=== PATIENT | male | born 1975 | race Caucasian/White ===

== ENCOUNTER 2016-12-25 08:33 | Inpatient (IN) | payer OTHER ==
[2016-12-25 09:59] VITALS: BMI 34.7
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
[2016-12-25] MEDS ORDERED: P-EPHED 60MG/TRIPROLIDI 2.5MG TABLET PO PRN (14:24)
[2016-12-25] MEDS ORDERED: LOPERAMIDE HCL 2 MG CAPSULE PO PRN (14:24)
[2016-12-25] MEDS ORDERED: MAGNESIUM CITRATE 300 ML BOTTLE PO PRN (14:24)
[2016-12-25] MEDS ORDERED: IBUPROFEN 400 MG TABLET (FP) PO PRN (14:24)
[2016-12-25] MEDS ORDERED: guaiFENesin/D-METHORPHAN HB 10 ML UNIT-DOSE CUPS PO PRN (14:24)
[2016-12-25] MEDS ORDERED: ACETAMINOPHEN 325 MG TABLET (FP) PO PRN (14:24)
[2016-12-25] MEDS ORDERED: MAGNESIUM HYDROX 2400MG/30ML ORAL SUSPENSION 30 ML CUP PO PRN (14:24)
[2016-12-25] MEDS ORDERED: MAG HYDROX/AL HYDROX/SIMETH 30 ML UNIT-DOSE CUP PO PRN (14:24)
[2016-12-25] MEDS ORDERED: MENTHOL/PHENOL 1 EACH UD MM PRN (14:24)
[2016-12-25] MEDS ORDERED: diazePAM 5 MG TABLET PO ONE (14:48)
[2016-12-25] MEDS ORDERED: METHADONE HCL 10 MG TABLET (FOR DETOX USE ONLY) PO ONE ×2 (14:51→23:00)
[2016-12-25] MEDS: NICOTINE 14 MG/24 HOURS TOPICAL PATCH TD SCH (15:12)
[2016-12-25 17:46] LABS: URINE APPEARANCE CLEAR; URINE BILIRUBIN NEGATIVE (NEGATIVE); URINE BLOOD NEGATIVE (NEGATIVE); URINE COLOR YELLOW; URINE GLUCOSE (UA) NEGATIVE (NEGATIVE); URINE KETONE NEGATIVE (NEGATIVE); URINE LEUK ESTERASE NEGATIVE (NEGATIVE); URINE NITRITE NEGATIVE (NEGATIVE); URINE PROTEIN NEGATIVE (NEGATIVE); URINE UROBILINOGEN NEGATIVE E.U./dl (0.2-1.0)
[2016-12-25] MEDS: diphenhydrAMINE HCL 50 MG CAPSULE PO PRN (22:28)
[2016-12-25] MEDS: THIAMINE HCL 100 MG TABLET (FP) PO SCH (22:28)
[2016-12-25] MEDS: BUDESONIDE/FORMETEROL FUMARATE 80/4.5 mcg INHALER IH SCH (22:28)
[2016-12-25] MEDS: diazePAM 5 MG TABLET PO SCH (22:28)
[2016-12-26 03:24] LABS: HIV 1 & 2 AB NEGATIVE; HIV 1 AGp24 NEGATIVE
[2016-12-26] MEDS: diazePAM 5 MG TABLET PO SCH ×3 (05:55→22:35)
[2016-12-26] MEDS ORDERED: METHADONE HCL 10 MG TABLET (FOR DETOX USE ONLY) PO SCH (10:00)
[2016-12-26 10:07] LABS: MCH 32.3 pg (25.7-33.7); MCHC 33.1 g/dl (32.0-35.9); MEAN CELL VOLUME 97.5 fl (80-96); MEAN PLT VOLUME 10.1 fl (7.5-11.1); PLATELET COUNT 273 K/MM3 (134-434); RDW 13.4 % (11.9-15.9); WHITE BLOOD COUNT 14.3 K/mm3 (4.0-10.0)
[2016-12-26 10:16] LABS: ALBUMIN 4.6 g/dl (3.4-5.0); ANION GAP 12 (8-16); CALCIUM 8.7 mg/dL (8.5-10.1); CO2 26 mmol/L (21-32); GLUCOSE,RANDOM 144 mg/dL (74-106)
[2016-12-26 10:20] LABS: ALK PHOS 71 U/L (45-117); BILIRUBIN,TOTAL 0.8 mg/dL (0.2-1.0); COCKROFT - GAULT 108.65; CREATININE 1.3 mg/dL (0.7-1.3); SGOT/AST 29 U/L (15-37); SGPT/ALT 37 U/L (12-78); TOT PROT 8.5 g/dl (6.4-8.2)
[2016-12-26] MEDS: PRENATAL VITAMINS W/ FOLIC ACID TABLET (FP) PO SCH (10:28)
[2016-12-26] MEDS: LORATADINE 10 MG TABLET PO SCH (10:28)
[2016-12-26] MEDS: HYDROCHLOROTHIAZIDE 12.5 MG CAPSULE (FP) PO SCH (10:28)
[2016-12-26] MEDS: diazePAM 5 MG TABLET PO PRN ×2 (10:29→18:01)
[2016-12-26] MEDS: NICOTINE 14 MG/24 HOURS TOPICAL PATCH TD SCH (10:29)
[2016-12-26] MEDS: NICOTINE POLACRILEX 2 MG GUM BUC PRN ×2 (10:29→23:03)
--- NOTE | 2016-12-26 10:50 | PN ---
[facility] CIWA - CIWA Score Nausea/Vomitin Muscle Tremors: 3 Anxiety: 3 Agitation: 2 Paroxysmal Sweats: 1-Minimal Palms Moist Orientation: 0-Oriented Tacttile Disturbances: 1-Very Mild Itch/Numbness Auditory Disturbances: 1-Very Mild Visual Disturbances: 1-Very Mild Sensitivity Headache: 2-Mild CIWA-Ar Total Score: 17 S Progress Note (SOAP) Subjective: ALERT,IRRITABLE,ANXIOUS,TREMOR,INTERRUPTED SLEEP Objective: 12/26/16 10:47 Vital Signs Temperature 96.8 F L 12/26/16 09:25 Pulse Rate 64 12/26/16 09:25 Respiratory Rate 18 12/26/16 09:25 Blood Pressure 126/76 12/26/16 09:25 O2 Sat by Pulse Oximetry (%) EKG NSR,NORMAL ECG Laboratory Last Values WBC 14.3 K/mm3 (4.0-10.0) H D 12/26/16 06:00 RBC 4.96 M/mm3 (4.00-5.60) 12/26/16 06:00 Hgb 16.0 GM/dL (11.7-16.9) D 12/26/16 06:00 Hct 48.4 % (35.4-49) 12/26/16 06:00 MCV 97.5 fl (80-96) H 12/26/16 06:00 MCHC 33.1 g/dl (32.0-35.9) 12/26/16 06:00 RDW 13.4 % (11.9-15.9) 12/26/16 06:00 Plt Count 273 K/MM3 (134-434) 12/26/16 06:00 MPV 10.1 fl (7.5-11.1) 12/26/16 06:00 Sodium 136 mmol/L (136-145) 12/26/16 06:00 Potassium 3.8 mmol/L (3.5-5.1) 12/26/16 06:00 Chloride 98 mmol/L (98-107) 12/26/16 06:00 Carbon Dioxide 26 mmol/L (21-32) 12/26/16 06:00 Anion Gap 12 (8-16) 12/26/16 06:00 BUN 22 mg/dL (7-18) H D 12/26/16 06:00 Creatinine 1.3 mg/dL (0.7-1.3) D 12/26/16 06:00 Creat Clearance w eGFR > 60 (>60) 12/26/16 06:00 Random Glucose 144 mg/dL (74-106) H D 12/26/16 06:00 Calcium 8.7 mg/dL (8.5-10.1) 12/26/16 06:00 Total Bilirubin 0.8 mg/dL (0.2-1.0) D 12/26/16 06:00 AST 29 U/L (15-37) D 12/26/16 06:00 ALT 37 U/L (12-78) 12/26/16 06:00 Alkaline Phosphatase 71 U/L (45-117) D 12/26/16 06:00 Total Protein 8.5 g/dl (6.4-8.2) H D 12/26/16 06:00 Albumin 4.6 g/dl (3.4-5.0) D 12/26/16 06:00 Urine Color Yellow 12/25/16 17:00 Urine Appearance Clear 12/25/16 17:00 Urine pH 5.0 (5.0-8.0) 12/25/16 17:00 Ur Specific [place] 1.025 (1.005-1.025) 12/25/16 17:00 Urine Protein Negative (NEGATIVE) 12/25/16 17:00 Urine Glucose (UA) Negative (NEGATIVE) 12/25/16 17:00 Urine Ketones Negative (NEGATIVE) 12/25/16 17:00 Urine Blood Negative (NEGATIVE) 12/25/16 17:00 Urine Nitrite Negative (NEGATIVE) 12/25/16 17:00 Urine Bilirubin Negative (NEGATIVE) 12/25/16 17:00 Urine Urobilinogen Negative E.U./dl (0.2-1.0) 12/25/16 17:00 Ur Leukocyte Esterase Negative (NEGATIVE) 12/25/16 17:00 HIV 1&2 Antibody Screen Negative 12/25/16 11:30 HIV P24 Antigen Negative 12/25/16 11:30 Assessment: 12/26/16 10:48 WITHDRAWAL SYMPTOM Plan: CONTINUE DETOX,ENCOURAGE ORAL FLUID,REPEAT CBC ,BMP IN AM,INITIAL CBC WBC IS 14, 300.INITIAL GLUCOSE IS 144
[2016-12-26] MEDS: BUDESONIDE/FORMETEROL FUMARATE 80/4.5 mcg INHALER IH SCH ×2 (12:12→22:36)
--- NOTE | 2016-12-26 12:38 | EKG ---
Test Reason : Blood Pressure : / mmHG Vent. Rate : 063 BPM Atrial Rate : 063 BPM P-R Int : 156 ms QRS Dur : 092 ms QT Int : 416 ms P-R-T Axes : 063 061 039 degrees QTc Int : 425 ms NORMAL SINUS RHYTHM NORMAL ECG NO PREVIOUS ECGS AVAILABLE Confirmed by ALBA JOSEPH, SOHAIL ([id number]) on 12/26/2016 12:38:24 PM Referred By: Rafita Monzon Confirmed By:SOHAIL WILLIS MD
--- NOTE | 2016-12-26 14:29 | CONSULT ---
[facility] Psychiatric Consult - Data Date of interview: 12/26/16 Admission source: [facility] Identifying data: Readmission to [facility] for this 39 y/o male seeking detoxification treatment for cocaine,marijuana and methamphetamine dependence.Patient is single,a father of one,domiciled,unemployed and supported on SSI benefits. Substance Abuse History: - Smoking Cessation. Smoking history: Current every day smoker. Have you smoked in the past 12 months: Yes. Aproximately how many cigarettes per day: 10. Cigars Per Day: 0. Hx Chewing Tobacco Use: No. Initiated information on smoking cessation: Yes. 'Breaking Loose' booklet given : 12/25/16. - Substance & Tx. History. Hx Alcohol Use: Yes (BEER). Hx Substance Use: Yes (HEROIN/COCAINE/CRYSTAL METHAMPHETAMINE). Substance Use Type : Alcohol, Cocaine, Heroin. Hx Substance Use Treatment: Yes ([facility]-DETOX). - Substances Abused. Heroin. Route: Inhalation. Frequency: Daily. Amount used: 6 bags. Age of first use: 37. Date of Last Use: 12/25/16. Crack. Route: Smoking. Frequency: Daily. Amount used: $100. Age of first use: 19. Date of Last Use: 12/24/16. Alcohol-beer. Route: Oral. Frequency: 1-2 times per week. Amount used: 3 (16 oz.). Age of first use: 20. Date of Last Use: 12/23/16. Crystal methamphetamine. Route: Smoking. Frequency: 1-2 times per week. Amount used: $150. Age of first use: 37. Date of Last Use: . Confirmed by patient. Medical History: Hypertension,seizure disorder and bronchial asthma. Psychiatric History: Extensive history of psychiatric illness.Diagnosed with Bipolar Disorder and ADHD.History of multiple admissions to various institutions.Treated at [facility] in September 2016.Maintenance medications consist of valproate + zoloft (doses not recalled) .Mr Rodriguez is followed at the [facility] health clinic.Chronic history of non-adherence to medications.Remote history of suicide attempt via self mutilation (wrist-cutting). Physical/Sexual Abuse/Trauma History: Not discussed in this encounter. Additional Comment: Urine Drug Screen Results: OPI-Opiates.Noted. Mental Status Exam - Mental Status Exam Alert and Oriented to: Time, Place, Person Cognitive Function: Good Patient Appearance: Well Groomed Mood: Hopeful, Euthymic Affect: Appropriate, Normal Range Patient Behavior: Fatigued, Appropriate, Cooperative Speech Pattern: Clear, Appropriate Voice Loudness: Normal Thought Process: Goal Oriented Thought Disorder: Not Present Hallucinations: Denies Suicidal Ideation: Denies Homicidal Ideation: Denies Insight/Judgement: Poor Sleep: Well Appetite: Good Muscle strength/Tone: Normal Gait/Station: Normal Psychiatric Findings - Problem List ([place] 1, 2,3) (1) Alcohol dependence with withdrawal Current Visit: Yes Status: Acute Qualifiers: Complication of substance-induced condition: uncomplicated Qualified Code(s): F10.230 - Alcohol dependence with withdrawal, uncomplicated (2) Nicotine dependence Current Visit: Yes Status: Acute Qualifiers: Nicotine product type: cigarettes Substance use status: uncomplicated Qualified Code(s): F17.210 - Nicotine dependence, cigarettes, uncomplicated (3) Cocaine dependence Current Visit: Yes Status: Acute Qualifiers: Substance use status: uncomplicated Qualified Code(s): F14.20 - Cocaine dependence, uncomplicated (4) ADHD (attention deficit hyperactivity disorder) Current Visit: Yes Status: Chronic Qualifiers: Attention deficit-hyperactivity disorder type: unspecified Qualified Code(s): F90.9 - Attention-deficit hyperactivity disorder, unspecified type (5) Bipolar disorder Current Visit: Yes Status: Chronic - Initial Treatment Plan Initial Treatment Plan: Psychoeducation.Detoxification.Medications : depakote 500 mg po bid + zoloft 50 mg po daily.Side effects/benefits discussed with patient.He agrees with careplan.Observation.
[2016-12-26] MEDS: DIVALPROEX SODIUM 500 MG TABLET E.C. PO SCH (22:35)
[2016-12-26] MEDS: THIAMINE HCL 100 MG TABLET (FP) PO SCH (22:37)
[2016-12-26] MEDS: diphenhydrAMINE HCL 50 MG CAPSULE PO PRN (22:37)
[2016-12-27] MEDS: diazePAM 5 MG TABLET PO PRN ×4 (05:54→20:53)
[2016-12-27 09:59] LABS: MCH 33.2 pg (25.7-33.7); MCHC 34.1 g/dl (32.0-35.9); MEAN CELL VOLUME 97.5 fl (80-96); MEAN PLT VOLUME 9.8 fl (7.5-11.1); PLATELET COUNT 206 K/MM3 (134-434); RDW 13.3 % (11.9-15.9); WHITE BLOOD COUNT 11.3 K/mm3 (4.0-10.0)
[2016-12-27 10:10] LABS: CALCIUM 8.2 mg/dL (8.5-10.1); COCKROFT - GAULT 156.95; CREATININE 0.9 mg/dL (0.7-1.3)
[2016-12-27] MEDS: BUDESONIDE/FORMETEROL FUMARATE 80/4.5 mcg INHALER IH SCH ×2 (10:14→22:19)
[2016-12-27] MEDS: NICOTINE 14 MG/24 HOURS TOPICAL PATCH TD SCH (10:15)
[2016-12-27] MEDS: HYDROCHLOROTHIAZIDE 12.5 MG CAPSULE (FP) PO SCH (10:15)
[2016-12-27] MEDS: diazePAM 5 MG TABLET PO SCH ×2 (10:15→22:30)
[2016-12-27] MEDS: PRENATAL VITAMINS W/ FOLIC ACID TABLET (FP) PO SCH (10:15)
[2016-12-27] MEDS: METHADONE HCL 5 MG TABLET (FOR DETOX USE ONLY) PO SCH (10:15)
[2016-12-27] MEDS: LORATADINE 10 MG TABLET PO SCH (10:15)
[2016-12-27] MEDS: DIVALPROEX SODIUM 500 MG TABLET E.C. PO SCH ×2 (10:15→22:19)
[2016-12-27] MEDS: SERTRALINE HCL 50 MG TABLET (FP) PO SCH (10:15)
--- NOTE | 2016-12-27 11:31 | PN ---
[facility] CIWA - CIWA Score Nausea/Vomitin Muscle Tremors: 4-Moderate,w/Arms Extend Anxiety: 2 Agitation: 2 Paroxysmal Sweats: 3 Orientation: 0-Oriented Tacttile Disturbances: 0-None Auditory Disturbances: 2-Mild Harshness/Frighten Visual Disturbances: 2-Mild Sensitivity Headache: 0-None Present CIWA-Ar Total Score: 17 S COWS - Scale Resting Pulse: 0= [place] 80 or Below Sweatin= Chills/Flushing Restless Observation: 1= Difficult to Sit Still Pupil Size: 0= Normal to Room Light Bone or Joint Aches: 2= Severe Diffuse Aches Runny Nose/ Eye Tearin= Runny Nose/Eyes GI Upset > 30mins: 1= Stomach Cramp Tremor Observation of Outstretched Hands: 2= Slight Tremor Visible Yawning Observation: 1= 1-2x During Session Anxiety or Irritability: 2=Irritable/Anxious Goose Flesh Skin: 0=Smooth Skin COWS Score: 12 [facility] Progress Note (SOAP) Subjective: Constipation, Fatigue, Stomach Cramping, Tremors, Body Aches, Sweating. Objective: PT. A & O X 3, OBSERVED AMBULATING ON UNIT. PT. DENIES CHEST PAIN. 12/27/16 11:29 Vital Signs Temperature 96.7 F L 12/27/16 09:06 Pulse Rate 68 12/27/16 09:06 Respiratory Rate 18 12/27/16 09:06 Blood Pressure 135/85 12/27/16 09:06 O2 Sat by Pulse Oximetry (%) Laboratory Tests 12/25/16 12/25/16 12/26/16 11:30 17:00 06:00 WBC 14.3 H D RBC 4.96 Hgb 16.0 D Hct 48.4 MCV 97.5 H MCHC 33.1 RDW 13.4 Plt Count 273 MPV 10.1 Sodium Potassium Chloride Carbon Dioxide Anion Gap BUN Creatinine Creat Clearance w eGFR Random Glucose Fasting Glucose Calcium Total Bilirubin AST ALT Alkaline Phosphatase Total Protein Albumin Urine Color Yellow Urine Appearance Clear Urine pH 5.0 Ur Specific [place] 1.025 Urine Protein Negative Urine Glucose (UA) Negative Urine Ketones Negative Urine Blood Negative Urine Nitrite Negative Urine Bilirubin Negative Urine Urobilinogen Negative Ur Leukocyte Esterase Negative RPR Titer HIV 1&2 Antibody Screen Negative HIV P24 Antigen Negative 12/26/16 12/26/1612/27/17 06:00 06:00 07:00 WBC 11.3 H RBC 4.14 Hgb 13.7 D Hct 40.3 D MCV 97.5 H MCHC 34.1 RDW 13.3 Plt Count 206 D MPV 9.8 Sodium 136 Potassium 3.8 Chloride 98 Carbon Dioxide 26 Anion Gap 12 BUN 22 H D Creatinine 1.3 D Creat Clearance w eGFR > 60 Random Glucose 144 H D Fasting Glucose Calcium 8.7 Total Bilirubin 0.8 D AST 29 D ALT 37 Alkaline Phosphatase 71 D Total Protein 8.5 H D Albumin 4.6 D Urine Color Urine Appearance Urine pH Ur Specific [place] Urine Protein Urine Glucose (UA) Urine Ketones Urine Blood Urine Nitrite Urine Bilirubin Urine Urobilinogen Ur Leukocyte Esterase RPR Titer Nonreactive HIV 1&2 Antibody Screen HIV P24 Antigen 12/27/16 07:00 WBC RBC Hgb Hct MCV MCHC RDW Plt Count MPV Sodium 138 Potassium 4.0 Chloride 102 Carbon Dioxide 28 Anion Gap 8 BUN 18 Creatinine 0.9 D Creat Clearance w eGFR Random Glucose 177 H D Fasting Glucose 177 H Calcium 8.2 L Total Bilirubin AST ALT Alkaline Phosphatase Total Protein Albumin Urine Color Urine Appearance Urine pH Ur Specific [place] Urine Protein Urine Glucose (UA) Urine Ketones Urine Blood Urine Nitrite Urine Bilirubin Urine Urobilinogen Ur Leukocyte Esterase RPR Titer HIV 1&2 Antibody Screen HIV P24 Antigen LABS NOTED. 12/27/16 11:31 Assessment: 12/27/16 11:30 WITHDRAWAL SYMPTOMS. Plan: CONTINUE DETOX. BGM BIDAC WITH REGULAR INSULIN SLIDING SCALE FOR ELEVATED ADMISSION RANDOM GLUCOSE LEVEL AND SUBSEQUENT FASTING GLUCOSE LEVEL. HGBA1C ORDERED. INCREASE PO FLUIDS. PRN MOM FOR CONSTIPATION. ADVISED PT. TO FOLLOW-UP WITH [facility] [employer] AFTER DISCHARGE FROM DETOX FOR GENERAL MEDICAL ASSESSMENT AND FOR ELEVATED RANDOM AND FASTING GLUCOSE LEVELS.
[2016-12-27] MEDS: NICOTINE POLACRILEX 2 MG GUM BUC PRN (12:21)
[2016-12-27] MEDS: PANTOPRAZOLE 40 MG TABLET (FP) PO SCH (12:24)
[2016-12-27] MEDS ORDERED: INSULIN (NOVOLOG) ASPART 100 UNITS/ML 10ML VIAL ONE (16:28)
[2016-12-27] MEDS: INSULIN SLIDING SCALE (NOVOLOG) 1 VIAL SQ SCH (16:50)
[2016-12-27] MEDS: ALBUTEROL SO4 6.7 GM HFA INHALER IH PRN (20:53)
[2016-12-27] MEDS: THIAMINE HCL 100 MG TABLET (FP) PO SCH (22:19)
[2016-12-27] MEDS: diphenhydrAMINE HCL 50 MG CAPSULE PO PRN (22:20)
[2016-12-28] MEDS: diazePAM 5 MG TABLET PO PRN (04:14)
[2016-12-28] MEDS: ALBUTEROL SO4 6.7 GM HFA INHALER IH PRN (05:58)
[2016-12-28] MEDS: INSULIN SLIDING SCALE (NOVOLOG) 1 VIAL SQ SCH ×2 (06:52→16:44)
[2016-12-28] MEDS: BUDESONIDE/FORMETEROL FUMARATE 80/4.5 mcg INHALER IH SCH ×2 (10:16→22:13)
[2016-12-28] MEDS: PRENATAL VITAMINS W/ FOLIC ACID TABLET (FP) PO SCH (10:17)
[2016-12-28] MEDS: LORATADINE 10 MG TABLET PO SCH (10:17)
[2016-12-28] MEDS: HYDROCHLOROTHIAZIDE 12.5 MG CAPSULE (FP) PO SCH (10:17)
[2016-12-28] MEDS: PANTOPRAZOLE 40 MG TABLET (FP) PO SCH (10:17)
[2016-12-28] MEDS: SERTRALINE HCL 50 MG TABLET (FP) PO SCH (10:17)
[2016-12-28] MEDS: METHADONE HCL 5 MG TABLET (FOR DETOX USE ONLY) PO SCH (10:17)
[2016-12-28] MEDS: DIVALPROEX SODIUM 500 MG TABLET E.C. PO SCH ×2 (10:17→22:14)
[2016-12-28] MEDS: NICOTINE 14 MG/24 HOURS TOPICAL PATCH TD SCH (10:19)
[2016-12-28] MEDS: diazePAM 5 MG TABLET PO SCH ×2 (10:19→22:14)
--- NOTE | 2016-12-28 12:31 | PN ---
[facility] Progress Note (SOAP) Subjective: Sweating,interrupted sleep,restless Objective: 12/28/16 12:30 Vital Signs - 8 hr 12/28/16 12/28/16 06:13 09:17 Temperature 97.2 F L 97.1 F L Pulse Rate 63 70 Respiratory 146 H 18 Rate Blood Pressure 130/72 133/81 Laboratory Tests 12/25/16 12/25/16 12/26/16 11:30 17:00 06:00 WBC 14.3 H D RBC 4.96 Hgb 16.0 D Hct 48.4 MCV 97.5 H MCHC 33.1 RDW 13.4 Plt Count 273 MPV 10.1 Sodium Potassium Chloride Carbon Dioxide Anion Gap BUN Creatinine Creat Clearance w eGFR POC Glucometer Random Glucose Fasting Glucose Hemoglobin A1c % Calcium Total Bilirubin AST ALT Alkaline Phosphatase Total Protein Albumin Urine Color Yellow Urine Appearance Clear Urine pH 5.0 Ur Specific [place] 1.025 Urine Protein Negative Urine Glucose (UA) Negative Urine Ketones Negative Urine Blood Negative Urine Nitrite Negative Urine Bilirubin Negative Urine Urobilinogen Negative Ur Leukocyte Esterase Negative Valproic Acid RPR Titer HIV 1&2 Antibody Screen Negative HIV P24 Antigen Negative 12/26/16 12/26/16 12/27/16 06:00 06:00 07:00 WBC 11.3 H RBC 4.14 Hgb 13.7 D Hct 40.3 D MCV 97.5 H MCHC 34.1 RDW 13.3 Plt Count 206 D MPV 9.8 Sodium 136 Potassium 3.8 Chloride 98 Carbon Dioxide 26 Anion Gap 12 BUN 22 H D Creatinine 1.3 D Creat Clearance w eGFR > 60 POC Glucometer Random Glucose 144 H D Fasting Glucose Hemoglobin A1c % Calcium 8.7 Total Bilirubin 0.8 D AST 29 D ALT 37 Alkaline Phosphatase 71 D Total Protein 8.5 H D Albumin 4.6 D Urine Color Urine Appearance Urine pH Ur Specific [place] Urine Protein Urine Glucose (UA) Urine Ketones Urine Blood Urine Nitrite Urine Bilirubin Urine Urobilinogen Ur Leukocyte Esterase Valproic Acid RPR Titer Nonreactive HIV 1&2 Antibody Screen HIV P24 Antigen 12/27/16 12/27/16 12/28/16 07:00 16:15 05:38 WBC RBC Hgb Hct MCV MCHC RDW Plt Count MPV Sodium 138 Potassium 4.0 Chloride 102 Carbon Dioxide 28 Anion Gap 8 BUN 18 Creatinine 0.9 D Creat Clearance w eGFR POC Glucometer 183 119 Random Glucose 177 H D Fasting Glucose 177 H Hemoglobin A1c % Calcium 8.2 L Total Bilirubin AST ALT Alkaline Phosphatase Total Protein Albumin Urine Color Urine Appearance Urine pH Ur Specific [place] Urine Protein Urine Glucose (UA) Urine Ketones Urine Blood Urine Nitrite Urine Bilirubin Urine Urobilinogen Ur Leukocyte Esterase Valproic Acid RPR Titer HIV 1&2 Antibody Screen HIV P24 Antigen 12/28/16 12/28/16 07:00 07:00 WBC RBC Hgb Hct MCV MCHC RDW Plt Count MPV Sodium Potassium Chloride Carbon Dioxide Anion Gap BUN Creatinine Creat Clearance w eGFR POC Glucometer Random Glucose Fasting Glucose Hemoglobin A1c % 6.1 H Calcium Total Bilirubin AST ALT Alkaline Phosphatase Total Protein Albumin Urine Color Urine Appearance Urine pH Ur Specific [place] Urine Protein Urine Glucose (UA) Urine Ketones Urine Blood Urine Nitrite Urine Bilirubin Urine Urobilinogen Ur Leukocyte Esterase Valproic Acid 67.515 RPR Titer HIV 1&2 Antibody Screen HIV P24 Antigen labs noted Assessment: 12/28/16 12:30 Withdrawal sx. Plan: Continue detox
[2016-12-28] MEDS ORDERED: INSULIN (NOVOLOG) ASPART 100 UNITS/ML 10ML VIAL ONE (16:29)
[2016-12-28] MEDS: NICOTINE POLACRILEX 2 MG GUM BUC PRN ×2 (18:59→22:15)
[2016-12-28] MEDS ORDERED: hydrOXYzine PAMOATE 50 MG CAPSULE (FP) PO ONE (20:10)
[2016-12-28] MEDS: THIAMINE HCL 100 MG TABLET (FP) PO SCH (22:13)
[2016-12-28] MEDS: diphenhydrAMINE HCL 50 MG CAPSULE PO PRN (22:14)
[2016-12-29] MEDS ORDERED: hydrOXYzine PAMOATE 50 MG CAPSULE (FP) PO PRN (00:57)
[2016-12-29] MEDS: INSULIN SLIDING SCALE (NOVOLOG) 1 VIAL SQ SCH ×2 (08:18→17:22)
[2016-12-29] MEDS ORDERED: INSULIN (NOVOLOG) ASPART 100 UNITS/ML 10ML VIAL ONE ×2 (08:51→17:16)
[2016-12-29] MEDS ORDERED: diazePAM 5 MG TABLET PO SCH (10:00)
[2016-12-29] MEDS ORDERED: METHADONE HCL 10 MG TABLET (FOR DETOX USE ONLY) PO SCH (10:00)
[2016-12-29] MEDS: BUDESONIDE/FORMETEROL FUMARATE 80/4.5 mcg INHALER IH SCH ×2 (10:08→22:04)
[2016-12-29] MEDS: SERTRALINE HCL 50 MG TABLET (FP) PO SCH (10:08)
[2016-12-29] MEDS: PRENATAL VITAMINS W/ FOLIC ACID TABLET (FP) PO SCH (10:08)
[2016-12-29] MEDS: PANTOPRAZOLE 40 MG TABLET (FP) PO SCH (10:08)
[2016-12-29] MEDS: LORATADINE 10 MG TABLET PO SCH (10:08)
[2016-12-29] MEDS: DIVALPROEX SODIUM 500 MG TABLET E.C. PO SCH ×2 (10:08→22:04)
[2016-12-29] MEDS: HYDROCHLOROTHIAZIDE 12.5 MG CAPSULE (FP) PO SCH (10:08)
[2016-12-29] MEDS: NICOTINE 14 MG/24 HOURS TOPICAL PATCH TD SCH (10:09)
[2016-12-29] MEDS: NICOTINE POLACRILEX 2 MG GUM BUC PRN ×2 (10:11→13:42)
--- NOTE | 2016-12-29 10:50 | PN ---
[facility] Progress Note (SOAP) Subjective: shakes, sweats, anxiety, bone pain Objective: 12/29/16 10:49 Vital Signs - 8 hr 12/29/16 12/29/16 12/29/16 03:30 06:21 10:17 Temperature 97 F L 97.1 F L Pulse Rate 61 61 Respiratory 18 16 18 Rate Blood Pressure 136/87 137/80 Laboratory Last Values WBC 11.3 K/mm3 (4.0-10.0) H 12/27/16 07:00 RBC 4.14 M/mm3 (4.00-5.60) 12/27/16 07:00 Hgb 13.7 GM/dL (11.7-16.9) D 12/27/16 07:00 Hct 40.3 % (35.4-49) D 12/27/16 07:00 MCV 97.5 fl (80-96) H 12/27/16 07:00 MCHC 34.1 g/dl (32.0-35.9) 12/27/16 07:00 RDW 13.3 % (11.9-15.9) 12/27/16 07:00 Plt Count 206 K/MM3 (134-434) D 12/27/16 07:00 MPV 9.8 fl (7.5-11.1) 12/27/16 07:00 Sodium 138 mmol/L (136-145) 12/27/16 07:00 Potassium 4.0 mmol/L (3.5-5.1) 12/27/16 07:00 Chloride 102 mmol/L (98-107) 12/27/16 07:00 Carbon Dioxide 28 mmol/L (21-32) 12/27/16 07:00 Anion Gap 8 (8-16) 12/27/16 07:00 BUN 18 mg/dL (7-18) 12/27/16 07:00 Creatinine 0.9 mg/dL (0.7-1.3) D 12/27/16 07:00 Creat Clearance w eGFR > 60 (>60) 12/26/16 06:00 POC Glucometer 168 UNITS (()) 12/29/16 05:45 Random Glucose 177 mg/dL (74-106) H D 12/27/16 07:00 Fasting Glucose 177 mg/dL (70-105) H 12/27/16 07:00 Hemoglobin A1c % 6.1 % (4.8-6.0) H 12/28/16 07:00 Calcium 8.2 mg/dL (8.5-10.1) L 12/27/16 07:00 Total Bilirubin 0.8 mg/dL (0.2-1.0) D 12/26/16 06:00 AST 29 U/L (15-37) D 12/26/16 06:00 ALT 37 U/L (12-78) 12/26/16 06:00 Alkaline Phosphatase 71 U/L (45-117) D 12/26/16 06:00 Total Protein 8.5 g/dl (6.4-8.2) H D 12/26/16 06:00 Albumin 4.6 g/dl (3.4-5.0) D 12/26/16 06:00 Urine Color Yellow 12/25/16 17:00 Urine Appearance Clear 12/25/16 17:00 Urine pH 5.0 (5.0-8.0) 12/25/16 17:00 Ur Specific [place] 1.025 (1.005-1.025) 12/25/16 17:00 Urine Protein Negative (NEGATIVE) 12/25/16 17:00 Urine Glucose (UA) Negative (NEGATIVE) 12/25/16 17:00 Urine Ketones Negative (NEGATIVE) 12/25/16 17:00 Urine Blood Negative (NEGATIVE) 12/25/16 17:00 Urine Nitrite Negative (NEGATIVE) 12/25/16 17:00 Urine Bilirubin Negative (NEGATIVE) 12/25/16 17:00 Urine Urobilinogen Negative E.U./dl (0.2-1.0) 12/25/16 17:00 Ur Leukocyte Esterase Negative (NEGATIVE) 12/25/16 17:00 Valproic Acid 67.515 ug/ml (50-100) 12/28/16 07:00 RPR Titer Nonreactive (NONREACTIVE) 12/26/16 06:00 HIV 1&2 Antibody Screen Negative 12/25/16 11:30 HIV P24 Antigen Negative 12/25/16 11:30 labs noted Assessment: 12/29/16 10:50 withdrawal sx Plan: continue detox
[2016-12-29] MEDS: HYDROCHLOROTHIAZIDE 25 MG TABLET (FP) PO SCH (22:04)
[2016-12-29] MEDS: THIAMINE HCL 100 MG TABLET (FP) PO SCH (22:05)
[2016-12-29] MEDS: diphenhydrAMINE HCL 50 MG CAPSULE PO PRN (22:06)
[2016-12-30] MEDS ORDERED: INSULIN (NOVOLOG) ASPART 100 UNITS/ML 10ML VIAL ONE (05:30)
[2016-12-30] MEDS ORDERED: METHADONE HCL 5 MG TABLET (FOR DETOX USE ONLY) PO SCH (06:00)
[2016-12-30] MEDS: INSULIN SLIDING SCALE (NOVOLOG) 1 VIAL SQ SCH (07:03)
[2016-12-30] MEDS: BUDESONIDE/FORMETEROL FUMARATE 80/4.5 mcg INHALER IH SCH (10:07)
[2016-12-30] MEDS: NICOTINE 14 MG/24 HOURS TOPICAL PATCH TD SCH (10:08)
[2016-12-30] MEDS: DIVALPROEX SODIUM 500 MG TABLET E.C. PO SCH (10:08)
[2016-12-30] MEDS: HYDROCHLOROTHIAZIDE 25 MG TABLET (FP) PO SCH (10:08)
[2016-12-30] MEDS: SERTRALINE HCL 50 MG TABLET (FP) PO SCH (10:08)
[2016-12-30] MEDS: PRENATAL VITAMINS W/ FOLIC ACID TABLET (FP) PO SCH (10:08)
[2016-12-30] MEDS: PANTOPRAZOLE 40 MG TABLET (FP) PO SCH (10:08)
[2016-12-30] MEDS: LORATADINE 10 MG TABLET PO SCH (10:08)
[2016-12-30 10:16] VITALS: BP 115/75; PULSE 73; TEMP 96.6
--- NOTE | 2016-12-30 12:31 | DS ---
[facility] Detox Discharge Summary Admission Date: 12/25/16 Discharge Date: 12/30/16 - History Present History: Alcohol Dependence, Cocaine Dependence, Opioid Dependence Pertinent Past History: Asthma, mild intermittent GERD HTN Seizure disorder Allergic rhinitis - Physical Exam Results Vital Signs: Vital Signs Temperature 96.6 F L 12/30/16 10:16 Pulse Rate 73 12/30/16 10:16 Respiratory Rate 20 12/30/16 10:16 Blood Pressure 115/75 12/30/16 10:16 O2 Sat by Pulse Oximetry (%) Pertinent Admission Physical Exam Findings: Withdrawal symptoms Laboratory Tests 12/25/16 12/25/16 12/26/16 11:30 17:00 06:00 WBC 14.3 H D RBC 4.96 Hgb 16.0 D Hct 48.4 MCV 97.5 H MCHC 33.1 RDW 13.4 Plt Count 273 MPV 10.1 Sodium Potassium Chloride Carbon Dioxide Anion Gap BUN Creatinine Creat Clearance w eGFR POC Glucometer Random Glucose Fasting Glucose Hemoglobin A1c % Calcium Total Bilirubin AST ALT Alkaline Phosphatase Total Protein Albumin Urine Color Yellow Urine Appearance Clear Urine pH 5.0 Ur Specific [place] 1.025 Urine Protein Negative Urine Glucose (UA) Negative Urine Ketones Negative Urine Blood Negative Urine Nitrite Negative Urine Bilirubin Negative Urine Urobilinogen Negative Ur Leukocyte Esterase Negative Valproic Acid RPR Titer HIV 1&2 Antibody Screen Negative HIV P24 Antigen Negative 12/26/16 12/26/16 12/27/16 06:00 06:00 07:00 WBC 11.3 H RBC 4.14 Hgb 13.7 D Hct 40.3 D MCV 97.5 H MCHC 34.1 RDW 13.3 Plt Count 206 D MPV 9.8 Sodium 136 Potassium 3.8 Chloride 98 Carbon Dioxide 26 Anion Gap 12 BUN 22 H D Creatinine 1.3 D Creat Clearance w eGFR > 60 POC Glucometer Random Glucose 144 H D Fasting Glucose Hemoglobin A1c % Calcium 8.7 Total Bilirubin 0.8 D AST 29 D ALT 37 Alkaline Phosphatase 71 D Total Protein 8.5 H D Albumin 4.6 D Urine Color Urine Appearance Urine pH Ur Specific [place] Urine Protein Urine Glucose (UA) Urine Ketones Urine Blood Urine Nitrite Urine Bilirubin Urine Urobilinogen Ur Leukocyte Esterase Valproic Acid RPR Titer Nonreactive HIV 1&2 Antibody Screen HIV P24 Antigen 12/27/16 12/27/16 12/28/16 07:00 16:15 05:38 WBC RBC Hgb Hct MCV MCHC RDW Plt Count MPV Sodium 138 Potassium 4.0 Chloride 102 Carbon Dioxide 28 Anion Gap 8 BUN 18 Creatinine 0.9 D Creat Clearance w eGFR POC Glucometer 183 119 Random Glucose 177 H D Fasting Glucose 177 H Hemoglobin A1c % Calcium 8.2 L Total Bilirubin AST ALT Alkaline Phosphatase Total Protein Albumin Urine Color Urine Appearance Urine pH Ur Specific [place] Urine Protein Urine Glucose (UA) Urine Ketones Urine Blood Urine Nitrite Urine Bilirubin Urine Urobilinogen Ur Leukocyte Esterase Valproic Acid RPR Titer HIV 1&2 Antibody Screen HIV P24 Antigen 12/28/16 12/28/16 12/28/16 07:00 07:00 16:05 WBC RBC Hgb Hct MCV MCHC RDW Plt Count MPV Sodium Potassium Chloride Carbon Dioxide Anion Gap BUN Creatinine Creat Clearance w eGFR POC Glucometer 207 Random Glucose Fasting Glucose Hemoglobin A1c % 6.1 H Calcium Total Bilirubin AST ALT Alkaline Phosphatase Total Protein Albumin Urine Color Urine Appearance Urine pH Ur Specific [place] Urine Protein Urine Glucose (UA) Urine Ketones Urine Blood Urine Nitrite Urine Bilirubin Urine Urobilinogen Ur Leukocyte Esterase Valproic Acid 67.515 RPR Titer HIV 1&2 Antibody Screen HIV P24 Antigen 12/29/16 12/29/16 12/30/16 05:45 16:17 05:28 WBC RBC Hgb Hct MCV MCHC RDW Plt Count MPV Sodium Potassium Chloride Carbon Dioxide Anion Gap BUN Creatinine Creat Clearance w eGFR POC Glucometer 168 222 274 Random Glucose Fasting Glucose Hemoglobin A1c % Calcium Total Bilirubin AST ALT Alkaline Phosphatase Total Protein Albumin Urine Color Urine Appearance Urine pH Ur Specific [place] Urine Protein Urine Glucose (UA) Urine Ketones Urine Blood Urine Nitrite Urine Bilirubin Urine Urobilinogen Ur Leukocyte Esterase Valproic Acid RPR Titer HIV 1&2 Antibody Screen HIV P24 Antigen Labs noted - Treatment Hospital Course: Detox Protocol Followed, Detoxed Safely, Responded well, Discharged Condition Good - Medication Discharge Medications: Ambulatory Orders Albuterol Sulfate Inhaler - [Ventolin HFA Inhaler -] 2 inh PO Q4H PRN #1 inhaler 02/18/16 Fluticasone/Salmeterol [Advair 250-50 Diskus] 1 each IH BID #1 disk.w.dev Ascorbic Acid [Vitamin C -] 500 mg PO BID 12/25/16 Divalproex Sodium 500 mg PO BID 12/25/16 Hydrochlorothiazide [Hctz -] 12.5 mg PO DAILY 12/25/16 Loratadine [Claritin -] 10 mg PO DAILY 12/25/16 Melatonin [Melatonin (Nf)] 6 mg PO HS PRN 12/25/16 Sertraline HCl [Zoloft -] 50 mg PO DAILY 12/25/16 - Diagnosis (1) Alcohol dependence with uncomplicated withdrawal Status: Acute (2) Cocaine dependence Status: Chronic Qualifiers: Substance use status: uncomplicated Qualified Code(s): F14.20 - Cocaine dependence, uncomplicated (3) Nicotine dependence Status: Chronic Qualifiers: Nicotine product type: cigarettes Substance use status: uncomplicated Qualified Code(s): F17.210 - Nicotine dependence, cigarettes, uncomplicated (4) Opioid dependence with withdrawal Status: Acute (5) Seizure Status: Chronic (6) HTN (hypertension), benign Status: Chronic (7) Asthma, mild intermittent Status: Chronic (8) GERD (gastroesophageal reflux disease) Status: Acute (9) Allergic rhinitis Status: Acute (10) Depression Status: Chronic - AMA Did Patient Leave Against Medical Advice: No
== END 2016-12-30 11:46 | disposition other institution (70) | DRG 773 ==
LOC: YASAS 08:33 → Y3N 11:06 → UNDOADMIN 11:06 → Y3N 11:07
PROVIDERS: ADMIT Internal Medicine; ATTEND Internal Medicine
PROC: HZ2ZZZZ Detoxification Services for Substance Abuse Treatment (ICD-10-PCS; principal; 2016-12-25)
DX: F11.23 Opioid dependence with withdrawal (principal); F10.230 Alcohol dependence with withdrawal, uncomplicated; F14.20 Cocaine dependence, uncomplicated; F17.210 Nicotine dependence, cigarettes, uncomplicated; F31.9 Bipolar disorder, unspecified; F90.9 Attention-deficit hyperactivity disorder, unspecified type; F32.9 Major depressive disorder, single episode, unspecified; I10 Essential (primary) hypertension; J45.20 Mild intermittent asthma, uncomplicated; J30.9 Allergic rhinitis, unspecified; E66.9 Obesity, unspecified; Z68.34 Body mass index [BMI] 34.0-34.9, adult; Z86.69 Personal history of other diseases of the nervous system and sense organs
CPT/HCPCS: 36415; 80048; 80053; 80164; 81003; 82947; 83036; 85027; 86593; 87389; 93005; 93010

== ENCOUNTER 2016-12-30 12:13 | Inpatient (IN) | payer OTHER ==
[2016-12-30] MEDS ORDERED: P-EPHED 60MG/TRIPROLIDI 2.5MG TABLET PO PRN (16:23)
[2016-12-30] MEDS ORDERED: ACETAMINOPHEN 325 MG TABLET (FP) PO PRN (16:23)
[2016-12-30] MEDS ORDERED: LOPERAMIDE HCL 2 MG CAPSULE PO PRN (16:23)
[2016-12-30] MEDS ORDERED: guaiFENesin/D-METHORPHAN HB 10 ML UNIT-DOSE CUPS PO PRN (16:23)
[2016-12-30] MEDS ORDERED: IBUPROFEN 400 MG TABLET (FP) PO PRN (16:23)
[2016-12-30] MEDS ORDERED: ALBUTEROL SO4 6.7 GM HFA INHALER IH PRN (16:23)
[2016-12-30] MEDS ORDERED: MAGNESIUM HYDROX 2400MG/30ML ORAL SUSPENSION 30 ML CUP PO PRN (16:23)
[2016-12-30] MEDS ORDERED: MENTHOL/PHENOL 1 EACH UD MM PRN (16:23)
[2016-12-30] MEDS ORDERED: MAGNESIUM CITRATE 300 ML BOTTLE PO PRN (16:23)
--- NOTE | 2016-12-30 16:26 | HP ---
[facility] Rehab Assess/Revision - Admission History Admitted to Rehab from: Y [facility] Date of Admission to Rehab: 12/30/16 - Vital signs Vital Signs: Vital Signs Period Temp Pulse Resp BP Sys/Aparicio Pulse Ox Last 24 Hr 98.7 F 71 18 127/81 - Findings Detox History & Physical reviewed: Yes Concur with findings: Yes
[2016-12-30] MEDS ORDERED: PNEUMOC 13-VAL CONJ-DIP CRM/PF 0.5 ML DISP.SYRIN IM ONE (18:33)
[2016-12-30] MEDS: BUDESONIDE/FORMETEROL FUMARATE 80/4.5 mcg INHALER IH SCH (21:36)
[2016-12-30] MEDS: DIVALPROEX SODIUM 500 MG TABLET E.C. PO SCH (21:36)
[2016-12-30] MEDS: SERTRALINE HCL 50 MG TABLET (FP) PO SCH (21:36)
[2016-12-30] MEDS: THIAMINE HCL 100 MG TABLET (FP) PO SCH (21:36)
[2016-12-30] MEDS: diphenhydrAMINE HCL 50 MG CAPSULE PO PRN (22:38)
[2016-12-30] MEDS: NICOTINE POLACRILEX 2 MG GUM BUC PRN (22:55)
[2016-12-31] MEDS ORDERED: INSULIN (NOVOLOG) ASPART 100 UNITS/ML 10ML VIAL ONE ×2 (06:17→16:52)
[2016-12-31] MEDS: INSULIN (NOVOLOG) ASPART 100 UNITS/ML 10ML VIAL SQ SCH ×2 (06:18→16:51)
[2016-12-31] MEDS: NICOTINE POLACRILEX 2 MG GUM BUC PRN ×3 (08:34→21:38)
[2016-12-31] MEDS: BUDESONIDE/FORMETEROL FUMARATE 80/4.5 mcg INHALER IH SCH ×2 (10:04→21:38)
[2016-12-31] MEDS: DIVALPROEX SODIUM 500 MG TABLET E.C. PO SCH ×2 (10:04→21:37)
[2016-12-31] MEDS: PRENATAL VITAMINS W/ FOLIC ACID TABLET (FP) PO SCH (10:04)
[2016-12-31] MEDS: SERTRALINE HCL 50 MG TABLET (FP) PO SCH ×2 (10:04→21:37)
[2016-12-31] MEDS: NICOTINE 14 MG/24 HOURS TOPICAL PATCH TD SCH (10:04)
[2016-12-31] MEDS: HYDROCHLOROTHIAZIDE 12.5 MG CAPSULE (FP) PO SCH (10:48)
[2016-12-31] MEDS ORDERED: PNEUMOC 13-VAL CONJ-DIP CRM/PF 0.5 ML DISP.SYRIN IM ONE (12:00)
[2016-12-31] MEDS ORDERED: PNEUMOCOCCAL 23 VACCINE 0.5 ML VIAL IM ONE (12:00)
[2016-12-31] MEDS: THIAMINE HCL 100 MG TABLET (FP) PO SCH (21:37)
[2016-12-31] MEDS: diphenhydrAMINE HCL 50 MG CAPSULE PO PRN (21:37)
[2017-01-01] MEDS: diphenhydrAMINE HCL 50 MG CAPSULE PO PRN ×2 (00:57→22:17)
[2017-01-01] MEDS: INSULIN (NOVOLOG) ASPART 100 UNITS/ML 10ML VIAL SQ SCH ×2 (06:16→16:47)
[2017-01-01] MEDS: BUDESONIDE/FORMETEROL FUMARATE 80/4.5 mcg INHALER IH SCH ×2 (10:08→21:25)
[2017-01-01] MEDS: DIVALPROEX SODIUM 500 MG TABLET E.C. PO SCH ×2 (10:08→21:24)
[2017-01-01] MEDS: HYDROCHLOROTHIAZIDE 12.5 MG CAPSULE (FP) PO SCH (10:08)
[2017-01-01] MEDS: PRENATAL VITAMINS W/ FOLIC ACID TABLET (FP) PO SCH (10:08)
[2017-01-01] MEDS: SERTRALINE HCL 50 MG TABLET (FP) PO SCH ×2 (10:08→21:24)
[2017-01-01] MEDS: NICOTINE 14 MG/24 HOURS TOPICAL PATCH TD SCH (10:10)
[2017-01-01] MEDS: NICOTINE POLACRILEX 2 MG GUM BUC PRN ×3 (10:10→21:25)
[2017-01-01] MEDS ORDERED: FUROSEMIDE 40 MG TABLET (FP) PO ONE (12:42)
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
[2017-01-01] MEDS ORDERED: INSULIN (NOVOLOG) ASPART 100 UNITS/ML 10ML VIAL ONE (16:44)
[2017-01-01] MEDS: AMOX TR/POT CLAV 875MG/125MG TABLETS (FP) PO SCH (16:44)
[2017-01-01] MEDS: BACITRACIN 0.9 GM PACKET TP SCH (21:24)
[2017-01-01] MEDS: THIAMINE HCL 100 MG TABLET (FP) PO SCH (21:24)
[2017-01-02] MEDS: INSULIN (NOVOLOG) ASPART 100 UNITS/ML 10ML VIAL SQ SCH ×2 (06:27→16:49)
[2017-01-02] MEDS: AMOX TR/POT CLAV 875MG/125MG TABLETS (FP) PO SCH ×2 (07:25→18:39)
[2017-01-02] MEDS: BACITRACIN 0.9 GM PACKET TP SCH ×2 (10:12→21:29)
[2017-01-02] MEDS: PRENATAL VITAMINS W/ FOLIC ACID TABLET (FP) PO SCH (10:12)
[2017-01-02] MEDS: BUDESONIDE/FORMETEROL FUMARATE 80/4.5 mcg INHALER IH SCH ×2 (10:12→21:29)
[2017-01-02] MEDS: SERTRALINE HCL 50 MG TABLET (FP) PO SCH ×2 (10:12→21:29)
[2017-01-02] MEDS: FUROSEMIDE 40 MG TABLET (FP) PO SCH (10:12)
[2017-01-02] MEDS: DIVALPROEX SODIUM 500 MG TABLET E.C. PO SCH ×2 (10:12→21:29)
[2017-01-02] MEDS: NICOTINE 14 MG/24 HOURS TOPICAL PATCH TD SCH (10:13)
[2017-01-02] MEDS: NICOTINE POLACRILEX 2 MG GUM BUC PRN ×3 (10:15→21:30)
[2017-01-02] MEDS ORDERED: INSULIN (NOVOLOG) ASPART 100 UNITS/ML 10ML VIAL ONE (16:50)
[2017-01-02] MEDS: diphenhydrAMINE HCL 50 MG CAPSULE PO PRN (21:29)
[2017-01-02] MEDS: THIAMINE HCL 100 MG TABLET (FP) PO SCH (21:29)
[2017-01-03] MEDS: NICOTINE POLACRILEX 2 MG GUM BUC PRN ×3 (06:28→21:29)
[2017-01-03] MEDS: INSULIN (NOVOLOG) ASPART 100 UNITS/ML 10ML VIAL SQ SCH ×2 (06:30→16:38)
[2017-01-03] MEDS: AMOX TR/POT CLAV 875MG/125MG TABLETS (FP) PO SCH ×2 (07:12→16:39)
[2017-01-03] MEDS: FUROSEMIDE 40 MG TABLET (FP) PO SCH (09:58)
[2017-01-03] MEDS: PRENATAL VITAMINS W/ FOLIC ACID TABLET (FP) PO SCH (09:58)
[2017-01-03] MEDS: SERTRALINE HCL 50 MG TABLET (FP) PO SCH ×2 (09:58→21:28)
[2017-01-03] MEDS: BACITRACIN 0.9 GM PACKET TP SCH ×2 (09:58→21:28)
[2017-01-03] MEDS: BUDESONIDE/FORMETEROL FUMARATE 80/4.5 mcg INHALER IH SCH ×2 (09:59→21:29)
[2017-01-03] MEDS: DIVALPROEX SODIUM 500 MG TABLET E.C. PO SCH ×2 (09:59→21:28)
[2017-01-03] MEDS: NICOTINE 14 MG/24 HOURS TOPICAL PATCH TD SCH (09:59)
[2017-01-03] MEDS ORDERED: INSULIN (NOVOLOG) ASPART 100 UNITS/ML 10ML VIAL ONE (16:36)
[2017-01-03] MEDS: THIAMINE HCL 100 MG TABLET (FP) PO SCH (21:28)
[2017-01-03] MEDS: diphenhydrAMINE HCL 50 MG CAPSULE PO PRN (21:30)
[2017-01-04] MEDS: INSULIN (NOVOLOG) ASPART 100 UNITS/ML 10ML VIAL SQ SCH ×2 (06:28→16:50)
[2017-01-04] MEDS: AMOX TR/POT CLAV 875MG/125MG TABLETS (FP) PO SCH ×2 (07:21→17:14)
[2017-01-04] MEDS: BACITRACIN 0.9 GM PACKET TP SCH ×2 (10:06→21:55)
[2017-01-04] MEDS: NICOTINE 14 MG/24 HOURS TOPICAL PATCH TD SCH (10:07)
[2017-01-04] MEDS: FUROSEMIDE 40 MG TABLET (FP) PO SCH (10:07)
[2017-01-04] MEDS: DIVALPROEX SODIUM 500 MG TABLET E.C. PO SCH ×2 (10:07→21:33)
[2017-01-04] MEDS: MAG HYDROX/AL HYDROX/SIMETH 30 ML UNIT-DOSE CUP PO PRN (10:07)
[2017-01-04] MEDS: SERTRALINE HCL 50 MG TABLET (FP) PO SCH ×2 (10:07→21:33)
[2017-01-04] MEDS: BUDESONIDE/FORMETEROL FUMARATE 80/4.5 mcg INHALER IH SCH ×2 (10:07→21:32)
[2017-01-04] MEDS: PRENATAL VITAMINS W/ FOLIC ACID TABLET (FP) PO SCH (10:07)
[2017-01-04] MEDS: NICOTINE POLACRILEX 2 MG GUM BUC PRN ×2 (10:08→21:34)
[2017-01-04] MEDS ORDERED: INSULIN (NOVOLOG) ASPART 100 UNITS/ML 10ML VIAL ONE (16:49)
[2017-01-04] MEDS: THIAMINE HCL 100 MG TABLET (FP) PO SCH (21:33)
[2017-01-04] MEDS: diphenhydrAMINE HCL 50 MG CAPSULE PO PRN (21:34)
[2017-01-05] MEDS: INSULIN (NOVOLOG) ASPART 100 UNITS/ML 10ML VIAL SQ SCH ×2 (06:49→16:42)
[2017-01-05] MEDS: AMOX TR/POT CLAV 875MG/125MG TABLETS (FP) PO SCH ×2 (07:17→16:44)
[2017-01-05] MEDS: BUDESONIDE/FORMETEROL FUMARATE 80/4.5 mcg INHALER IH SCH ×2 (09:59→21:38)
[2017-01-05] MEDS: BACITRACIN 0.9 GM PACKET TP SCH ×2 (10:00→21:32)
[2017-01-05] MEDS: FUROSEMIDE 40 MG TABLET (FP) PO SCH (10:00)
[2017-01-05] MEDS: NICOTINE 14 MG/24 HOURS TOPICAL PATCH TD SCH (10:00)
[2017-01-05] MEDS: SERTRALINE HCL 50 MG TABLET (FP) PO SCH ×2 (10:00→21:32)
[2017-01-05] MEDS: PRENATAL VITAMINS W/ FOLIC ACID TABLET (FP) PO SCH (10:00)
[2017-01-05] MEDS: DIVALPROEX SODIUM 500 MG TABLET E.C. PO SCH ×2 (10:00→21:32)
[2017-01-05] MEDS ORDERED: INSULIN (NOVOLOG) ASPART 100 UNITS/ML 10ML VIAL ONE (16:41)
[2017-01-05] MEDS: diphenhydrAMINE HCL 50 MG CAPSULE PO PRN (21:32)
[2017-01-05] MEDS: THIAMINE HCL 100 MG TABLET (FP) PO SCH (21:32)
[2017-01-05] MEDS: NICOTINE POLACRILEX 2 MG GUM BUC PRN (21:34)
[2017-01-06] MEDS: INSULIN (NOVOLOG) ASPART 100 UNITS/ML 10ML VIAL SQ SCH ×2 (06:31→16:45)
[2017-01-06] MEDS: AMOX TR/POT CLAV 875MG/125MG TABLETS (FP) PO SCH ×2 (07:08→16:44)
[2017-01-06] MEDS: FUROSEMIDE 40 MG TABLET (FP) PO SCH (10:01)
[2017-01-06] MEDS: DIVALPROEX SODIUM 500 MG TABLET E.C. PO SCH ×2 (10:01→21:30)
[2017-01-06] MEDS: PRENATAL VITAMINS W/ FOLIC ACID TABLET (FP) PO SCH (10:01)
[2017-01-06] MEDS: SERTRALINE HCL 50 MG TABLET (FP) PO SCH ×2 (10:01→21:30)
[2017-01-06] MEDS: BACITRACIN 0.9 GM PACKET TP SCH ×2 (10:01→21:31)
[2017-01-06] MEDS: NICOTINE 14 MG/24 HOURS TOPICAL PATCH TD SCH (10:02)
[2017-01-06] MEDS: BUDESONIDE/FORMETEROL FUMARATE 80/4.5 mcg INHALER IH SCH ×2 (10:02→21:32)
[2017-01-06] MEDS ORDERED: INSULIN (NOVOLOG) ASPART 100 UNITS/ML 10ML VIAL ONE (16:25)
[2017-01-06] MEDS: THIAMINE HCL 100 MG TABLET (FP) PO SCH (21:30)
[2017-01-06] MEDS: diphenhydrAMINE HCL 50 MG CAPSULE PO PRN (21:31)
[2017-01-06] MEDS: NICOTINE POLACRILEX 2 MG GUM BUC PRN (21:32)
[2017-01-07] MEDS: INSULIN (NOVOLOG) ASPART 100 UNITS/ML 10ML VIAL SQ SCH ×2 (06:38→17:06)
[2017-01-07] MEDS: AMOX TR/POT CLAV 875MG/125MG TABLETS (FP) PO SCH ×2 (07:18→17:03)
[2017-01-07] MEDS: BACITRACIN 0.9 GM PACKET TP SCH ×2 (10:13→21:27)
[2017-01-07] MEDS: PRENATAL VITAMINS W/ FOLIC ACID TABLET (FP) PO SCH (10:13)
[2017-01-07] MEDS: BUDESONIDE/FORMETEROL FUMARATE 80/4.5 mcg INHALER IH SCH ×2 (10:13→21:27)
[2017-01-07] MEDS: NICOTINE 14 MG/24 HOURS TOPICAL PATCH TD SCH (10:13)
[2017-01-07] MEDS: SERTRALINE HCL 50 MG TABLET (FP) PO SCH ×2 (10:13→21:26)
[2017-01-07] MEDS: FUROSEMIDE 40 MG TABLET (FP) PO SCH (10:13)
[2017-01-07] MEDS: DIVALPROEX SODIUM 500 MG TABLET E.C. PO SCH ×2 (10:13→21:26)
[2017-01-07] MEDS: NICOTINE POLACRILEX 2 MG GUM BUC PRN ×2 (10:15→23:31)
[2017-01-07] MEDS ORDERED: INSULIN (NOVOLOG) ASPART 100 UNITS/ML 10ML VIAL ONE (16:27)
[2017-01-07] MEDS: THIAMINE HCL 100 MG TABLET (FP) PO SCH (21:26)
[2017-01-07] MEDS: diphenhydrAMINE HCL 50 MG CAPSULE PO PRN (21:26)
[2017-01-08] MEDS: INSULIN (NOVOLOG) ASPART 100 UNITS/ML 10ML VIAL SQ SCH ×2 (06:38→16:58)
[2017-01-08] MEDS: AMOX TR/POT CLAV 875MG/125MG TABLETS (FP) PO SCH (07:02)
[2017-01-08] MEDS: BUDESONIDE/FORMETEROL FUMARATE 80/4.5 mcg INHALER IH SCH ×2 (10:02→21:28)
[2017-01-08] MEDS: PRENATAL VITAMINS W/ FOLIC ACID TABLET (FP) PO SCH (10:03)
[2017-01-08] MEDS: BACITRACIN 0.9 GM PACKET TP SCH ×2 (10:03→21:28)
[2017-01-08] MEDS: SERTRALINE HCL 50 MG TABLET (FP) PO SCH ×2 (10:03→21:28)
[2017-01-08] MEDS: DIVALPROEX SODIUM 500 MG TABLET E.C. PO SCH ×2 (10:03→21:28)
[2017-01-08] MEDS: FUROSEMIDE 40 MG TABLET (FP) PO SCH (10:03)
[2017-01-08] MEDS: NICOTINE 14 MG/24 HOURS TOPICAL PATCH TD SCH (10:03)
[2017-01-08] MEDS: NICOTINE POLACRILEX 2 MG GUM BUC PRN ×2 (10:04→12:36)
[2017-01-08] MEDS: THIAMINE HCL 100 MG TABLET (FP) PO SCH (21:28)
[2017-01-08] MEDS: diphenhydrAMINE HCL 50 MG CAPSULE PO PRN (21:29)
[2017-01-09] MEDS: INSULIN (NOVOLOG) ASPART 100 UNITS/ML 10ML VIAL SQ SCH ×2 (06:36→16:47)
[2017-01-09] MEDS: FUROSEMIDE 40 MG TABLET (FP) PO SCH (10:27)
[2017-01-09] MEDS: BUDESONIDE/FORMETEROL FUMARATE 80/4.5 mcg INHALER IH SCH ×2 (10:27→21:24)
[2017-01-09] MEDS: DIVALPROEX SODIUM 500 MG TABLET E.C. PO SCH ×2 (10:27→21:24)
[2017-01-09] MEDS: SERTRALINE HCL 50 MG TABLET (FP) PO SCH ×2 (10:27→21:24)
[2017-01-09] MEDS: NICOTINE 14 MG/24 HOURS TOPICAL PATCH TD SCH (10:27)
[2017-01-09] MEDS: BACITRACIN 0.9 GM PACKET TP SCH (10:27)
[2017-01-09] MEDS: PRENATAL VITAMINS W/ FOLIC ACID TABLET (FP) PO SCH (10:27)
[2017-01-09] MEDS: THIAMINE HCL 100 MG TABLET (FP) PO SCH (21:24)
[2017-01-09] MEDS: diphenhydrAMINE HCL 50 MG CAPSULE PO PRN (21:25)
[2017-01-09] MEDS: NICOTINE POLACRILEX 2 MG GUM BUC PRN (21:26)
[2017-01-10] MEDS: INSULIN (NOVOLOG) ASPART 100 UNITS/ML 10ML VIAL SQ SCH ×2 (06:30→16:50)
[2017-01-10] MEDS: NICOTINE POLACRILEX 2 MG GUM BUC PRN (08:54)
[2017-01-10] MEDS: BUDESONIDE/FORMETEROL FUMARATE 80/4.5 mcg INHALER IH SCH ×2 (10:30→21:30)
[2017-01-10] MEDS: SERTRALINE HCL 50 MG TABLET (FP) PO SCH ×2 (10:31→21:30)
[2017-01-10] MEDS: PRENATAL VITAMINS W/ FOLIC ACID TABLET (FP) PO SCH (10:31)
[2017-01-10] MEDS: FUROSEMIDE 40 MG TABLET (FP) PO SCH (10:31)
[2017-01-10] MEDS: NICOTINE 14 MG/24 HOURS TOPICAL PATCH TD SCH (10:31)
[2017-01-10] MEDS: DIVALPROEX SODIUM 500 MG TABLET E.C. PO SCH ×2 (10:31→21:30)
[2017-01-10] MEDS: THIAMINE HCL 100 MG TABLET (FP) PO SCH (21:30)
[2017-01-10] MEDS: diphenhydrAMINE HCL 50 MG CAPSULE PO PRN (21:31)
[2017-01-11] MEDS: INSULIN (NOVOLOG) ASPART 100 UNITS/ML 10ML VIAL SQ SCH ×2 (06:37→16:45)
[2017-01-11] MEDS: BUDESONIDE/FORMETEROL FUMARATE 80/4.5 mcg INHALER IH SCH ×2 (10:09→21:35)
[2017-01-11] MEDS: NICOTINE 14 MG/24 HOURS TOPICAL PATCH TD SCH (10:10)
[2017-01-11] MEDS: PRENATAL VITAMINS W/ FOLIC ACID TABLET (FP) PO SCH (10:10)
[2017-01-11] MEDS: FUROSEMIDE 40 MG TABLET (FP) PO SCH (10:10)
[2017-01-11] MEDS: DIVALPROEX SODIUM 500 MG TABLET E.C. PO SCH ×2 (10:10→21:33)
[2017-01-11] MEDS: SERTRALINE HCL 50 MG TABLET (FP) PO SCH ×2 (10:10→21:33)
[2017-01-11] MEDS: MAG HYDROX/AL HYDROX/SIMETH 30 ML UNIT-DOSE CUP PO PRN (10:12)
[2017-01-11] MEDS: NICOTINE POLACRILEX 2 MG GUM BUC PRN ×2 (10:12→18:54)
[2017-01-11] MEDS: THIAMINE HCL 100 MG TABLET (FP) PO SCH (21:33)
[2017-01-11] MEDS: diphenhydrAMINE HCL 50 MG CAPSULE PO PRN (21:35)
[2017-01-12] MEDS: INSULIN (NOVOLOG) ASPART 100 UNITS/ML 10ML VIAL SQ SCH ×2 (06:35→16:58)
[2017-01-12 07:06] VITALS: TEMP 98.2
[2017-01-12] MEDS: PRENATAL VITAMINS W/ FOLIC ACID TABLET (FP) PO SCH (10:04)
[2017-01-12] MEDS: DIVALPROEX SODIUM 500 MG TABLET E.C. PO SCH (10:04)
[2017-01-12] MEDS: FUROSEMIDE 40 MG TABLET (FP) PO SCH (10:04)
[2017-01-12] MEDS: SERTRALINE HCL 50 MG TABLET (FP) PO SCH (10:04)
[2017-01-12] MEDS: NICOTINE 14 MG/24 HOURS TOPICAL PATCH TD SCH (10:04)
[2017-01-12] MEDS: BUDESONIDE/FORMETEROL FUMARATE 80/4.5 mcg INHALER IH SCH (10:05)
[2017-01-12 11:41] VITALS: BP 135/74; PULSE 62
--- NOTE | 2017-01-12 18:33 | PN ---
S Progress Note Note: patient requested to leave earlier his scheduled discharge day, order for discharge placed, scripts e-transferred to his pharmacy for 30 days supply, stable for discharge.
== END 2017-01-12 18:55 | disposition home or self-care (01) | DRG 772 ==
LOC: YASAS 12:13 → Y5N 12:14
PROVIDERS: ADMIT Psychiatry & Neurology Psychiatry; ATTEND Psychiatry & Neurology Psychiatry
PROC: HZ42ZZZ Group Counseling for Substance Abuse Treatment, Cognitive-Behavioral (ICD-10-PCS; principal; 2016-12-30)
DX: F11.20 Opioid dependence, uncomplicated (principal); F10.20 Alcohol dependence, uncomplicated; F14.20 Cocaine dependence, uncomplicated; F15.10 Other stimulant abuse, uncomplicated; F31.9 Bipolar disorder, unspecified; F43.10 Post-traumatic stress disorder, unspecified; I10 Essential (primary) hypertension
CPT/HCPCS: 90732; G0009

== ENCOUNTER 2018-03-12 08:23 | Inpatient (IN) | payer OTHER ==
[2018-03-12 10:07] VITALS: BMI 33.2
--- NOTE | 2018-03-12 11:05 | HP ---
COWS - Scale Resting Pulse: 0= [place] 80 or Below Sweatin= Chills/Flushing Restless Observation: 1= Difficult to Sit Still Pupil Size: 2= Moderately Dilated Bone or Joint Aches: 2= Severe Diffuse Aches Runny Nose/ Eye Tearin= Runny Nose/Eyes GI Upset > 30mins: 1= Stomach Cramp Tremor Observation: 1= Tremor [place], Not Seen Yawning Observation: 0= None Anxiety or Irritability: 2=Irritable/Anxious Goose Flesh Skin: 0=Smooth Skin COWS Score: 12 Admission [facility] Chief Complaint: Heroin withdrawal symptoms. Allergies/Adverse Reactions: Allergies Allergy/AdvReac Type Severity Reaction Status Date / Time No Known Drug Allergies Allergy Verified 03/12/18 10:40 PEANUTS Allergy Severe Rash Uncoded 03/12/18 10:40 TUNA FISH Allergy Severe Hives Uncoded 03/12/18 10:40 NKDA Allergy Uncoded 03/12/18 10:40 History of Present Illness: Patient presents with heroin withdrawal symptoms. Patient started sniffing heroin and cocaine at age 37. Sniffs up to 7 bags daily. Also smokes marijuana, up to 2 joints daily, since age 18. Last time he used substances was 1-3 days ago. Patient denies overdose and seizures. Last attempt of detox was last year. Longest period of sobriety 3 months. PMH includes HTN, Asthma and Depression. Denies SI/HI and suicide attempts. Exam Limitations: No Limitations - Ebola screening Have you traveled outside of the country in the last 21 days: No Have you had contact with anyone from an Ebola affected area: No Have you been sick,other than usual withdrawal symptoms: No Do you have a fever: No - Review of Systems Constitutional: Chills, Night Sweats, Changes in sleep EENT: reports: Nose Congestion Respiratory: reports: No Symptoms reported Cardiac: reports: No Symptoms Reported GI: reports: Diarrhea, Nausea, Poor Fluid Intake, Abdominal cramping : reports: No Symptoms Reported Musculoskeletal: reports: Joint Pain, Muscle Pain Integumentary: reports: Flushing, Sweating Neuro: reports: Tremors Endocrine: reports: No Symptoms Reported Hematology: reports: No Symptoms Reported Psychiatric: reports: Orientated x3, Anxious, Depressed Patient History - Patient Medical History Hx Anemia: No Hx Asthma: Yes Hx Chronic Obstructive Pulmonary Disease (COPD): No Hx Cancer: No Hx Cardiac Disorders: No Hx Congestive Heart Failure: No Hx Hypertension: Yes Hx Hypercholesterolemia: No Hx Pacemaker: No HX Cerebrovascular Accident: No Hx Seizures: No Hx Dementia: No Hx Diabetes: No Hx Gastrointestinal Disorders: No Hx Liver Disease: No Hx Genitourinary Disorders: No Hx Sexually Transmitted Disorders: No Hx Renal Disease (ESRD): No Hx Thyroid Disease: No Hx Human Immunodeficiency Virus (HIV): No (NEGATIVE HX) Hx Hepatitis C: No Hx Depression: Yes Hx Suicide Attempt: No Hx Bipolar Disorder: Yes Hx Schizophrenia: No - Patient Surgical History Past Surgical History: No Hx Neurologic Surgery: No Hx Cataract Extraction: No Hx Cardiac Surgery: No Hx Lung Surgery: No Hx Breast Surgery: No Hx Breast Biopsy: No Hx Abdominal Surgery: No Hx Appendectomy: No Hx Cholecystectomy: No Hx Genitourinary Surgery: No Hx Orthopedic Surgery: No Anesthesia Reaction: No - PPD History Previous Implant?: Yes Documented Results: Negative w/proof Implanted On Prior R Admission?: Yes Date: 08/13/16 Results: 0 mm PPD to be Administered?: Yes - Smoking Cessation Smoking history: Current every day smoker Have you smoked in the past 12 months: Yes Aproximately how many cigarettes per day: 6 Cigars Per Day: 0 Hx Chewing Tobacco Use: No Initiated information on smoking cessation: Yes 'Breaking Loose' booklet given: 03/12/18 - Substance & Tx. History Hx Alcohol Use: No Hx Substance Use: Yes Substance Use Type: Cocaine, Heroin, Marijuana Hx Substance Use Treatment: Yes - Substances Abused Heroin Route: Inhalation Frequency: Daily Amount used: 7 bags Age of first use: 37 Date of Last Use: 03/12/18 Cocaine Route: Inhalation Frequency: 1-2 times per week Amount used: $10 Age of first use: 19 Date of Last Use: 03/10/18 Marijuana Route: Smoking Frequency: Daily Amount used: $5 Age of first use: 17 Date of Last Use: 03/08/18 Family Disease History - Family Disease History Family Disease History: Other: Grandparent (etoh), Father (htn , dementia , sz' s ), Brother (etoh) Admission Physical Exam BHS - Vital Signs Vital Signs: Vital Signs - 24 hr 03/12/18 10:05 Temperature 96.8 F L Pulse Rate 58 L Respiratory 18 Rate Blood Pressure 138/86 - Physical General Appearance: Yes: Appropriately Dressed, Tremorous, Sweating, Anxious HEENTM: Yes: EOMI, Hearing grossly Normal, Normal Voice, JAVIER, Nasal Congestion Respiratory: Yes: Chest Non-Tender, Lungs Clear, Normal Breath Sounds, No Respiratory Distress, No Accessory Muscle Use Neck: Yes: No masses,lesions,Nodules, Supple Breast: Yes: Breast Exam Deferred Cardiology: Yes: Regular Rhythm, Regular Rate, S1, S2 Abdominal: Yes: Normal Bowel Sounds, Non Tender, Soft Genitourinary: Yes: Within Normal Limits Back: Yes: Normal Inspection, Muscle Spasm Musculoskeletal: Yes: Gait Steady, Back pain Extremities: Yes: Normal Inspection, Normal Range of Motion, Non-Tender, Tremors Neurological: Yes: ramp lead II-XII NML intact, Fully Oriented, Alert, Motor Strength 5/5, Depressed Affect Integumentary: Yes: Normal Color, Warm, Moist Lymphatic: Yes: Within Normal Limits - Diagnostic (1) Opioid dependence with withdrawal Current Visit: Yes Status: Acute (2) Cocaine dependence Current Visit: Yes Status: Chronic Qualifiers: Substance use status: uncomplicated Qualified Code(s): F14.20 - Cocaine dependence, uncomplicated (3) Depression Current Visit: Yes Status: Chronic Qualifiers: Depression Type: unspecified Qualified Code(s): F32.9 - Major depressive disorder, single episode, unspecified (4) HTN (hypertension), benign Current Visit: No Status: Chronic (5) Nicotine dependence Current Visit: Yes Status: Chronic Qualifiers: Nicotine product type: cigarettes Substance use status: uncomplicated Qualified Code(s): F17.210 - Nicotine dependence, cigarettes, uncomplicated (6) Asthma Current Visit: Yes Status: Acute Qualifiers: Asthma complication type: unspecified Cleared for Admission [facility] - Detox or Rehab [facility] Level of Care: Medically Managed Detox Regimen/Protocol: Methadone [facility] Breath Alcohol Content Breath Alcohol Content: 0 Urine Drug Screen - Results Drug Screen Negative: No Urine Drug Screen Results: THC-Marijuana, CARLO-Cocaine, OPI-Opiates, BZO- Benzodiazepines
[2018-03-12] MEDS ORDERED: MAGNESIUM HYDROX 2400MG/30ML ORAL SUSPENSION 30 ML CUP PO PRN (11:12)
[2018-03-12] MEDS ORDERED: guaiFENesin/D-METHORPHAN HB 10 ML UNIT-DOSE CUPS PO PRN (11:12)
[2018-03-12] MEDS ORDERED: ACETAMINOPHEN 325 MG TABLET (FP) PO PRN (11:12)
[2018-03-12] MEDS ORDERED: MENTHOL/PHENOL 1 EACH UD MM PRN (11:12)
[2018-03-12] MEDS ORDERED: LOPERAMIDE HCL 2 MG CAPSULE PO PRN (11:12)
[2018-03-12] MEDS ORDERED: MAGNESIUM CITRATE 300 ML BOTTLE PO PRN (11:12)
[2018-03-12] MEDS ORDERED: P-EPHED 60MG/TRIPROLIDI 2.5MG TABLET PO PRN (11:12)
[2018-03-12] MEDS ORDERED: ALBUTEROL SO4 8 GM HFA INHALER IH PRN (11:14)
[2018-03-12] MEDS ORDERED: METHADONE HCL 10 MG TABLET (FOR DETOX USE ONLY) PO ONE ×2 (12:30→23:00)
[2018-03-12] MEDS: diazePAM 5 MG TABLET PO PRN ×2 (13:19→22:13)
--- NOTE | 2018-03-12 15:25 | EKG ---
Test Reason : Blood Pressure : / mmHG Vent. Rate : 053 BPM Atrial Rate : 053 BPM P-R Int : 168 ms QRS Dur : 098 ms QT Int : 436 ms P-R-T Axes : 059 060 044 degrees QTc Int : 409 ms SINUS BRADYCARDIA OTHERWISE NORMAL ECG WHEN COMPARED WITH ECG OF 25-DEC-2016 14:17, NO SIGNIFICANT CHANGE WAS FOUND Confirmed by SOHAIL WILLIS MD ([id number]) on 03/12/2018 3:24:35 PM Referred By: Confirmed By:SOHAIL WILLIS MD
[2018-03-12 16:22] LABS: CHLORIDE 104 mmol/L (98-107); POTASSIUM 3.5 mmol/L (3.5-5.1); SODIUM 142 mmol/L (136-145)
[2018-03-12 16:30] LABS: HEMATOCRIT 42.9 % (35.4-49); HEMOGLOBIN 14.7 GM/dL (11.7-16.9); MCH 32.7 pg (25.7-33.7); MCHC 34.3 g/dl (32.0-35.9); MEAN CELL VOLUME 95.1 fl (80-96); MEAN PLT VOLUME 9.7 fl (7.5-11.1); PLATELET COUNT 220 K/MM3 (134-434); RBC 4.51 M/mm3 (4.00-5.60); RDW 13.3 % (11.9-15.9); WHITE BLOOD COUNT 11.8 K/mm3 (4.0-10.0)
[2018-03-12 16:52] LABS: ALK PHOS 59 U/L (45-117); ANION GAP 13 (8-16); BILIRUBIN,TOTAL 0.6 mg/dL (0.2-1.0); BLOOD UREA NITROGEN 19 mg/dL (7-18); CALCIUM 8.5 mg/dL (8.5-10.1); CO2 25 mmol/L (21-32); CREATININE 1.1 mg/dL (0.7-1.3); GLUCOSE,RANDOM 100 mg/dL (74-106); SGOT/AST 44 U/L (15-37); SGPT/ALT 54 U/L (12-78); TOT PROT 7.4 g/dl (6.4-8.2)
[2018-03-12 17:57] LABS: URINE APPEARANCE CLEAR; URINE BILIRUBIN NEGATIVE (<2.0 mg/dL); URINE COLOR DKYELLOW; URINE GLUCOSE (UA) NEGATIVE (NEGATIVE); URINE KETONE NEGATIVE (NEGATIVE); URINE LEUK ESTERASE NEGATIVE (NEGATIVE); URINE NITRITE NEGATIVE (NEGATIVE); URINE PROTEIN NEGATIVE (NEGATIVE); URINE UROBILINOGEN NEGATIVE mg/dL (0.2-1.0)
[2018-03-12] MEDS ORDERED: MELATONIN 5 MG TABLETS PO PRN (22:00)
[2018-03-12] MEDS: BUDESONIDE/FORMETEROL FUMARATE 80/4.5 mcg INHALER IH SCH (22:13)
[2018-03-12] MEDS: THIAMINE HCL 100 MG TABLET (FP) PO SCH (22:13)
[2018-03-13] MEDS ORDERED: ONDANSETRON *ODT* 4 MG TABLET SL PRN (09:55)
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
[2018-03-13] MEDS ORDERED: METHADONE HCL 10 MG TABLET (FOR DETOX USE ONLY) PO ONE (10:00)
[2018-03-13] MEDS: SERTRALINE HCL 50 MG TABLET (FP) PO SCH (10:21)
[2018-03-13] MEDS: DIVALPROEX SODIUM 500 MG TABLET E.C. PO SCH ×2 (10:21→22:10)
[2018-03-13] MEDS: PRENATAL VITAMINS W/ FOLIC ACID TABLET (FP) PO SCH (10:21)
[2018-03-13] MEDS: HYDROCHLOROTHIAZIDE 12.5 MG CAPSULE (FP) PO SCH (10:21)
[2018-03-13] MEDS: BUDESONIDE/FORMETEROL FUMARATE 80/4.5 mcg INHALER IH SCH ×2 (10:22→22:48)
--- NOTE | 2018-03-13 11:06 | PN ---
BHS COWS - Scale Resting Pulse: 0= [place] 80 or Below Sweatin= Chills/Flushing Restless Observation: 3= Extraneous Movement Pupil Size: 2= Moderately Dilated Bone or Joint Aches: 4=Acute Joint/Muscle Pain Runny Nose/ Eye Tearin= None GI Upset > 30mins: 3= Vomiting/Diarrhea Tremor Observation of Outstretched Hands: 2= Slight Tremor Visible Yawning Observation: 0= None Anxiety or Irritability: 2=Irritable/Anxious Goose Flesh Skin: 0=Smooth Skin COWS Score: 17 BHS Progress Note (SOAP) Subjective: ANXIETY,IRRITABILITY,N/V/D, SWEATS/CHILLS, BODY ACHES. Objective: 03/13/18 11:05 Vital Signs 03/13/18 03/13/18 03/13/18 03:30 06:03 06:30 Temperature 97.2 F L Pulse Rate 51 L Respiratory 18 18 18 Rate Blood Pressure 98/64 03/13/18 09:16 Temperature 97.6 F Pulse Rate 55 L Respiratory 18 Rate Blood Pressure 108/68 Laboratory Tests 03/12/18 03/12/18 03/12/18 11:20 11:20 11:20 WBC 11.8 H RBC 4.51 Hgb 14.7 Hct 42.9 MCV 95.1 MCH 32.7 MCHC 34.3 RDW 13.3 Plt Count 220 MPV 9.7 Sodium 142 Potassium 3.5 Chloride 104 Carbon Dioxide 25 Anion Gap 13 BUN 19 H Creatinine 1.1 Creat Clearance w eGFR > 60 Random Glucose 100 D Calcium 8.5 Total Bilirubin 0.6 AST 44 H D ALT 54 D Alkaline Phosphatase 59 Total Protein 7.4 Albumin 4.0 Urine Color Urine Appearance Urine pH Ur Specific [place] Urine Protein Urine Glucose (UA) Urine Ketones Urine Blood Urine Nitrite Urine Bilirubin Urine Urobilinogen Ur Leukocyte Esterase RPR Titer HIV 1&2 Antibody Screen Negative HIV P24 Antigen Negative 03/12/18 03/12/18 11:20 15:00 WBC RBC Hgb Hct MCV MCH MCHC RDW Plt Count MPV Sodium Potassium Chloride Carbon Dioxide Anion Gap BUN Creatinine Creat Clearance w eGFR Random Glucose Calcium Total Bilirubin AST ALT Alkaline Phosphatase Total Protein Albumin Urine Color Dkyellow Urine Appearance Clear Urine pH 5.0 Ur Specific [place] 1.031 Urine Protein Negative Urine Glucose (UA) Negative Urine Ketones Negative Urine Blood Negative Urine Nitrite Negative Urine Bilirubin Negative Urine Urobilinogen Negative Ur Leukocyte Esterase Negative RPR Titer Nonreactive HIV 1&2 Antibody Screen HIV P24 Antigen Assessment: 03/13/18 11:06 WITHDRAWAL SX Plan: CONTINUE DETOX
[2018-03-13] MEDS: hydrOXYzine PAMOATE 50 MG CAPSULE (FP) PO PRN ×2 (17:43→22:12)
[2018-03-13] MEDS: IBUPROFEN 400 MG TABLET (FP) PO PRN ×2 (17:46→22:13)
[2018-03-13] MEDS: NICOTINE POLACRILEX 4 MG GUM BUC PRN (19:05)
[2018-03-13] MEDS: THIAMINE HCL 100 MG TABLET (FP) PO SCH (22:12)
[2018-03-14] MEDS: NICOTINE POLACRILEX 4 MG GUM BUC PRN ×2 (01:04→12:55)
[2018-03-14] MEDS: MAG HYDROX/AL HYDROX/SIMETH 30 ML UNIT-DOSE CUP PO PRN (02:31)
[2018-03-14] MEDS ORDERED: METHADONE HCL 5 MG TABLET (FOR DETOX USE ONLY) PO ONE (10:00)
[2018-03-14] MEDS: PRENATAL VITAMINS W/ FOLIC ACID TABLET (FP) PO SCH (10:13)
[2018-03-14] MEDS: DIVALPROEX SODIUM 500 MG TABLET E.C. PO SCH ×2 (10:13→22:08)
[2018-03-14] MEDS: BUDESONIDE/FORMETEROL FUMARATE 80/4.5 mcg INHALER IH SCH ×2 (10:13→22:08)
[2018-03-14] MEDS: SERTRALINE HCL 50 MG TABLET (FP) PO SCH (10:13)
--- NOTE | 2018-03-14 10:38 | PN ---
BHS COWS - Scale Resting Pulse: 0= [place] 80 or Below Sweatin= Chills/Flushing Restless Observation: 3= Extraneous Movement Pupil Size: 2= Moderately Dilated Bone or Joint Aches: 1= Mild Discomfort Runny Nose/ Eye Tearin= None GI Upset > 30mins: 0= None Tremor Observation of Outstretched Hands: 1= Tremor [place], Not Seen Yawning Observation: 1= 1-2x During Session Anxiety or Irritability: 2=Irritable/Anxious Goose Flesh Skin: 0=Smooth Skin COWS Score: 11 [facility] Progress Note (SOAP) Subjective: PT REPORTS DETOX PROTOCOL PROCEEDING WELL. DECREASED AGITATIONS AND ANXIETY. NO N/V/D REPORTED THIS MORNING DURING ROUNDS. Objective: 03/14/18 10:37 Vital Signs 03/14/18 03/14/18 03/14/18 03:30 06:01 09:31 Temperature 96.7 F L 96.5 F L Pulse Rate 55 L 54 L Respiratory 18 18 18 Rate Blood Pressure 98/58 106/67 Laboratory Tests 03/12/18 03/12/18 03/12/18 11:20 11:20 11:20 WBC 11.8 H RBC 4.51 Hgb 14.7 Hct 42.9 MCV 95.1 MCH 32.7 MCHC 34.3 RDW 13.3 Plt Count 220 MPV 9.7 Sodium 142 Potassium 3.5 Chloride 104 Carbon Dioxide 25 Anion Gap 13 BUN 19 H Creatinine 1.1 Creat Clearance w eGFR > 60 Random Glucose 100 D Calcium 8.5 Total Bilirubin 0.6 AST 44 H D ALT 54 D Alkaline Phosphatase 59 Total Protein 7.4 Albumin 4.0 Urine Color Urine Appearance Urine pH Ur Specific [place] Urine Protein Urine Glucose (UA) Urine Ketones Urine Blood Urine Nitrite Urine Bilirubin Urine Urobilinogen Ur Leukocyte Esterase RPR Titer HIV 1&2 Antibody Screen Negative HIV P24 Antigen Negative 03/12/18 03/12/18 11:20 15:00 WBC RBC Hgb Hct MCV MCH MCHC RDW Plt Count MPV Sodium Potassium Chloride Carbon Dioxide Anion Gap BUN Creatinine Creat Clearance w eGFR Random Glucose Calcium Total Bilirubin AST ALT Alkaline Phosphatase Total Protein Albumin Urine Color Dkyellow Urine Appearance Clear Urine pH 5.0 Ur Specific [place] 1.031 Urine Protein Negative Urine Glucose (UA) Negative Urine Ketones Negative Urine Blood Negative Urine Nitrite Negative Urine Bilirubin Negative Urine Urobilinogen Negative Ur Leukocyte Esterase Negative RPR Titer Nonreactive HIV 1&2 Antibody Screen HIV P24 Antigen Assessment: 03/14/18 10:37 WITHDRAWAL SX Plan: CONTINUE DETOX
[2018-03-14] MEDS: HYDROCHLOROTHIAZIDE 12.5 MG CAPSULE (FP) PO SCH (11:33)
[2018-03-14] MEDS: diazePAM 5 MG TABLET PO PRN ×2 (14:10→22:08)
[2018-03-14] MEDS: THIAMINE HCL 100 MG TABLET (FP) PO SCH (22:08)
[2018-03-15] MEDS: hydrOXYzine PAMOATE 50 MG CAPSULE (FP) PO PRN ×3 (01:55→22:07)
[2018-03-15] MEDS: NICOTINE POLACRILEX 4 MG GUM BUC PRN ×5 (05:27→22:07)
[2018-03-15] MEDS ORDERED: METHADONE HCL 5 MG TABLET (FOR DETOX USE ONLY) PO ONE (10:00)
[2018-03-15] MEDS: DIVALPROEX SODIUM 500 MG TABLET E.C. PO SCH ×2 (10:04→22:05)
[2018-03-15] MEDS: BUDESONIDE/FORMETEROL FUMARATE 80/4.5 mcg INHALER IH SCH ×2 (10:04→22:05)
[2018-03-15] MEDS: PRENATAL VITAMINS W/ FOLIC ACID TABLET (FP) PO SCH (10:04)
[2018-03-15] MEDS: diazePAM 5 MG TABLET PO PRN (10:04)
[2018-03-15] MEDS: HYDROCHLOROTHIAZIDE 12.5 MG CAPSULE (FP) PO SCH (10:04)
[2018-03-15] MEDS: SERTRALINE HCL 50 MG TABLET (FP) PO SCH (10:04)
--- NOTE | 2018-03-15 11:43 | PN ---
BHS Progress Note (SOAP) Subjective: ANXIETY, MUSCLE ACHES, HOT/COLD CHILLS BUT REPORTS DECREASED SX FROM PREVIOUS DAYS. Objective: 03/15/18 11:42 Vital Signs 03/15/18 03/15/18 06:11 09:23 Temperature 97.0 F L 97.4 F L Pulse Rate 55 L 57 L Respiratory 18 18 Rate Blood Pressure 111/70 127/81 Laboratory Tests 03/12/18 03/12/18 03/12/18 11:20 11:20 11:20 WBC 11.8 H RBC 4.51 Hgb 14.7 Hct 42.9 MCV 95.1 MCH 32.7 MCHC 34.3 RDW 13.3 Plt Count 220 MPV 9.7 Sodium 142 Potassium 3.5 Chloride 104 Carbon Dioxide 25 Anion Gap 13 BUN 19 H Creatinine 1.1 Creat Clearance w eGFR > 60 Random Glucose 100 D Calcium 8.5 Total Bilirubin 0.6 AST 44 H D ALT 54 D Alkaline Phosphatase 59 Total Protein 7.4 Albumin 4.0 Urine Color Urine Appearance Urine pH Ur Specific [place] Urine Protein Urine Glucose (UA) Urine Ketones Urine Blood Urine Nitrite Urine Bilirubin Urine Urobilinogen Ur Leukocyte Esterase Valproic Acid RPR Titer HIV 1&2 Antibody Screen Negative HIV P24 Antigen Negative 03/12/18 03/12/18 03/14/18 11:20 15:00 07:00 WBC RBC Hgb Hct MCV MCH MCHC RDW Plt Count MPV Sodium Potassium Chloride Carbon Dioxide Anion Gap BUN Creatinine Creat Clearance w eGFR Random Glucose Calcium Total Bilirubin AST ALT Alkaline Phosphatase Total Protein Albumin Urine Color Dkyellow Urine Appearance Clear Urine pH 5.0 Ur Specific [place] 1.031 Urine Protein Negative Urine Glucose (UA) Negative Urine Ketones Negative Urine Blood Negative Urine Nitrite Negative Urine Bilirubin Negative Urine Urobilinogen Negative Ur Leukocyte Esterase Negative Valproic Acid 66.1 RPR Titer Nonreactive HIV 1&2 Antibody Screen HIV P24 Antigen Assessment: 03/15/18 11:42 WITHDRAWAL SX Plan: CONTINUE DETOX
[2018-03-15] MEDS: IBUPROFEN 400 MG TABLET (FP) PO PRN (17:57)
[2018-03-15] MEDS: THIAMINE HCL 100 MG TABLET (FP) PO SCH (22:05)
[2018-03-16] MEDS: NICOTINE POLACRILEX 4 MG GUM BUC PRN ×6 (01:23→22:10)
[2018-03-16] MEDS: MAG HYDROX/AL HYDROX/SIMETH 30 ML UNIT-DOSE CUP PO PRN (02:16)
[2018-03-16] MEDS ORDERED: METHADONE HCL 10 MG TABLET (FOR DETOX USE ONLY) PO ONE (10:00)
[2018-03-16] MEDS: PRENATAL VITAMINS W/ FOLIC ACID TABLET (FP) PO SCH (10:17)
[2018-03-16] MEDS: DIVALPROEX SODIUM 500 MG TABLET E.C. PO SCH ×2 (10:17→22:08)
[2018-03-16] MEDS: SERTRALINE HCL 50 MG TABLET (FP) PO SCH (10:17)
[2018-03-16] MEDS: HYDROCHLOROTHIAZIDE 12.5 MG CAPSULE (FP) PO SCH (10:17)
[2018-03-16] MEDS: BUDESONIDE/FORMETEROL FUMARATE 80/4.5 mcg INHALER IH SCH ×2 (10:17→22:08)
--- NOTE | 2018-03-16 12:12 | PN ---
BHS Progress Note (SOAP) Subjective: Interrupted sleep, fatigue, anxiety, sweats, chills Objective: 03/16/18 12:09 Last Vital Signs Temp Pulse Resp BP Pulse Ox 96.8 F L 57 L 18 117/76 03/16/18 09:12 03/16/18 09:12 03/16/18 09:12 03/16/18 09:12 Laboratory Tests 03/12/18 03/12/18 03/12/18 11:20 11:20 11:20 WBC 11.8 H RBC 4.51 Hgb 14.7 Hct 42.9 MCV 95.1 MCH 32.7 MCHC 34.3 RDW 13.3 Plt Count 220 MPV 9.7 Sodium 142 Potassium 3.5 Chloride 104 Carbon Dioxide 25 Anion Gap 13 BUN 19 H Creatinine 1.1 Creat Clearance w eGFR > 60 Random Glucose 100 D Calcium 8.5 Total Bilirubin 0.6 AST 44 H D ALT 54 D Alkaline Phosphatase 59 Total Protein 7.4 Albumin 4.0 Urine Color Urine Appearance Urine pH Ur Specific [place] Urine Protein Urine Glucose (UA) Urine Ketones Urine Blood Urine Nitrite Urine Bilirubin Urine Urobilinogen Ur Leukocyte Esterase Valproic Acid RPR Titer HIV 1&2 Antibody Screen Negative HIV P24 Antigen Negative 03/12/18 03/12/18 03/14/18 11:20 15:00 07:00 WBC RBC Hgb Hct MCV MCH MCHC RDW Plt Count MPV Sodium Potassium Chloride Carbon Dioxide Anion Gap BUN Creatinine Creat Clearance w eGFR Random Glucose Calcium Total Bilirubin AST ALT Alkaline Phosphatase Total Protein Albumin Urine Color Dkyellow Urine Appearance Clear Urine pH 5.0 Ur Specific [place] 1.031 Urine Protein Negative Urine Glucose (UA) Negative Urine Ketones Negative Urine Blood Negative Urine Nitrite Negative Urine Bilirubin Negative Urine Urobilinogen Negative Ur Leukocyte Esterase Negative Valproic Acid 66.1 RPR Titer Nonreactive HIV 1&2 Antibody Screen HIV P24 Antigen Labs reviewed: wbc 11.8 Assessment: 03/16/18 12:10 Withdrawal symptoms Noted with leukocytosis Plan: Continue detox Leukocytosis: asymptomatic for infection, repeat CBC
[2018-03-16] MEDS: IBUPROFEN 400 MG TABLET (FP) PO PRN (13:42)
[2018-03-16 18:26] LABS: BASO % 0.9 % (0-2.0); EOS % 10.6 % (0-4.5); HEMATOCRIT 42.8 % (35.4-49); HEMOGLOBIN 14.7 GM/dL (11.7-16.9); LYMPH % 38.5 % (8-40); MCH 32.8 pg (25.7-33.7); MCHC 34.2 g/dl (32.0-35.9); MEAN PLT VOLUME 9.6 fl (7.5-11.1); MONO % 6.7 % (3.8-10.2); NEUT % 43.3 % (42.8-82.8); PLATELET COUNT 214 K/MM3 (134-434); RBC 4.46 M/mm3 (4.00-5.60); RDW 13.5 % (11.9-15.9); WHITE BLOOD COUNT 8.7 K/mm3 (4.0-10.0)
[2018-03-16] MEDS: THIAMINE HCL 100 MG TABLET (FP) PO SCH (22:08)
[2018-03-16] MEDS: hydrOXYzine PAMOATE 50 MG CAPSULE (FP) PO PRN (22:09)
[2018-03-17] MEDS: NICOTINE POLACRILEX 4 MG GUM BUC PRN (00:34)
[2018-03-17] MEDS ORDERED: METHADONE HCL 5 MG TABLET (FOR DETOX USE ONLY) PO ONE (06:00)
[2018-03-17 09:18] VITALS: BP 123/82; PULSE 64; TEMP 96.7
[2018-03-17] MEDS: PRENATAL VITAMINS W/ FOLIC ACID TABLET (FP) PO SCH (10:14)
[2018-03-17] MEDS: DIVALPROEX SODIUM 500 MG TABLET E.C. PO SCH (10:14)
[2018-03-17] MEDS: SERTRALINE HCL 50 MG TABLET (FP) PO SCH (10:14)
[2018-03-17] MEDS: HYDROCHLOROTHIAZIDE 12.5 MG CAPSULE (FP) PO SCH (10:14)
[2018-03-17] MEDS: BUDESONIDE/FORMETEROL FUMARATE 80/4.5 mcg INHALER IH SCH (10:14)
--- NOTE | 2018-03-17 10:54 | PN ---
S Progress Note (SOAP) Subjective: Denies any complaints Objective: 03/17/18 10:53 A & O x 3 In no distress Vital Signs Temperature 96.7 F L 03/17/18 09:17 Pulse Rate 64 03/17/18 09:17 Respiratory Rate 18 03/17/18 09:17 Blood Pressure 123/82 03/17/18 09:17 O2 Sat by Pulse Oximetry (%) Assessment: 03/17/18 10:53 Detox successfully completed Plan: For discharge
--- NOTE | 2018-03-17 11:06 | DS ---
[facility] Detox Discharge Summary Admission Date: 03/12/18 Discharge Date: 03/17/18 - History Additional Comments: Pt for discharge. Pt will go home today and go to [facility] tomorrow for Rehab Pt is A & O x 3 and in no acute distress Prescriptions were sent to pt's pharmacy @ [facility] - Physical Exam Results Vital Signs: Vital Signs Temperature 96.7 F L 03/17/18 09:17 Pulse Rate 64 03/17/18 09:17 Respiratory Rate 18 03/17/18 09:17 Blood Pressure 123/82 03/17/18 09:17 O2 Sat by Pulse Oximetry (%) - Medication Discharge Medications: Ambulatory Orders Divalproex Sodium 500 mg PO BID #60 tab 01/12/17 Sertraline HCl [Zoloft -] 50 mg PO DAILY #30 tab 01/12/17 Albuterol Sulfate Inhaler - [Ventolin HFA Inhaler -] 2 inh PO Q4H PRN #1 inhaler 03/17/18 Fluticasone/Salmeterol [Advair 250-50 Diskus] 1 each IH BID #1 disk.w.dev Hydrochlorothiazide [Hctz -] 12.5 mg PO DAILY 30 Days #30 cap 03/17/18 - Diagnosis (1) Cannabis dependence, uncomplicated Current Visit: Yes Status: Acute (2) Opioid dependence with withdrawal Current Visit: Yes Status: Acute (3) Asthma Current Visit: Yes Status: Chronic Qualifiers: Asthma severity: unspecified severity Asthma persistence: unspecified Asthma complication type: unspecified Qualified Code(s): J45.909 - Unspecified asthma, uncomplicated (4) Bipolar disorder Current Visit: Yes Status: Chronic (5) Cocaine dependence Current Visit: Yes Status: Chronic Qualifiers: Substance use status: uncomplicated Qualified Code(s): F14.20 - Cocaine dependence, uncomplicated (6) Depression Current Visit: Yes Status: Chronic Qualifiers: Depression Type: unspecified Qualified Code(s): F32.9 - Major depressive disorder, single episode, unspecified (7) HTN (hypertension), benign Current Visit: Yes Status: Chronic (8) Nicotine dependence Current Visit: Yes Status: Chronic Qualifiers: Nicotine product type: cigarettes Substance use status: in withdrawal Qualified Code(s): F17.213 - Nicotine dependence, cigarettes, with withdrawal (9) PTSD (post-traumatic stress disorder) Current Visit: Yes Status: Chronic (10) GERD (gastroesophageal reflux disease) Current Visit: Yes Status: Suspected Qualifiers: Esophagitis presence: esophagitis presence not specified Qualified Code(s) : K21.9 - Gastro-esophageal reflux disease without esophagitis
== END 2018-03-17 13:25 | disposition home or self-care (01) | DRG 773 ==
LOC: YASAS 08:23 → Y3N 12:10
PROVIDERS: ADMIT Surgery; ATTEND Surgery
PROC: HZ2ZZZZ Detoxification Services for Substance Abuse Treatment (ICD-10-PCS; principal; 2018-03-12)
DX: F11.23 Opioid dependence with withdrawal (principal); F14.20 Cocaine dependence, uncomplicated; F12.20 Cannabis dependence, uncomplicated; F17.213 Nicotine dependence, cigarettes, with withdrawal; F31.9 Bipolar disorder, unspecified; F32.9 Major depressive disorder, single episode, unspecified; F43.10 Post-traumatic stress disorder, unspecified; J45.909 Unspecified asthma, uncomplicated; I10 Essential (primary) hypertension; K21.9 Gastro-esophageal reflux disease without esophagitis; D72.829 Elevated white blood cell count, unspecified; Z91.010 Allergy to peanuts; Z91.013 Allergy to seafood
CPT/HCPCS: 36415; 80053; 80164; 81003; 85025; 85027; 86593; 87389; 93005; 93010; Q0162

== ENCOUNTER 2018-05-17 08:46 | Inpatient (IN) | payer OTHER ==
[2018-05-17 13:08] VITALS: BMI 34.1
--- NOTE | 2018-05-17 13:59 | HP ---
COWS - Scale Resting Pulse: 0= [place] 80 or Below Sweatin= Chills/Flushing Restless Observation: 1= Difficult to Sit Still Pupil Size: 0= Normal to Room Light Bone or Joint Aches: 1= Mild Discomfort Runny Nose/ Eye Tearin= Nasal Congestion GI Upset > 30mins: 1= Stomach Cramp Tremor Observation: 1= Tremor [place], Not Seen Yawning Observation: 0= None Anxiety or Irritability: 1=Feels Anxious/Irritable Goose Flesh Skin: 0=Smooth Skin COWS Score: 7 CIWA Score - CIWA Score Nausea/Vomitin Muscle Tremors: 1-None Visible, but [place] Anxiety: 4-Mod. Anxious/Guarded Agitation: 1-Slight > Activity Paroxysmal Sweats: 1-Minimal Palms Moist Orientation: 1-Uncertain about Date Tacttile Disturbances: 0-None Auditory Disturbances: 0-None Visual Disturbances: 0-None Headache: 2-Mild CIWA-Ar Total Score: 12 Admission ROS BHS - HPI Chief Complaint: I have to put all this away, I want to have a better life, my family is pushing me away, I have no one in my life, I'm tired of living this way Allergies/Adverse Reactions: Allergies Allergy/AdvReac Type Severity Reaction Status Date / Time cheese Allergy Severe Hives Verified 05/17/18 13:04 No Known Drug Allergies Allergy Verified 05/17/18 13:03 PEANUTS Allergy Severe Rash Uncoded 05/17/18 13:03 TUNA FISH Allergy Severe Hives Uncoded 05/17/18 13:03 NKDA Allergy Uncoded 05/17/18 13:03 History of Present Illness: 42 yo gentleman here for detox from alcohol and opiates, also using cocaine. No seizures but does have black outs and has had two overdoses. Last here in March,. Denies using oxy or bzo separately though in urine tox - states must be mixed with the heroin or other drugs. Exam Limitations: Clinical Condition - Ebola screening Have you been sick,other than usual withdrawal symptoms: No - Review of Systems Constitutional: Loss of Appetite, Malaise, Changes in sleep, Weakness EENT: reports: Nose Congestion Respiratory: reports: Wheezing Cardiac: reports: No Symptoms Reported GI: reports: Nausea, Poor Fluid Intake, Indigestion, Abdominal cramping : reports: Dysuria Musculoskeletal: reports: Back Pain, Muscle Pain, Muscle Weakness Integumentary: reports: No Symptoms Reported Neuro: reports: Headache Endocrine: reports: No Symptoms Reported Patient History - Patient Medical History Hx Anemia: No Hx Asthma: Yes (PATIENT USED ADVAIR DISKUS DURING NURSING ASSESSMENT.) Hx Chronic Obstructive Pulmonary Disease (COPD): No Hx Cancer: No Hx Cardiac Disorders: No Hx Congestive Heart Failure: No Hx Hypertension: Yes Hx Hypercholesterolemia: No Hx Pacemaker: No HX Cerebrovascular Accident: No Hx Seizures: Yes (last 2005) Hx Dementia: No Hx Diabetes: Yes (prediabetes but ok if eats right) Hx Gastrointestinal Disorders: Yes (GERD) Hx Liver Disease: No Hx Genitourinary Disorders: No Hx Sexually Transmitted Disorders: No Hx Renal Disease (ESRD): Yes (hx renal stone) Hx Thyroid Disease: No Hx Human Immunodeficiency Virus (HIV): No (NEGATIVE HX) Hx Hepatitis C: No Hx Depression: Yes (hospitalized [facility] maybe 4 years) Hx Suicide Attempt: Yes (when young age17) Hx Bipolar Disorder: Yes Hx Schizophrenia: No - Patient Surgical History Past Surgical History: No Hx Neurologic Surgery: No Hx Cataract Extraction: No Hx Cardiac Surgery: No Hx Lung Surgery: No Hx Breast Surgery: No Hx Breast Biopsy: No Hx Abdominal Surgery: No Hx Appendectomy: No Hx Cholecystectomy: No Hx Genitourinary Surgery: No Hx Section: No Hx Orthopedic Surgery: No Anesthesia Reaction: No - PPD History Previous Implant?: Yes Documented Results: Negative w/proof Implanted On Prior [facility] Admission?: Yes Date: 03/14/18 Results: 0 mm PPD to be Administered?: No - Reproductive History Patient is a Female of Child Bearing Age (11 -55 yrs old): No (amle) - Smoking Cessation Smoking history: Current every day smoker Have you smoked in the past 12 months: Yes Aproximately how many cigarettes per day: 40 Cigars Per Day: 0 Hx Chewing Tobacco Use: No Initiated information on smoking cessation: Yes 'Breaking Loose' booklet given: 05/17/18 (give on floor) - Substance & Tx. History Hx Alcohol Use: Yes Hx Substance Use: Yes Substance Use Type: Alcohol, Cocaine, Marijuana, Opiates Hx Substance Use Treatment: Yes (detox, rehab, history of suboxone) - Substances Abused Alcohol Route: Oral Frequency: Daily Amount used: 3 -24OZ CANS OF BEER, 1 PINT OF ADELSO VODKA Age of first use: 18 Date of Last Use: 05/17/18 Heroin Route: Inhalation Frequency: Daily Amount used: 1.5 BUNDLES DAILY Age of first use: 37 Date of Last Use: 05/17/18 Marijuana/Hashish Route: Smoking Frequency: Daily Amount used: 1/8 DAILY Age of first use: 15 Date of Last Use: 05/17/18 Cocaine Route: Inhalation Frequency: 1-2 times per week Amount used: $50 Age of first use: 19 Date of Last Use: 05/16/18 Family Disease History - Family Disease History Family Disease History: Diabetes: Mother (living ), Other: Grandparent (etoh), Father (living, htn , dementia , sz's ), Mother, Brother (two - one with etoh, one with drug use), Sister (one heart ), Daughter (one age 20 ) Admission Physical Exam [facility] - Vital Signs Vital Signs: Vital Signs - 24 hr 05/17/18 12:45 Temperature 96.6 F L Pulse Rate 60 Respiratory 18 Rate Blood Pressure 124/91 - Physical General Appearance: Yes: Nourished, Appropriately Dressed, Mild Distress, Irritable, Anxious HEENTM: Yes: EOMI, Hearing grossly Normal, Normocephalic, Normal Voice Respiratory: Yes: No Respiratory Distress, Rhonchi Neck: Yes: No masses,lesions,Nodules, Supple Breast: Yes: Breast Exam Deferred Cardiology: Yes: Regular Rhythm, Regular Rate Abdominal: Yes: Soft, Protuberent Genitourinary: Yes: Hesitency Back: Yes: Normal Inspection Musculoskeletal: Yes: full range of Motion, Gait Steady, Back pain, Muscle Pain Extremities: Yes: Normal Inspection, Normal Range of Motion, Pedal Edema (ankle edema - mild) Neurological: Yes: Alert, Motor Strength 5/5, Normal Mood/Affect, Normal Response Integumentary: Yes: Normal Color, Warm Lymphatic: Yes: Within Normal Limits - Diagnostic (1) Alcohol dependence with uncomplicated withdrawal Current Visit: No Status: Acute (2) Opioid dependence with withdrawal Current Visit: Yes Status: Chronic (3) Cannabis dependence, uncomplicated Current Visit: Yes Status: Chronic (4) Asthma Current Visit: Yes Status: Chronic Qualifiers: Asthma severity: unspecified severity Asthma persistence: unspecified Asthma complication type: unspecified Qualified Code(s): J45.909 - Unspecified asthma, uncomplicated (5) HTN (hypertension), benign Current Visit: Yes Status: Chronic (6) Nicotine dependence Current Visit: Yes Status: Chronic Qualifiers: Nicotine product type: cigarettes Substance use status: in withdrawal Qualified Code(s): F17.213 - Nicotine dependence, cigarettes, with withdrawal (7) History of seizure Current Visit: Yes Status: Resolved (8) Prediabetes Current Visit: Yes Status: Chronic (9) Obesity (BMI 30-39.9) Current Visit: Yes Status: Chronic Cleared for Admission [facility] - Detox or Rehab [facility] Level of Care: Medically Managed Detox Regimen/Protocol: Methadone/Librium [facility] Breath Alcohol Content Breath Alcohol Content: 0 Urine Drug Screen - Results Drug Screen Negative: No Urine Drug Screen Results: THC-Marijuana, CARLO-Cocaine, OPI-Opiates, BZO- Benzodiazepines, OXY-Oxycodone
[2018-05-17] MEDS ORDERED: chlordiazePOXIDE HCL 25 MG CAPSULE PO PRN (14:08)
[2018-05-17] MEDS ORDERED: MENTHOL/PHENOL 1 EACH UD MM PRN (14:08)
[2018-05-17] MEDS ORDERED: guaiFENesin/D-METHORPHAN HB 10 ML UNIT-DOSE CUPS PO PRN (14:08)
[2018-05-17] MEDS ORDERED: MAGNESIUM CITRATE 300 ML BOTTLE PO PRN (14:08)
[2018-05-17] MEDS ORDERED: P-EPHED 60MG/TRIPROLIDI 2.5MG TABLET PO PRN (14:08)
[2018-05-17] MEDS ORDERED: MAGNESIUM HYDROX 2400MG/30ML ORAL SUSPENSION 30 ML CUP PO PRN (14:08)
[2018-05-17] MEDS ORDERED: LOPERAMIDE HCL 2 MG CAPSULE PO PRN (14:08)
[2018-05-17] MEDS ORDERED: ACETAMINOPHEN 325 MG TABLET (FP) PO PRN (14:08)
[2018-05-17] MEDS ORDERED: ALBUTEROL SO4 8 GM HFA INHALER IH PRN (14:09)
[2018-05-17] MEDS ORDERED: METHADONE HCL 10 MG TABLET (FOR DETOX USE ONLY) PO ONE ×2 (14:45→23:00)
[2018-05-17] MEDS: chlordiazePOXIDE HCL 25 MG CAPSULE PO SCH ×2 (17:37→22:42)
[2018-05-17] MEDS ORDERED: METHADONE HCL 10 MG TABLET (FOR DETOX USE ONLY) ONE (18:36)
[2018-05-17] MEDS: NICOTINE 21 MG/24 HOURS TOPICAL PATCH TD SCH (18:37)
[2018-05-17] MEDS: MAG HYDROX/AL HYDROX/SIMETH 30 ML UNIT-DOSE CUP PO PRN (20:07)
[2018-05-17] MEDS: THIAMINE HCL 100 MG TABLET (FP) PO SCH (22:42)
[2018-05-17] MEDS: NICOTINE POLACRILEX 4 MG GUM BUC PRN (22:44)
[2018-05-18] MEDS: chlordiazePOXIDE HCL 25 MG CAPSULE PO SCH ×4 (06:07→22:33)
[2018-05-18] MEDS ORDERED: METHADONE HCL 10 MG TABLET (FOR DETOX USE ONLY) PO SCH (10:00)
--- NOTE | 2018-05-18 10:03 | PN ---
[facility] CIWA - CIWA Score Nausea/Vomitin-No Nausea/No Vomiting Muscle Tremors: 3 Anxiety: 2 Agitation: 2 Paroxysmal Sweats: 1-Minimal Palms Moist Orientation: 0-Oriented Tacttile Disturbances: 1-Very Mild Itch/Numbness Auditory Disturbances: 0-None Visual Disturbances: 0-None Headache: 1-Very Mild CIWA-Ar Total Score: 10 BHS COWS - Scale Resting Pulse: 0= [place] 80 or Below Sweatin= Chills/Flushing Restless Observation: 1= Difficult to Sit Still Pupil Size: 0= Normal to Room Light Bone or Joint Aches: 1= Mild Discomfort Runny Nose/ Eye Tearin= Nasal Congestion GI Upset > 30mins: 1= Stomach Cramp Tremor Observation of Outstretched Hands: 1= Tremor [place], Not Seen Yawning Observation: 1= 1-2x During Session Anxiety or Irritability: 1=Feels Anxious/Irritable Goose Flesh Skin: 0=Smooth Skin COWS Score: 8 BHS Progress Note (SOAP) Subjective: patient brought his own certirizine 10 mg, medication ordered waiting for pharmacist verification sweat tremor body aches trouble sleep at night Objective: 05/18/18 13:41 Vital Signs Temperature 98.0 F 05/18/18 09:51 Pulse Rate 59 L 05/18/18 09:51 Respiratory Rate 16 05/18/18 09:51 Blood Pressure 132/61 05/18/18 09:51 O2 Sat by Pulse Oximetry (%) Laboratory Last Values WBC 10.6 K/mm3 (4.0-10.0) H 05/18/18 07:30 RBC 4.38 M/mm3 (4.00-5.60) 05/18/18 07:30 Hgb 14.0 GM/dL (11.7-16.9) 05/18/18 07:30 Hct 42.5 % (35.4-49) 05/18/18 07:30 MCV 97.2 fl (80-96) H 05/18/18 07:30 MCH 32.0 pg (25.7-33.7) 05/18/18 07:30 MCHC 32.9 g/dl (32.0-35.9) 05/18/18 07:30 RDW 13.3 % (11.9-15.9) 05/18/18 07:30 Plt Count 232 K/MM3 (134-434) 05/18/18 07:30 MPV 9.3 fl (7.5-11.1) 05/18/18 07:30 Sodium 142 mmol/L (136-145) 05/18/18 07:30 Potassium 4.0 mmol/L (3.5-5.1) 05/18/18 07:30 Chloride 108 mmol/L (98-107) H 05/18/18 07:30 Carbon Dioxide 28 mmol/L (21-32) 05/18/18 07:30 Anion Gap 6 MMOL/L (8-16) L 05/18/18 07:30 BUN 10 mg/dL (7-18) 05/18/18 07:30 Creatinine 0.7 mg/dL (0.55-1.3) 05/18/18 07:30 Creat Clearance w eGFR > 60 (>60) 05/18/18 07:30 Random Glucose 111 mg/dL (74-106) H 05/18/18 07:30 Calcium 8.3 mg/dL (8.5-10.1) L 05/18/18 07:30 Total Bilirubin 0.6 mg/dL (0.2-1) 05/18/18 07:30 AST 19 U/L (15-37) 05/18/18 07:30 ALT 35 U/L (13-61) 05/18/18 07:30 Alkaline Phosphatase 70 U/L (45-117) 05/18/18 07:30 Total Protein 6.8 g/dl (6.4-8.2) 05/18/18 07:30 Albumin 3.6 g/dl (3.4-5.0) 05/18/18 07:30 RPR Titer Nonreactive (NONREACTIVE) 05/18/18 07:30 lab noted Assessment: 05/18/18 13:41 withdrawal sx Plan: continue detox
--- NOTE | 2018-05-18 10:49 | EKG ---
Test Reason : Blood Pressure : / mmHG Vent. Rate : 074 BPM Atrial Rate : 074 BPM P-R Int : 162 ms QRS Dur : 094 ms QT Int : 384 ms P-R-T Axes : 062 053 037 degrees QTc Int : 426 ms POOR DATA QUALITY, INTERPRETATION MAY BE ADVERSELY AFFECTED NORMAL SINUS RHYTHM NORMAL ECG WHEN COMPARED WITH ECG OF 12-MAR-2018 12:57, NO SIGNIFICANT CHANGE WAS FOUND Confirmed by EMILIA DAVIS MD ([id number]) on 05/18/2018 10:49:17 AM Referred By: Ana Saleem Confirmed By:EMILIA DAVIS MD
[2018-05-18 11:06] LABS: HEMATOCRIT 42.5 % (35.4-49); MCHC 32.9 g/dl (32.0-35.9); MEAN CELL VOLUME 97.2 fl (80-96); MEAN PLT VOLUME 9.3 fl (7.5-11.1); PLATELET COUNT 232 K/MM3 (134-434); RBC 4.38 M/mm3 (4.00-5.60); RDW 13.3 % (11.9-15.9); WHITE BLOOD COUNT 10.6 K/mm3 (4.0-10.0)
[2018-05-18] MEDS: PRENATAL VITAMINS W/ FOLIC ACID TABLET (FP) PO SCH (11:09)
[2018-05-18] MEDS: NICOTINE POLACRILEX 4 MG GUM BUC PRN ×3 (11:10→21:45)
[2018-05-18] MEDS: NICOTINE 21 MG/24 HOURS TOPICAL PATCH TD SCH (11:10)
[2018-05-18] MEDS: HYDROCHLOROTHIAZIDE 12.5 MG CAPSULE (FP) PO SCH (11:10)
[2018-05-18] MEDS: LORATADINE 10 MG TABLET PO SCH (11:15)
[2018-05-18 11:53] LABS: ALBUMIN 3.6 g/dl (3.4-5.0); ALK PHOS 70 U/L (45-117); ANION GAP 6 MMOL/L (8-16); BILIRUBIN,TOTAL 0.6 mg/dL (0.2-1); BLOOD UREA NITROGEN 10 mg/dL (7-18); CALCIUM 8.3 mg/dL (8.5-10.1); CHLORIDE 108 mmol/L (98-107); CO2 28 mmol/L (21-32); CREATININE 0.7 mg/dL (0.55-1.3); GLUCOSE,RANDOM 111 mg/dL (74-106); SGOT/AST 19 U/L (15-37); SGPT/ALT 35 U/L (13-61); SODIUM 142 mmol/L (136-145); TOT PROT 6.8 g/dl (6.4-8.2)
[2018-05-18] MEDS ORDERED: PNEUMOC 13-VAL CONJ-DIP CRM/PF 0.5 ML DISP.SYRIN IM ONE (12:00)
[2018-05-18] MEDS ORDERED: PNEUMOCOCCAL 23 VACCINE 0.5 ML VIAL IM ONE (12:00)
[2018-05-18] MEDS ORDERED: FLU VACCINE QUAD 60 MCG/0.5 ML (MDV 18-19) IM ONE (12:00)
[2018-05-18] MEDS: BUDESONIDE/FORMETEROL FUMARATE 80/4.5 mcg INHALER IH SCH ×2 (12:31→22:36)
--- NOTE | 2018-05-18 12:37 | CONSULT ---
[facility] Psychiatric Consult - Data Date of interview: 05/18/18 Admission source: [facility] Identifying data: Patient is a 42 y/o male with a history of substance use disorder. he is , unemployed, homeless, father of one SSI recipient Substance Abuse History: He has prior detox admissions to [facility] [place], his most recent in patient Detox was in January. Here for use of ETOH, marijuana, opiates, cocaine. Drinks vodka, beer, henessey. Please refer to addiction counselor summary for more detailed drug history Medical History: He complains of being tired and fatigued, with generalized body aches. His medcial history ois significant for Obesity, Asthma, HTN, GERD , Kidney stones , borderline DM and a past history of alcohol related seizure Psychiatric History: He has an exensive history of psychiatric hospitalizations and treatment for ADHD Bipolar and PTSD. His most recent psychiatric hospitalization was last May @ [facility] for suicide ideation. He denies prior suicide attempt, denies intent or plan to harm self , but sexhibited self-cutting behavior to alleviate anxiety. He receives his out patient mental health care @ [facility] and is maintained on Depakote 500 mg po bid and Zoloft 50 mg po daily Physical/Sexual Abuse/Trauma History: Denied , refuses to elaborate further. Triggering factors for PTSD is unknown Mental Status Exam - Mental Status Exam Alert and Oriented to: Place, Person Cognitive Function: Grossly Intact Patient Appearance: Unkempt Mood: Apprehensive Affect: Appropriate Patient Behavior: Appropriate, Cooperative Speech Pattern: Clear Voice Loudness: Mildly Loud Thought Process: Intact Hallucinations: Denies Suicidal Ideation: Denies Homicidal Ideation: Denies Insight/Judgement: Poor Sleep: Poorly Appetite: Good Muscle strength/Tone: Normal Gait/Station: Normal Psychiatric Findings - Problem List ([place] 1, 2,3) (1) Alcohol dependence with uncomplicated withdrawal Current Visit: Yes Status: Chronic (2) Asthma Current Visit: Yes Status: Chronic Qualifiers: Asthma severity: moderate Asthma persistence: unspecified Asthma complication type: uncomplicated Qualified Code(s): J45.909 - Unspecified asthma, uncomplicated (3) Cannabis dependence, uncomplicated Current Visit: Yes Status: Chronic (4) HTN (hypertension), benign Current Visit: Yes Status: Chronic (5) Nicotine dependence Current Visit: Yes Status: Chronic Qualifiers: Nicotine product type: cigarettes Substance use status: in withdrawal Qualified Code(s): F17.213 - Nicotine dependence, cigarettes, with withdrawal (6) Obesity (BMI 30-39.9) Current Visit: Yes Status: Chronic (7) Cannabis abuse Current Visit: No Status: Acute (8) Heroin dependence Current Visit: No Status: Acute (9) Methamphetamine addiction Current Visit: No Status: Acute (10) Opioid dependence with withdrawal Current Visit: No Status: Acute (11) Bipolar disorder Current Visit: No Status: Chronic (12) Cocaine dependence Current Visit: No Status: Chronic Qualifiers: Substance use status: uncomplicated Qualified Code(s): F14.20 - Cocaine dependence, uncomplicated (13) PTSD (post-traumatic stress disorder) Current Visit: No Status: Chronic
[2018-05-18] MEDS: MAG HYDROX/AL HYDROX/SIMETH 30 ML UNIT-DOSE CUP PO PRN (12:56)
[2018-05-18 20:30] LABS: URINE APPEARANCE CLEAR; URINE BILIRUBIN NEGATIVE (<2.0 mg/dL); URINE COLOR LTYELLOW; URINE GLUCOSE (UA) NEGATIVE (NEGATIVE); URINE KETONE NEGATIVE (NEGATIVE); URINE LEUK ESTERASE NEGATIVE (NEGATIVE); URINE NITRITE NEGATIVE (NEGATIVE); URINE PROTEIN NEGATIVE (NEGATIVE); URINE UROBILINOGEN NEGATIVE mg/dL (0.2-1.0)
[2018-05-18] MEDS: THIAMINE HCL 100 MG TABLET (FP) PO SCH (22:33)
[2018-05-18] MEDS: DIVALPROEX SODIUM 500 MG TABLET E.C. PO SCH (22:33)
[2018-05-19] MEDS: IBUPROFEN 400 MG TABLET (FP) PO PRN (02:31)
[2018-05-19] MEDS: chlordiazePOXIDE HCL 25 MG CAPSULE PO SCH ×2 (06:10→10:37)
[2018-05-19] MEDS: DIVALPROEX SODIUM 500 MG TABLET E.C. PO SCH ×2 (10:35→23:36)
[2018-05-19] MEDS: NICOTINE 21 MG/24 HOURS TOPICAL PATCH TD SCH (10:35)
[2018-05-19] MEDS: SERTRALINE HCL 50 MG TABLET (FP) PO SCH (10:35)
[2018-05-19] MEDS: PRENATAL VITAMINS W/ FOLIC ACID TABLET (FP) PO SCH (10:35)
[2018-05-19] MEDS: LORATADINE 10 MG TABLET PO SCH (10:36)
[2018-05-19] MEDS: METHADONE HCL 5 MG TABLET (FOR DETOX USE ONLY) PO SCH (10:36)
[2018-05-19] MEDS: HYDROCHLOROTHIAZIDE 12.5 MG CAPSULE (FP) PO SCH (10:36)
[2018-05-19] MEDS: BUDESONIDE/FORMETEROL FUMARATE 80/4.5 mcg INHALER IH SCH ×2 (10:37→23:37)
--- NOTE | 2018-05-19 11:13 | PN ---
[facility] CIWA - CIWA Score Nausea/Vomitin-No Nausea/No Vomiting Muscle Tremors: 3 Anxiety: 2 Agitation: 1-Slight > Activity Paroxysmal Sweats: 1-Minimal Palms Moist Orientation: 0-Oriented Tacttile Disturbances: 1-Very Mild Itch/Numbness Auditory Disturbances: 0-None Visual Disturbances: 0-None Headache: 1-Very Mild CIWA-Ar Total Score: 9 BHS COWS - Scale Resting Pulse: 0= [place] 80 or Below Sweatin= Chills/Flushing Restless Observation: 1= Difficult to Sit Still Pupil Size: 0= Normal to Room Light Bone or Joint Aches: 1= Mild Discomfort Runny Nose/ Eye Tearin= Nasal Congestion GI Upset > 30mins: 1= Stomach Cramp Tremor Observation of Outstretched Hands: 1= Tremor [place], Not Seen Yawning Observation: 1= 1-2x During Session Anxiety or Irritability: 1=Feels Anxious/Irritable Goose Flesh Skin: 0=Smooth Skin COWS Score: 8 [facility] Progress Note (SOAP) Subjective: body aches flu shoot site pain warm compression sweat tremor restlessness gi idstress Objective: 05/19/18 12:17 Vital Signs Temperature 97.0 F L 05/19/18 09:23 Pulse Rate 59 L 05/19/18 09:23 Respiratory Rate 20 05/19/18 09:23 Blood Pressure 142/81 05/19/18 09:23 O2 Sat by Pulse Oximetry (%) Laboratory Last Values WBC 10.6 K/mm3 (4.0-10.0) H 05/18/18 07:30 RBC 4.38 M/mm3 (4.00-5.60) 05/18/18 07:30 Hgb 14.0 GM/dL (11.7-16.9) 05/18/18 07:30 Hct 42.5 % (35.4-49) 05/18/18 07:30 MCV 97.2 fl (80-96) H 05/18/18 07:30 MCH 32.0 pg (25.7-33.7) 05/18/18 07:30 MCHC 32.9 g/dl (32.0-35.9) 05/18/18 07:30 RDW 13.3 % (11.9-15.9) 05/18/18 07:30 Plt Count 232 K/MM3 (134-434) 05/18/18 07:30 MPV 9.3 fl (7.5-11.1) 05/18/18 07:30 Sodium 142 mmol/L (136-145) 05/18/18 07:30 Potassium 4.0 mmol/L (3.5-5.1) 05/18/18 07:30 Chloride 108 mmol/L (98-107) H 05/18/18 07:30 Carbon Dioxide 28 mmol/L (21-32) 05/18/18 07:30 Anion Gap 6 MMOL/L (8-16) L 05/18/18 07:30 BUN 10 mg/dL (7-18) 05/18/18 07:30 Creatinine 0.7 mg/dL (0.55-1.3) 05/18/18 07:30 Creat Clearance w eGFR > 60 (>60) 05/18/18 07:30 Random Glucose 111 mg/dL (74-106) H 05/18/18 07:30 Calcium 8.3 mg/dL (8.5-10.1) L 05/18/18 07:30 Total Bilirubin 0.6 mg/dL (0.2-1) 05/18/18 07:30 AST 19 U/L (15-37) 05/18/18 07:30 ALT 35 U/L (13-61) 05/18/18 07:30 Alkaline Phosphatase 70 U/L (45-117) 05/18/18 07:30 Total Protein 6.8 g/dl (6.4-8.2) 05/18/18 07:30 Albumin 3.6 g/dl (3.4-5.0) 05/18/18 07:30 Urine Color Ltyellow 05/18/18 13:15 Urine Appearance Clear 05/18/18 13:15 Urine pH 5.0 (5.0-8.0) 05/18/18 13:15 Ur Specific [place] 1.016 (1.010-1.035) 05/18/18 13:15 Urine Protein Negative (NEGATIVE) 05/18/18 13:15 Urine Glucose (UA) Negative (NEGATIVE) 05/18/18 13:15 Urine Ketones Negative (NEGATIVE) 05/18/18 13:15 Urine Blood Negative (NEGATIVE) 05/18/18 13:15 Urine Nitrite Negative (NEGATIVE) 05/18/18 13:15 Urine Bilirubin Negative (<2.0 mg/dL) 05/18/18 13:15 Urine Urobilinogen Negative mg/dL (0.2-1.0) 05/18/18 13:15 Ur Leukocyte Esterase Negative (NEGATIVE) 05/18/18 13:15 RPR Titer Nonreactive (NONREACTIVE) 05/18/18 07:30 lab noted Assessment: 05/19/18 12:18 withdrawal sx Plan: continue detox
[2018-05-19] MEDS: NICOTINE POLACRILEX 4 MG GUM BUC PRN ×3 (12:45→20:50)
[2018-05-19] MEDS: chlordiazePOXIDE 5 MG CAPSULE PO SCH ×2 (18:50→23:36)
[2018-05-19] MEDS: THIAMINE HCL 100 MG TABLET (FP) PO SCH (23:40)
[2018-05-20] MEDS: NICOTINE POLACRILEX 4 MG GUM BUC PRN ×4 (04:14→21:43)
[2018-05-20] MEDS: chlordiazePOXIDE 5 MG CAPSULE PO SCH ×2 (05:34→10:51)
[2018-05-20] MEDS: PATIENT'S OWN MEDICATION (NON-FORMULARY) (Cetirizine Hcl 10 MG) PO SCH (10:50)
[2018-05-20] MEDS: SERTRALINE HCL 50 MG TABLET (FP) PO SCH (10:51)
[2018-05-20] MEDS: PRENATAL VITAMINS W/ FOLIC ACID TABLET (FP) PO SCH (10:51)
[2018-05-20] MEDS: DIVALPROEX SODIUM 500 MG TABLET E.C. PO SCH ×2 (10:51→23:11)
[2018-05-20] MEDS: NICOTINE 21 MG/24 HOURS TOPICAL PATCH TD SCH (10:51)
[2018-05-20] MEDS: METHADONE HCL 5 MG TABLET (FOR DETOX USE ONLY) PO SCH (10:51)
[2018-05-20] MEDS: HYDROCHLOROTHIAZIDE 12.5 MG CAPSULE (FP) PO SCH (10:51)
[2018-05-20] MEDS: BUDESONIDE/FORMETEROL FUMARATE 80/4.5 mcg INHALER IH SCH ×2 (10:52→23:11)
[2018-05-20] MEDS: IBUPROFEN 400 MG TABLET (FP) PO PRN (10:56)
--- NOTE | 2018-05-20 11:19 | PN ---
[facility] Progress Note (SOAP) Subjective: muscle cramp joints pain body aches sweat tremor trouble sleep at night Objective: 05/20/18 11:17 Vital Signs Temperature 97.7 F 05/20/18 08:51 Pulse Rate 65 05/20/18 08:51 Respiratory Rate 18 05/20/18 08:51 Blood Pressure 141/78 05/20/18 08:51 O2 Sat by Pulse Oximetry (%) Laboratory Last Values WBC 10.6 K/mm3 (4.0-10.0) H 05/18/18 07:30 RBC 4.38 M/mm3 (4.00-5.60) 05/18/18 07:30 Hgb 14.0 GM/dL (11.7-16.9) 05/18/18 07:30 Hct 42.5 % (35.4-49) 05/18/18 07:30 MCV 97.2 fl (80-96) H 05/18/18 07:30 MCH 32.0 pg (25.7-33.7) 05/18/18 07:30 MCHC 32.9 g/dl (32.0-35.9) 05/18/18 07:30 RDW 13.3 % (11.9-15.9) 05/18/18 07:30 Plt Count 232 K/MM3 (134-434) 05/18/18 07:30 MPV 9.3 fl (7.5-11.1) 05/18/18 07:30 Sodium 142 mmol/L (136-145) 05/18/18 07:30 Potassium 4.0 mmol/L (3.5-5.1) 05/18/18 07:30 Chloride 108 mmol/L (98-107) H 05/18/18 07:30 Carbon Dioxide 28 mmol/L (21-32) 05/18/18 07:30 Anion Gap 6 MMOL/L (8-16) L 05/18/18 07:30 BUN 10 mg/dL (7-18) 05/18/18 07:30 Creatinine 0.7 mg/dL (0.55-1.3) 05/18/18 07:30 Creat Clearance w eGFR > 60 (>60) 05/18/18 07:30 Random Glucose 111 mg/dL (74-106) H 05/18/18 07:30 Calcium 8.3 mg/dL (8.5-10.1) L 05/18/18 07:30 Total Bilirubin 0.6 mg/dL (0.2-1) 05/18/18 07:30 AST 19 U/L (15-37) 05/18/18 07:30 ALT 35 U/L (13-61) 05/18/18 07:30 Alkaline Phosphatase 70 U/L (45-117) 05/18/18 07:30 Total Protein 6.8 g/dl (6.4-8.2) 05/18/18 07:30 Albumin 3.6 g/dl (3.4-5.0) 05/18/18 07:30 Urine Color Ltyellow 05/18/18 13:15 Urine Appearance Clear 05/18/18 13:15 Urine pH 5.0 (5.0-8.0) 05/18/18 13:15 Ur Specific [place] 1.016 (1.010-1.035) 05/18/18 13:15 Urine Protein Negative (NEGATIVE) 05/18/18 13:15 Urine Glucose (UA) Negative (NEGATIVE) 05/18/18 13:15 Urine Ketones Negative (NEGATIVE) 05/18/18 13:15 Urine Blood Negative (NEGATIVE) 05/18/18 13:15 Urine Nitrite Negative (NEGATIVE) 05/18/18 13:15 Urine Bilirubin Negative (<2.0 mg/dL) 05/18/18 13:15 Urine Urobilinogen Negative mg/dL (0.2-1.0) 05/18/18 13:15 Ur Leukocyte Esterase Negative (NEGATIVE) 05/18/18 13:15 Valproic Acid 29.6 ug/ml (50-100) L 05/19/18 11:20 RPR Titer Nonreactive (NONREACTIVE) 05/18/18 07:30 lab noted calcium rich food Assessment: 05/20/18 11:19 withdrawal sx Plan: continue detox
[2018-05-20] MEDS: chlordiazePOXIDE HCL 10 MG CAPSULE PO SCH ×2 (18:00→23:11)
[2018-05-20] MEDS: THIAMINE HCL 100 MG TABLET (FP) PO SCH (23:11)
[2018-05-21] MEDS: NICOTINE POLACRILEX 4 MG GUM BUC PRN ×5 (02:19→21:18)
[2018-05-21] MEDS: MELATONIN 5 MG TABLETS PO PRN (03:13)
[2018-05-21] MEDS: chlordiazePOXIDE HCL 10 MG CAPSULE PO SCH ×2 (05:09→11:14)
[2018-05-21] MEDS ORDERED: METHADONE HCL 10 MG TABLET (FOR DETOX USE ONLY) PO SCH (10:00)
[2018-05-21] MEDS: BUDESONIDE/FORMETEROL FUMARATE 80/4.5 mcg INHALER IH SCH (11:14)
[2018-05-21] MEDS: SERTRALINE HCL 50 MG TABLET (FP) PO SCH (11:14)
[2018-05-21] MEDS: DIVALPROEX SODIUM 500 MG TABLET E.C. PO SCH (11:14)
[2018-05-21] MEDS: PATIENT'S OWN MEDICATION (NON-FORMULARY) (Cetirizine Hcl 10 MG) PO SCH (11:14)
[2018-05-21] MEDS: HYDROCHLOROTHIAZIDE 12.5 MG CAPSULE (FP) PO SCH (11:16)
[2018-05-21] MEDS: NICOTINE 21 MG/24 HOURS TOPICAL PATCH TD SCH (11:16)
[2018-05-21] MEDS: PRENATAL VITAMINS W/ FOLIC ACID TABLET (FP) PO SCH (11:16)
--- NOTE | 2018-05-21 11:31 | PN ---
[facility] Progress Note (SOAP) Subjective: feeling better no tremor less sweat no gi distress sleep better at night Objective: 05/21/18 11:30 Vital Signs Temperature 97.5 F L 05/21/18 10:03 Pulse Rate 65 05/21/18 10:03 Respiratory Rate 18 05/21/18 10:03 Blood Pressure 127/76 05/21/18 10:03 O2 Sat by Pulse Oximetry (%) Laboratory Last Values WBC 10.6 K/mm3 (4.0-10.0) H 05/18/18 07:30 RBC 4.38 M/mm3 (4.00-5.60) 05/18/18 07:30 Hgb 14.0 GM/dL (11.7-16.9) 05/18/18 07:30 Hct 42.5 % (35.4-49) 05/18/18 07:30 MCV 97.2 fl (80-96) H 05/18/18 07:30 MCH 32.0 pg (25.7-33.7) 05/18/18 07:30 MCHC 32.9 g/dl (32.0-35.9) 05/18/18 07:30 RDW 13.3 % (11.9-15.9) 05/18/18 07:30 Plt Count 232 K/MM3 (134-434) 05/18/18 07:30 MPV 9.3 fl (7.5-11.1) 05/18/18 07:30 Sodium 142 mmol/L (136-145) 05/18/18 07:30 Potassium 4.0 mmol/L (3.5-5.1) 05/18/18 07:30 Chloride 108 mmol/L (98-107) H 05/18/18 07:30 Carbon Dioxide 28 mmol/L (21-32) 05/18/18 07:30 Anion Gap 6 MMOL/L (8-16) L 05/18/18 07:30 BUN 10 mg/dL (7-18) 05/18/18 07:30 Creatinine 0.7 mg/dL (0.55-1.3) 05/18/18 07:30 Creat Clearance w eGFR > 60 (>60) 05/18/18 07:30 Random Glucose 111 mg/dL (74-106) H 05/18/18 07:30 Calcium 8.3 mg/dL (8.5-10.1) L 05/18/18 07:30 Total Bilirubin 0.6 mg/dL (0.2-1) 05/18/18 07:30 AST 19 U/L (15-37) 05/18/18 07:30 ALT 35 U/L (13-61) 05/18/18 07:30 Alkaline Phosphatase 70 U/L (45-117) 05/18/18 07:30 Total Protein 6.8 g/dl (6.4-8.2) 05/18/18 07:30 Albumin 3.6 g/dl (3.4-5.0) 05/18/18 07:30 Urine Color Ltyellow 05/18/18 13:15 Urine Appearance Clear 05/18/18 13:15 Urine pH 5.0 (5.0-8.0) 05/18/18 13:15 Ur Specific [place] 1.016 (1.010-1.035) 05/18/18 13:15 Urine Protein Negative (NEGATIVE) 05/18/18 13:15 Urine Glucose (UA) Negative (NEGATIVE) 05/18/18 13:15 Urine Ketones Negative (NEGATIVE) 05/18/18 13:15 Urine Blood Negative (NEGATIVE) 05/18/18 13:15 Urine Nitrite Negative (NEGATIVE) 05/18/18 13:15 Urine Bilirubin Negative (<2.0 mg/dL) 05/18/18 13:15 Urine Urobilinogen Negative mg/dL (0.2-1.0) 05/18/18 13:15 Ur Leukocyte Esterase Negative (NEGATIVE) 05/18/18 13:15 Valproic Acid 29.6 ug/ml (50-100) L 05/19/18 11:20 RPR Titer Nonreactive (NONREACTIVE) 05/18/18 07:30 lab noted Assessment: 05/21/18 11:30 mild withdrawal sx Plan: medically supervised detox
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
[2018-05-22] MEDS: THIAMINE HCL 100 MG TABLET (FP) PO SCH
[2018-05-22] MEDS ORDERED: DIVALPROEX SODIUM 500 MG TABLET E.C. PO ONE (03:00)
[2018-05-22] MEDS: MELATONIN 5 MG TABLETS PO PRN (03:22)
[2018-05-22] MEDS ORDERED: METHADONE HCL 5 MG TABLET (FOR DETOX USE ONLY) PO SCH (06:00)
--- NOTE | 2018-05-22 08:58 | DS ---
[facility] Detox Discharge Summary Admission Date: 05/17/18 Discharge Date: 05/22/18 - History Present History: Alcohol Dependence, Opioid Dependence Additional Comments: 42 years old male admitted on 05/17/18 for alcohol and opiate withdrawal sx completed detox regimen tolerated well denies withdrawal sx alert oriented x 3 no acute distress [facility] - Physical Exam Results Vital Signs: Vital Signs Temperature 97.7 F 05/22/18 07:56 Pulse Rate 65 05/22/18 07:56 Respiratory Rate 18 05/22/18 07:56 Blood Pressure 133/86 05/22/18 07:56 O2 Sat by Pulse Oximetry (%) Pertinent Admission Physical Exam Findings: alcohol and opiate withdrawal sx Vital Signs Temperature 97.3 F L 05/22/18 09:21 Pulse Rate 60 05/22/18 09:21 Respiratory Rate 18 05/22/18 09:21 Blood Pressure 125/65 05/22/18 09:21 O2 Sat by Pulse Oximetry (%) Laboratory Last Values WBC 10.6 K/mm3 (4.0-10.0) H 05/18/18 07:30 RBC 4.38 M/mm3 (4.00-5.60) 05/18/18 07:30 Hgb 14.0 GM/dL (11.7-16.9) 05/18/18 07:30 Hct 42.5 % (35.4-49) 05/18/18 07:30 MCV 97.2 fl (80-96) H 05/18/18 07:30 MCH 32.0 pg (25.7-33.7) 05/18/18 07:30 MCHC 32.9 g/dl (32.0-35.9) 05/18/18 07:30 RDW 13.3 % (11.9-15.9) 05/18/18 07:30 Plt Count 232 K/MM3 (134-434) 05/18/18 07:30 MPV 9.3 fl (7.5-11.1) 05/18/18 07:30 Sodium 142 mmol/L (136-145) 05/18/18 07:30 Potassium 4.0 mmol/L (3.5-5.1) 05/18/18 07:30 Chloride 108 mmol/L (98-107) H 05/18/18 07:30 Carbon Dioxide 28 mmol/L (21-32) 05/18/18 07:30 Anion Gap 6 MMOL/L (8-16) L 05/18/18 07:30 BUN 10 mg/dL (7-18) 05/18/18 07:30 Creatinine 0.7 mg/dL (0.55-1.3) 05/18/18 07:30 Creat Clearance w eGFR > 60 (>60) 05/18/18 07:30 Random Glucose 111 mg/dL (74-106) H 05/18/18 07:30 Calcium 8.3 mg/dL (8.5-10.1) L 05/18/18 07:30 Total Bilirubin 0.6 mg/dL (0.2-1) 05/18/18 07:30 AST 19 U/L (15-37) 05/18/18 07:30 ALT 35 U/L (13-61) 05/18/18 07:30 Alkaline Phosphatase 70 U/L (45-117) 05/18/18 07:30 Total Protein 6.8 g/dl (6.4-8.2) 05/18/18 07:30 Albumin 3.6 g/dl (3.4-5.0) 05/18/18 07:30 Urine Color Ltyellow 05/18/18 13:15 Urine Appearance Clear 05/18/18 13:15 Urine pH 5.0 (5.0-8.0) 05/18/18 13:15 Ur Specific [place] 1.016 (1.010-1.035) 05/18/18 13:15 Urine Protein Negative (NEGATIVE) 05/18/18 13:15 Urine Glucose (UA) Negative (NEGATIVE) 05/18/18 13:15 Urine Ketones Negative (NEGATIVE) 05/18/18 13:15 Urine Blood Negative (NEGATIVE) 05/18/18 13:15 Urine Nitrite Negative (NEGATIVE) 05/18/18 13:15 Urine Bilirubin Negative (<2.0 mg/dL) 05/18/18 13:15 Urine Urobilinogen Negative mg/dL (0.2-1.0) 05/18/18 13:15 Ur Leukocyte Esterase Negative (NEGATIVE) 05/18/18 13:15 Valproic Acid 29.6 ug/ml (50-100) L 05/19/18 11:20 RPR Titer Nonreactive (NONREACTIVE) 05/18/18 07:30 lab noted - Treatment Hospital Course: Detox Protocol Followed, Detoxed Safely, Responded well, Discharged Condition Good, Rehab Referral Accepted Patient has Accepted a Rehab Referral to: [facility] - Medication Discharge Medications: Ambulatory Orders Divalproex Sodium 500 mg PO BID #60 tab 01/12/17 Sertraline HCl [Zoloft -] 50 mg PO DAILY #30 tab 01/12/17 Fluticasone/Salmeterol [Advair 250-50 Diskus] 1 each IH BID #1 disk.w.dev Cetirizine HCl 10 mg PO DAILY 05/17/18 Hydroxyzine HCl 50 mg PO HS 05/17/18 Cetirizine HCl [Zyrtec -] 10 mg PO DAILY 05/20/18 Albuterol Sulfate Inhaler - [Ventolin HFA Inhaler -] 2 inh PO Q4H PRN #1 inhaler 05/21/18 Hydrochlorothiazide [Hctz -] 12.5 mg PO DAILY 30 Days #30 cap 05/21/18 - Diagnosis (1) Alcohol dependence with uncomplicated withdrawal Current Visit: Yes Status: Acute (2) Asthma Current Visit: Yes Status: Chronic Qualifiers: Asthma severity: mild Asthma persistence: intermittent Asthma complication type: uncomplicated Qualified Code(s): J45.20 - Mild intermittent asthma, uncomplicated (3) HTN (hypertension), benign Current Visit: Yes Status: Chronic (4) Nicotine dependence Current Visit: Yes Status: Acute Qualifiers: Nicotine product type: cigarettes Substance use status: in withdrawal Qualified Code(s): F17.213 - Nicotine dependence, cigarettes, with withdrawal (5) Opioid dependence with withdrawal Current Visit: Yes Status: Acute (6) Bipolar disorder Current Visit: Yes Status: Suspected Qualifiers: Active/Remission status: remission status unspecified Qualified Code(s): F31.9 - Bipolar disorder, unspecified - AMA Did Patient Leave Against Medical Advice: No
[2018-05-22 09:22] VITALS: BP 125/65; PULSE 60; TEMP 97.3
[2018-05-22] MEDS: DIVALPROEX SODIUM 500 MG TABLET E.C. PO SCH ×2 (09:56)
[2018-05-22] MEDS: PATIENT'S OWN MEDICATION (NON-FORMULARY) (Cetirizine Hcl 10 MG) PO SCH (09:56)
[2018-05-22] MEDS: SERTRALINE HCL 50 MG TABLET (FP) PO SCH (09:57)
[2018-05-22] MEDS: NICOTINE 21 MG/24 HOURS TOPICAL PATCH TD SCH (09:57)
[2018-05-22] MEDS: PRENATAL VITAMINS W/ FOLIC ACID TABLET (FP) PO SCH (09:57)
[2018-05-22] MEDS: HYDROCHLOROTHIAZIDE 12.5 MG CAPSULE (FP) PO SCH (09:57)
[2018-05-22] MEDS: BUDESONIDE/FORMETEROL FUMARATE 80/4.5 mcg INHALER IH SCH ×2 (09:57)
== END 2018-05-22 12:30 | disposition home or self-care (01) | DRG 773 ==
LOC: YASAS 08:46 → Y6N 14:41
PROC: HZ2ZZZZ Detoxification Services for Substance Abuse Treatment (ICD-10-PCS; principal; 2018-05-17)
DX: F11.23 Opioid dependence with withdrawal (principal); F10.230 Alcohol dependence with withdrawal, uncomplicated; F14.20 Cocaine dependence, uncomplicated; F12.20 Cannabis dependence, uncomplicated; F17.213 Nicotine dependence, cigarettes, with withdrawal; F31.9 Bipolar disorder, unspecified; F43.10 Post-traumatic stress disorder, unspecified; I10 Essential (primary) hypertension; J45.20 Mild intermittent asthma, uncomplicated; K21.9 Gastro-esophageal reflux disease without esophagitis; R73.03 Prediabetes; Z77.21 Contact with and (suspected) exposure to potentially hazardous body fluids; E66.9 Obesity, unspecified; Z68.34 Body mass index [BMI] 34.0-34.9, adult; Z86.69 Personal history of other diseases of the nervous system and sense organs; Z91.010 Allergy to peanuts; Z91.011 Allergy to milk products; Z91.013 Allergy to seafood; Z91.5 Personal history of self-harm
CPT/HCPCS: 36415; 80053; 80164; 81003; 85027; 86593; 90688; 90732; 93005; 93010; G0008; G0009

== ENCOUNTER 2018-05-21 22:48 | Emergency (ER) | payer OTHER ==
[2018-05-21 22:54] VITALS: BP 122/65; PULSE 80; TEMP 98.2; BMI 37.5
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
== END 2018-05-22 00:38 | disposition home or self-care (01) ==
LOC: JER 22:48
DX: Z04.89 Encounter for examination and observation for other specified reasons (principal); Y04.0XXA Assault by unarmed brawl or fight, initial encounter; Y93.89 Activity, other specified; Y92.238 Other place in hospital as the place of occurrence of the external cause; Y99.8 Other external cause status; I10 Essential (primary) hypertension; K21.9 Gastro-esophageal reflux disease without esophagitis; J45.909 Unspecified asthma, uncomplicated; R73.03 Prediabetes; F11.20 Opioid dependence, uncomplicated; F10.20 Alcohol dependence, uncomplicated; F14.20 Cocaine dependence, uncomplicated
CPT/HCPCS: 99281-25

== ENCOUNTER 2019-01-27 12:01 | Inpatient (IN) | payer OTHER ==
[2019-01-27 13:36] VITALS: BMI 36.0
--- NOTE | 2019-01-27 14:20 | HP ---
CIWA Score Nausea/Vomitin-Mild Nausea/No Vomiting Muscle Tremors: 3 Anxiety: 2 Agitation: 3 Paroxysmal Sweats: 3 Orientation: 0-Oriented Tacttile Disturbances: 0-None Auditory Disturbances: 0-None Visual Disturbances: 0-None Headache: 0-None Present CIWA-Ar Total Score: 12 - Admission Criteria OASAS Guidelines: Admission for Medically Managed Detox: Requires at least one of the followin. CIWA greater than 12 2. Seizures within the past 24 hours 3. Delirium tremens within the past 24 hours 4. Hallucinations within the past 24 hours 5. Acute intervention needed for co occurring medical disorder 6. Acute intervention needed for co occurring psychiatric disorder 7. Severe withdrawal that cannot be handled at a lower level of care (continued vomiting, continued diarrhea, abnormal vital signs) requiring intravenous medication and/or fluids 8. Admission ROS [facility]HS - HPI Chief Complaint: alcohol detox 43 yo h/o HTN, asthma, MH issues, goes to outpt substance abuse services clinic at [facility]- goes to groups, individual counseling. Pt states his alcohol use has increased in the last week- drinking 3-4 cans of 24 oz of beer. Used to use heroin- stopped, was on suboxone- stopped a few months ago. Uses cocaine occ. No h/o DT's or seizures. Pt self referred here. PCP- at [facility]. Does not work, SSI for ADD/depression/PTSD. Lives with parents. cocaine- 1/2 gram/day MJ- 1 joint/day DUR- Bupe 10/27/18 Utox- THC/cocaine Allergies/Adverse Reactions: Allergies Allergy/AdvReac Type Severity Reaction Status Date / Time cheese Allergy Severe Hives Verified 01/27/19 13:28 fish derived Allergy Verified 01/27/19 13:28 No Known Drug Allergies Allergy Verified 01/27/19 13:28 lactose AdvReac Verified 01/27/19 13:28 PEANUTS Allergy Severe Rash Uncoded 01/27/19 13:28 TUNA FISH Allergy Severe Hives Uncoded 01/27/19 13:28 Mac n Cheese Allergy Intermediate Vomiting Uncoded 01/27/19 13:28 Tuna fish Allergy Intermediate Swelling Uncoded 01/27/19 13:28 NKDA Allergy Uncoded 01/27/19 13:28 - Ebola screening Have you traveled outside of the country in the last 21 days: No Have you had contact with anyone from an Ebola affected area: No Do you have a fever: No Patient History - Patient Medical History Hx Anemia: No Hx Asthma: Yes Hx Chronic Obstructive Pulmonary Disease (COPD): No Hx Cancer: No Hx Cardiac Disorders: No Hx Congestive Heart Failure: No Hx Hypertension: Yes (does not remember name, not taking med) Hx Hypercholesterolemia: No Hx Pacemaker: No HX Cerebrovascular Accident: No Hx Seizures: No Hx Dementia: No Hx Diabetes: No Hx Gastrointestinal Disorders: No Hx Liver Disease: No Hx Genitourinary Disorders: No Hx Sexually Transmitted Disorders: No Hx Renal Disease (ESRD): No Hx Thyroid Disease: No Hx Human Immunodeficiency Virus (HIV): No Hx Hepatitis C: No Hx Depression: Yes (AND ANXIETY) Hx Suicide Attempt: No Hx Bipolar Disorder: Yes Hx Schizophrenia: No - Patient Surgical History Past Surgical History: No Hx Neurologic Surgery: No Hx Cataract Extraction: No Hx Cardiac Surgery: No Hx Lung Surgery: No Hx Breast Surgery: No Hx Breast Biopsy: No Hx Abdominal Surgery: No Hx Appendectomy: No Hx Cholecystectomy: No Hx Genitourinary Surgery: No Hx Section: No Hx Orthopedic Surgery: No Anesthesia Reaction: No - PPD History Documented Results: Negative w/o proof Date: 04/20/12 Results: 0 mm - Smoking Cessation Smoking history: Current every day smoker Have you smoked in the past 12 months: Yes Aproximately how many cigarettes per day: 10 Cigars Per Day: 0 Hx Chewing Tobacco Use: No Initiated information on smoking cessation: Yes 'Breaking Loose' booklet given: 01/27/19 - Substance & Tx. History Hx Alcohol Use: Yes Substance Use Type: Alcohol, Cocaine, Marijuana Hx Substance Use Treatment: Yes - Substances abused Alcohol Substance route: Oral Frequency: Daily Amount used: 4-5 24oz cans/day Age of first use: 18 Date of last use: 01/27/19 Cocaine Substance route: Inhalation Frequency: 1-2 times per week Amount used: 40 usd/week Age of first use: 17 Date of last use: 01/24/19 Family Disease History - Family Disease History Family Disease History: Diabetes: Mother (cocaine, alcohol), Other: Grandparent (etoh), Father (living, htn , dementia , sz's ), Mother, Brother (two - one with etoh, one with drug use), Sister (one heart ), Daughter (one age 20 ) Admission Physical Exam BHS - Vital Signs Vital Signs: Vital Signs - 24 hr 01/27/19 13:32 Temperature 98.6 F Pulse Rate 68 Respiratory 20 Rate Blood Pressure 135/75 - Physical General Appearance: Yes: Within Normal Limits, No Apparent Distress, Nourished, Appropriately Dressed HEENTM: Yes: Within Normal Limits, EOMI, Hearing grossly Normal, Normal ENT Inspection, Normal Voice, JAVIER Respiratory: Yes: Within Normal Limits, Lungs Clear Neck: Yes: Within Normal Limits, No masses,lesions,Nodules Cardiology: Yes: Within Normal Limits, Regular Rhythm, Regular Rate (soft ejection murmur 08/10), Other Abdominal: Yes: Within Normal Limits Back: Yes: Within Normal Limits Musculoskeletal: Yes: Within Normal Limits Extremities: Yes: Within Normal Limits Neurological: Yes: Within Normal Limits, caustic room attendant II-XII NML intact, Fully Oriented Integumentary: Yes: Within Normal Limits Lymphatic: Yes: Within Normal Limits - Diagnostic (1) Alcohol dependence with uncomplicated withdrawal Current Visit: No Status: Acute (2) Cannabis abuse Current Visit: No Status: Acute (3) Nicotine dependence Current Visit: No Status: Acute Qualifiers: Nicotine product type: cigarettes Substance use status: in withdrawal Qualified Code(s): F17.213 - Nicotine dependence, cigarettes, with withdrawal (4) ADHD (attention deficit hyperactivity disorder) Current Visit: No Status: Chronic Qualifiers: Attention deficit-hyperactivity disorder type: unspecified Qualified Code(s ): F90.9 - Attention-deficit hyperactivity disorder, unspecified type (5) Asthma, mild intermittent Current Visit: No Status: Chronic (6) HTN (hypertension), benign Current Visit: No Status: Chronic (7) Bipolar disorder Current Visit: No Status: Suspected Qualifiers: Active/Remission status: remission status unspecified Qualified Code(s): F31.9 - Bipolar disorder, unspecified (8) History of seizure Current Visit: No Status: Resolved Breathalyzer - Breathalyzer Breathalyzer: 0.008 Urine Drug Screen - Test Device Lot number: [id number] Expiration date: 10/02/20 - Control Is test valid?: Yes - Results Drug screen NEGATIVE: No Urine drug screen results: THC-Marijuana, CARLO-Cocaine Inpatient Rehab Admission - Rehab Decision to Admit Inpatient rehab admission?: No
[2019-01-27] MEDS ORDERED: BISMUTH SUBSALICYLATE 262 MG/15 ML BTL PO PRN (14:28)
[2019-01-27] MEDS ORDERED: MAGNESIUM CITRATE 300 ML BOTTLE PO PRN (14:28)
[2019-01-27] MEDS ORDERED: IBUPROFEN 400 MG TABLET (FP) PO PRN (14:28)
[2019-01-27] MEDS ORDERED: ACETAMINOPHEN 325 MG TABLET (FP) PO PRN ×2 (14:28)
[2019-01-27] MEDS ORDERED: chlordiazePOXIDE HCL 25 MG CAPSULE PO PRN (14:28)
[2019-01-27] MEDS ORDERED: METHOCARBAMOL 500 MG TABLET PO PRN (14:28)
[2019-01-27] MEDS ORDERED: MAGNESIUM HYDROX 2400MG/30ML ORAL SUSPENSION 30 ML CUP PO PRN (14:28)
[2019-01-27] MEDS ORDERED: MENTHOL/PHENOL 1 EACH UD MM PRN (14:28)
[2019-01-27] MEDS ORDERED: chlordiazePOXIDE HCL 25 MG CAPSULE PO ONE (15:30)
[2019-01-27] MEDS ORDERED: TUBERCULIN PPD 5 TU/0.1ML VIAL ID ONE (15:31)
[2019-01-27] MEDS: SERTRALINE HCL 50 MG TABLET (FP) PO SCH (15:35)
[2019-01-27] MEDS: NICOTINE POLACRILEX 4 MG GUM BUC PRN ×2 (16:40→23:18)
[2019-01-27 17:11] LABS: HEMATOCRIT 43.9 % (35.4-49); HEMOGLOBIN 14.6 GM/dL (11.7-16.9); MCH 32.3 pg (25.7-33.7); MCHC 33.3 g/dl (32.0-35.9); MEAN CELL VOLUME 96.8 fl (80-96); MEAN PLT VOLUME 9.5 fl (7.5-11.1); PLATELET COUNT 276 K/MM3 (134-434); RBC 4.54 M/mm3 (4.00-5.60); RDW 13.8 % (11.9-15.9); WHITE BLOOD COUNT 11.3 K/mm3 (4.0-10.0)
[2019-01-27] MEDS: chlordiazePOXIDE HCL 25 MG CAPSULE PO SCH ×2 (17:14→22:33)
[2019-01-27 17:15] LABS: ALBUMIN 4.1 g/dl (3.4-5.0); BILIRUBIN,TOTAL 0.2 mg/dL (0.2-1); BLOOD UREA NITROGEN 12.5 mg/dL (7-18); CALCIUM 8.7 mg/dL (8.5-10.1); CREATININE 0.8 mg/dL (0.55-1.3); POTASSIUM 3.9 mmol/L (3.5-5.1); TOT PROT 7.5 g/dl (6.4-8.2)
[2019-01-27] MEDS: THIAMINE HCL 100 MG TABLET (FP) PO SCH (22:31)
[2019-01-27] MEDS: DIVALPROEX SODIUM 500 MG TABLET E.C. PO SCH (22:32)
[2019-01-27] MEDS: hydrOXYzine PAMOATE 50 MG CAPSULE (FP) PO SCH (22:32)
[2019-01-28] MEDS: NICOTINE POLACRILEX 4 MG GUM BUC PRN ×7 (01:24→20:58)
[2019-01-28] MEDS: chlordiazePOXIDE HCL 25 MG CAPSULE PO SCH ×4 (05:29→22:09)
[2019-01-28] MEDS: DIVALPROEX SODIUM 500 MG TABLET E.C. PO SCH ×3 (10:14→22:10)
[2019-01-28] MEDS: PRENATAL VITAMINS W/ FOLIC ACID TABLET (FP) PO SCH (10:14)
[2019-01-28] MEDS: SERTRALINE HCL 50 MG TABLET (FP) PO SCH (10:14)
--- NOTE | 2019-01-28 13:00 | CONSULT ---
[facility] Psychiatric Consult - Data Date of interview: 01/28/19 Admission source: [facility] Identifying data: This is one of multiple readmissions to [facility] for this 43 y/o male self-referred for detoxification (cannabis, cocaine, alcohol) . Interviewed at [address] [place] [address]. Patient is , a father of one, domiciled ( lives with his mother), unemployed and supported on SSI benefits. Substance Abuse History: Discussed in this session. Details in [facility] report as follows : Smoking history: Current every day smoker. Have you smoked in the past 12 months: Yes. Aproximately how many cigarettes per day: 10. Cigars Per Day: 0. Hx Chewing Tobacco Use: No. Initiated information on smoking cessation: Yes. 'Breaking Loose' booklet given: 01/27/19. - Substance & Tx. History. Hx Alcohol Use: Yes. Substance Use Type: Alcohol, Cocaine, Marijuana. Hx Substance Use Treatment: Yes. - Substances abused. Alcohol. Substance route: Oral. Frequency: Daily. Amount used: 4-5 24oz cans/day. Age of first use: 18. Date of last use: 01/27/19. Cocaine. Substance route : Inhalation. Frequency: 1-2 times per week. Amount used: 40 usd/week. Age of first use: 17. Date of last use: 01/24/19 Medical History: Remarkable for hypertension, seizure disorder and bronchial asthma. Psychiatric History: Patient presents with an extensive history of psychiatric illness. Diagnosed with Bipolar Disorder, PTSD and ADHD. Mr Rodriguez endorses a history of multiple admissions to various institutions ([facility], [facility], [facility], [facility]). Patient reports treatment maintenance on a regimen of depakote + zoloft + vistaril (doses not recalled). Psychiatric outpatient services are rendered at the [facility]PD clinic in the [place]. patient admits to chronic non- adherence to medications. Repeated history of suicide attempts via overdoses with drugs/medications, hanging and self mutilation (wrist-cutting). Discharged two months ago from [facility] after commitment for deliberate overdose with fentanyl (self-report). Physical/Sexual Abuse/Trauma History: Not discussed. Patient declines. Additional Comment: Urine drug screen results: THC-Marijuana, CARLO-Cocaine. Noted. Mental Status Exam - Mental Status Exam Alert and Oriented to: Time, Place, Person Cognitive Function: Good Patient Appearance: Well Groomed (obese) Mood: Nervous, Withdrawn Affect: Appropriate, Normal Range Patient Behavior: Fatigued, Appropriate, Cooperative Speech Pattern: Clear (mohawk speaking), Appropriate Voice Loudness: Normal Thought Process: Goal Oriented Thought Disorder: Not Present Hallucinations: Denies Suicidal Ideation: Denies Homicidal Ideation: Denies Insight/Judgement: Poor Sleep: Poorly, Difficulty falling asleep Appetite: Good Muscle strength/Tone: Normal Gait/Station: Normal Psychiatric Findings - Problem List ([place] 1, 2,3) (1) Alcohol dependence with uncomplicated withdrawal Current Visit: Yes Status: Acute (2) Cocaine dependence Current Visit: Yes Status: Chronic (3) Cannabis abuse Current Visit: Yes Status: Chronic (4) Nicotine dependence Current Visit: No Status: Acute Qualifiers: Nicotine product type: cigarettes Substance use status: in withdrawal Qualified Code(s): F17.213 - Nicotine dependence, cigarettes, with withdrawal (5) Substance induced mood disorder Current Visit: Yes Status: Chronic (6) Bipolar disorder Current Visit: Yes Status: Chronic Qualifiers: Active/Remission status: remission status unspecified Qualified Code(s): F31.9 - Bipolar disorder, unspecified (7) Insomnia Current Visit: Yes Status: Chronic (8) Non-compliance Current Visit: Yes Status: Chronic - Initial Treatment Plan Initial Treatment Plan: Psychoeducation. Sleep hygiene. Detoxification. Medications resumed as : depakote 500 mg po bid + zoloft 50 mg po daily. Side effects/benefits discussed with patient. Mr Rodriguez agrees to this plan of care. Verbal consent granted to . Valproic acid level is requested. Observation.
--- NOTE | 2019-01-28 14:50 | PN ---
[facility] CIWA - CIWA Score Nausea/Vomitin-No Nausea/No Vomiting Muscle Tremors: 3 Anxiety: 3 Agitation: 2 Paroxysmal Sweats: No Perspiration Orientation: 2-Disoriented Date<2 days Tacttile Disturbances: 2-Mild Itch/Numbness/Burn Auditory Disturbances: 1-Very Mild Visual Disturbances: 1-Very Mild Sensitivity Headache: 0-None Present CIWA-Ar Total Score: 14 BHS Progress Note (SOAP) Subjective: Anxious, Interrupted Sleep, Tremors. Objective: PATIENT A & O X 2 (UNCERTAIN ABOUT CURRENT DAY / DATE). PATIENT OBSERVED AMBULATING ON UNIT UNASSISTED. IN NO ACUTE DISTRESS. PATIENT IS AFEBRILE. 01/28/19 14:49 Vital Signs Temperature 96.3 F L 01/28/19 13:04 Pulse Rate 57 L 01/28/19 13:04 Respiratory Rate 18 01/28/19 13:04 Blood Pressure 125/82 01/28/19 13:04 O2 Sat by Pulse Oximetry (%) Laboratory Tests 01/27/19 01/27/19 01/27/19 13:40 13:40 13:40 WBC 11.3 H RBC 4.54 Hgb 14.6 Hct 43.9 MCV 96.8 H MCH 32.3 MCHC 33.3 RDW 13.8 Plt Count 276 MPV 9.5 Sodium 139 Potassium 3.9 Chloride 108 H Carbon Dioxide 23 Anion Gap 7 L BUN 12.5 Creatinine 0.8 Est GFR (CKD-EPI)AfAm 128.60 Est GFR (CKD-EPI)NonAf 110.96 Random Glucose 103 Calcium 8.7 Total Bilirubin 0.2 AST 33 ALT 59 Alkaline Phosphatase 80 Total Protein 7.5 Albumin 4.1 RPR Titer Nonreactive LABS NOTED. 01/28/19 14:51 Assessment: 01/28/19 14:51 WITHDRAWAL SYMPTOMS. LEUKOCYTOSIS. Plan: CONTINUE DETOX. INCREASE DAILY PO WATER INTAKE. REPEAT CBC TOMORROW AM FOR ELEVATED ADMISSION WBC LEVEL. UA ORDERED TO R/O UTI.
[2019-01-28] MEDS: MAG HYDROX/AL HYDROX/SIMETH 30 ML UNIT-DOSE CUP PO PRN ×2 (17:12→23:24)
[2019-01-28] MEDS: THIAMINE HCL 100 MG TABLET (FP) PO SCH (22:09)
[2019-01-28] MEDS: hydrOXYzine PAMOATE 50 MG CAPSULE (FP) PO SCH (22:09)
[2019-01-29] MEDS: NICOTINE POLACRILEX 4 MG GUM BUC PRN ×7 (02:11→22:19)
[2019-01-29] MEDS: chlordiazePOXIDE HCL 25 MG CAPSULE PO SCH ×2 (05:39→10:07)
[2019-01-29] MEDS: ALBUTEROL SO4 8 GM HFA INHALER IH PRN ×2 (05:40→10:08)
[2019-01-29] MEDS: PRENATAL VITAMINS W/ FOLIC ACID TABLET (FP) PO SCH (10:06)
[2019-01-29] MEDS: DIVALPROEX SODIUM 500 MG TABLET E.C. PO SCH ×4 (10:06→22:20)
[2019-01-29] MEDS: SERTRALINE HCL 50 MG TABLET (FP) PO SCH (10:07)
[2019-01-29 11:15] LABS: BASO % 0.6 % (0-2.0); EOS % 5.2 % (0-4.5); HEMATOCRIT 41.8 % (35.4-49); HEMOGLOBIN 14.3 GM/dL (11.7-16.9); LYMPH % 40.4 % (8-40); MCH 33.1 pg (25.7-33.7); MCHC 34.1 g/dl (32.0-35.9); MEAN CELL VOLUME 97.1 fl (80-96); MEAN PLT VOLUME 9.9 fl (7.5-11.1); MONO % 7.3 % (3.8-10.2); NEUT % 46.5 % (42.8-82.8); PLATELET COUNT 222 K/MM3 (134-434); RBC 4.31 M/mm3 (4.00-5.60); RDW 13.7 % (11.9-15.9); WHITE BLOOD COUNT 10.6 K/mm3 (4.0-10.0)
[2019-01-29] MEDS ORDERED: LOPERAMIDE HCL 2 MG CAPSULE PO PRN (13:31)
--- NOTE | 2019-01-29 13:36 | PN ---
S CIWA - CIWA Score Nausea/Vomitin-No Nausea/No Vomiting Muscle Tremors: 3 Anxiety: 3 Agitation: 1-Slight > Activity Paroxysmal Sweats: No Perspiration Orientation: 2-Disoriented Date<2 days Tacttile Disturbances: 1-Very Mild Itch/Numbness Auditory Disturbances: 0-None Visual Disturbances: 2-Mild Sensitivity Headache: 0-None Present CIWA-Ar Total Score: 12 BHS Progress Note (SOAP) Subjective: Anxious, Tremors, Diarrhea, Interrupted Sleep. Objective: PATIENT A & O X 2 (UNCERTAIN ABOUT CURRENT DAY / DATE). PATIENT OBSERVED AMBULATING ON UNIT UNASSISTED. IN NO ACUTE DISTRESS. 01/29/19 13:33 Vital Signs Temperature 96.7 F L 01/29/19 13:10 Pulse Rate 65 01/29/19 13:10 Respiratory Rate 18 01/29/19 13:10 Blood Pressure 138/84 01/29/19 13:10 O2 Sat by Pulse Oximetry (%) Laboratory Tests 01/27/19 01/27/19 01/27/19 13:40 13:40 13:40 WBC 11.3 H RBC 4.54 Hgb 14.6 Hct 43.9 MCV 96.8 H MCH 32.3 MCHC 33.3 RDW 13.8 Plt Count 276 MPV 9.5 Absolute Neuts (auto) Neutrophils % Lymphocytes % Monocytes % Eosinophils % Basophils % Nucleated RBC % Sodium 139 Potassium 3.9 Chloride 108 H Carbon Dioxide 23 Anion Gap 7 L BUN 12.5 Creatinine 0.8 Est GFR (CKD-EPI)AfAm 128.60 Est GFR (CKD-EPI)NonAf 110.96 Random Glucose 103 Calcium 8.7 Total Bilirubin 0.2 AST 33 ALT 59 Alkaline Phosphatase 80 Total Protein 7.5 Albumin 4.1 RPR Titer Nonreactive 01/29/19 07:30 WBC 10.6 H RBC 4.31 Hgb 14.3 Hct 41.8 MCV 97.1 H MCH 33.1 MCHC 34.1 RDW 13.7 Plt Count 222 MPV 9.9 Absolute Neuts (auto) 4.9 Neutrophils % 46.5 Lymphocytes % 40.4 H Monocytes % 7.3 Eosinophils % 5.2 H Basophils % 0.6 Nucleated RBC % 0 Sodium Potassium Chloride Carbon Dioxide Anion Gap BUN Creatinine Est GFR (CKD-EPI)AfAm Est GFR (CKD-EPI)NonAf Random Glucose Calcium Total Bilirubin AST ALT Alkaline Phosphatase Total Protein Albumin RPR Titer LABS NOTED. RESULTS OF REPEAT CBC NOTED: WBC LEVEL DECREASED FROM 11.3 DOWN TO 10.6. PATIENT AFEBRILE. NO HISTORY OF INTRAVENOUS DRUG USE REPORTED BY PATIENT ON DETOX ADMISSION HISTORY AND PHYSICAL ASSESSMENT. 01/29/19 13:34 Assessment: 01/29/19 13:35 WITHDRAWAL SYMPTOMS. LEUKOCYTOSIS. Plan: CONTINUE DETOX. INCREASE DAILY PO WATER INTAKE. PATIENT REPORTS MINIMAL EFFECT FROM PEPTO-BISMOL PO FOR RELIEF OF DIARRHEA. CHANGE TO PRN IMODIUM PO.
[2019-01-29] MEDS ORDERED: chlordiazePOXIDE HCL 10 MG CAPSULE PO PRN (17:00)
[2019-01-29] MEDS: chlordiazePOXIDE HCL 10 MG CAPSULE PO SCH ×2 (17:28→22:18)
[2019-01-29] MEDS: MAG HYDROX/AL HYDROX/SIMETH 30 ML UNIT-DOSE CUP PO PRN (18:42)
[2019-01-29] MEDS: THIAMINE HCL 100 MG TABLET (FP) PO SCH (22:17)
[2019-01-29] MEDS: hydrOXYzine PAMOATE 50 MG CAPSULE (FP) PO SCH (22:18)
[2019-01-30] MEDS: NICOTINE POLACRILEX 4 MG GUM BUC PRN ×4 (00:12→23:37)
[2019-01-30] MEDS: MELATONIN 5 MG TABLETS PO PRN ×2 (02:51→21:23)
[2019-01-30] MEDS: MAG HYDROX/AL HYDROX/SIMETH 30 ML UNIT-DOSE CUP PO PRN ×2 (04:19→23:38)
[2019-01-30] MEDS: chlordiazePOXIDE HCL 10 MG CAPSULE PO SCH ×3 (05:20→17:24)
[2019-01-30] MEDS: PRENATAL VITAMINS W/ FOLIC ACID TABLET (FP) PO SCH (10:34)
[2019-01-30] MEDS: DIVALPROEX SODIUM 500 MG TABLET E.C. PO SCH ×4 (10:35→21:24)
[2019-01-30] MEDS: SERTRALINE HCL 50 MG TABLET (FP) PO SCH (10:35)
--- NOTE | 2019-01-30 14:30 | PN ---
S CIWA - CIWA Score Nausea/Vomitin-Mild Nausea/No Vomiting Muscle Tremors: 1-None Visible, but [place] Anxiety: 1-Mildly Anxious Agitation: 1-Slight > Activity Paroxysmal Sweats: No Perspiration Orientation: 0-Oriented Tacttile Disturbances: 1-Very Mild Itch/Numbness Auditory Disturbances: 1-Very Mild Visual Disturbances: 1-Very Mild Sensitivity Headache: 1-Very Mild CIWA-Ar Total Score: 8 BHS Progress Note (SOAP) Subjective: alert,irritable,anxious,interrupted sleep Objective: 01/30/19 14:30 Vital Signs Temperature 98.1 F 01/30/19 14:17 Pulse Rate 84 01/30/19 14:17 Respiratory Rate 18 01/30/19 14:17 Blood Pressure 107/77 01/30/19 14:17 O2 Sat by Pulse Oximetry (%) Assessment: 01/30/19 14:30 withdrawal symptom Plan: continue detox,discharge in am
[2019-01-30] MEDS: THIAMINE HCL 100 MG TABLET (FP) PO SCH (21:22)
[2019-01-30] MEDS: hydrOXYzine PAMOATE 50 MG CAPSULE (FP) PO SCH (21:22)
[2019-01-30] MEDS: ALBUTEROL SO4 8 GM HFA INHALER IH PRN (21:22)
[2019-01-31] MEDS ORDERED: diphenhydrAMINE HCL 25 MG CAPSULE (FP) PO ONE (01:18)
[2019-01-31] MEDS: NICOTINE POLACRILEX 4 MG GUM BUC PRN ×5 (05:40→22:31)
[2019-01-31] MEDS: chlordiazePOXIDE HCL 10 MG CAPSULE PO SCH ×2 (05:40→18:05)
[2019-01-31] MEDS: SERTRALINE HCL 50 MG TABLET (FP) PO SCH (10:13)
[2019-01-31] MEDS: PRENATAL VITAMINS W/ FOLIC ACID TABLET (FP) PO SCH (10:13)
[2019-01-31] MEDS: DIVALPROEX SODIUM 500 MG TABLET E.C. PO SCH ×4 (10:14→22:32)
[2019-01-31] MEDS: ALBUTEROL SO4 8 GM HFA INHALER IH PRN ×2 (10:14→18:05)
--- NOTE | 2019-01-31 16:38 | PN ---
S CIWA - CIWA Score Nausea/Vomitin Muscle Tremors: None Anxiety: 3 Agitation: 0-Normal Activity Paroxysmal Sweats: No Perspiration Orientation: 0-Oriented Tacttile Disturbances: 0-None Auditory Disturbances: 0-None Visual Disturbances: 0-None Headache: 0-None Present CIWA-Ar Total Score: 8 BHS Progress Note (SOAP) Subjective: Vomiting, Diarrhea, Anxious, Fatigue. Objective: PATIENT A & O X 3, OBSERVED AMBULATING ON UNIT UNASSISTED. IN NO ACUTE DISTRESS. 01/31/19 16:37 Vital Signs Temperature 97.7 F 01/31/19 13:16 Pulse Rate 91 H 01/31/19 13:16 Respiratory Rate 18 01/31/19 13:16 Blood Pressure 116/80 01/31/19 13:16 O2 Sat by Pulse Oximetry (%) Laboratory Tests 01/27/19 01/27/19 01/27/19 13:40 13:40 13:40 WBC 11.3 H RBC 4.54 Hgb 14.6 Hct 43.9 MCV 96.8 H MCH 32.3 MCHC 33.3 RDW 13.8 Plt Count 276 MPV 9.5 Absolute Neuts (auto) Neutrophils % Lymphocytes % Monocytes % Eosinophils % Basophils % Nucleated RBC % Sodium 139 Potassium 3.9 Chloride 108 H Carbon Dioxide 23 Anion Gap 7 L BUN 12.5 Creatinine 0.8 Est GFR (CKD-EPI)AfAm 128.60 Est GFR (CKD-EPI)NonAf 110.96 Random Glucose 103 Calcium 8.7 Total Bilirubin 0.2 AST 33 ALT 59 Alkaline Phosphatase 80 Total Protein 7.5 Albumin 4.1 RPR Titer Nonreactive 01/29/19 07:30 WBC 10.6 H RBC 4.31 Hgb 14.3 Hct 41.8 MCV 97.1 H MCH 33.1 MCHC 34.1 RDW 13.7 Plt Count 222 MPV 9.9 Absolute Neuts (auto) 4.9 Neutrophils % 46.5 Lymphocytes % 40.4 H Monocytes % 7.3 Eosinophils % 5.2 H Basophils % 0.6 Nucleated RBC % 0 Sodium Potassium Chloride Carbon Dioxide Anion Gap BUN Creatinine Est GFR (CKD-EPI)AfAm Est GFR (CKD-EPI)NonAf Random Glucose Calcium Total Bilirubin AST ALT Alkaline Phosphatase Total Protein Albumin RPR Titer LABS NOTED. Assessment: 01/31/19 16:38 WITHDRAWAL SYMPTOMS. Plan: CONTINUE DETOX. INCREASE DAILY PO WATER INTAKE. PATIENT SCHEDULED FOR D/C FROM DETOX UNIT TOMORROW.
[2019-01-31] MEDS: MAG HYDROX/AL HYDROX/SIMETH 30 ML UNIT-DOSE CUP PO PRN (16:49)
[2019-01-31 19:47] LABS: URINE APPEARANCE CLEAR; URINE BILIRUBIN NEGATIVE (NEGATIVE); URINE COLOR YELLOW; URINE GLUCOSE (UA) 2+ (NEGATIVE); URINE KETONE TRACE (NEGATIVE); URINE LEUK ESTERASE NEGATIVE (NEGATIVE); URINE NITRITE NEGATIVE (NEGATIVE); URINE PROTEIN NEGATIVE (NEGATIVE); URINE UROBILINOGEN 0.2 mg/dL (0.2-1.0)
[2019-01-31] MEDS: THIAMINE HCL 100 MG TABLET (FP) PO SCH (22:27)
[2019-01-31] MEDS: hydrOXYzine PAMOATE 50 MG CAPSULE (FP) PO SCH (22:27)
[2019-01-31] MEDS: MELATONIN 5 MG TABLETS PO PRN (22:29)
[2019-02-01] MEDS: NICOTINE POLACRILEX 4 MG GUM BUC PRN (01:56)
[2019-02-01] MEDS: MAG HYDROX/AL HYDROX/SIMETH 30 ML UNIT-DOSE CUP PO PRN (03:22)
[2019-02-01 06:26] VITALS: TEMP 97
[2019-02-01 09:35] VITALS: BP 137/87; PULSE 61
[2019-02-01] MEDS: DIVALPROEX SODIUM 500 MG TABLET E.C. PO SCH ×2 (11:08→11:09)
[2019-02-01] MEDS: SERTRALINE HCL 50 MG TABLET (FP) PO SCH (11:09)
[2019-02-01] MEDS: PRENATAL VITAMINS W/ FOLIC ACID TABLET (FP) PO SCH (11:09)
--- NOTE | 2019-02-01 14:57 | DS ---
[facility] Detox Discharge Summary Admission Date: 01/27/19 Discharge Date: 02/01/19 - History Present History: Alcohol Dependence Additional Comments: PT DISCHARGED TODAY. REPORTS HAS PCP DR. MARROQUIN AT [facility] IN [place], [place] FOR MEDICAL MANAGEMENT. Pertinent Past History: PLEASE SEE DX BELOW - Physical Exam Results Vital Signs: Vital Signs Temperature 97.0 F L 02/01/19 06:25 Pulse Rate 61 02/01/19 09:34 Respiratory Rate 18 02/01/19 09:34 Blood Pressure 137/87 02/01/19 09:34 O2 Sat by Pulse Oximetry (%) Pertinent Admission Physical Exam Findings: WITHDRAWAL SX Laboratory Tests 01/27/19 01/27/19 01/27/19 13:40 13:40 13:40 WBC 11.3 H RBC 4.54 Hgb 14.6 Hct 43.9 MCV 96.8 H MCH 32.3 MCHC 33.3 RDW 13.8 Plt Count 276 MPV 9.5 Absolute Neuts (auto) Neutrophils % Lymphocytes % Monocytes % Eosinophils % Basophils % Nucleated RBC % Sodium 139 Potassium 3.9 Chloride 108 H Carbon Dioxide 23 Anion Gap 7 L BUN 12.5 Creatinine 0.8 Est GFR (CKD-EPI)AfAm 128.60 Est GFR (CKD-EPI)NonAf 110.96 Random Glucose 103 Calcium 8.7 Total Bilirubin 0.2 AST 33 ALT 59 Alkaline Phosphatase 80 Total Protein 7.5 Albumin 4.1 Urine Color Urine Appearance Urine pH Ur Specific [place] Urine Protein Urine Glucose (UA) Urine Ketones Urine Blood Urine Nitrite Urine Bilirubin Urine Urobilinogen Ur Leukocyte Esterase RPR Titer Nonreactive 01/29/19 01/31/19 07:30 19:37 WBC 10.6 H RBC 4.31 Hgb 14.3 Hct 41.8 MCV 97.1 H MCH 33.1 MCHC 34.1 RDW 13.7 Plt Count 222 MPV 9.9 Absolute Neuts (auto) 4.9 Neutrophils % 46.5 Lymphocytes % 40.4 H Monocytes % 7.3 Eosinophils % 5.2 H Basophils % 0.6 Nucleated RBC % 0 Sodium Potassium Chloride Carbon Dioxide Anion Gap BUN Creatinine Est GFR (CKD-EPI)AfAm Est GFR (CKD-EPI)NonAf Random Glucose Calcium Total Bilirubin AST ALT Alkaline Phosphatase Total Protein Albumin Urine Color Yellow Urine Appearance Clear Urine pH 8.0 D Ur Specific [place] 1.035 Urine Protein Negative Urine Glucose (UA) 2+ H Urine Ketones Trace H Urine Blood Negative Urine Nitrite Negative Urine Bilirubin Negative Urine Urobilinogen 0.2 Ur Leukocyte Esterase Negative RPR Titer - Treatment Hospital Course: Detox Protocol Followed, Detoxed Safely, Responded well, Discharged Condition Good - Medication Discharge Medications: Ambulatory Orders Divalproex Sodium [Depakote] 500 mg PO BID 04/18/12 Vistaril AM 04/18/12 Divalproex Sodium 500 mg PO BID #60 tab 01/12/17 Sertraline HCl [Zoloft -] 50 mg PO DAILY #30 tab 01/12/17 Fluticasone/Salmeterol [Advair 250-50 Diskus] 1 each IH BID #1 disk.w.dev Cetirizine HCl 10 mg PO DAILY 05/17/18 Hydroxyzine HCl 50 mg PO HS 05/17/18 Cetirizine HCl [Zyrtec -] 10 mg PO DAILY 05/20/18 Albuterol Sulfate Inhaler - [Ventolin HFA Inhaler -] 2 inh PO Q4H PRN #1 inhaler 05/21/18 Hydrochlorothiazide [Hctz -] 12.5 mg PO DAILY 30 Days #30 cap 05/21/18 - Diagnosis (1) Asthma Status: Chronic Qualifiers: Asthma severity: mild Asthma persistence: intermittent Asthma complication type: uncomplicated Qualified Code(s): J45.20 - Mild intermittent asthma, uncomplicated (2) Cannabis dependence, uncomplicated Status: Acute (3) HTN (hypertension), benign Status: Chronic (4) Obesity (BMI 30-39.9) Status: Chronic (5) GERD (gastroesophageal reflux disease) Status: Suspected Qualifiers: Esophagitis presence: esophagitis presence not specified Qualified Code(s) : K21.9 - Gastro-esophageal reflux disease without esophagitis (6) History of seizure Status: Suspected (7) Alcohol dependence with uncomplicated withdrawal Status: Acute (8) Nicotine dependence Status: Acute Qualifiers: Nicotine product type: cigarettes Substance use status: in withdrawal Qualified Code(s): F17.213 - Nicotine dependence, cigarettes, with withdrawal (9) Cocaine dependence Status: Acute Qualifiers: Substance use status: uncomplicated Qualified Code(s): F14.20 - Cocaine dependence, uncomplicated - AMA Did Patient Leave Against Medical Advice: No
== END 2019-02-01 11:10 | disposition home or self-care (01) | DRG 774 ==
LOC: YASAS 12:01 → Y3N 15:03
PROVIDERS: ADMIT Surgery; ATTEND Surgery
PROC: HZ2ZZZZ Detoxification Services for Substance Abuse Treatment (ICD-10-PCS; principal; 2019-01-27)
DX: F10.230 Alcohol dependence with withdrawal, uncomplicated (principal); F14.20 Cocaine dependence, uncomplicated; F12.20 Cannabis dependence, uncomplicated; F17.213 Nicotine dependence, cigarettes, with withdrawal; F19.24 Other psychoactive substance dependence with psychoactive substance-induced mood disorder; F31.9 Bipolar disorder, unspecified; F90.9 Attention-deficit hyperactivity disorder, unspecified type; I10 Essential (primary) hypertension; J45.20 Mild intermittent asthma, uncomplicated; K21.9 Gastro-esophageal reflux disease without esophagitis; D72.829 Elevated white blood cell count, unspecified; G47.00 Insomnia, unspecified; Z91.19 Patient's noncompliance with other medical treatment and regimen; Z86.69 Personal history of other diseases of the nervous system and sense organs; Z91.013 Allergy to seafood; Z91.010 Allergy to peanuts
CPT/HCPCS: 36415; 80053; 81003; 85025; 85027; 86593

== ENCOUNTER 2019-06-08 16:30 | Inpatient (IN) | payer OTHER ==
[2019-06-08 19:22] VITALS: BMI 34.7
--- NOTE | 2019-06-08 22:43 | HP ---
CIWA Score - Admission Criteria [facility] Guidelines: Admission for Medically Managed Detox: Requires at least one of the followin. CIWA greater than 12 2. Seizures within the past 24 hours 3. Delirium tremens within the past 24 hours 4. Hallucinations within the past 24 hours 5. Acute intervention needed for co occurring medical disorder 6. Acute intervention needed for co occurring psychiatric disorder 7. Severe withdrawal that cannot be handled at a lower level of care (continued vomiting, continued diarrhea, abnormal vital signs) requiring intravenous medication and/or fluids 8. Admitting History and Physical - Smoking History Smoking history: Current every day smoker Have you smoked in the past 12 months: Yes Aproximately how many cigarettes per day: 10 - Alcohol/Substance Use Hx Alcohol Use: Yes Admission [facility] Chief Complaint: Seeking admission to detox from Alcohol Allergies/Adverse Reactions: Allergies Allergy/AdvReac Type Severity Reaction Status Date / Time cheese Allergy Severe Hives Verified 06/08/19 19:00 fish derived Allergy Verified 06/08/19 19:00 No Known Drug Allergies Allergy Verified 06/08/19 19:00 lactose AdvReac Verified 06/08/19 19:00 PEANUTS Allergy Severe Rash Uncoded 06/08/19 19:00 TUNA FISH Allergy Severe Hives Uncoded 06/08/19 19:00 Mac n Cheese Allergy Intermediate Vomiting Uncoded 06/08/19 19:00 Tuna fish Allergy Intermediate Swelling Uncoded 06/08/19 19:00 NKDA Allergy Uncoded 06/08/19 19:00 History of Present Illness: 43 years old male with a long history of alcohol and heroin dependence is seeking admission to detox. Patient has been admitted multiple timmes in detox and Rehab and reports 4 years of sobriety. He has medical history of hypertension, GERD and asthma. He reports suicide attempt at age 18 and denies suicidal ideation at this time. Patient is on buprenorphine - naloxone 8-2mg sL film with 30 days supply of 90 sL film dispensed on 05/20/2019 by Alena JEAN Search Terms: aquilino casillas, 1975 Search Date: 06/08/2019 10:33:26 PM Patient Name: Aquilino Casillas Date: 1975 Address: [address] [place] [address] Sex: Male Rx Written Rx Dispensed Drug Quantity Days Supply Prescriber Name 05/12/2019 05/20/2019 buprenorphine-naloxone 8-2 mg sl film 90 30 CreminsAlena PAC 05/06/2019 05/12/2019 buprenorphine-naloxone 8-2 mg sl film 21 7 Donovan Mcconnell 05/06/2019 05/06/2019 buprenorphine-naloxone 8-2 mg sl film 21 7 Donovan Mcconnell 04/29/2019 04/30/2019 buprenorphine-naloxone 8-2 mg sl film 21 7 CreminsAlena A PAC 03/26/2019 04/16/2019 buprenorphine-naloxone 8-2 mg sl film 42 14 Cremins, Alena A PAC 03/11/2019 03/11/2019 buprenorphine-naloxone 8-2 mg sl film 56 28 Cremins, Alena A PAC 10/23/2018 10/27/2018 buprenorphine-naloxone 8-2 mg sl film 60 30 Cremins, Alena A PAC 09/12/2018 09/18/2018 suboxone 8 mg-2 mg sl film 60 30 Cremins, Alena A PAC 08/20/2018 08/21/2018 suboxone 8 mg-2 mg sl film 60 30 Cremins, Alena A PAC 08/13/2018 08/13/2018 buprenorphine-naloxone 8-2 mg sl tablet 14 7 Cremins, Alena A PAC * - Drugs marked with an asterisk are compound drugs. If the compound drug is made up of more than one controlled substance, then each controlled substance will be a separate row in the table. Exam Limitations: No Limitations - Ebola screening Have you traveled outside of the country in the last 21 days: No (N) Have you had contact with anyone from an Ebola affected area: No Do you have a fever: No - Review of Systems Constitutional: Chills, Loss of Appetite, Malaise, Changes in sleep EENT: reports: No Symptoms Reported Respiratory: reports: No Symptoms reported Cardiac: reports: No Symptoms Reported GI: reports: Diarrhea (x 3), Poor Appetite, Poor Fluid Intake, Abdominal cramping : reports: No Symptoms Reported Integumentary: reports: Dryness, Flushing Neuro: reports: Headache, Tremors Endocrine: reports: No Symptoms Reported Hematology: reports: No Symptoms Reported Psychiatric: reports: Mood/Affect Appropiate, Orientated x3 Other Systems: Reviewed and Negative Patient History - Patient Medical History Hx Anemia: Yes (Albuterol) Hx Asthma: No Hx Chronic Obstructive Pulmonary Disease (COPD): No Hx Cancer: No Hx Cardiac Disorders: No Hx Congestive Heart Failure: No Hx Hypertension: Yes (HCTZ) Hx Hypercholesterolemia: No Hx Pacemaker: No HX Cerebrovascular Accident: No Hx Seizures: No Hx Dementia: No Hx Diabetes: No Hx Gastrointestinal Disorders: No Hx Liver Disease: No Hx Genitourinary Disorders: No Hx Sexually Transmitted Disorders: No Hx Renal Disease (ESRD): No Hx Thyroid Disease: No Hx Human Immunodeficiency Virus (HIV): No Hx Hepatitis C: No Hx Depression: Yes Hx Suicide Attempt: No Hx Bipolar Disorder: Yes Hx Schizophrenia: No - Patient Surgical History Past Surgical History: No Hx Neurologic Surgery: No Hx Cataract Extraction: No Hx Cardiac Surgery: No Hx Lung Surgery: No Hx Abdominal Surgery: No Hx Appendectomy: No Hx Cholecystectomy: No Hx Genitourinary Surgery: No Hx Orthopedic Surgery: No Anesthesia Reaction: No - PPD History Previous Implant?: Yes Documented Results: Negative w/proof Implanted On Prior [facility] Admission?: Yes Date: 01/29/19 Results: 0 mm PPD to be Administered?: No - Reproductive History Patient is a Female of Child Bearing Age (11 -55 yrs old): No (male) - Smoking Cessation Smoking history: Current every day smoker Have you smoked in the past 12 months: Yes Aproximately how many cigarettes per day: 10 Cigars Per Day: 0 Hx Chewing Tobacco Use: No Initiated information on smoking cessation: Yes 'Breaking Loose' booklet given: 06/08/19 - Substance & Tx. History Hx Alcohol Use: Yes Hx Substance Use: Yes Substance Use Type: Alcohol, Cocaine, Heroin, Marijuana, Opiates Hx Substance Use Treatment: Yes ([place], [place]) - Substances abused Alcohol Substance route: Oral Frequency: 1-2 times per week Amount used: 15 dollars of beer. Age of first use: 18 Date of last use: 06/05/19 Cocaine Substance route: Inhalation Frequency: 1-2 times per week Amount used: 20 dollars Age of first use: 17 Date of last use: 06/08/19 Heroin Substance route: Inhalation Frequency: Daily Amount used: 100 dollars Age of first use: 37 Date of last use: 06/08/19 Admission Physical Exam BHS - Vital Signs Vital Signs: Vital Signs - 24 hr 11/04/19 19:12 Temperature 98.0 F Pulse Rate 67 Respiratory 16 Rate Blood Pressure 114/71 - Physical General Appearance: Yes: Moderate Distress, Tremorous, Anxious HEENTM: Yes: Within Normal Limits, Normal Voice Respiratory: Yes: Lungs Clear, Normal Breath Sounds, No Respiratory Distress Neck: Yes: Supple Breast: Yes: Breast Exam Deferred Abdominal: Yes: Normal Bowel Sounds, Soft Genitourinary: Yes: Within Normal Limits Back: Yes: Normal Inspection Musculoskeletal: Yes: Within Normal Limits Extremities: Yes: Tremors Neurological: Yes: Within Normal Limits Integumentary: Yes: Warm Lymphatic: Yes: Within Normal Limits - Diagnostic (1) Depression Current Visit: No Status: Chronic Qualifiers: Depression Type: unspecified Qualified Code(s): F32.9 - Major depressive disorder, single episode, unspecified (2) Alcohol dependence with uncomplicated withdrawal Current Visit: Yes Status: Chronic (3) Cannabis dependence, uncomplicated Current Visit: Yes Status: Chronic (4) Cocaine dependence Current Visit: Yes Status: Chronic Qualifiers: Substance use status: uncomplicated Qualified Code(s): F14.20 - Cocaine dependence, uncomplicated (5) Nicotine dependence Current Visit: Yes Status: Chronic Qualifiers: Nicotine product type: cigarettes Substance use status: in withdrawal Qualified Code(s): F17.213 - Nicotine dependence, cigarettes, with withdrawal (6) Opioid dependence with withdrawal Current Visit: Yes Status: Chronic (7) Asthma Current Visit: Yes Status: Chronic Qualifiers: Asthma severity: mild Asthma persistence: intermittent Asthma complication type: uncomplicated Qualified Code(s): J45.20 - Mild intermittent asthma, uncomplicated (8) Cocaine dependence Current Visit: Yes Status: Chronic (9) HTN (hypertension), benign Current Visit: Yes Status: Chronic (10) GERD (gastroesophageal reflux disease) Current Visit: Yes Status: Suspected Qualifiers: Esophagitis presence: esophagitis presence not specified Qualified Code(s) : K21.9 - Gastro-esophageal reflux disease without esophagitis Cleared for Admission BHS - Detox or Rehab S Level of Care: Medically Managed Detox Regimen/Protocol: Librium Claeared for Rehab Admission: No Breathalyzer - Breathalyzer Breathalyzer: 0 Urine Drug Screen - Test Device Lot number: [id number] Expiration date: 02/01/21 - Control Is test valid?: Yes - Results Drug screen NEGATIVE: No Urine drug screen results: THC-Marijuana, CARLO-Cocaine, FEN-Fentanyl, MOP-Opiates , OXY-Oxycodone, BUP-Suboxone Inpatient Rehab Admission - Rehab Decision to Admit Inpatient rehab admission?: No
[2019-06-08] MEDS ORDERED: MENTHOL/PHENOL 1 EACH UD MM PRN (23:01)
[2019-06-08] MEDS ORDERED: MELATONIN 5 MG TABLETS PO PRN (23:01)
[2019-06-08] MEDS ORDERED: MAGNESIUM CITRATE 300 ML BOTTLE PO PRN (23:01)
[2019-06-08] MEDS ORDERED: MAGNESIUM HYDROX 2400MG/30ML ORAL SUSPENSION 30 ML CUP PO PRN (23:01)
[2019-06-08] MEDS ORDERED: IBUPROFEN 400 MG TABLET (FP) PO PRN (23:01)
[2019-06-08] MEDS ORDERED: BISMUTH SUBSALICYLATE 524 MG/30 ML UD PO PRN (23:01)
[2019-06-08] MEDS ORDERED: chlordiazePOXIDE HCL 10 MG CAPSULE PO PRN (23:01)
[2019-06-08] MEDS ORDERED: METHOCARBAMOL 500 MG TABLET PO PRN (23:01)
[2019-06-08] MEDS ORDERED: ACETAMINOPHEN 325 MG TABLET (FP) PO PRN ×2 (23:01)
[2019-06-09] MEDS: chlordiazePOXIDE HCL 25 MG CAPSULE PO SCH ×4 (00:30→21:09)
[2019-06-09] MEDS ORDERED: cloNIDine HCL 0.1 MG TABLET PO PRN (00:59)
[2019-06-09] MEDS: hydrOXYzine PAMOATE 25 MG CAPSULE (FP) PO PRN (01:16)
--- NOTE | 2019-06-09 04:24 | HP ---
CIWA Score Nausea/Vomitin-Mild Nausea/No Vomiting Muscle Tremors: 4-Moderate,w/Arms Extend Anxiety: 3 Agitation: 2 Paroxysmal Sweats: 3 Orientation: 0-Oriented Tacttile Disturbances: 0-None Auditory Disturbances: 0-None Visual Disturbances: 0-None Headache: 3-Moderate CIWA-Ar Total Score: 16 - Admission Criteria OASAS Guidelines: Admission for Medically Managed Detox: Requires at least one of the followin. CIWA greater than 12 2. Seizures within the past 24 hours 3. Delirium tremens within the past 24 hours 4. Hallucinations within the past 24 hours 5. Acute intervention needed for co occurring medical disorder 6. Acute intervention needed for co occurring psychiatric disorder 7. Severe withdrawal that cannot be handled at a lower level of care (continued vomiting, continued diarrhea, abnormal vital signs) requiring intravenous medication and/or fluids 8. Admitting History and Physical - Smoking History Smoking history: Current every day smoker Have you smoked in the past 12 months: Yes Aproximately how many cigarettes per day: 10 - Alcohol/Substance Use Hx Alcohol Use: Yes Admission ROS [facility] Allergies/Adverse Reactions: Allergies Allergy/AdvReac Type Severity Reaction Status Date / Time cheese Allergy Severe Hives Verified 06/08/19 19:00 fish derived Allergy Verified 06/08/19 19:00 No Known Drug Allergies Allergy Verified 06/08/19 19:00 lactose AdvReac Verified 06/08/19 19:00 PEANUTS Allergy Severe Rash Uncoded 06/08/19 19:00 TUNA FISH Allergy Severe Hives Uncoded 06/08/19 19:00 Mac n Cheese Allergy Intermediate Vomiting Uncoded 06/08/19 19:00 Tuna fish Allergy Intermediate Swelling Uncoded 06/08/19 19:00 NKDA Allergy Uncoded 06/08/19 19:00 - Ebola screening Have you traveled outside of the country in the last 21 days: No (N) Have you had contact with anyone from an Ebola affected area: No Do you have a fever: No Patient History - Patient Medical History Hx Anemia: Yes (Albuterol) Hx Asthma: No Hx Chronic Obstructive Pulmonary Disease (COPD): No Hx Cancer: No Hx Cardiac Disorders: No Hx Congestive Heart Failure: No Hx Hypertension: Yes (HCTZ) Hx Hypercholesterolemia: No Hx Pacemaker: No HX Cerebrovascular Accident: No Hx Seizures: No Hx Dementia: No Hx Diabetes: No Hx Gastrointestinal Disorders: No Hx Liver Disease: No Hx Genitourinary Disorders: No Hx Sexually Transmitted Disorders: No Hx Renal Disease (ESRD): No Hx Thyroid Disease: No Hx Human Immunodeficiency Virus (HIV): No Hx Hepatitis C: No Hx Depression: Yes Hx Suicide Attempt: No Hx Bipolar Disorder: Yes Hx Schizophrenia: No - Patient Surgical History Past Surgical History: No Hx Neurologic Surgery: No Hx Cataract Extraction: No Hx Cardiac Surgery: No Hx Lung Surgery: No Hx Breast Surgery: No Hx Breast Biopsy: No Hx Abdominal Surgery: No Hx Appendectomy: No Hx Cholecystectomy: No Hx Genitourinary Surgery: No Hx Section: No Hx Orthopedic Surgery: No Anesthesia Reaction: No - PPD History Previous Implant?: Yes Documented Results: Negative w/proof Implanted On Prior [facility] Admission?: Yes Date: 01/29/19 Results: 0 mm - Smoking Cessation Smoking history: Current every day smoker Have you smoked in the past 12 months: Yes Aproximately how many cigarettes per day: 10 Cigars Per Day: 0 Hx Chewing Tobacco Use: No Initiated information on smoking cessation: Yes - Substances abused Alcohol Substance route: Oral Frequency: 1-2 times per week Amount used: 15 dollars of beer. Age of first use: 18 Date of last use: 06/05/19 Cocaine Substance route: Inhalation Frequency: 1-2 times per week Amount used: 20 dollars Age of first use: 17 Date of last use: 06/08/19 Heroin Substance route: Inhalation Frequency: Daily Amount used: 100 dollars Age of first use: 37 Date of last use: 06/08/19 Admission Physical Exam BHS - Vital Signs Vital Signs: Vital Signs - 24 hr 06/08/19 06/09/19 06/09/19 19:12 00:32 03:30 Temperature 98.0 F 98.1 F Pulse Rate 67 66 Respiratory 16 18 18 Rate Blood Pressure 114/71 144/83 - Diagnostic (1) Depression Current Visit: No Status: Chronic Qualifiers: Depression Type: unspecified Qualified Code(s): F32.9 - Major depressive disorder, single episode, unspecified (2) Alcohol dependence with uncomplicated withdrawal Current Visit: Yes Status: Chronic (3) Cannabis dependence, uncomplicated Current Visit: Yes Status: Chronic (4) Cocaine dependence Current Visit: Yes Status: Chronic Qualifiers: Substance use status: uncomplicated Qualified Code(s): F14.20 - Cocaine dependence, uncomplicated (5) Nicotine dependence Current Visit: Yes Status: Chronic Qualifiers: Nicotine product type: cigarettes Substance use status: in withdrawal Qualified Code(s): F17.213 - Nicotine dependence, cigarettes, with withdrawal (6) Opioid dependence with withdrawal Current Visit: Yes Status: Chronic (7) Asthma Current Visit: Yes Status: Chronic Qualifiers: Asthma severity: mild Asthma persistence: intermittent Asthma complication type: uncomplicated Qualified Code(s): J45.20 - Mild intermittent asthma, uncomplicated (8) Cocaine dependence Current Visit: Yes Status: Chronic (9) HTN (hypertension), benign Current Visit: Yes Status: Chronic (10) GERD (gastroesophageal reflux disease) Current Visit: Yes Status: Suspected Qualifiers: Esophagitis presence: esophagitis presence not specified Qualified Code(s) : K21.9 - Gastro-esophageal reflux disease without esophagitis Breathalyzer - Breathalyzer Breathalyzer: 0 Urine Drug Screen - Test Device Lot number: [id number] Expiration date: 02/01/21 - Control Is test valid?: Yes - Results Drug screen NEGATIVE: No Urine drug screen results: THC-Marijuana, CARLO-Cocaine, FEN-Fentanyl, MOP-Opiates , OXY-Oxycodone, BUP-Suboxone
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
[2019-06-09 09:34] LABS: HEMATOCRIT 42.1 % (35.4-49); MCH 31.8 pg (25.7-33.7); MCHC 33.4 g/dl (32.0-35.9); MEAN CELL VOLUME 95.3 fl (80-96); MEAN PLT VOLUME 9.4 fl (7.5-11.1); PLATELET COUNT 225 K/MM3 (134-434); RBC 4.42 M/mm3 (4.00-5.60); RDW 13.4 % (11.9-15.9); WHITE BLOOD COUNT 11.6 K/mm3 (4.0-10.0)
[2019-06-09 10:10] LABS: ALBUMIN 3.6 g/dl (3.4-5.0); BILIRUBIN,TOTAL 0.4 mg/dL (0.2-1); BLOOD UREA NITROGEN 14.5 mg/dL (7-18); CALCIUM 8.4 mg/dL (8.5-10.1); CREATININE 0.9 mg/dL (0.55-1.3); POTASSIUM 3.8 mmol/L (3.5-5.1); TOT PROT 6.6 g/dl (6.4-8.2)
[2019-06-09] MEDS: PRENATAL VITAMINS W/ FOLIC ACID TABLET (FP) PO SCH (10:20)
[2019-06-09] MEDS: NICOTINE 14 MG/24 HOURS TOPICAL PATCH TD SCH (10:25)
[2019-06-09] MEDS: NICOTINE POLACRILEX 2 MG GUM BUC PRN ×2 (10:26→20:28)
[2019-06-09] MEDS: BUDESONIDE/FORMETEROL FUMARATE 80/4.5 mcg INHALER IH SCH ×2 (10:26→21:09)
--- NOTE | 2019-06-09 10:43 | PN ---
S CIWA - CIWA Score Nausea/Vomitin Muscle Tremors: 2 Anxiety: 2 Agitation: 2 Paroxysmal Sweats: No Perspiration Orientation: 0-Oriented Tacttile Disturbances: 1-Very Mild Itch/Numbness Auditory Disturbances: 0-None Visual Disturbances: 1-Very Mild Sensitivity Headache: 2-Mild CIWA-Ar Total Score: 12 BHS Progress Note (SOAP) Subjective: alert,irritable,anxious,interrupted sleep,tremor,pain in the body Objective: 06/09/19 10:41 Vital Signs Temperature 98.4 F 06/09/19 09:16 Pulse Rate 61 06/09/19 09:16 Respiratory Rate 18 06/09/19 09:16 Blood Pressure 124/68 06/09/19 09:16 O2 Sat by Pulse Oximetry (%) Laboratory Last Values WBC 11.6 K/mm3 (4.0-10.0) H 06/09/19 08:00 RBC 4.42 M/mm3 (4.00-5.60) 06/09/19 08:00 Hgb 14.0 GM/dL (11.7-16.9) 06/09/19 08:00 Hct 42.1 % (35.4-49) 06/09/19 08:00 MCV 95.3 fl (80-96) 06/09/19 08:00 MCH 31.8 pg (25.7-33.7) 06/09/19 08:00 MCHC 33.4 g/dl (32.0-35.9) 06/09/19 08:00 RDW 13.4 % (11.9-15.9) 06/09/19 08:00 Plt Count 225 K/MM3 (134-434) 06/09/19 08:00 MPV 9.4 fl (7.5-11.1) 06/09/19 08:00 Sodium 140 mmol/L (136-145) 06/09/19 08:00 Potassium 3.8 mmol/L (3.5-5.1) 06/09/19 08:00 Chloride 106 mmol/L (98-107) 06/09/19 08:00 Carbon Dioxide 29 mmol/L (21-32) 06/09/19 08:00 Anion Gap 6 MMOL/L (8-16) L 06/09/19 08:00 BUN 14.5 mg/dL (7-18) 06/09/19 08:00 Creatinine 0.9 mg/dL (0.55-1.3) 06/09/19 08:00 Est GFR (CKD-EPI)AfAm 122.52 06/09/19 08:00 Est GFR (CKD-EPI)NonAf 105.71 06/09/19 08:00 Random Glucose 119 mg/dL (74-106) H 06/09/19 08:00 Calcium 8.4 mg/dL (8.5-10.1) L 06/09/19 08:00 Total Bilirubin 0.4 mg/dL (0.2-1) 06/09/19 08:00 AST 21 U/L (15-37) 06/09/19 08:00 ALT 43 U/L (13-61) 06/09/19 08:00 Alkaline Phosphatase 65 U/L (45-117) 06/09/19 08:00 Total Protein 6.6 g/dl (6.4-8.2) 06/09/19 08:00 Albumin 3.6 g/dl (3.4-5.0) 06/09/19 08:00 Valproic Acid 5.0 ug/mL (50-100) L 06/09/19 08:00 Assessment: 06/09/19 10:43 withdrawal symptom Plan: continue detox librium regimen,patient is on suboxone 8mgs/2mgs sl tid ordered, wbc 11.6,glucose 119,probably due to dehydration,encourage oral fluid,repeat cbc in am,initial glucose 119,will do fasting glucose in am
[2019-06-09] MEDS: BUPRENORPHINE/NALOXONE 8 MG/2 MG FILM PACKET SL SCH ×2 (14:03→21:09)
[2019-06-09] MEDS: SERTRALINE HCL 50 MG TABLET (FP) PO SCH (15:00)
[2019-06-09] MEDS: MAG HYDROX/AL HYDROX/SIMETH 30 ML UNIT-DOSE CUP PO PRN (17:25)
[2019-06-09] MEDS: DIVALPROEX SODIUM 500 MG TABLET E.C. PO SCH (21:09)
[2019-06-09] MEDS: THIAMINE HCL 100 MG TABLET (FP) PO SCH (21:09)
[2019-06-10] MEDS: hydrOXYzine PAMOATE 25 MG CAPSULE (FP) PO PRN ×2 (00:52→23:24)
[2019-06-10] MEDS: chlordiazePOXIDE 5 MG CAPSULE PO SCH ×3 (05:42→21:49)
[2019-06-10] MEDS: BUPRENORPHINE/NALOXONE 8 MG/2 MG FILM PACKET SL SCH ×3 (05:43→21:49)
[2019-06-10] MEDS: MAG HYDROX/AL HYDROX/SIMETH 30 ML UNIT-DOSE CUP PO PRN ×2 (06:24→18:42)
--- NOTE | 2019-06-10 10:44 | PN ---
S CIWA - CIWA Score Nausea/Vomitin-No Nausea/No Vomiting Muscle Tremors: 1-None Visible, but [place] Anxiety: 2 Agitation: 2 Paroxysmal Sweats: No Perspiration Orientation: 0-Oriented Tacttile Disturbances: 1-Very Mild Itch/Numbness Auditory Disturbances: 0-None Visual Disturbances: 0-None Headache: 1-Very Mild CIWA-Ar Total Score: 7 BHS Progress Note (SOAP) Subjective: alert,irritable,interrupted sleep,tremor Objective: 06/10/19 10:47 Vital Signs Temperature 97.8 F 06/10/19 09:17 Pulse Rate 63 06/10/19 09:17 Respiratory Rate 18 06/10/19 09:17 Blood Pressure 130/64 06/10/19 09:17 O2 Sat by Pulse Oximetry (%) 06/10/19 10:47 Laboratory Results - last 24 hr 06/09/19 06/10/19 08:00 08:15 Fasting Glucose 117 H RPR Titer Nonreactive Assessment: 06/10/19 10:48 withdrawal symptom Plan: continue detox,fasting glucose 117,bgm ac daily
[2019-06-10 10:51] LABS: HEMATOCRIT 40.8 % (35.4-49); HEMOGLOBIN 13.7 GM/dL (11.7-16.9); MCH 32.3 pg (25.7-33.7); MCHC 33.6 g/dl (32.0-35.9); MEAN CELL VOLUME 96.1 fl (80-96); MEAN PLT VOLUME 9.9 fl (7.5-11.1); PLATELET COUNT 216 K/MM3 (134-434); RBC 4.24 M/mm3 (4.00-5.60); RDW 13.6 % (11.9-15.9); WHITE BLOOD COUNT 11.6 K/mm3 (4.0-10.0)
[2019-06-10] MEDS: DIVALPROEX SODIUM 500 MG TABLET E.C. PO SCH ×2 (11:01→21:49)
[2019-06-10] MEDS: SERTRALINE HCL 50 MG TABLET (FP) PO SCH (11:01)
[2019-06-10] MEDS: BUDESONIDE/FORMETEROL FUMARATE 80/4.5 mcg INHALER IH SCH ×2 (11:01→21:49)
[2019-06-10] MEDS: NICOTINE 14 MG/24 HOURS TOPICAL PATCH TD SCH (11:02)
[2019-06-10] MEDS: PRENATAL VITAMINS W/ FOLIC ACID TABLET (FP) PO SCH (11:02)
[2019-06-10] MEDS: NICOTINE POLACRILEX 2 MG GUM BUC PRN (11:03)
--- NOTE | 2019-06-10 11:40 | EKG ---
Test Reason : Blood Pressure : / mmHG Vent. Rate : 060 BPM Atrial Rate : 060 BPM P-R Int : 160 ms QRS Dur : 088 ms QT Int : 400 ms P-R-T Axes : 051 063 039 degrees QTc Int : 400 ms NORMAL SINUS RHYTHM NORMAL ECG WHEN COMPARED WITH ECG OF 17-MAY-2018 15:55, NO SIGNIFICANT CHANGE WAS FOUND Confirmed by SOHAIL WILLIS MD ([id number]) on 06/10/2019 11:40:00 AM Referred By: Confirmed By:SOHAIL WILLIS MD
[2019-06-10] MEDS: THIAMINE HCL 100 MG TABLET (FP) PO SCH (21:49)
[2019-06-11] MEDS ORDERED: chlordiazePOXIDE HCL 10 MG CAPSULE PO PRN
[2019-06-11] MEDS: chlordiazePOXIDE HCL 10 MG CAPSULE PO SCH ×3 (05:41→22:11)
[2019-06-11] MEDS: BUPRENORPHINE/NALOXONE 8 MG/2 MG FILM PACKET SL SCH ×3 (05:41→21:17)
--- NOTE | 2019-06-11 09:53 | PN ---
[facility] CIWA - CIWA Score Nausea/Vomitin-No Nausea/No Vomiting Muscle Tremors: 1-None Visible, but [place] Anxiety: 1-Mildly Anxious Agitation: 2 Paroxysmal Sweats: No Perspiration Orientation: 0-Oriented Tacttile Disturbances: 0-None Auditory Disturbances: 0-None Visual Disturbances: 0-None Headache: 1-Very Mild CIWA-Ar Total Score: 5 BHS Progress Note (SOAP) Subjective: alert,irritable,anxious,interrupted sleep,pain in the body Objective: 06/11/19 09:52 Vital Signs Temperature 97.2 F L 06/11/19 06:08 Pulse Rate 54 L 06/11/19 06:08 Respiratory Rate 18 06/11/19 06:08 Blood Pressure 113/56 L 06/11/19 06:08 O2 Sat by Pulse Oximetry (%) Laboratory Last Values WBC 11.6 K/mm3 (4.0-10.0) H 06/10/19 08:15 RBC 4.24 M/mm3 (4.00-5.60) 06/10/19 08:15 Hgb 13.7 GM/dL (11.7-16.9) 06/10/19 08:15 Hct 40.8 % (35.4-49) 06/10/19 08:15 MCV 96.1 fl (80-96) H 06/10/19 08:15 MCH 32.3 pg (25.7-33.7) 06/10/19 08:15 MCHC 33.6 g/dl (32.0-35.9) 06/10/19 08:15 RDW 13.6 % (11.9-15.9) 06/10/19 08:15 Plt Count 216 K/MM3 (134-434) 06/10/19 08:15 MPV 9.9 fl (7.5-11.1) 06/10/19 08:15 Sodium 140 mmol/L (136-145) 06/09/19 08:00 Potassium 3.8 mmol/L (3.5-5.1) 06/09/19 08:00 Chloride 106 mmol/L (98-107) 06/09/19 08:00 Carbon Dioxide 29 mmol/L (21-32) 06/09/19 08:00 Anion Gap 6 MMOL/L (8-16) L 06/09/19 08:00 BUN 14.5 mg/dL (7-18) 06/09/19 08:00 Creatinine 0.9 mg/dL (0.55-1.3) 06/09/19 08:00 Est GFR (CKD-EPI)AfAm 122.52 06/09/19 08:00 Est GFR (CKD-EPI)NonAf 105.71 06/09/19 08:00 POC Glucometer 249 UNITS (80-120) 06/11/19 05:39 Random Glucose 119 mg/dL (74-106) H 06/09/19 08:00 Fasting Glucose 117 mg/dL (74-106) H 06/10/19 08:15 Calcium 8.4 mg/dL (8.5-10.1) L 06/09/19 08:00 Total Bilirubin 0.4 mg/dL (0.2-1) 06/09/19 08:00 AST 21 U/L (15-37) 06/09/19 08:00 ALT 43 U/L (13-61) 06/09/19 08:00 Alkaline Phosphatase 65 U/L (45-117) 06/09/19 08:00 Total Protein 6.6 g/dl (6.4-8.2) 06/09/19 08:00 Albumin 3.6 g/dl (3.4-5.0) 06/09/19 08:00 Valproic Acid 5.0 ug/mL (50-100) L 06/09/19 08:00 RPR Titer Nonreactive (NONREACTIVE) 06/09/19 08:00 Assessment: 06/11/19 09:52 withdrawal symptom Plan: continue detox librium regimen,elvie,ncs,bgm monitoring,diet modification, discharge in am
[2019-06-11] MEDS: NICOTINE 14 MG/24 HOURS TOPICAL PATCH TD SCH (10:04)
[2019-06-11] MEDS: SERTRALINE HCL 50 MG TABLET (FP) PO SCH (10:05)
[2019-06-11] MEDS: DIVALPROEX SODIUM 500 MG TABLET E.C. PO SCH ×2 (10:05→22:11)
[2019-06-11] MEDS: NICOTINE POLACRILEX 2 MG GUM BUC PRN (10:05)
[2019-06-11] MEDS: PRENATAL VITAMINS W/ FOLIC ACID TABLET (FP) PO SCH (10:05)
[2019-06-11] MEDS: BUDESONIDE/FORMETEROL FUMARATE 80/4.5 mcg INHALER IH SCH ×2 (10:05→22:12)
[2019-06-11] MEDS: hydrOXYzine PAMOATE 25 MG CAPSULE (FP) PO PRN ×2 (15:27→22:16)
[2019-06-11] MEDS: MAG HYDROX/AL HYDROX/SIMETH 30 ML UNIT-DOSE CUP PO PRN (19:48)
[2019-06-11] MEDS: THIAMINE HCL 100 MG TABLET (FP) PO SCH (22:11)
[2019-06-12] MEDS: MAG HYDROX/AL HYDROX/SIMETH 30 ML UNIT-DOSE CUP PO PRN (00:54)
[2019-06-12] MEDS ORDERED: chlordiazePOXIDE HCL 10 MG CAPSULE PO ONE (05:00)
[2019-06-12] MEDS: BUPRENORPHINE/NALOXONE 8 MG/2 MG FILM PACKET SL SCH (05:14)
[2019-06-12 05:44] VITALS: BP 120/82; PULSE 55
--- NOTE | 2019-06-12 08:27 | DS ---
[facility] Detox Discharge Summary Admission Date: 06/08/19 Discharge Date: 06/12/19 - History Present History: Alcohol Dependence, Cocaine Dependence, Opioid Dependence - Physical Exam Results Vital Signs: Vital Signs Temperature 97.3 F L 06/12/19 05:44 Pulse Rate 55 L 06/12/19 05:44 Respiratory Rate 20 06/12/19 05:44 Blood Pressure 120/82 06/12/19 05:44 O2 Sat by Pulse Oximetry (%) Pertinent Admission Physical Exam Findings: pt arrived in withdrawals Vital Signs Temperature 97.3 F L 06/12/19 05:44 Pulse Rate 55 L 06/12/19 05:44 Respiratory Rate 20 06/12/19 05:44 Blood Pressure 120/82 06/12/19 05:44 O2 Sat by Pulse Oximetry (%) Laboratory Tests 06/09/19 06/09/19 06/09/19 08:00 08:00 08:00 WBC 11.6 H RBC 4.42 Hgb 14.0 Hct 42.1 MCV 95.3 MCH 31.8 MCHC 33.4 RDW 13.4 Plt Count 225 MPV 9.4 Sodium 140 Potassium 3.8 Chloride 106 Carbon Dioxide 29 Anion Gap 6 L BUN 14.5 Creatinine 0.9 Est GFR (CKD-EPI)AfAm 122.52 Est GFR (CKD-EPI)NonAf 105.71 POC Glucometer Random Glucose 119 H Fasting Glucose Calcium 8.4 L Total Bilirubin 0.4 AST 21 ALT 43 Alkaline Phosphatase 65 Total Protein 6.6 Albumin 3.6 Valproic Acid RPR Titer Nonreactive 06/09/19 06/10/19 06/10/19 08:00 08:15 08:15 WBC 11.6 H RBC 4.24 Hgb 13.7 Hct 40.8 MCV 96.1 H MCH 32.3 MCHC 33.6 RDW 13.6 Plt Count 216 MPV 9.9 Sodium Potassium Chloride Carbon Dioxide Anion Gap BUN Creatinine Est GFR (CKD-EPI)AfAm Est GFR (CKD-EPI)NonAf POC Glucometer Random Glucose Fasting Glucose 117 H Calcium Total Bilirubin AST ALT Alkaline Phosphatase Total Protein Albumin Valproic Acid 5.0 L RPR Titer 06/11/19 06/11/19 06/12/19 05:39 16:45 05:15 WBC RBC Hgb Hct MCV MCH MCHC RDW Plt Count MPV Sodium Potassium Chloride Carbon Dioxide Anion Gap BUN Creatinine Est GFR (CKD-EPI)AfAm Est GFR (CKD-EPI)NonAf POC Glucometer 249 160 161 Random Glucose Fasting Glucose Calcium Total Bilirubin AST ALT Alkaline Phosphatase Total Protein Albumin Valproic Acid RPR Titer today pt is aaox3 ambulating no acute distress no s/s of withdrawals - Treatment Hospital Course: Detox Protocol Followed, Detoxed Safely, Responded well, Discharged Condition Good, Rehab Referral Accepted Patient has Accepted a Rehab Referral to: pt referred to inpatient rehab [facility] - Medication Discharge Medications: Ambulatory Orders Advair 250-50 Diskus 1 puff PO BID 06/08/19 Sertraline HCl [Zoloft -] 100 mg PO DAILY 06/08/19 Valproic Acid [Depakene] 500 mg PO BID 06/08/19 Albuterol Sulfate Inhaler - [Ventolin Hfa Inhaler -] 1 - 2 inh PO Q4H PRN - Diagnosis (1) Alcohol dependence with uncomplicated withdrawal Current Visit: Yes Status: Chronic (2) Cocaine dependence Current Visit: Yes Status: Chronic Qualifiers: Substance use status: uncomplicated Qualified Code(s): F14.20 - Cocaine dependence, uncomplicated (3) Opioid dependence with withdrawal Current Visit: Yes Status: Chronic (4) Substance-induced anxiety disorder Current Visit: Yes Status: Acute (5) Substance-induced sleep disorder Current Visit: Yes Status: Acute (6) ADHD (attention deficit hyperactivity disorder) Current Visit: Yes Status: Chronic (7) Asthma Current Visit: Yes Status: Chronic Qualifiers: Asthma severity: mild Asthma persistence: intermittent Asthma complication type: uncomplicated Qualified Code(s): J45.20 - Mild intermittent asthma, uncomplicated (8) Cocaine dependence Current Visit: Yes Status: Chronic (9) GERD (gastroesophageal reflux disease) Current Visit: Yes Status: Chronic Qualifiers: Esophagitis presence: without esophagitis Qualified Code(s): K21.9 - Gastro -esophageal reflux disease without esophagitis (10) HTN (hypertension), benign Current Visit: Yes Status: Chronic (11) Nicotine dependence Current Visit: Yes Status: Chronic Qualifiers: Nicotine product type: cigarettes Substance use status: uncomplicated Qualified Code(s): F17.210 - Nicotine dependence, cigarettes, uncomplicated (12) ADHD (attention deficit hyperactivity disorder) Current Visit: No Status: Chronic Qualifiers: Attention deficit-hyperactivity disorder type: unspecified Qualified Code(s ): F90.9 - Attention-deficit hyperactivity disorder, unspecified type (13) Bipolar disorder Current Visit: No Status: Chronic Qualifiers: Active/Remission status: remission status unspecified Qualified Code(s): F31.9 - Bipolar disorder, unspecified (14) Depression Current Visit: No Status: Chronic Qualifiers: Depression Type: unspecified Qualified Code(s): F32.9 - Major depressive disorder, single episode, unspecified (15) Insomnia Current Visit: No Status: Chronic (16) Obesity (BMI 30-39.9) Current Visit: No Status: Chronic (17) PTSD (post-traumatic stress disorder) Current Visit: No Status: Chronic (18) Prediabetes Current Visit: No Status: Suspected (19) Substance induced mood disorder Current Visit: No Status: Chronic (20) Seizure Current Visit: No Status: Suspected
[2019-06-12 09:38] VITALS: TEMP 97.9
== END 2019-06-12 09:15 | disposition home or self-care (01) | DRG 773 ==
LOC: YASAS 16:30 → Y6N 23:36
PROVIDERS: ADMIT Allergy & Immunology; ATTEND Allergy & Immunology
PROC: HZ2ZZZZ Detoxification Services for Substance Abuse Treatment (ICD-10-PCS; principal; 2019-06-08)
DX: F11.23 Opioid dependence with withdrawal (principal); F10.230 Alcohol dependence with withdrawal, uncomplicated; F14.20 Cocaine dependence, uncomplicated; F17.210 Nicotine dependence, cigarettes, uncomplicated; F19.280 Other psychoactive substance dependence with psychoactive substance-induced anxiety disorder; F19.282 Other psychoactive substance dependence with psychoactive substance-induced sleep disorder; F19.24 Other psychoactive substance dependence with psychoactive substance-induced mood disorder; F31.9 Bipolar disorder, unspecified; F90.9 Attention-deficit hyperactivity disorder, unspecified type; F43.10 Post-traumatic stress disorder, unspecified; I10 Essential (primary) hypertension; J45.20 Mild intermittent asthma, uncomplicated; K21.9 Gastro-esophageal reflux disease without esophagitis; R73.03 Prediabetes; E66.9 Obesity, unspecified; Z68.34 Body mass index [BMI] 34.0-34.9, adult; Z91.013 Allergy to seafood; Z88.8 Allergy status to other drugs, medicaments and biological substances
CPT/HCPCS: 36415; 80053; 80164; 82947; 82962; 85027; 86593; 93005; 93010

== ENCOUNTER 2019-08-22 12:02 | Inpatient (IN) | payer OTHER ==
[2019-08-22 13:17] VITALS: BMI 35.2
--- NOTE | 2019-08-22 14:40 | HP ---
"CIWA Score Nausea/Vomitin-No Nausea/No Vomiting Muscle Tremors: 1-None Visible, but [place] Anxiety: 3 Agitation: 2 Paroxysmal Sweats: 1-Minimal Palms Moist Orientation: 0-Oriented Tacttile Disturbances: 0-None Auditory Disturbances: 0-None Visual Disturbances: 0-None Headache: 3-Moderate CIWA-Ar Total Score: 10 - Admission Criteria OASAS Guidelines: Admission for Medically Managed Detox: Requires at least one of the followin. CIWA greater than 12 2. Seizures within the past 24 hours 3. Delirium tremens within the past 24 hours 4. Hallucinations within the past 24 hours 5. Acute intervention needed for co occurring medical disorder 6. Acute intervention needed for co occurring psychiatric disorder 7. Severe withdrawal that cannot be handled at a lower level of care (continued vomiting, continued diarrhea, abnormal vital signs) requiring intravenous medication and/or fluids 8. Admitting History and Physical - Smoking History Smoking history: Current every day smoker Have you smoked in the past 12 months: Yes Aproximately how many cigarettes per day: 10 - Alcohol/Substance Use Hx Alcohol Use: Yes Admission ROS [facility] Allergies/Adverse Reactions: Allergies Allergy/AdvReac Type Severity Reaction Status Date / Time cheese Allergy Severe Hives Verified 08/22/19 12:46 fish derived Allergy Verified 08/22/19 12:46 No Known Drug Allergies Allergy Verified 08/22/19 12:46 lactose AdvReac Verified 08/22/19 12:46 PEANUTS Allergy Severe Rash Uncoded 08/22/19 12:46 NKDA Allergy Uncoded 08/22/19 12:46 History of Present Illness: cannabis- daily cocaine - 30 $ /day DENIES OPIATE USE . Utox : + FEN, MOP , claims latest opiate use 4 mo ago . 43 yo h/o HTN, asthma ,recent DM II dx , here rquesting detox from etoh use , reports 1/4 liquor /day , denies seizures or blackouts, reports irritability if not drinking alcohol, latest use today . This report was requested by: Nydia Hawkins | Reference #: [id number] Others' Prescriptions Patient Name: Aquilino Rodriguez Date: 1975 Address: [address] [place] [address] Sex: Male Rx Written Rx Dispensed Drug Quantity Days Supply Prescriber Name 08/21/2019 08/21/2019 buprenorphine-naloxone 8-2 mg sl film 90 30 CreminsMaryAlena A PAC 07/21/2019 07/21/2019 buprenorphine-naloxone 8-2 mg sl film 90 30 CreminsMaryAlena A PAC 06/17/2019 06/19/2019 buprenorphine-naloxone 8-2 mg sl film 90 30 Cremins, Alena A PAC 05/12/2019 05/20/2019 buprenorphine-naloxone 8-2 mg sl film 90 30 CreminsMaryAlena A PAC 05/06/2019 05/12/2019 buprenorphine-naloxone 8-2 mg sl film 21 7 Donovan Mcconnell 05/06/2019 05/06/2019 buprenorphine-naloxone 8-2 mg sl film 21 7 Donovan Mcconnell 04/29/2019 04/30/2019 buprenorphine-naloxone 8-2 mg sl film 21 7 CreminsAlena A PAC 03/26/2019 04/16/2019 buprenorphine-naloxone 8-2 mg sl film 42 14 CreminsDevonteia A PAC 03/11/2019 03/11/2019 buprenorphine-naloxone 8-2 mg sl film 56 28 CreminsDevonteia A PAC 10/23/2018 10/27/2018 buprenorphine-naloxone 8-2 mg sl film 60 30 CreminsDevonteia A PAC 09/12/2018 09/18/2018 suboxone 8 mg-2 mg sl film 60 30 CreminsDevonteia A PAC Exam Limitations: No Limitations - Ebola screening Have you traveled outside of the country in the last 21 days: No (N) Have you had contact with anyone from an Ebola affected area: No Do you have a fever: No - Review of Systems Constitutional: Loss of Appetite EENT: reports: No Symptoms Reported Respiratory: reports: No Symptoms reported Cardiac: reports: No Symptoms Reported GI: reports: Constipated, Poor Appetite : reports: Other (dififculty urinating today) Musculoskeletal: reports: No Symptoms Reported Integumentary: reports: No Symptoms Reported Neuro: reports: Headache Endocrine: reports: See HPI Psychiatric: reports: Orientated x3, Agitated, Anxious Patient History - Patient Medical History Hx Anemia: Yes (Albuterol) Hx Asthma: No Hx Chronic Obstructive Pulmonary Disease (COPD): No Hx Cancer: No Hx Cardiac Disorders: No Hx Congestive Heart Failure: No Hx Hypertension: Yes (HCTZ) Hx Hypercholesterolemia: No Hx Pacemaker: No HX Cerebrovascular Accident: No Hx Seizures: No Hx Dementia: No Hx Diabetes: No Hx Gastrointestinal Disorders: No Hx Liver Disease: No Hx Genitourinary Disorders: No Hx Sexually Transmitted Disorders: No Hx Renal Disease (ESRD): No Hx Thyroid Disease: No Hx Human Immunodeficiency Virus (HIV): No Hx Hepatitis C: No Hx Depression: Yes Hx Suicide Attempt: No Hx Bipolar Disorder: Yes Hx Schizophrenia: No - Patient Surgical History Past Surgical History: No Hx Neurologic Surgery: No Hx Cataract Extraction: No Hx Cardiac Surgery: No Hx Lung Surgery: No Hx Breast Surgery: No Hx Breast Biopsy: No Hx Abdominal Surgery: No Hx Appendectomy: No Hx Cholecystectomy: No Hx Genitourinary Surgery: No Hx Section: No Hx Orthopedic Surgery: No Anesthesia Reaction: No - PPD History Date: 01/29/19 Results: 0 mm - Smoking Cessation Smoking history: Current every day smoker Have you smoked in the past 12 months: Yes Aproximately how many cigarettes per day: 10 Cigars Per Day: 0 Hx Chewing Tobacco Use: No Initiated information on smoking cessation: No - Substances abused Alcohol Substance route: Oral Frequency: Daily Amount used: 1/4 pint of vodka Age of first use: 19 Date of last use: 08/22/19 Cocaine Substance route: Inhalation Frequency: 3-6 times per week Amount used: $20 Age of first use: 19 Date of last use: 08/20/19 Marijuana/Hashish Substance route: Smoking Frequency: Daily Amount used: $20 Age of first use: 17 Date of last use: 08/22/19 Admission Physical Exam BHS - Vital Signs Vital Signs: Vital Signs - 24 hr 08/22/19 12:45 Temperature 97.2 F L Pulse Rate 76 Respiratory 18 Rate Blood Pressure 115/75 - Physical General Appearance: Yes: Mild Distress, Anxious HEENTM: Yes: EOMI, Hearing grossly Normal, Normocephalic, Normal Voice Respiratory: Yes: Lungs Clear, Normal Breath Sounds, No Respiratory Distress, No Accessory Muscle Use Neck: Yes: No masses,lesions,Nodules, Trachea in good position Cardiology: Yes: Regular Rhythm, Regular Rate, S1, S2 Abdominal: Yes: Non Tender, Soft Musculoskeletal: Yes: Gait Steady Extremities: Yes: Normal Inspection, Normal Range of Motion, Non-Tender Neurological: Yes: Fully Oriented, Alert, Motor Strength 5/5, Normal Mood/Affect Integumentary: Yes: Warm - Diagnostic (1) Opioid dependence on agonist therapy Current Visit: Yes Status: Chronic (2) Alcohol dependence with uncomplicated withdrawal Current Visit: Yes Status: Chronic (3) Cocaine dependence Current Visit: Yes Status: Chronic Qualifiers: Substance use status: uncomplicated Qualified Code(s): F14.20 - Cocaine dependence, uncomplicated (4) Nicotine dependence Current Visit: Yes Status: Chronic Qualifiers: Nicotine product type: cigarettes Substance use status: uncomplicated Qualified Code(s): F17.210 - Nicotine dependence, cigarettes, uncomplicated (5) Cannabis dependence Current Visit: Yes Status: Chronic Breathalyzer - Breathalyzer Breathalyzer: 0 Urine Drug Screen - Test Device Lot number: [id number] Expiration date: 03/03/21 - Control Is test valid?: Yes - Results Drug screen NEGATIVE: No Urine drug screen results: THC-Marijuana, CARLO-Cocaine, FEN-Fentanyl, MOP-Opiates , BUP-Suboxone Inpatient Rehab Admission - Rehab Decision to Admit Inpatient rehab admission?: No"
[2019-08-22] MEDS ORDERED: ACETAMINOPHEN 325 MG TABLET (FP) PO PRN ×2 (14:45)
[2019-08-22] MEDS ORDERED: MENTHOL/PHENOL 1 EACH UD MM PRN (14:45)
[2019-08-22] MEDS ORDERED: MAGNESIUM CITRATE 300 ML BOTTLE PO PRN (14:45)
[2019-08-22] MEDS ORDERED: IBUPROFEN 400 MG TABLET (FP) PO PRN (14:45)
[2019-08-22] MEDS ORDERED: BISMUTH SUBSALICYLATE 524 MG/30 ML UD PO PRN (14:45)
[2019-08-22] MEDS ORDERED: ALBUTEROL SO4 HFA INHALER IH PRN (14:45)
[2019-08-22] MEDS ORDERED: METHOCARBAMOL 500 MG TABLET PO PRN (14:45)
[2019-08-22] MEDS ORDERED: hydrOXYzine PAMOATE 25 MG CAPSULE (FP) PO PRN (14:45)
[2019-08-22] MEDS ORDERED: PROCHLORPERAZINE MALEATE 5 MG TABLET PO PRN (14:45)
[2019-08-22] MEDS ORDERED: MAG HYDROX/AL HYDROX/SIMETH 30 ML UNIT-DOSE CUP PO PRN (14:45)
[2019-08-22] MEDS ORDERED: diazePAM 5 MG TABLET PO PRN (14:47)
[2019-08-22] MEDS: diazePAM 5 MG TABLET PO SCH ×2 (18:13→22:46)
[2019-08-22] MEDS: MELATONIN 5 MG TABLETS PO PRN (22:46)
[2019-08-22] MEDS: THIAMINE HCL 100 MG TABLET (FP) PO SCH (22:46)
[2019-08-23] MEDS: diazePAM 5 MG TABLET PO SCH ×3 (05:26→22:02)
[2019-08-23] MEDS: MAGNESIUM HYDROX 2400MG/30ML ORAL SUSPENSION 30 ML CUP PO PRN (07:14)
[2019-08-23] MEDS: metFORMIN HCL 500 MG TABLET (FP) PO SCH (08:18)
[2019-08-23] MEDS ORDERED: diazePAM 5 MG TABLET PO PRN (09:49)
[2019-08-23] MEDS ORDERED: BUPRENORPHINE/NALOXONE 8 MG/2 MG FILM PACKET SL ONE (09:50)
--- NOTE | 2019-08-23 09:56 | PN ---
S CIWA - CIWA Score Nausea/Vomitin-Mild Nausea/No Vomiting Muscle Tremors: 3 Anxiety: 4-Mod. Anxious/Guarded Agitation: 1-Slight > Activity Paroxysmal Sweats: 2 Orientation: 0-Oriented Tacttile Disturbances: 0-None Auditory Disturbances: 0-None Visual Disturbances: 0-None Headache: 1-Very Mild CIWA-Ar Total Score: 12 BHS Progress Note (SOAP) Subjective: 44 years old male admitted on 08/22/19 for alcohol withdrawal sx management treating with valium detox regimen feeling anxious body aches and sweating patient presents opioid withdrawal sx that urine tox positive for opiate reports in suboxone program patient is taking suboxone 8-2mg sl tid daily last filled 30 days on 08/21/19 health teaching on risks of suboxone mixing with opioid substances begin suboxone 8-2mg sl tid Objective: 08/23/19 09:55 Vital Signs Temperature 96.1 F L 08/23/19 09:08 Pulse Rate 62 08/23/19 09:08 Respiratory Rate 18 08/23/19 09:08 Blood Pressure 123/64 08/23/19 09:08 O2 Sat by Pulse Oximetry (%) Laboratory Last Values POC Glucometer 131 UNITS (80-120) 08/23/19 05:24 08/23/19 09:55 lab pending Assessment: 08/23/19 09:56 alcohol withdrawal Plan: valium regimen
[2019-08-23] MEDS: LISINOPRIL 5 MG TABLET (FP) PO SCH (10:08)
[2019-08-23] MEDS: PRENATAL VITAMINS W/ FOLIC ACID TABLET (FP) PO SCH (10:08)
[2019-08-23] MEDS: NICOTINE POLACRILEX 2 MG GUM BUC PRN ×2 (10:08→22:39)
[2019-08-23 10:43] LABS: HEMATOCRIT 40.1 % (35.4-49); HEMOGLOBIN 13.7 GM/dL (11.7-16.9); MCH 33.2 pg (25.7-33.7); MCHC 34.1 g/dl (32.0-35.9); MEAN CELL VOLUME 97.4 fl (80-96); MEAN PLT VOLUME 9.8 fl (7.5-11.1); PLATELET COUNT 205 K/MM3 (134-434); RBC 4.12 M/mm3 (4.00-5.60); WHITE BLOOD COUNT 7.3 K/mm3 (4.0-10.0)
[2019-08-23 10:49] LABS: ALBUMIN 3.5 g/dl (3.4-5.0); BILIRUBIN,TOTAL 0.4 mg/dL (0.2-1); BLOOD UREA NITROGEN 13.4 mg/dL (7-18); CALCIUM 8.3 mg/dL (8.5-10.1); CREATININE 0.8 mg/dL (0.55-1.3); POTASSIUM 3.8 mmol/L (3.5-5.1); TOT PROT 6.6 g/dl (6.4-8.2)
--- NOTE | 2019-08-23 11:41 | CONSULT ---
[facility] Psychiatric Consult - Data Date of interview: 08/23/19 Admission source: [facility] Identifying data: Patient is a 44 year old male, father of one, unemployed, domiciled, and is supported by [facility]. This is one of multiple admissions for patient. Patient admitted to for alcohol and cocaine dependence. Substance Abuse History: Smoking Cessation. Smoking history: Current every day smoker. Have you smoked in the past 12 months: Yes. Aproximately how many cigarettes per day: 10. Cigars Per Day: 0. Hx Chewing Tobacco Use: No. Initiated information on smoking cessation: No. - Substances abused. Alcohol. Substance route: Oral. Frequency: Daily. Amount used: 1/4 pint of vodka. Age of first use: 19. Date of last use: 08/22/19. Cocaine. Substance route: Inhalation. Frequency: 3-6 times per week. Amount used: $20. Age of first use: 19. Date of last use: 08/20/19. Marijuana/Hashish. Substance route: Smoking. Frequency: Daily. Amount used: $20. Age of first use: 17. Date of last use: 08/22/19 Medical History: Significant for hypertension and bronchial asthma. Psychiatric History: Patient reports history of multiple psychiatric hospitalizations most recently last year at [facility] after an accidental overdose on fentanyl. Diagnosis of PTSD and Depression. Mr. Rodriguez reports additional hospitalizations at [facility], and [facility] secondary to depression. Patient is currently provided with Outpatient psychiatric care at [facility] by Dr. Blount and is prescribed depakote 500mg BID + Zoloft 100mg. Reports most recently taking his medications several days ago. Patient denies history of suicide attempt. At present he reports present mood but is experiencing difficulty sleeping. Physical/Sexual Abuse/Trauma History: denies. Mental Status Exam - Mental Status Exam Alert and Oriented to: Time, Place, Person Cognitive Function: Good Patient Appearance: Well Groomed Mood: Euthymic Affect: Appropriate Patient Behavior: Appropriate, Cooperative Speech Pattern: Appropriate Voice Loudness: Normal Thought Process: Goal Oriented Thought Disorder: Not Present Hallucinations: Denies Suicidal Ideation: Denies Homicidal Ideation: Denies Insight/Judgement: Poor Sleep: Poorly Appetite: Fair Muscle strength/Tone: Normal Gait/Station: Normal Psychiatric Findings - Problem List ([place] 1, 2,3) (1) Alcohol dependence with uncomplicated withdrawal Status: Acute (2) Cannabis dependence Status: Chronic (3) Cocaine dependence Status: Chronic Qualifiers: Substance use status: uncomplicated Qualified Code(s): F14.20 - Cocaine dependence, uncomplicated (4) Opioid dependence on agonist therapy Status: Chronic (5) ADHD (attention deficit hyperactivity disorder) Status: Chronic Qualifiers: Attention deficit-hyperactivity disorder type: unspecified Qualified Code(s ): F90.9 - Attention-deficit hyperactivity disorder, unspecified type (6) Bipolar disorder Status: Chronic Qualifiers: Active/Remission status: remission status unspecified Qualified Code(s): F31.9 - Bipolar disorder, unspecified (7) Substance-induced sleep disorder Status: Acute - Initial Treatment Plan Initial Treatment Plan: Psychoeducation provided. Detoxification in progress. Will order Zoloft 100mg daily + Depakote 500mg BID. Valproic acid level ordered for 08/24/19. Benefits and side effects discussed. Verbal consent given.
[2019-08-23] MEDS: BUPRENORPHINE/NALOXONE 8 MG/2 MG FILM PACKET SL SCH ×2 (13:27→22:03)
[2019-08-23] MEDS: THIAMINE HCL 100 MG TABLET (FP) PO SCH (22:01)
[2019-08-23] MEDS: DIVALPROEX SODIUM 500 MG TABLET E.C. PO SCH (22:02)
[2019-08-24] MEDS ORDERED: diazePAM 5 MG TABLET PO ONE (05:00)
[2019-08-24] MEDS: BUPRENORPHINE/NALOXONE 8 MG/2 MG FILM PACKET SL SCH ×3 (05:38→22:43)
[2019-08-24] MEDS: metFORMIN HCL 500 MG TABLET (FP) PO SCH (06:57)
[2019-08-24] MEDS: MAGNESIUM HYDROX 2400MG/30ML ORAL SUSPENSION 30 ML CUP PO PRN (08:24)
[2019-08-24] MEDS ORDERED: BISMUTH SUBSALICYLATE 524 MG/30 ML UD PO PRN ×2 (08:48→23:12)
[2019-08-24] MEDS ORDERED: LOPERAMIDE HCL 2 MG CAPSULE PO ONE ×2 (08:49→14:00)
[2019-08-24] MEDS ORDERED: SERTRALINE HCL 50 MG TABLET (FP) PO SCH (10:00)
[2019-08-24] MEDS: LISINOPRIL 5 MG TABLET (FP) PO SCH (10:20)
[2019-08-24] MEDS: DIVALPROEX SODIUM 500 MG TABLET E.C. PO SCH ×2 (10:20→22:43)
[2019-08-24] MEDS: PRENATAL VITAMINS W/ FOLIC ACID TABLET (FP) PO SCH (10:21)
--- NOTE | 2019-08-24 11:47 | PN ---
S CIWA - CIWA Score Nausea/Vomitin-No Nausea/No Vomiting Muscle Tremors: 2 Anxiety: 2 Agitation: 2 Paroxysmal Sweats: 1-Minimal Palms Moist Orientation: 0-Oriented Tacttile Disturbances: 0-None Auditory Disturbances: 0-None Visual Disturbances: 0-None Headache: 1-Very Mild CIWA-Ar Total Score: 8 BHS Progress Note (SOAP) Subjective: 44 years old male admitted on 08/22/19 for alcohol withdrawal sx management treating with valium detox reigmen feeling better today slept through the night reports loose stool after breakfast imodium 1 dose now and around 2 pm today pepto discontinue due to that the patient is taking depakote for bipoilar disorder continue suboxone 8-2mg sl tid patient agrees to return to suboxone program for follow up care Objective: 08/24/19 11:49 Vital Signs Temperature 97.3 F L 08/24/19 09:10 Pulse Rate 60 08/24/19 09:10 Respiratory Rate 18 08/24/19 09:10 Blood Pressure 116/71 08/24/19 09:10 O2 Sat by Pulse Oximetry (%) Laboratory Last Values WBC 7.3 K/mm3 (4.0-10.0) 08/23/19 07:20 RBC 4.12 M/mm3 (4.00-5.60) 08/23/19 07:20 Hgb 13.7 GM/dL (11.7-16.9) 08/23/19 07:20 Hct 40.1 % (35.4-49) 08/23/19 07:20 MCV 97.4 fl (80-96) H 08/23/19 07:20 MCH 33.2 pg (25.7-33.7) 08/23/19 07:20 MCHC 34.1 g/dl (32.0-35.9) 08/23/19 07:20 RDW 13.0 % (11.9-15.9) 08/23/19 07:20 Plt Count 205 K/MM3 (134-434) 08/23/19 07:20 MPV 9.8 fl (7.5-11.1) 08/23/19 07:20 Sodium 137 mmol/L (136-145) 08/23/19 07:20 Potassium 3.8 mmol/L (3.5-5.1) 08/23/19 07:20 Chloride 106 mmol/L (98-107) 08/23/19 07:20 Carbon Dioxide 27 mmol/L (21-32) 08/23/19 07:20 Anion Gap 5 MMOL/L (8-16) L 08/23/19 07:20 BUN 13.4 mg/dL (7-18) 08/23/19 07:20 Creatinine 0.8 mg/dL (0.55-1.3) 08/23/19 07:20 Est GFR (CKD-EPI)AfAm 127.70 08/23/19 07:20 Est GFR (CKD-EPI)NonAf 110.18 08/23/19 07:20 POC Glucometer 105 UNITS (80-120) 08/24/19 05:35 Random Glucose 103 mg/dL (74-106) 08/23/19 07:20 Calcium 8.3 mg/dL (8.5-10.1) L 08/23/19 07:20 Total Bilirubin 0.4 mg/dL (0.2-1) 08/23/19 07:20 AST 22 U/L (15-37) 08/23/19 07:20 ALT 40 U/L (13-61) 08/23/19 07:20 Alkaline Phosphatase 71 U/L (45-117) 08/23/19 07:20 Total Protein 6.6 g/dl (6.4-8.2) 08/23/19 07:20 Albumin 3.5 g/dl (3.4-5.0) 08/23/19 07:20 HIV 1&2 Antibody Screen Negative 08/23/19 07:20 HIV P24 Antigen Negative 08/23/19 07:20 lab noted Assessment: 08/24/19 11:49 alcohol withdrawal Plan: valium regimen
[2019-08-24] MEDS: MELATONIN 5 MG TABLETS PO PRN (22:43)
[2019-08-24] MEDS: THIAMINE HCL 100 MG TABLET (FP) PO SCH (22:43)
[2019-08-24] MEDS ORDERED: LOPERAMIDE HCL 2 MG CAPSULE PO PRN (23:08)
[2019-08-25 05:55] VITALS: BP 106/53; PULSE 50; TEMP 97.6
[2019-08-25] MEDS: metFORMIN HCL 500 MG TABLET (FP) PO SCH (06:08)
[2019-08-25] MEDS: BUPRENORPHINE/NALOXONE 8 MG/2 MG FILM PACKET SL SCH (06:08)
--- NOTE | 2019-08-25 09:47 | DS ---
[facility] Detox Discharge Summary Admission Date: 08/22/19 Discharge Date: 08/25/19 - History Present History: Alcohol Dependence Additional Comments: 44 years old male admitted on 08/22/19 for alcohol withdrawal sx management treated with valium detox regiment patient has completed the valium regimen and tolerated well patient is alert oriented x 3 cardiac s1s2 regular rate rhythm respiratory clear lungs bilaterally on auscultation skin warm and dry - Physical Exam Results Vital Signs: Vital Signs Temperature 97.6 F 08/25/19 05:54 Pulse Rate 50 L 08/25/19 05:54 Respiratory Rate 18 08/25/19 05:54 Blood Pressure 106/53 L 08/25/19 05:54 O2 Sat by Pulse Oximetry (%) Pertinent Admission Physical Exam Findings: alcohol withdrawal Laboratory Last Values WBC 7.3 K/mm3 (4.0-10.0) 08/23/19 07:20 RBC 4.12 M/mm3 (4.00-5.60) 08/23/19 07:20 Hgb 13.7 GM/dL (11.7-16.9) 08/23/19 07:20 Hct 40.1 % (35.4-49) 08/23/19 07:20 MCV 97.4 fl (80-96) H 08/23/19 07:20 MCH 33.2 pg (25.7-33.7) 08/23/19 07:20 MCHC 34.1 g/dl (32.0-35.9) 08/23/19 07:20 RDW 13.0 % (11.9-15.9) 08/23/19 07:20 Plt Count 205 K/MM3 (134-434) 08/23/19 07:20 MPV 9.8 fl (7.5-11.1) 08/23/19 07:20 Sodium 137 mmol/L (136-145) 08/23/19 07:20 Potassium 3.8 mmol/L (3.5-5.1) 08/23/19 07:20 Chloride 106 mmol/L (98-107) 08/23/19 07:20 Carbon Dioxide 27 mmol/L (21-32) 08/23/19 07:20 Anion Gap 5 MMOL/L (8-16) L 08/23/19 07:20 BUN 13.4 mg/dL (7-18) 08/23/19 07:20 Creatinine 0.8 mg/dL (0.55-1.3) 08/23/19 07:20 Est GFR (CKD-EPI)AfAm 127.70 08/23/19 07:20 Est GFR (CKD-EPI)NonAf 110.18 08/23/19 07:20 POC Glucometer 101 UNITS (80-120) 08/25/19 06:10 Random Glucose 103 mg/dL (74-106) 08/23/19 07:20 Calcium 8.3 mg/dL (8.5-10.1) L 08/23/19 07:20 Total Bilirubin 0.4 mg/dL (0.2-1) 08/23/19 07:20 AST 22 U/L (15-37) 08/23/19 07:20 ALT 40 U/L (13-61) 08/23/19 07:20 Alkaline Phosphatase 71 U/L (45-117) 08/23/19 07:20 Total Protein 6.6 g/dl (6.4-8.2) 08/23/19 07:20 Albumin 3.5 g/dl (3.4-5.0) 08/23/19 07:20 Valproic Acid 6.3 ug/mL (50-100) L 08/24/19 05:30 HIV 1&2 Antibody Screen Negative 08/23/19 07:20 HIV P24 Antigen Negative 08/23/19 07:20 lab noted - Treatment Hospital Course: Detox Protocol Followed, Detoxed Safely, Responded well, Discharged Condition Good, Rehab Referral Accepted Patient has Accepted a Rehab Referral to: suboxone maintenance program - Medication Discharge Medications: Ambulatory Orders Divalproex Sodium 500 mg PO BID 08/07/19 Folic Acid 1 mg PO DAILY 08/07/19 Hydrochlorothiazide 25 mg PO DAILY 08/07/19 Multivitamin [One-Daily Multi-Vitamin] 1 tab PO DAILY 08/07/19 Sertraline HCl 100 mg PO DAILY 08/07/19 Thiamine HCl [Vitamin B1 -] 100 mg PO DAILY 08/07/19 Albuterol Sulfate Inhaler - [Ventolin HFA Inhaler -] 2 inh PO Q4H 08/22/19 Lisinopril 5 mg PO DAILY 08/22/19 Metformin HCl [Glucophage] 500 mg PO DAILY 01/18/20 - Diagnosis (1) Encounter for monitoring Suboxone maintenance therapy Status: Chronic (2) Alcohol dependence with uncomplicated withdrawal Status: Acute (3) Asthma Status: Chronic Qualifiers: Asthma severity: mild Asthma persistence: intermittent Asthma complication type: uncomplicated Qualified Code(s): J45.20 - Mild intermittent asthma, uncomplicated (4) GERD (gastroesophageal reflux disease) Status: Chronic Qualifiers: Esophagitis presence: without esophagitis Qualified Code(s): K21.9 - Gastro -esophageal reflux disease without esophagitis (5) HTN (hypertension), benign Status: Chronic (6) Nicotine dependence Status: Acute Qualifiers: Nicotine product type: cigarettes Substance use status: in withdrawal Qualified Code(s): F17.213 - Nicotine dependence, cigarettes, with withdrawal (7) Obesity (BMI 30-39.9) Status: Chronic (8) Substance induced mood disorder Status: Suspected - AMA Did Patient Leave Against Medical Advice: No CIWA Score - CIWA Score Nausea/Vomitin-No Nausea/No Vomiting Muscle Tremors: 1-None Visible, but [place] Anxiety: 1-Mildly Anxious Agitation: 1-Slight > Activity Paroxysmal Sweats: 1-Minimal Palms Moist Orientation: 0-Oriented Tacttile Disturbances: 0-None Auditory Disturbances: 0-None Visual Disturbances: 0-None Headache: 1-Very Mild CIWA-Ar Total Score: 5
== END 2019-08-25 08:46 | disposition home or self-care (01) | DRG 773 ==
LOC: YASAS 12:02 → Y3N 15:11
PROVIDERS: ADMIT Allergy & Immunology; ATTEND Allergy & Immunology
PROC: HZ2ZZZZ Detoxification Services for Substance Abuse Treatment (ICD-10-PCS; principal; 2019-08-22)
DX: F10.230 Alcohol dependence with withdrawal, uncomplicated (principal); F11.20 Opioid dependence, uncomplicated; F14.20 Cocaine dependence, uncomplicated; F12.20 Cannabis dependence, uncomplicated; F17.213 Nicotine dependence, cigarettes, with withdrawal; F31.9 Bipolar disorder, unspecified; F19.282 Other psychoactive substance dependence with psychoactive substance-induced sleep disorder; F19.24 Other psychoactive substance dependence with psychoactive substance-induced mood disorder; F90.9 Attention-deficit hyperactivity disorder, unspecified type; I10 Essential (primary) hypertension; J45.998 Other asthma; K21.9 Gastro-esophageal reflux disease without esophagitis; E66.9 Obesity, unspecified; Z68.35 Body mass index [BMI] 35.0-35.9, adult; Z51.81 Encounter for therapeutic drug level monitoring; Z91.010 Allergy to peanuts; Z91.013 Allergy to seafood; Z91.011 Allergy to milk products
CPT/HCPCS: 36415; 80053; 80164; 82962; 85027; 87389

== ENCOUNTER 2020-03-17 13:01 | Inpatient (IN) | payer OTHER ==
--- NOTE | 2020-03-17 12:59 | HP ---
[facility] Rehab Assess/Revision - Admission History Ad[facility] to [facility]hab [facility] - Findings Detox History & Physical reviewed: Yes Concur with findings: Yes Inpatient Rehab Admission - Rehab Decision to Admit Inpatient rehab admission?: Yes - Initial Determination Are CD services needed?: Yes Free of communicable disease: Yes Not in need of hospitalization: Yes - Rehab Admission Criteria Previous failed treatment: Yes Poor recovery environment: Yes Comorbidities: Yes Lacks judgement: Yes Patient is meeting Inpatient Rehab admission criteria:: Yes
[2020-03-17] MEDS ORDERED: P-EPHED 60MG/TRIPROLIDI 2.5MG TABLET PO PRN (14:47)
[2020-03-17] MEDS ORDERED: MENTHOL/PHENOL 1 EACH UD MM PRN (14:47)
[2020-03-17] MEDS ORDERED: MAGNESIUM HYDROX 2400MG/30ML ORAL SUSPENSION 30 ML CUP PO PRN (14:47)
[2020-03-17] MEDS ORDERED: LOPERAMIDE HCL 2 MG CAPSULE PO PRN (14:47)
[2020-03-17] MEDS ORDERED: guaiFENesin 200 MG/10 ML 10 ML UNIT-DOSE CUPS PO PRN (14:47)
[2020-03-17] MEDS ORDERED: MAGNESIUM CITRATE 300 ML BOTTLE PO PRN (14:47)
[2020-03-17] MEDS ORDERED: ACETAMINOPHEN 325 MG TABLET (FP) PO PRN (14:47)
[2020-03-17] MEDS ORDERED: ALBUTEROL SO4 HFA INHALER IH PRN (14:50)
[2020-03-17] MEDS ORDERED: BUPRENORPHINE/NALOXONE 8 MG/2 MG FILM PACKET SL ONE (14:55)
--- NOTE | 2020-03-17 14:59 | PN ---
[facility] Progress Note Note: Pt is a 44 y/o old male who completed detox on today and referred to rehab to continue CD treatment. On Suboxone 8mg/2mg sl TID. L/D this morning on . PMHx:Asthma, HTN, DM- all with meds. Psych Hx: Depression-on Depakote 500 mg po BID Reports he has a suboxone prescriber Dr. Alena Senior. Reports primary care with [facility] with Dr. Viktoria Kiser. Vital Signs - 24 hr 03/17/20 13:25 Temperature 97.8 F Pulse Rate 59 L Respiratory 18 Rate Blood Pressure 108/67 O2 Sat by Pulse 95 Oximetry (%) alert o x 3 nad resp, no resp difficulty extremities , no edema,skin intact. oob ambulating with steady gait s/p detox admit to rehab Suboxone 8mg/2mg sl stat dose, then cont routine schedule at 10 pm tonight.
[2020-03-17] MEDS: BUPRENORPHINE/NALOXONE 8 MG/2 MG FILM PACKET SL SCH (21:18)
[2020-03-17] MEDS: MELATONIN 5 MG TABLETS PO SCH (21:18)
[2020-03-17] MEDS: DIVALPROEX SODIUM 500 MG TABLET E.C. PO SCH (21:18)
[2020-03-17] MEDS: hydrOXYzine PAMOATE 25 MG CAPSULE (FP) PO PRN (21:18)
[2020-03-17] MEDS: THIAMINE HCL 100 MG TABLET (FP) PO SCH (21:18)
[2020-03-17] MEDS ORDERED: BUPRENORPHINE/NALOXONE 8 MG/2 MG FILM PACKET SL SCH (22:00)
[2020-03-18] MEDS: BUPRENORPHINE/NALOXONE 8 MG/2 MG FILM PACKET SL SCH ×3 (06:02→22:05)
[2020-03-18] MEDS: metFORMIN HCL 500 MG TABLET (FP) PO SCH (06:03)
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
[2020-03-18] MEDS: DIVALPROEX SODIUM 500 MG TABLET E.C. PO SCH ×2 (10:08→22:04)
[2020-03-18] MEDS: HYDROCHLOROTHIAZIDE 25 MG TABLET (FP) PO SCH (10:08)
[2020-03-18] MEDS: LISINOPRIL 5 MG TABLET (FP) PO SCH (10:08)
[2020-03-18] MEDS: SERTRALINE HCL 50 MG TABLET (FP) PO SCH (10:08)
[2020-03-18] MEDS: PRENATAL VITAMINS W/ FOLIC ACID TABLET (FP) PO SCH (10:08)
[2020-03-18] MEDS: BUDESONIDE/FORMETEROL FUMARATE 80/4.5 mcg INHALER IH SCH ×2 (10:09→22:08)
[2020-03-18] MEDS: NICOTINE 7 MG/24 HOURS TOPICAL PATCH TD SCH (10:09)
[2020-03-18] MEDS: NICOTINE POLACRILEX 2 MG GUM BUC PRN (10:12)
--- NOTE | 2020-03-18 11:38 | PN ---
[facility] Progress Note Note: Pt c/o itchy eyelid and scratched upper eyelid and now with small open skin/small blood Vital Signs - 24 hr 03/17/20 03/17/20 03/18/20 13:25 21:09 07:15 Temperature 97.8 F 97.5 F L Pulse Rate 59 L 53 L Respiratory 18 18 Rate Blood Pressure 108/67 116/76 O2 Sat by Pulse 95 96 96 Oximetry (%) Laboratory Tests 03/17/20 03/18/20 16:52 06:01 POC Glucometer 99 72 Eye:Right upper eyelid with small abrasion/very slight bleeding,slight redness, no swelling. DEMETRI, EOMI,no redness or eyedrainage. Apply Bacitracin ointment to area BID ordered
[2020-03-18] MEDS: BACITRACIN 0.9 GM PACKET TP SCH ×2 (12:22→22:05)
[2020-03-18] MEDS ORDERED: MASKS NR ONE (16:56)
[2020-03-18] MEDS: IBUPROFEN 400 MG TABLET (FP) PO PRN (18:37)
[2020-03-18] MEDS: THIAMINE HCL 100 MG TABLET (FP) PO SCH (22:04)
[2020-03-18] MEDS: MELATONIN 5 MG TABLETS PO SCH (22:05)
[2020-03-19] MEDS: metFORMIN HCL 500 MG TABLET (FP) PO SCH (06:09)
[2020-03-19] MEDS: BUPRENORPHINE/NALOXONE 8 MG/2 MG FILM PACKET SL SCH ×3 (06:09→21:07)
[2020-03-19] MEDS: SERTRALINE HCL 50 MG TABLET (FP) PO SCH (09:52)
[2020-03-19] MEDS: HYDROCHLOROTHIAZIDE 25 MG TABLET (FP) PO SCH (09:53)
[2020-03-19] MEDS: PRENATAL VITAMINS W/ FOLIC ACID TABLET (FP) PO SCH (09:53)
[2020-03-19] MEDS: DIVALPROEX SODIUM 500 MG TABLET E.C. PO SCH ×2 (09:53→21:07)
[2020-03-19] MEDS: LISINOPRIL 5 MG TABLET (FP) PO SCH (09:53)
[2020-03-19] MEDS: BACITRACIN 0.9 GM PACKET TP SCH ×2 (09:54→21:07)
[2020-03-19] MEDS: NICOTINE 7 MG/24 HOURS TOPICAL PATCH TD SCH (09:54)
[2020-03-19] MEDS: BUDESONIDE/FORMETEROL FUMARATE 80/4.5 mcg INHALER IH SCH ×2 (09:55→21:09)
[2020-03-19] MEDS: NICOTINE POLACRILEX 2 MG GUM BUC PRN (09:56)
[2020-03-19] MEDS: hydrOXYzine PAMOATE 25 MG CAPSULE (FP) PO PRN (21:07)
[2020-03-19] MEDS: THIAMINE HCL 100 MG TABLET (FP) PO SCH (21:07)
[2020-03-19] MEDS: MELATONIN 5 MG TABLETS PO SCH (21:07)
[2020-03-20] MEDS: metFORMIN HCL 500 MG TABLET (FP) PO SCH (06:30)
[2020-03-20] MEDS: BUPRENORPHINE/NALOXONE 8 MG/2 MG FILM PACKET SL SCH ×3 (06:30→21:17)
[2020-03-20] MEDS: SERTRALINE HCL 50 MG TABLET (FP) PO SCH (09:48)
[2020-03-20] MEDS: LISINOPRIL 5 MG TABLET (FP) PO SCH (09:49)
[2020-03-20] MEDS: PRENATAL VITAMINS W/ FOLIC ACID TABLET (FP) PO SCH (09:49)
[2020-03-20] MEDS: HYDROCHLOROTHIAZIDE 25 MG TABLET (FP) PO SCH (09:49)
[2020-03-20] MEDS: DIVALPROEX SODIUM 500 MG TABLET E.C. PO SCH ×2 (09:49→21:17)
[2020-03-20] MEDS: NICOTINE 7 MG/24 HOURS TOPICAL PATCH TD SCH (09:49)
[2020-03-20] MEDS: BUDESONIDE/FORMETEROL FUMARATE 80/4.5 mcg INHALER IH SCH ×2 (09:50→21:19)
[2020-03-20] MEDS: NICOTINE POLACRILEX 2 MG GUM BUC PRN ×2 (09:50→13:50)
[2020-03-20] MEDS: BACITRACIN 0.9 GM PACKET TP SCH ×2 (09:50→21:59)
[2020-03-20] MEDS: THIAMINE HCL 100 MG TABLET (FP) PO SCH (21:17)
[2020-03-20] MEDS: MELATONIN 5 MG TABLETS PO SCH (21:17)
[2020-03-21] MEDS: metFORMIN HCL 500 MG TABLET (FP) PO SCH (06:08)
[2020-03-21] MEDS: BUPRENORPHINE/NALOXONE 8 MG/2 MG FILM PACKET SL SCH ×3 (06:08→21:26)
[2020-03-21] MEDS: BUDESONIDE/FORMETEROL FUMARATE 80/4.5 mcg INHALER IH SCH ×2 (10:10→21:26)
[2020-03-21] MEDS: LISINOPRIL 5 MG TABLET (FP) PO SCH (10:10)
[2020-03-21] MEDS: DIVALPROEX SODIUM 500 MG TABLET E.C. PO SCH ×2 (10:10→21:27)
[2020-03-21] MEDS: HYDROCHLOROTHIAZIDE 25 MG TABLET (FP) PO SCH (10:10)
[2020-03-21] MEDS: SERTRALINE HCL 50 MG TABLET (FP) PO SCH (10:11)
[2020-03-21] MEDS: PRENATAL VITAMINS W/ FOLIC ACID TABLET (FP) PO SCH (10:11)
[2020-03-21] MEDS: NICOTINE 7 MG/24 HOURS TOPICAL PATCH TD SCH (10:11)
[2020-03-21] MEDS: BACITRACIN 0.9 GM PACKET TP SCH ×2 (10:14→21:27)
[2020-03-21] MEDS: MELATONIN 5 MG TABLETS PO SCH (21:26)
[2020-03-21] MEDS: hydrOXYzine PAMOATE 25 MG CAPSULE (FP) PO PRN (21:27)
[2020-03-21] MEDS: THIAMINE HCL 100 MG TABLET (FP) PO SCH (21:27)
[2020-03-22] MEDS: metFORMIN HCL 500 MG TABLET (FP) PO SCH (06:11)
[2020-03-22] MEDS: BUPRENORPHINE/NALOXONE 8 MG/2 MG FILM PACKET SL SCH ×3 (06:11→21:22)
[2020-03-22] MEDS: BACITRACIN 0.9 GM PACKET TP SCH ×2 (10:21→21:21)
[2020-03-22] MEDS: SERTRALINE HCL 50 MG TABLET (FP) PO SCH (10:21)
[2020-03-22] MEDS: DIVALPROEX SODIUM 500 MG TABLET E.C. PO SCH ×2 (10:21→21:21)
[2020-03-22] MEDS: LISINOPRIL 5 MG TABLET (FP) PO SCH (10:22)
[2020-03-22] MEDS: BUDESONIDE/FORMETEROL FUMARATE 80/4.5 mcg INHALER IH SCH ×2 (10:22→21:22)
[2020-03-22] MEDS: NICOTINE 7 MG/24 HOURS TOPICAL PATCH TD SCH (10:22)
[2020-03-22] MEDS: HYDROCHLOROTHIAZIDE 25 MG TABLET (FP) PO SCH (10:22)
[2020-03-22] MEDS: PRENATAL VITAMINS W/ FOLIC ACID TABLET (FP) PO SCH (10:22)
[2020-03-22] MEDS: THIAMINE HCL 100 MG TABLET (FP) PO SCH (21:21)
[2020-03-22] MEDS: MELATONIN 5 MG TABLETS PO SCH (21:21)
[2020-03-22] MEDS: hydrOXYzine PAMOATE 25 MG CAPSULE (FP) PO PRN (21:58)
[2020-03-22] MEDS: NICOTINE POLACRILEX 2 MG GUM BUC PRN (22:27)
[2020-03-23] MEDS: metFORMIN HCL 500 MG TABLET (FP) PO SCH (06:59)
[2020-03-23] MEDS: BUPRENORPHINE/NALOXONE 8 MG/2 MG FILM PACKET SL SCH ×3 (06:59→21:34)
[2020-03-23] MEDS: BUDESONIDE/FORMETEROL FUMARATE 80/4.5 mcg INHALER IH SCH ×2 (10:30→21:32)
[2020-03-23] MEDS: HYDROCHLOROTHIAZIDE 25 MG TABLET (FP) PO SCH (10:31)
[2020-03-23] MEDS: SERTRALINE HCL 50 MG TABLET (FP) PO SCH (10:31)
[2020-03-23] MEDS: LISINOPRIL 5 MG TABLET (FP) PO SCH (10:31)
[2020-03-23] MEDS: BACITRACIN 0.9 GM PACKET TP SCH ×2 (10:31→21:33)
[2020-03-23] MEDS: PRENATAL VITAMINS W/ FOLIC ACID TABLET (FP) PO SCH (10:31)
[2020-03-23] MEDS: DIVALPROEX SODIUM 500 MG TABLET E.C. PO SCH ×2 (10:31→21:33)
[2020-03-23] MEDS: NICOTINE 7 MG/24 HOURS TOPICAL PATCH TD SCH (10:31)
[2020-03-23] MEDS: MELATONIN 5 MG TABLETS PO SCH (21:33)
[2020-03-23] MEDS: hydrOXYzine PAMOATE 25 MG CAPSULE (FP) PO PRN (21:33)
[2020-03-23] MEDS: THIAMINE HCL 100 MG TABLET (FP) PO SCH (21:35)
[2020-03-23] MEDS: NICOTINE POLACRILEX 2 MG GUM BUC PRN (22:48)
[2020-03-24] MEDS: NICOTINE POLACRILEX 2 MG GUM BUC PRN ×3 (01:16→23:14)
[2020-03-24] MEDS: BUPRENORPHINE/NALOXONE 8 MG/2 MG FILM PACKET SL SCH ×3 (06:37→21:22)
[2020-03-24] MEDS: metFORMIN HCL 500 MG TABLET (FP) PO SCH (06:37)
[2020-03-24] MEDS: BUDESONIDE/FORMETEROL FUMARATE 80/4.5 mcg INHALER IH SCH ×2 (10:48→21:23)
[2020-03-24] MEDS: BACITRACIN 0.9 GM PACKET TP SCH ×2 (10:48→21:23)
[2020-03-24] MEDS: HYDROCHLOROTHIAZIDE 25 MG TABLET (FP) PO SCH (10:49)
[2020-03-24] MEDS: DIVALPROEX SODIUM 500 MG TABLET E.C. PO SCH ×2 (10:49→21:22)
[2020-03-24] MEDS: PRENATAL VITAMINS W/ FOLIC ACID TABLET (FP) PO SCH (10:49)
[2020-03-24] MEDS: SERTRALINE HCL 50 MG TABLET (FP) PO SCH (10:49)
[2020-03-24] MEDS: LISINOPRIL 5 MG TABLET (FP) PO SCH (10:49)
[2020-03-24] MEDS: NICOTINE 7 MG/24 HOURS TOPICAL PATCH TD SCH (10:51)
[2020-03-24] MEDS: MAG HYDROX/AL HYDROX/SIMETH 30 ML UNIT-DOSE CUP PO PRN (10:52)
[2020-03-24] MEDS: THIAMINE HCL 100 MG TABLET (FP) PO SCH (21:21)
[2020-03-24] MEDS: hydrOXYzine PAMOATE 25 MG CAPSULE (FP) PO PRN (21:22)
[2020-03-24] MEDS: MELATONIN 5 MG TABLETS PO SCH (21:22)
[2020-03-25] MEDS: metFORMIN HCL 500 MG TABLET (FP) PO SCH (06:40)
[2020-03-25] MEDS: BUPRENORPHINE/NALOXONE 8 MG/2 MG FILM PACKET SL SCH ×3 (06:40→21:49)
[2020-03-25] MEDS: LISINOPRIL 5 MG TABLET (FP) PO SCH (10:47)
[2020-03-25] MEDS: BUDESONIDE/FORMETEROL FUMARATE 80/4.5 mcg INHALER IH SCH ×2 (10:47→21:47)
[2020-03-25] MEDS: HYDROCHLOROTHIAZIDE 25 MG TABLET (FP) PO SCH (10:47)
[2020-03-25] MEDS: DIVALPROEX SODIUM 500 MG TABLET E.C. PO SCH ×2 (10:47→21:47)
[2020-03-25] MEDS: SERTRALINE HCL 50 MG TABLET (FP) PO SCH (10:47)
[2020-03-25] MEDS: NICOTINE 7 MG/24 HOURS TOPICAL PATCH TD SCH (10:48)
[2020-03-25] MEDS: PRENATAL VITAMINS W/ FOLIC ACID TABLET (FP) PO SCH (10:48)
[2020-03-25] MEDS: BACITRACIN 0.9 GM PACKET TP SCH ×2 (10:48→21:47)
[2020-03-25] MEDS: MAG HYDROX/AL HYDROX/SIMETH 30 ML UNIT-DOSE CUP PO PRN (10:50)
[2020-03-25] MEDS: NICOTINE POLACRILEX 2 MG GUM BUC PRN ×3 (10:51→22:32)
[2020-03-25] MEDS: THIAMINE HCL 100 MG TABLET (FP) PO SCH (21:47)
[2020-03-25] MEDS: hydrOXYzine PAMOATE 25 MG CAPSULE (FP) PO PRN (21:47)
[2020-03-25] MEDS: MELATONIN 5 MG TABLETS PO SCH (21:49)
[2020-03-26] MEDS: BUPRENORPHINE/NALOXONE 8 MG/2 MG FILM PACKET SL SCH ×3 (06:34→21:24)
[2020-03-26] MEDS: metFORMIN HCL 500 MG TABLET (FP) PO SCH (06:34)
[2020-03-26] MEDS: LISINOPRIL 5 MG TABLET (FP) PO SCH (09:55)
[2020-03-26] MEDS: PRENATAL VITAMINS W/ FOLIC ACID TABLET (FP) PO SCH (09:55)
[2020-03-26] MEDS: BUDESONIDE/FORMETEROL FUMARATE 80/4.5 mcg INHALER IH SCH ×2 (09:55→21:22)
[2020-03-26] MEDS: DIVALPROEX SODIUM 500 MG TABLET E.C. PO SCH ×2 (09:55→21:22)
[2020-03-26] MEDS: NICOTINE 7 MG/24 HOURS TOPICAL PATCH TD SCH (09:56)
[2020-03-26] MEDS: HYDROCHLOROTHIAZIDE 25 MG TABLET (FP) PO SCH (09:56)
[2020-03-26] MEDS: SERTRALINE HCL 50 MG TABLET (FP) PO SCH (09:56)
[2020-03-26] MEDS: BACITRACIN 0.9 GM PACKET TP SCH ×2 (09:56→21:22)
[2020-03-26] MEDS: NICOTINE POLACRILEX 2 MG GUM BUC PRN (16:11)
[2020-03-26] MEDS ORDERED: MASKS NR ONE (16:55)
[2020-03-26] MEDS: THIAMINE HCL 100 MG TABLET (FP) PO SCH (21:22)
[2020-03-26] MEDS: hydrOXYzine PAMOATE 25 MG CAPSULE (FP) PO PRN (21:22)
[2020-03-26] MEDS: MELATONIN 5 MG TABLETS PO SCH (21:23)
[2020-03-27] MEDS: metFORMIN HCL 500 MG TABLET (FP) PO SCH (06:11)
[2020-03-27] MEDS: BUPRENORPHINE/NALOXONE 8 MG/2 MG FILM PACKET SL SCH ×3 (06:12→21:09)
[2020-03-27] MEDS ORDERED: MASKS NR ONE (06:41)
[2020-03-27] MEDS: BUDESONIDE/FORMETEROL FUMARATE 80/4.5 mcg INHALER IH SCH ×2 (09:48→21:09)
[2020-03-27] MEDS: BACITRACIN 0.9 GM PACKET TP SCH ×2 (09:48→21:10)
[2020-03-27] MEDS: NICOTINE 7 MG/24 HOURS TOPICAL PATCH TD SCH (09:49)
[2020-03-27] MEDS: PRENATAL VITAMINS W/ FOLIC ACID TABLET (FP) PO SCH (09:49)
[2020-03-27] MEDS: DIVALPROEX SODIUM 500 MG TABLET E.C. PO SCH ×2 (09:49→21:09)
[2020-03-27] MEDS: SERTRALINE HCL 50 MG TABLET (FP) PO SCH (09:49)
[2020-03-27] MEDS: NICOTINE POLACRILEX 2 MG GUM BUC PRN ×2 (09:50→22:27)
[2020-03-27] MEDS: LISINOPRIL 5 MG TABLET (FP) PO SCH (11:58)
[2020-03-27] MEDS: HYDROCHLOROTHIAZIDE 25 MG TABLET (FP) PO SCH (11:59)
[2020-03-27] MEDS: THIAMINE HCL 100 MG TABLET (FP) PO SCH (21:09)
[2020-03-27] MEDS: hydrOXYzine PAMOATE 25 MG CAPSULE (FP) PO PRN (21:09)
[2020-03-27] MEDS: MELATONIN 5 MG TABLETS PO SCH (21:10)
[2020-03-28] MEDS: IBUPROFEN 400 MG TABLET (FP) PO PRN (01:43)
[2020-03-28] MEDS: BUPRENORPHINE/NALOXONE 8 MG/2 MG FILM PACKET SL SCH ×3 (06:08→21:27)
[2020-03-28] MEDS: metFORMIN HCL 500 MG TABLET (FP) PO SCH (06:08)
[2020-03-28] MEDS: PRENATAL VITAMINS W/ FOLIC ACID TABLET (FP) PO SCH (09:33)
[2020-03-28] MEDS: SERTRALINE HCL 50 MG TABLET (FP) PO SCH (09:33)
[2020-03-28] MEDS: DIVALPROEX SODIUM 500 MG TABLET E.C. PO SCH ×2 (09:33→21:27)
[2020-03-28] MEDS: BUDESONIDE/FORMETEROL FUMARATE 80/4.5 mcg INHALER IH SCH ×2 (09:33→21:27)
[2020-03-28] MEDS: NICOTINE 7 MG/24 HOURS TOPICAL PATCH TD SCH (09:34)
[2020-03-28] MEDS: BACITRACIN 0.9 GM PACKET TP SCH ×2 (09:34→21:28)
[2020-03-28] MEDS: NICOTINE POLACRILEX 2 MG GUM BUC PRN (09:36)
[2020-03-28] MEDS: LISINOPRIL 5 MG TABLET (FP) PO SCH (13:00)
[2020-03-28] MEDS: HYDROCHLOROTHIAZIDE 25 MG TABLET (FP) PO SCH (13:00)
[2020-03-28] MEDS: hydrOXYzine PAMOATE 25 MG CAPSULE (FP) PO PRN (21:27)
[2020-03-28] MEDS: THIAMINE HCL 100 MG TABLET (FP) PO SCH (21:27)
[2020-03-28] MEDS: MELATONIN 5 MG TABLETS PO SCH (21:28)
[2020-03-28] MEDS: MAG HYDROX/AL HYDROX/SIMETH 30 ML UNIT-DOSE CUP PO PRN (23:26)
[2020-03-29] MEDS: NICOTINE POLACRILEX 2 MG GUM BUC PRN ×3 (02:31→21:16)
[2020-03-29] MEDS: metFORMIN HCL 500 MG TABLET (FP) PO SCH (06:20)
[2020-03-29] MEDS: BUPRENORPHINE/NALOXONE 8 MG/2 MG FILM PACKET SL SCH ×3 (06:20→21:15)
[2020-03-29] MEDS: NICOTINE 7 MG/24 HOURS TOPICAL PATCH TD SCH (10:34)
[2020-03-29] MEDS: BUDESONIDE/FORMETEROL FUMARATE 80/4.5 mcg INHALER IH SCH ×2 (10:34→21:18)
[2020-03-29] MEDS: LISINOPRIL 5 MG TABLET (FP) PO SCH (10:34)
[2020-03-29] MEDS: DIVALPROEX SODIUM 500 MG TABLET E.C. PO SCH ×2 (10:34→21:15)
[2020-03-29] MEDS: PRENATAL VITAMINS W/ FOLIC ACID TABLET (FP) PO SCH (10:34)
[2020-03-29] MEDS: SERTRALINE HCL 50 MG TABLET (FP) PO SCH (10:34)
[2020-03-29] MEDS: BACITRACIN 0.9 GM PACKET TP SCH ×2 (10:34→21:15)
[2020-03-29] MEDS: HYDROCHLOROTHIAZIDE 25 MG TABLET (FP) PO SCH (10:35)
[2020-03-29] MEDS: hydrOXYzine PAMOATE 25 MG CAPSULE (FP) PO PRN (21:15)
[2020-03-29] MEDS: THIAMINE HCL 100 MG TABLET (FP) PO SCH (21:15)
[2020-03-29] MEDS: MELATONIN 5 MG TABLETS PO SCH (21:16)
[2020-03-30] MEDS: MAG HYDROX/AL HYDROX/SIMETH 30 ML UNIT-DOSE CUP PO PRN (01:54)
[2020-03-30] MEDS: metFORMIN HCL 500 MG TABLET (FP) PO SCH (06:05)
[2020-03-30] MEDS: BUPRENORPHINE/NALOXONE 8 MG/2 MG FILM PACKET SL SCH ×3 (06:05→21:20)
[2020-03-30] MEDS: HYDROCHLOROTHIAZIDE 25 MG TABLET (FP) PO SCH (10:35)
[2020-03-30] MEDS: DIVALPROEX SODIUM 500 MG TABLET E.C. PO SCH ×2 (10:35→21:20)
[2020-03-30] MEDS: SERTRALINE HCL 50 MG TABLET (FP) PO SCH (10:35)
[2020-03-30] MEDS: BUDESONIDE/FORMETEROL FUMARATE 80/4.5 mcg INHALER IH SCH ×2 (10:35→21:20)
[2020-03-30] MEDS: LISINOPRIL 5 MG TABLET (FP) PO SCH (10:35)
[2020-03-30] MEDS: NICOTINE 7 MG/24 HOURS TOPICAL PATCH TD SCH (10:36)
[2020-03-30] MEDS: PRENATAL VITAMINS W/ FOLIC ACID TABLET (FP) PO SCH (10:36)
[2020-03-30] MEDS: BACITRACIN 0.9 GM PACKET TP SCH ×2 (10:36→21:20)
[2020-03-30] MEDS: NICOTINE POLACRILEX 2 MG GUM BUC PRN ×2 (10:37→14:07)
--- NOTE | 2020-03-30 10:49 | PN ---
[facility] Progress Note Note: Patient is scheduled for discharge tomorrow. scripts for 30 days supply of medications(zoloft 100 mg/day, Depakote 500 mg/bid) will be electronically transmitted to [facility], [address] [place] [address], [place] [address]
--- NOTE | 2020-03-30 15:46 | PN ---
[facility] Progress Note Note: Pt is scheduled for discharge tomorrow 03/31/20. [facility]esy Rx for Suboxone 8mg/2mg sl TID #21 for 7 days electronically sent to pt's home pharmacy-[facility] on [facility] [place] [address] Ph: [phone]. Verified pt's other medications with pharmacist who reports pt has refills by his PCP DOROTHEA Roblero to be picked up and pt has been reminded to pick them up at the pharmacy after discharge. This keno writer contacted pt's primary/suboxone clinic at [facility] on [address] [place] [id number] and spoke to Andie Ramirez NP who reported that DOROTHEA Olivarez will return next week Te and appointment was given to pt for a Tele-visit on 04/07/20 when his PCP returns from vacation. Pt was on phone and aware of suboxone visit direction for when he discharges from here. Vital Signs - 24 hr 03/29/20 03/30/20 03/30/20 20:09 06:02 13:23 Temperature 97.7 F Pulse Rate 64 Respiratory 18 Rate Blood Pressure 112/73 O2 Sat by Pulse 97 94 L 96 Oximetry (%) alert o x 3 nad oob ambulating with steady gait Medically stable December D/C in A.M if pt stable.
[2020-03-30] MEDS: THIAMINE HCL 100 MG TABLET (FP) PO SCH (21:20)
[2020-03-30] MEDS: hydrOXYzine PAMOATE 25 MG CAPSULE (FP) PO PRN (21:20)
[2020-03-30] MEDS: MELATONIN 5 MG TABLETS PO SCH (21:20)
[2020-03-31] MEDS: metFORMIN HCL 500 MG TABLET (FP) PO SCH (06:14)
[2020-03-31] MEDS: BUPRENORPHINE/NALOXONE 8 MG/2 MG FILM PACKET SL SCH (06:14)
--- NOTE | 2020-03-31 09:08 | DS ---
[facility] Rehab Discharge Summary - [facility] Rehab Discharge Summary Admission Date: 03/17/20 Discharge Date: 03/31/20 - History Present History: Alcohol dependence, Cannabis dependence, Cocaine dependence Pertinent Past History: Asthma GERD Type 2 DM Obesity PTSD ADHD Depression - Discharge Physical Exam Vital Signs: Vital Signs Temperature 97.5 F L 03/31/20 06:05 Pulse Rate 53 L 03/31/20 06:05 Respiratory Rate 18 03/31/20 06:05 Blood Pressure 130/79 03/31/20 06:05 O2 Sat by Pulse Oximetry (%) 96 03/31/20 06:05 Alert o x 3 nad oob ambulating with steady gait Lungs:no resp distress Extremities: Active FROM, all limbs Pertinent Admission Physical Exam Findings: Laboratory Tests 03/17/20 03/18/20 03/18/20 16:52 06:01 17:15 POC Glucometer 99 72 173 03/19/20 03/19/20 03/20/20 06:08 16:49 06:29 POC Glucometer 208 170 80 03/21/20 03/21/20 03/22/20 06:07 16:33 06:10 POC Glucometer 80 106 83 03/22/20 03/23/20 03/23/20 16:34 07:01 16:46 POC Glucometer 141 93 76 03/24/20 03/24/20 03/25/20 06:37 16:46 06:40 POC Glucometer 96 134 89 03/25/20 03/26/20 03/26/20 16:46 06:33 17:12 POC Glucometer 102 101 93 03/27/20 03/27/20 03/28/20 06:10 17:32 06:07 POC Glucometer 86 136 93 03/28/20 03/29/20 03/29/20 16:41 06:19 16:23 POC Glucometer 110 75 90 03/30/20 03/30/20 03/31/20 06:05 16:30 06:13 POC Glucometer 89 125 102 - Treatment Discharge Condition: Discharge condition good Hospital Course: Pt completed rehab today and discharged to follow up with [facility] aftercare. Pt is referred back to his primary care provider DOROTHEA Roblero at [facility] on [place], [place] where he is also receiving Suboxone-MAT. Pt has appointment f/u appointment on 04/05/20. Pt accepted [facility] after[facility] to [place], [place]. - Medication Discharge Medications: Ambulatory Orders Folic Acid 1 mg PO DAILY 08/07/19 Hydrochlorothiazide 25 mg PO DAILY 08/07/19 Multivitamin [One-Daily Multi-Vitamin] 1 tab PO DAILY 08/07/19 Thiamine HCl [Vitamin B1 -] 100 mg PO DAILY 08/07/19 Albuterol Sulfate Inhaler - [Ventolin HFA Inhaler -] 2 inh PO Q4H PRN 08/22/19 Lisinopril 5 mg PO DAILY 08/22/19 Metformin HCl [Glucophage] 500 mg PO DAILY 08/22/19 Buprenorphine/Naloxone [Suboxone 8Mg/2Mg Sl Film -] 8 mg SL TID 12/12/19 Fluticasone/Salmeterol [Advair 250-50 Diskus] 1 each IH BID 12/19/19 Buprenorphine/Naloxone [Suboxone 8Mg/2Mg Sl Film -] 1 each SL TID 7 Days #21 packet MDD 3 03/30/20 Divalproex Sodium 500 mg PO BID #60 mg 03/30/20 Sertraline HCl 100 mg PO DAILY #30 mg 03/30/20 - Medication-Assisted Treatment (MAT) Medication-Assisted Treatment (MAT): Yes Medication Prescribed: Suboxone MAT Follow-up Referral: Provider: DOROTHEA Roblero [address] - Discharge Instructions Diet, activity, other medical instructions: Diet:NCS Activity: oob ad natalia Other medical instructions:Follow up with [facility] after[facility] and PCP as scheduled. - Diagnosis (1) Alcohol use disorder Current Visit: Yes Status: Chronic (2) Cannabis dependence Current Visit: Yes Status: Chronic (3) Cocaine dependence Current Visit: Yes Status: Chronic Qualifiers: Substance use status: uncomplicated Qualified Code(s): F14.20 - Cocaine dependence, uncomplicated (4) Asthma Current Visit: Yes Status: Chronic Qualifiers: Asthma severity: mild Asthma persistence: unspecified Asthma complication type: uncomplicated Qualified Code(s): J45.909 - Unspecified asthma, uncomplicated (5) Encounter for monitoring Suboxone maintenance therapy Current Visit: Yes Status: Chronic (6) GERD (gastroesophageal reflux disease) Current Visit: Yes Status: Chronic Qualifiers: Esophagitis presence: esophagitis presence not specified Qualified Code(s): K21.9 - Gastro-esophageal reflux disease without esophagitis (7) Nicotine dependence Current Visit: Yes Status: Chronic Qualifiers: Nicotine product type: cigarettes Substance use status: uncomplicated Qualified Code(s): F17.210 - Nicotine dependence, cigarettes, uncomplicated (8) Obesity Current Visit: Yes Status: Chronic Qualifiers: Obesity classification: adult class 2 (BMI 35 - 39.9) (9) Type 2 diabetes mellitus Current Visit: Yes Status: Chronic Qualifiers: Diabetes mellitus assisted insulin use: without moth exterminator use Diabetes mellitus complication status: with other specified complication Qualified Code(s): E11.69 - Type 2 diabetes mellitus with other specified complication - Follow-up Referral Minutes to complete discharge: 30 - AMA Did Patient Leave Against Medical Advice: No Additional Comments: [facility]esy Rx for Suboxone 8mg/2mg sl #21 for 7 days transmitted yesterday to [facility] for pt to supervisor picking crew until he can get to his appointment with his provider at [facility](see previous progress note of 03/30/20). Pt has own other meds at his [facility]. Instructed pt to pick them up after discharge.
[2020-03-31] MEDS: PRENATAL VITAMINS W/ FOLIC ACID TABLET (FP) PO SCH (09:44)
[2020-03-31] MEDS: BUDESONIDE/FORMETEROL FUMARATE 80/4.5 mcg INHALER IH SCH (09:44)
[2020-03-31] MEDS: BACITRACIN 0.9 GM PACKET TP SCH (09:44)
[2020-03-31] MEDS: DIVALPROEX SODIUM 500 MG TABLET E.C. PO SCH (09:44)
[2020-03-31] MEDS: LISINOPRIL 5 MG TABLET (FP) PO SCH (09:44)
[2020-03-31] MEDS: SERTRALINE HCL 50 MG TABLET (FP) PO SCH (09:44)
[2020-03-31] MEDS: HYDROCHLOROTHIAZIDE 25 MG TABLET (FP) PO SCH (09:44)
[2020-03-31] MEDS: NICOTINE 7 MG/24 HOURS TOPICAL PATCH TD SCH (09:45)
[2020-03-31] MEDS: NICOTINE POLACRILEX 2 MG GUM BUC PRN (09:45)
[2020-03-31 11:17] VITALS: BP 132/84; PULSE 72; TEMP 97.3
== END 2020-03-31 09:58 | disposition home or self-care (01) | DRG 772 ==
LOC: YASAS 13:01 → Y5N 13:02
PROVIDERS: ADMIT Allergy & Immunology; ATTEND Allergy & Immunology
PROC: HZ42ZZZ Group Counseling for Substance Abuse Treatment, Cognitive-Behavioral (ICD-10-PCS; principal; 2020-03-17)
DX: F10.20 Alcohol dependence, uncomplicated (principal); F14.20 Cocaine dependence, uncomplicated; F12.20 Cannabis dependence, uncomplicated; F17.210 Nicotine dependence, cigarettes, uncomplicated; F31.9 Bipolar disorder, unspecified; F90.9 Attention-deficit hyperactivity disorder, unspecified type; F43.10 Post-traumatic stress disorder, unspecified; I10 Essential (primary) hypertension; J45.909 Unspecified asthma, uncomplicated; K21.9 Gastro-esophageal reflux disease without esophagitis; E11.9 Type 2 diabetes mellitus without complications; S00.211A Abrasion of right eyelid and periocular area, initial encounter; Z62.810 Personal history of physical and sexual abuse in childhood; E66.9 Obesity, unspecified; Z68.36 Body mass index [BMI] 36.0-36.9, adult; Z51.81 Encounter for therapeutic drug level monitoring; Z79.899 Other long term (current) drug therapy; Y33.XXXA Other specified events, undetermined intent, initial encounter; Y93.89 Activity, other specified; Y92.238 Other place in hospital as the place of occurrence of the external cause; Y99.8 Other external cause status; Z91.5 Personal history of self-harm; Z91.010 Allergy to peanuts; Z91.018 Allergy to other foods
CPT/HCPCS: 82962

== ENCOUNTER 2021-10-14 07:45 | Inpatient (IN) | payer OTHER ==
[2021-10-14 10:20] VITALS: BMI 26.3
[2021-10-14] MEDS ORDERED: MAGNESIUM CITRATE 300 ML BOTTLE PO PRN (11:52)
[2021-10-14] MEDS ORDERED: BISMUTH SUBSALICYLATE 524 MG/30 ML PO PRN (11:52)
[2021-10-14] MEDS ORDERED: LOPERAMIDE HCL 2 MG CAPSULE PO PRN (11:52)
[2021-10-14] MEDS ORDERED: MAG HYDROX/AL HYDROX/SIMETH 30 ML UNIT-DOSE CUP PO PRN (11:52)
[2021-10-14] MEDS ORDERED: chlordiazePOXIDE HCL 25 MG CAPSULE PO PRN (11:52)
[2021-10-14] MEDS ORDERED: NICOTINE 10 MG CARTRIDGE (INHALER) IH PRN (11:52)
[2021-10-14] MEDS ORDERED: ONDANSETRON *ODT* 4 MG TABLET SL PRN (11:52)
[2021-10-14] MEDS ORDERED: ACETAMINOPHEN 325 MG TABLET (FP) PO PRN ×2 (11:52)
[2021-10-14] MEDS ORDERED: MAGNESIUM HYDROX 2400MG/30ML ORAL SUSPENSION 30 ML CUP PO PRN (11:52)
[2021-10-14] MEDS ORDERED: MENTHOL/PHENOL 1 EACH UD MM PRN (11:52)
[2021-10-14] MEDS ORDERED: ALBUTEROL SO4 HFA INHALER IH PRN (15:41)
[2021-10-14] MEDS: hydrOXYzine PAMOATE 25 MG CAPSULE (FP) PO SCH ×3 (15:49→23:00)
[2021-10-14] MEDS: metFORMIN HCL 500 MG TABLET (FP) PO SCH (17:25)
[2021-10-14] MEDS: chlordiazePOXIDE HCL 25 MG CAPSULE PO SCH ×2 (18:22→23:00)
[2021-10-14] MEDS: MELATONIN 5 MG TABLETS PO SCH (23:00)
[2021-10-14] MEDS: THIAMINE HCL 100 MG TABLET (FP) PO SCH (23:00)
[2021-10-15] MEDS: hydrOXYzine PAMOATE 25 MG CAPSULE (FP) PO SCH ×5 (06:23→22:41)
[2021-10-15] MEDS: chlordiazePOXIDE HCL 25 MG CAPSULE PO SCH ×4 (06:23→22:36)
[2021-10-15] MEDS: metFORMIN HCL 500 MG TABLET (FP) PO SCH ×2 (06:27→18:02)
[2021-10-15] MEDS: PRENATAL VITAMINS W/ FOLIC ACID TABLET (FP) PO SCH (10:31)
[2021-10-15] MEDS: METHOCARBAMOL 500 MG TABLET PO PRN (10:31)
[2021-10-15] MEDS ORDERED: BUPRENORPHINE/NALOXONE 8 MG/2 MG FILM PACKET SL ONE (11:06)
[2021-10-15] MEDS: BUPRENORPHINE/NALOXONE 8 MG/2 MG FILM PACKET SL SCH ×2 (18:03→22:37)
[2021-10-15] MEDS: THIAMINE HCL 100 MG TABLET (FP) PO SCH (22:36)
[2021-10-15] MEDS: carBAMazepine 200 MG TABLET PO SCH (22:38)
[2021-10-15] MEDS: MELATONIN 5 MG TABLETS PO SCH (22:38)
[2021-10-16] MEDS: BUPRENORPHINE/NALOXONE 8 MG/2 MG FILM PACKET SL SCH ×3 (05:03→22:29)
[2021-10-16] MEDS: hydrOXYzine PAMOATE 25 MG CAPSULE (FP) PO SCH ×5 (05:03→22:31)
[2021-10-16] MEDS: chlordiazePOXIDE HCL 25 MG CAPSULE PO SCH ×4 (05:03→22:26)
[2021-10-16] MEDS: metFORMIN HCL 500 MG TABLET (FP) PO SCH ×2 (07:34→17:34)
[2021-10-16 09:53] LABS: ALBUMIN 3.5 g/dl (3.4-5.0); CALCIUM 8.1 mg/dL (8.5-10.1)
[2021-10-16 09:54] LABS: BLOOD UREA NITROGEN 21.7 mg/dL (7-18)
[2021-10-16 09:57] LABS: CREATININE 0.9 mg/dL (0.55-1.3)
[2021-10-16 09:58] LABS: BILIRUBIN,TOTAL 0.2 mg/dL (0.2-1); TOT PROT 6.6 g/dl (6.4-8.2)
[2021-10-16 10:03] LABS: HEMOGLOBIN 13.1 GM/dL (11.7-16.9); MCH 32.5 pg (25.7-33.7); MCHC 33.7 g/dl (32.0-35.9); MEAN CELL VOLUME 96.6 fl (80-96); MEAN PLT VOLUME 9.2 fl (7.5-11.1); PLATELET COUNT 249 10^3/uL (134-434); RBC 4.04 M/mm3 (4.00-5.60); RDW 13.6 % (11.9-15.9); WHITE BLOOD COUNT 8.7 K/mm3 (4.0-10.0)
[2021-10-16] MEDS: SERTRALINE HCL 50 MG TABLET (FP) PO SCH (10:14)
[2021-10-16] MEDS: carBAMazepine 200 MG TABLET PO SCH ×2 (10:14→22:26)
[2021-10-16] MEDS: PRENATAL VITAMINS W/ FOLIC ACID TABLET (FP) PO SCH (10:14)
[2021-10-16 14:08] LABS: SARS-CoV-2 NAA Not Detected (Not Detected)
[2021-10-16] MEDS: IBUPROFEN 400 MG TABLET (FP) PO PRN (14:52)
[2021-10-16] MEDS ORDERED: INSULIN SLIDING SCALE (NOVOLOG) 1 VIAL SQ PRN (16:30)
[2021-10-16] MEDS: THIAMINE HCL 100 MG TABLET (FP) PO SCH (22:26)
[2021-10-16] MEDS: MELATONIN 5 MG TABLETS PO SCH (22:27)
[2021-10-17] MEDS ORDERED: chlordiazePOXIDE HCL 10 MG CAPSULE PO PRN
[2021-10-17] MEDS: BUPRENORPHINE/NALOXONE 8 MG/2 MG FILM PACKET SL SCH ×3 (05:31→22:33)
[2021-10-17] MEDS: hydrOXYzine PAMOATE 25 MG CAPSULE (FP) PO SCH ×5 (05:31→22:13)
[2021-10-17] MEDS: chlordiazePOXIDE HCL 10 MG CAPSULE PO SCH ×4 (05:31→22:13)
[2021-10-17] MEDS: metFORMIN HCL 500 MG TABLET (FP) PO SCH ×2 (06:14→17:13)
[2021-10-17] MEDS: METHOCARBAMOL 500 MG TABLET PO PRN (10:20)
[2021-10-17] MEDS: SERTRALINE HCL 50 MG TABLET (FP) PO SCH (10:20)
[2021-10-17] MEDS: PRENATAL VITAMINS W/ FOLIC ACID TABLET (FP) PO SCH (10:20)
[2021-10-17] MEDS: carBAMazepine 200 MG TABLET PO SCH ×2 (10:20→22:24)
[2021-10-17] MEDS: MELATONIN 5 MG TABLETS PO SCH (22:24)
[2021-10-17] MEDS: THIAMINE HCL 100 MG TABLET (FP) PO SCH (22:25)
[2021-10-18] MEDS: IBUPROFEN 400 MG TABLET (FP) PO PRN (04:02)
[2021-10-18] MEDS: hydrOXYzine PAMOATE 25 MG CAPSULE (FP) PO SCH ×5 (05:24→22:11)
[2021-10-18] MEDS: BUPRENORPHINE/NALOXONE 8 MG/2 MG FILM PACKET SL SCH ×3 (05:24→22:11)
[2021-10-18] MEDS: chlordiazePOXIDE HCL 10 MG CAPSULE PO SCH ×2 (05:24→17:28)
[2021-10-18] MEDS: metFORMIN HCL 500 MG TABLET (FP) PO SCH ×2 (07:09→17:27)
[2021-10-18] MEDS: carBAMazepine 200 MG TABLET PO SCH ×2 (10:29→22:11)
[2021-10-18] MEDS: SERTRALINE HCL 50 MG TABLET (FP) PO SCH (10:29)
[2021-10-18] MEDS: PRENATAL VITAMINS W/ FOLIC ACID TABLET (FP) PO SCH (10:30)
[2021-10-18] MEDS: THIAMINE HCL 100 MG TABLET (FP) PO SCH (22:11)
[2021-10-18] MEDS: MELATONIN 5 MG TABLETS PO SCH (22:13)
[2021-10-19] MEDS ORDERED: chlordiazePOXIDE HCL 10 MG CAPSULE PO ONE (05:00)
[2021-10-19] MEDS: hydrOXYzine PAMOATE 25 MG CAPSULE (FP) PO SCH ×2 (05:26→10:32)
[2021-10-19] MEDS: BUPRENORPHINE/NALOXONE 8 MG/2 MG FILM PACKET SL SCH (05:27)
[2021-10-19] MEDS: metFORMIN HCL 500 MG TABLET (FP) PO SCH (06:12)
[2021-10-19 10:00] VITALS: BP 113/74; PULSE 67; TEMP 97
[2021-10-19] MEDS: METHOCARBAMOL 500 MG TABLET PO PRN (10:32)
[2021-10-19] MEDS: SERTRALINE HCL 50 MG TABLET (FP) PO SCH (10:32)
[2021-10-19] MEDS: PRENATAL VITAMINS W/ FOLIC ACID TABLET (FP) PO SCH (10:32)
[2021-10-19] MEDS: carBAMazepine 200 MG TABLET PO SCH (10:32)
[2021-10-19 11:10] LABS: SARS-CoV-2 NAA Not Detected (Not Detected)
== END 2021-10-19 13:15 | disposition other institution (70) | DRG 773 ==
LOC: YASAS 07:45 → Y6N 14:52
PROVIDERS: ADMIT Allergy & Immunology; ATTEND Allergy & Immunology
PROC: HZ2ZZZZ Detoxification Services for Substance Abuse Treatment (ICD-10-PCS; principal; 2021-10-14)
DX: F10.230 Alcohol dependence with withdrawal, uncomplicated (principal); F11.20 Opioid dependence, uncomplicated; F14.20 Cocaine dependence, uncomplicated; F12.20 Cannabis dependence, uncomplicated; F17.210 Nicotine dependence, cigarettes, uncomplicated; F31.9 Bipolar disorder, unspecified; F43.10 Post-traumatic stress disorder, unspecified; F32.A Depression, unspecified; F90.9 Attention-deficit hyperactivity disorder, unspecified type; J45.909 Unspecified asthma, uncomplicated; E11.9 Type 2 diabetes mellitus without complications; Z79.84 Long term (current) use of oral hypoglycemic drugs; Z91.011 Allergy to milk products; Z91.010 Allergy to peanuts; Z91.013 Allergy to seafood; Z59.00 Homelessness unspecified; Z56.0 Unemployment, unspecified
CPT/HCPCS: 36415; 80053; 82962; 85027; 86780; 87811; C9803; Q0162; U0003; U0005

== ENCOUNTER 2021-10-19 12:47 | Inpatient (IN) | payer OTHER ==
[2021-10-19] MEDS ORDERED: MENTHOL/PHENOL 1 EACH UD MM PRN (13:59)
[2021-10-19] MEDS ORDERED: MELATONIN 5 MG TABLETS PO PRN (13:59)
[2021-10-19] MEDS ORDERED: MAGNESIUM HYDROX 2400MG/30ML ORAL SUSPENSION 30 ML CUP PO PRN (13:59)
[2021-10-19] MEDS ORDERED: ACETAMINOPHEN 325 MG TABLET (FP) PO PRN (13:59)
[2021-10-19] MEDS ORDERED: MAGNESIUM CITRATE 300 ML BOTTLE PO PRN (13:59)
[2021-10-19] MEDS ORDERED: MAG HYDROX/AL HYDROX/SIMETH 30 ML UNIT-DOSE CUP PO PRN (13:59)
[2021-10-19] MEDS ORDERED: P-EPHED 60MG/TRIPROLIDI 2.5MG TABLET PO PRN (13:59)
[2021-10-19] MEDS ORDERED: guaiFENesin 200 MG/10 ML 10 ML UNIT-DOSE CUPS PO PRN (13:59)
[2021-10-19] MEDS ORDERED: IBUPROFEN 400 MG TABLET (FP) PO PRN (13:59)
[2021-10-19] MEDS ORDERED: NICOTINE POLACRILEX 2 MG GUM BUC PRN (13:59)
[2021-10-19] MEDS ORDERED: ALBUTEROL SO4 HFA INHALER IH SCH (14:15)
[2021-10-19] MEDS ORDERED: ALBUTEROL SO4 HFA INHALER IH PRN (16:26)
[2021-10-19] MEDS ORDERED: PATIENT'S OWN MEDICATION (NON-FORMULARY) (Dulaglutide [Trulicity] 0.75 MG/0.5 ML Pen.Injct SQ SCH (16:30)
[2021-10-19] MEDS: metFORMIN HCL 500 MG TABLET (FP) PO SCH (16:59)
[2021-10-19] MEDS: carBAMazepine 200 MG TABLET PO SCH (21:14)
[2021-10-19] MEDS: THIAMINE HCL 100 MG TABLET (FP) PO SCH (21:14)
[2021-10-19] MEDS: BUPRENORPHINE/NALOXONE 8 MG/2 MG FILM PACKET SL SCH (21:15)
[2021-10-19] MEDS: hydrOXYzine PAMOATE 25 MG CAPSULE (FP) PO PRN (23:26)
[2021-10-20] MEDS: BUPRENORPHINE/NALOXONE 8 MG/2 MG FILM PACKET SL SCH ×3 (05:55→21:36)
[2021-10-20] MEDS: metFORMIN HCL 500 MG TABLET (FP) PO SCH ×2 (06:06→17:05)
[2021-10-20] MEDS: PRENATAL VITAMINS W/ FOLIC ACID TABLET (FP) PO SCH (09:45)
[2021-10-20] MEDS: carBAMazepine 200 MG TABLET PO SCH (09:45)
[2021-10-20] MEDS ORDERED: MODERNA COVID-19 VACC,MRNA/PF 100 MCG/0.5 ML IM ONE (10:00)
[2021-10-20] MEDS ORDERED: SERTRALINE HCL 50 MG TABLET (FP) PO SCH (10:00)
[2021-10-20] MEDS ORDERED: FLU VACC QS2021-22(6MOS UP)/PF 60 MCG/0.5 ML SYRINGE IM ONE (12:00)
[2021-10-20] MEDS: SERTRALINE HCL 50 MG TABLET (FP) PO SCH (13:47)
[2021-10-20 15:20] LABS: HIV INTERPRETATION NEGATIVE (NEGATIVE)
[2021-10-20] MEDS: THIAMINE HCL 100 MG TABLET (FP) PO SCH (21:36)
[2021-10-20] MEDS: MELATONIN 5 MG TABLETS PO PRN (21:36)
[2021-10-20] MEDS: risperiDONE 1 MG TABLET PO SCH (21:38)
[2021-10-21] MEDS: BUPRENORPHINE/NALOXONE 8 MG/2 MG FILM PACKET SL SCH ×3 (06:36→21:03)
[2021-10-21] MEDS: metFORMIN HCL 500 MG TABLET (FP) PO SCH ×2 (07:12→16:35)
[2021-10-21] MEDS: SERTRALINE HCL 50 MG TABLET (FP) PO SCH (10:08)
[2021-10-21] MEDS: PRENATAL VITAMINS W/ FOLIC ACID TABLET (FP) PO SCH (10:08)
[2021-10-21] MEDS: NICOTINE 10 MG CARTRIDGE (INHALER) IH PRN (17:07)
[2021-10-21] MEDS: risperiDONE 1 MG TABLET PO SCH (21:02)
[2021-10-21] MEDS: MELATONIN 5 MG TABLETS PO PRN (21:02)
[2021-10-21] MEDS: THIAMINE HCL 100 MG TABLET (FP) PO SCH (21:02)
[2021-10-22] MEDS: metFORMIN HCL 500 MG TABLET (FP) PO SCH ×2 (06:18→16:34)
[2021-10-22] MEDS: BUPRENORPHINE/NALOXONE 8 MG/2 MG FILM PACKET SL SCH ×3 (06:18→21:18)
[2021-10-22] MEDS: SERTRALINE HCL 50 MG TABLET (FP) PO SCH (09:48)
[2021-10-22] MEDS: PRENATAL VITAMINS W/ FOLIC ACID TABLET (FP) PO SCH (09:48)
[2021-10-22] MEDS: LOPERAMIDE HCL 2 MG CAPSULE PO PRN (12:19)
[2021-10-22] MEDS: THIAMINE HCL 100 MG TABLET (FP) PO SCH (21:17)
[2021-10-22] MEDS: MELATONIN 5 MG TABLETS PO PRN (21:17)
[2021-10-22] MEDS: risperiDONE 1 MG TABLET PO SCH (21:17)
[2021-10-22] MEDS: hydrOXYzine PAMOATE 25 MG CAPSULE (FP) PO PRN (22:39)
[2021-10-23] MEDS: BUPRENORPHINE/NALOXONE 8 MG/2 MG FILM PACKET SL SCH ×3 (06:29→21:49)
[2021-10-23] MEDS: metFORMIN HCL 500 MG TABLET (FP) PO SCH ×2 (06:29→16:30)
[2021-10-23] MEDS: PRENATAL VITAMINS W/ FOLIC ACID TABLET (FP) PO SCH (10:04)
[2021-10-23] MEDS: LOPERAMIDE HCL 2 MG CAPSULE PO PRN (10:04)
[2021-10-23] MEDS: SERTRALINE HCL 50 MG TABLET (FP) PO SCH (10:20)
[2021-10-23] MEDS: NICOTINE 10 MG CARTRIDGE (INHALER) IH PRN (11:50)
[2021-10-23] MEDS ORDERED: TUBERCULIN PPD 5 TU/0.1ML VIAL ID ONE (13:16)
[2021-10-23] MEDS: risperiDONE 1 MG TABLET PO SCH (21:48)
[2021-10-23] MEDS: THIAMINE HCL 100 MG TABLET (FP) PO SCH (21:48)
[2021-10-24] MEDS: hydrOXYzine PAMOATE 25 MG CAPSULE (FP) PO PRN ×2 (00:07→21:19)
[2021-10-24] MEDS: metFORMIN HCL 500 MG TABLET (FP) PO SCH ×2 (06:18→16:36)
[2021-10-24] MEDS: BUPRENORPHINE/NALOXONE 8 MG/2 MG FILM PACKET SL SCH ×3 (06:18→21:18)
[2021-10-24] MEDS: SERTRALINE HCL 50 MG TABLET (FP) PO SCH (10:35)
[2021-10-24] MEDS: PRENATAL VITAMINS W/ FOLIC ACID TABLET (FP) PO SCH (10:35)
[2021-10-24] MEDS: risperiDONE 1 MG TABLET PO SCH (21:17)
[2021-10-24] MEDS: THIAMINE HCL 100 MG TABLET (FP) PO SCH (21:17)
[2021-10-24] MEDS: MELATONIN 5 MG TABLETS PO PRN (21:17)
[2021-10-25] MEDS: BUPRENORPHINE/NALOXONE 8 MG/2 MG FILM PACKET SL SCH ×3 (05:35→21:18)
[2021-10-25] MEDS: metFORMIN HCL 500 MG TABLET (FP) PO SCH ×2 (08:02→16:41)
[2021-10-25] MEDS: SERTRALINE HCL 50 MG TABLET (FP) PO SCH (09:59)
[2021-10-25] MEDS: PRENATAL VITAMINS W/ FOLIC ACID TABLET (FP) PO SCH (09:59)
[2021-10-25] MEDS: MELATONIN 5 MG TABLETS PO PRN (21:17)
[2021-10-25] MEDS: hydrOXYzine PAMOATE 25 MG CAPSULE (FP) PO PRN (21:17)
[2021-10-25] MEDS: risperiDONE 1 MG TABLET PO SCH (21:17)
[2021-10-25] MEDS: THIAMINE HCL 100 MG TABLET (FP) PO SCH (21:17)
[2021-10-26] MEDS: BUPRENORPHINE/NALOXONE 8 MG/2 MG FILM PACKET SL SCH ×3 (06:06→21:13)
[2021-10-26] MEDS: metFORMIN HCL 500 MG TABLET (FP) PO SCH ×3 (06:07→16:42)
[2021-10-26] MEDS: PRENATAL VITAMINS W/ FOLIC ACID TABLET (FP) PO SCH (09:34)
[2021-10-26] MEDS: SERTRALINE HCL 50 MG TABLET (FP) PO SCH (09:34)
[2021-10-26] MEDS: NICOTINE 10 MG CARTRIDGE (INHALER) IH PRN (09:38)
[2021-10-26] MEDS: MELATONIN 5 MG TABLETS PO PRN (21:12)
[2021-10-26] MEDS: THIAMINE HCL 100 MG TABLET (FP) PO SCH (21:12)
[2021-10-26] MEDS: risperiDONE 1 MG TABLET PO SCH (21:12)
[2021-10-26] MEDS: hydrOXYzine PAMOATE 25 MG CAPSULE (FP) PO PRN (21:13)
[2021-10-27] MEDS: BUPRENORPHINE/NALOXONE 8 MG/2 MG FILM PACKET SL SCH ×3 (06:30→21:39)
[2021-10-27] MEDS: metFORMIN HCL 500 MG TABLET (FP) PO SCH ×2 (08:35→17:57)
[2021-10-27] MEDS: PRENATAL VITAMINS W/ FOLIC ACID TABLET (FP) PO SCH (10:21)
[2021-10-27] MEDS: SERTRALINE HCL 50 MG TABLET (FP) PO SCH (10:21)
[2021-10-27] MEDS: NICOTINE 10 MG CARTRIDGE (INHALER) IH PRN (14:34)
[2021-10-27] MEDS: risperiDONE 1 MG TABLET PO SCH (21:39)
[2021-10-27] MEDS: hydrOXYzine PAMOATE 25 MG CAPSULE (FP) PO PRN (21:40)
[2021-10-27] MEDS: THIAMINE HCL 100 MG TABLET (FP) PO SCH (21:40)
[2021-10-28] MEDS: BUPRENORPHINE/NALOXONE 8 MG/2 MG FILM PACKET SL SCH ×3 (05:58→21:09)
[2021-10-28] MEDS: metFORMIN HCL 500 MG TABLET (FP) PO SCH ×2 (05:59→17:53)
[2021-10-28] MEDS: PRENATAL VITAMINS W/ FOLIC ACID TABLET (FP) PO SCH (10:29)
[2021-10-28] MEDS: SERTRALINE HCL 50 MG TABLET (FP) PO SCH (10:29)
[2021-10-28] MEDS: risperiDONE 1 MG TABLET PO SCH (21:09)
[2021-10-28] MEDS: THIAMINE HCL 100 MG TABLET (FP) PO SCH (21:09)
[2021-10-28] MEDS: hydrOXYzine PAMOATE 25 MG CAPSULE (FP) PO PRN (21:10)
[2021-10-29] MEDS: metFORMIN HCL 500 MG TABLET (FP) PO SCH ×2 (06:09→18:03)
[2021-10-29] MEDS: BUPRENORPHINE/NALOXONE 8 MG/2 MG FILM PACKET SL SCH ×3 (06:09→21:04)
[2021-10-29 07:13] VITALS: PULSE 62
[2021-10-29] MEDS: NICOTINE 10 MG CARTRIDGE (INHALER) IH PRN ×2 (07:50→16:56)
[2021-10-29] MEDS: SERTRALINE HCL 50 MG TABLET (FP) PO SCH (09:42)
[2021-10-29] MEDS: PRENATAL VITAMINS W/ FOLIC ACID TABLET (FP) PO SCH (09:42)
[2021-10-29] MEDS: THIAMINE HCL 100 MG TABLET (FP) PO SCH (21:04)
[2021-10-29] MEDS: hydrOXYzine PAMOATE 25 MG CAPSULE (FP) PO PRN (21:04)
[2021-10-29] MEDS: risperiDONE 1 MG TABLET PO SCH (21:04)
[2021-10-30] MEDS: BUPRENORPHINE/NALOXONE 8 MG/2 MG FILM PACKET SL SCH (06:21)
[2021-10-30] MEDS: metFORMIN HCL 500 MG TABLET (FP) PO SCH (06:21)
[2021-10-30 07:12] VITALS: BP 126/78; TEMP 97.9
[2021-10-30] MEDS: PRENATAL VITAMINS W/ FOLIC ACID TABLET (FP) PO SCH (09:52)
[2021-10-30] MEDS: SERTRALINE HCL 50 MG TABLET (FP) PO SCH (09:52)
== END 2021-10-30 09:57 | disposition home or self-care (01) | DRG 772 ==
LOC: YASAS 12:47 → Y3W 12:48
PROVIDERS: ADMIT Allergy & Immunology; ATTEND Allergy & Immunology
PROC: HZ42ZZZ Group Counseling for Substance Abuse Treatment, Cognitive-Behavioral (ICD-10-PCS; principal; 2021-10-19)
DX: F11.20 Opioid dependence, uncomplicated (principal); F10.20 Alcohol dependence, uncomplicated; F14.20 Cocaine dependence, uncomplicated; F12.20 Cannabis dependence, uncomplicated; F17.210 Nicotine dependence, cigarettes, uncomplicated; F19.282 Other psychoactive substance dependence with psychoactive substance-induced sleep disorder; F31.9 Bipolar disorder, unspecified; F90.9 Attention-deficit hyperactivity disorder, unspecified type; I10 Essential (primary) hypertension; E11.9 Type 2 diabetes mellitus without complications; J45.909 Unspecified asthma, uncomplicated; K21.9 Gastro-esophageal reflux disease without esophagitis; Z62.810 Personal history of physical and sexual abuse in childhood; Z91.011 Allergy to milk products; Z91.010 Allergy to peanuts; Z91.013 Allergy to seafood; Z56.0 Unemployment, unspecified; Z59.00 Homelessness unspecified
CPT/HCPCS: 0012A; 36415; 82962; 87389; 90686; 91301; G0008; J2794

== ENCOUNTER 2021-12-25 20:53 | Inpatient (IN) | payer OTHER ==
[2021-12-25 21:44] VITALS: BMI 25.0
[2021-12-25] MEDS ORDERED: ALBUTEROL SO4 HFA INHALER IH PRN (22:14)
[2021-12-26] MEDS ORDERED: MAGNESIUM CITRATE 300 ML BOTTLE PO PRN (05:54)
[2021-12-26] MEDS ORDERED: ACETAMINOPHEN 325 MG TABLET (FP) PO PRN ×2 (05:54)
[2021-12-26] MEDS ORDERED: BENZOCAINE/MENTHOL (CHLORASEPTIC ) LOZENGE MM PRN (05:54)
[2021-12-26] MEDS ORDERED: guaiFENesin 200 MG/10 ML 10 ML UNIT-DOSE CUPS PO PRN (05:54)
[2021-12-26] MEDS ORDERED: BISMUTH SUBSALICYLATE 524 MG/30 ML PO PRN (05:54)
[2021-12-26] MEDS ORDERED: IBUPROFEN 400 MG TABLET (FP) PO PRN (05:54)
[2021-12-26] MEDS ORDERED: LOPERAMIDE HCL 2 MG CAPSULE PO PRN (05:54)
[2021-12-26] MEDS ORDERED: P-EPHED 60MG/TRIPROLIDI 2.5MG TABLET PO PRN (05:54)
[2021-12-26] MEDS ORDERED: MAG HYDROX/AL HYDROX/SIMETH 30 ML UNIT-DOSE CUP PO PRN (05:54)
[2021-12-26] MEDS ORDERED: ONDANSETRON *ODT* 4 MG TABLET SL PRN (05:54)
[2021-12-26] MEDS ORDERED: MAGNESIUM HYDROX 2400MG/30ML ORAL SUSPENSION 30 ML CUP PO PRN (05:54)
[2021-12-26] MEDS ORDERED: DICYCLOMINE HCL 10 MG CAPSULE PO PRN (05:54)
[2021-12-26] MEDS: metFORMIN HCL 500 MG TABLET (FP) PO SCH ×2 (06:13→18:04)
[2021-12-26] MEDS: diazePAM 5 MG TABLET PO SCH ×3 (10:38→22:10)
[2021-12-26] MEDS: PRENATAL VITAMINS W/ FOLIC ACID TABLET (FP) PO SCH (10:38)
[2021-12-26] MEDS: METHOCARBAMOL 500 MG TABLET PO PRN ×2 (10:39→18:08)
[2021-12-26 11:43] LABS: HEMATOCRIT 40.1 % (35.4-49); HEMOGLOBIN 13.3 GM/dL (11.7-16.9); MCH 31.4 pg (25.7-33.7); MCHC 33.1 g/dl (32.0-35.9); MEAN CELL VOLUME 94.8 fl (80-96); MEAN PLT VOLUME 8.8 fl (7.5-11.1); PLATELET COUNT 258 10^3/uL (134-434); RBC 4.23 M/mm3 (4.00-5.60); WHITE BLOOD COUNT 9.3 K/mm3 (4.0-10.0)
[2021-12-26 11:59] LABS: ALBUMIN 3.2 g/dl (3.4-5.0); CALCIUM 8.2 mg/dL (8.5-10.1)
[2021-12-26 12:00] LABS: BLOOD UREA NITROGEN 24.3 mg/dL (7-18)
[2021-12-26 12:02] LABS: CREATININE 0.9 mg/dL (0.55-1.3)
[2021-12-26 12:03] LABS: TOT PROT 6.4 g/dl (6.4-8.2)
[2021-12-26 12:04] LABS: BILIRUBIN,TOTAL 0.5 mg/dL (0.2-1)
[2021-12-26 12:54] LABS: HIV INTERPRETATION NEGATIVE (NEGATIVE)
[2021-12-26] MEDS: NICOTINE 10 MG CARTRIDGE (INHALER) IH PRN (13:14)
[2021-12-26] MEDS: BUPRENORPHINE/NALOXONE 8 MG/2 MG FILM PACKET SL SCH ×2 (13:34→22:12)
[2021-12-26] MEDS: diazePAM 5 MG TABLET PO PRN (20:14)
[2021-12-26 20:53] LABS: URINE APPEARANCE CLEAR; URINE BILIRUBIN NEGATIVE (NEGATIVE); URINE COLOR YELLOW; URINE GLUCOSE (UA) NEGATIVE (NEGATIVE); URINE KETONE NEGATIVE (NEGATIVE); URINE LEUK ESTERASE NEGATIVE (NEGATIVE); URINE NITRITE NEGATIVE (NEGATIVE); URINE PROTEIN TRACE (NEGATIVE)
[2021-12-26] MEDS: THIAMINE HCL 100 MG TABLET (FP) PO SCH (22:10)
[2021-12-26] MEDS: MELATONIN 5 MG TABLETS PO SCH (22:15)
[2021-12-26] MEDS: hydrOXYzine PAMOATE 25 MG CAPSULE (FP) PO PRN (22:35)
[2021-12-27] MEDS: diazePAM 5 MG TABLET PO SCH ×4 (06:03→22:15)
[2021-12-27] MEDS: metFORMIN HCL 500 MG TABLET (FP) PO SCH ×2 (06:03→18:26)
[2021-12-27] MEDS: BUPRENORPHINE/NALOXONE 8 MG/2 MG FILM PACKET SL SCH ×3 (06:04→22:15)
[2021-12-27] MEDS: hydrOXYzine PAMOATE 25 MG CAPSULE (FP) PO PRN (10:19)
[2021-12-27] MEDS: PRENATAL VITAMINS W/ FOLIC ACID TABLET (FP) PO SCH (10:19)
[2021-12-27] MEDS: diazePAM 5 MG TABLET PO PRN (15:50)
[2021-12-27] MEDS: MELATONIN 5 MG TABLETS PO SCH (22:14)
[2021-12-27] MEDS: DIVALPROEX SODIUM 500 MG TABLET E.C. PO SCH (22:15)
[2021-12-27] MEDS: risperiDONE 1 MG TABLET PO SCH (22:15)
[2021-12-27] MEDS: THIAMINE HCL 100 MG TABLET (FP) PO SCH (22:15)
[2021-12-28] MEDS: diazePAM 5 MG TABLET PO SCH ×2 (06:06→13:59)
[2021-12-28] MEDS: BUPRENORPHINE/NALOXONE 8 MG/2 MG FILM PACKET SL SCH ×2 (06:06→13:59)
[2021-12-28] MEDS: metFORMIN HCL 500 MG TABLET (FP) PO SCH (06:06)
[2021-12-28] MEDS: NICOTINE 10 MG CARTRIDGE (INHALER) IH PRN (06:49)
[2021-12-28] MEDS ORDERED: SERTRALINE HCL 50 MG TABLET (FP) PO SCH (10:00)
[2021-12-28] MEDS: diazePAM 5 MG TABLET PO PRN (10:19)
[2021-12-28] MEDS: PRENATAL VITAMINS W/ FOLIC ACID TABLET (FP) PO SCH (10:19)
[2021-12-28] MEDS: METHOCARBAMOL 500 MG TABLET PO PRN (10:19)
[2021-12-28] MEDS: DIVALPROEX SODIUM 500 MG TABLET E.C. PO SCH (10:19)
[2021-12-28] MEDS: risperiDONE 1 MG TABLET PO SCH (10:19)
[2021-12-28 16:51] VITALS: BP 143/78; PULSE 87; TEMP 97.5
[2021-12-28] MEDS ORDERED: BUDESONIDE/FORMETEROL FUMARATE 80/4.5 mcg INHALER IH SCH (22:00)
[2021-12-29] MEDS ORDERED: diazePAM 5 MG TABLET PO SCH (06:00)
[2021-12-29] MEDS ORDERED: LISINOPRIL 5 MG TABLET PO SCH (10:00)
[2021-12-29] MEDS ORDERED: PATIENT'S OWN MEDICATION (NON-FORMULARY) (Dulaglutide [Trulicity] 0.75 MG/0.5 ML Pen.Injct SQ SCH (14:30)
[2021-12-30] MEDS ORDERED: diazePAM 5 MG TABLET PO ONE (06:00)
== END 2021-12-28 16:35 | disposition left against medical advice (07) | DRG 770 ==
LOC: YASAS 20:53 → Y3N 23:36
PROVIDERS: ADMIT Surgery; ATTEND Allergy & Immunology
PROC: HZ2ZZZZ Detoxification Services for Substance Abuse Treatment (ICD-10-PCS; principal; 2021-12-25)
DX: F10.230 Alcohol dependence with withdrawal, uncomplicated (principal); F14.20 Cocaine dependence, uncomplicated; F12.20 Cannabis dependence, uncomplicated; F17.210 Nicotine dependence, cigarettes, uncomplicated; F31.9 Bipolar disorder, unspecified; F19.24 Other psychoactive substance dependence with psychoactive substance-induced mood disorder; F43.10 Post-traumatic stress disorder, unspecified; G47.00 Insomnia, unspecified; Z91.011 Allergy to milk products; Z91.010 Allergy to peanuts; Z56.0 Unemployment, unspecified; Z59.00 Homelessness unspecified
CPT/HCPCS: 36415; 80053; 80164; 81003; 82962; 85027; 86780; 87389; C9803-CS; J2794; Q0162; U0003; U0005

== ENCOUNTER 2022-01-26 16:30 | Inpatient (IN) | payer OTHER ==
[2022-01-26 19:53] VITALS: BMI 27.4
[2022-01-26] MEDS ORDERED: guaiFENesin 200 MG/10 ML 10 ML UNIT-DOSE CUPS PO PRN (21:13)
[2022-01-26] MEDS ORDERED: MAGNESIUM HYDROX 2400MG/30ML ORAL SUSPENSION 30 ML CUP PO PRN (21:13)
[2022-01-26] MEDS ORDERED: LOPERAMIDE HCL 2 MG CAPSULE PO PRN (21:13)
[2022-01-26] MEDS ORDERED: MAGNESIUM CITRATE 300 ML BOTTLE PO PRN (21:13)
[2022-01-26] MEDS ORDERED: NALOXONE HCL 0.4 MG/ML VIAL IM PRN (21:13)
[2022-01-26] MEDS ORDERED: P-EPHED 60MG/TRIPROLIDI 2.5MG TABLET PO PRN (21:13)
[2022-01-26] MEDS ORDERED: ACETAMINOPHEN 325 MG TABLET (FP) PO PRN (21:13)
[2022-01-26] MEDS ORDERED: NICOTINE POLACRILEX 2 MG GUM BC PRN (21:13)
[2022-01-26] MEDS ORDERED: NALOXONE HCL (KLOXXADO) 8 MG SPRAY NS PRN (21:13)
[2022-01-26] MEDS ORDERED: IBUPROFEN 400 MG TABLET (FP) PO PRN (21:13)
[2022-01-26] MEDS ORDERED: ALBUTEROL SO4 HFA INHALER IH PRN (21:29)
[2022-01-26] MEDS: THIAMINE HCL 100 MG TABLET (FP) PO SCH (23:52)
[2022-01-26] MEDS: hydrOXYzine PAMOATE 25 MG CAPSULE (FP) PO PRN (23:53)
[2022-01-26] MEDS: MELATONIN 5 MG TABLETS PO SCH (23:55)
[2022-01-27] MEDS: BUPRENORPHINE/NALOXONE 8 MG/2 MG FILM PACKET SL SCH ×3 (06:46→21:24)
[2022-01-27] MEDS: NICOTINE 14 MG/24 HOURS TOPICAL PATCH TD SCH (09:45)
[2022-01-27] MEDS: LISINOPRIL 5 MG TABLET PO SCH (09:46)
[2022-01-27] MEDS: PRENATAL VITAMINS W/ FOLIC ACID TABLET (FP) PO SCH (09:46)
[2022-01-27] MEDS: HYDROCHLOROTHIAZIDE 25 MG TABLET (FP) PO SCH (09:46)
[2022-01-27] MEDS: BUDESONIDE/FORMETEROL FUMARATE 80/4.5 mcg INHALER IH SCH ×2 (09:47→21:23)
[2022-01-27] MEDS ORDERED: PATIENT'S OWN MEDICATION (NON-FORMULARY) (Dulaglutide [Trulicity] 0.75 MG/0.5 ML Pen.Injct SQ SCH (10:00)
[2022-01-27] MEDS: MAG HYDROX/AL HYDROX/SIMETH 30 ML UNIT-DOSE CUP PO PRN (12:46)
[2022-01-27] MEDS: PATIENT'S OWN MEDICATION (NON-FORMULARY) (Dulaglutide [Trulicity] 0.75 MG) SQ SCH (15:09)
[2022-01-27] MEDS: NICOTINE 10 MG CARTRIDGE (INHALER) IH PRN (15:18)
[2022-01-27] MEDS: metFORMIN HCL 500 MG TABLET (FP) PO SCH ×2 (16:44→21:23)
[2022-01-27 18:10] LABS: PH,URINE 5.5 (5.0-8.0); URINE APPEARANCE CLEAR; URINE BILIRUBIN NEGATIVE (NEGATIVE); URINE COLOR YELLOW; URINE GLUCOSE (UA) NEGATIVE (NEGATIVE); URINE KETONE TRACE (NEGATIVE); URINE LEUK ESTERASE NEGATIVE (NEGATIVE); URINE NITRITE NEGATIVE (NEGATIVE); URINE PROTEIN NEGATIVE (NEGATIVE); URINE UROBILINOGEN 0.2 mg/dL (0.2-1.0)
[2022-01-27] MEDS: risperiDONE 1 MG TABLET PO SCH (21:23)
[2022-01-27] MEDS: hydrOXYzine PAMOATE 25 MG CAPSULE (FP) PO PRN (21:23)
[2022-01-27] MEDS: THIAMINE HCL 100 MG TABLET (FP) PO SCH (21:23)
[2022-01-27] MEDS: MELATONIN 5 MG TABLETS PO SCH (21:23)
[2022-01-28] MEDS: BUPRENORPHINE/NALOXONE 8 MG/2 MG FILM PACKET SL SCH ×3 (07:15→21:20)
[2022-01-28] MEDS: PATIENT'S OWN MEDICATION (NON-FORMULARY) (Dulaglutide [Trulicity] 0.75 MG) SQ SCH (07:25)
[2022-01-28 09:40] LABS: CALCIUM 8.5 mg/dL (8.5-10.1)
[2022-01-28 09:41] LABS: ALBUMIN 3.6 g/dl (3.4-5.0); BLOOD UREA NITROGEN 11.8 mg/dL (7-18)
[2022-01-28 09:44] LABS: CREATININE 0.8 mg/dL (0.55-1.3)
[2022-01-28 09:46] LABS: BILIRUBIN,TOTAL 0.6 mg/dL (0.2-1); TOT PROT 6.5 g/dl (6.4-8.2)
[2022-01-28 09:50] LABS: HEMOGLOBIN 13.6 GM/dL (11.7-16.9); MCH 31.4 pg (25.7-33.7); MCHC 33.1 g/dl (32.0-35.9); MEAN CELL VOLUME 94.9 fl (80-96); MEAN PLT VOLUME 8.8 fl (7.5-11.1); PLATELET COUNT 247 10^3/uL (134-434); RBC 4.33 M/mm3 (4.00-5.60); RDW 13.9 % (11.9-15.9); WHITE BLOOD COUNT 11.6 K/mm3 (4.0-10.0)
[2022-01-28] MEDS: LISINOPRIL 5 MG TABLET PO SCH (09:55)
[2022-01-28] MEDS: HYDROCHLOROTHIAZIDE 25 MG TABLET (FP) PO SCH (09:55)
[2022-01-28] MEDS: NICOTINE 14 MG/24 HOURS TOPICAL PATCH TD SCH (09:56)
[2022-01-28] MEDS: metFORMIN HCL 500 MG TABLET (FP) PO SCH ×2 (09:56→21:20)
[2022-01-28] MEDS: SERTRALINE HCL 50 MG TABLET (FP) PO SCH (09:56)
[2022-01-28] MEDS: PRENATAL VITAMINS W/ FOLIC ACID TABLET (FP) PO SCH (09:56)
[2022-01-28] MEDS: BUDESONIDE/FORMETEROL FUMARATE 80/4.5 mcg INHALER IH SCH ×2 (09:57→21:20)
[2022-01-28 10:55] LABS: SYPHILIS W/ RPR CONF NON-REACTIVE (NONREACTIVE)
[2022-01-28 11:19] LABS: HIV INTERPRETATION NEGATIVE (NEGATIVE)
[2022-01-28] MEDS: risperiDONE 1 MG TABLET PO SCH (21:20)
[2022-01-28] MEDS: MELATONIN 5 MG TABLETS PO SCH (21:20)
[2022-01-28] MEDS: THIAMINE HCL 100 MG TABLET (FP) PO SCH (21:20)
[2022-01-28] MEDS: hydrOXYzine PAMOATE 25 MG CAPSULE (FP) PO PRN (21:21)
[2022-01-29] MEDS: MAG HYDROX/AL HYDROX/SIMETH 30 ML UNIT-DOSE CUP PO PRN (01:33)
[2022-01-29] MEDS: BUPRENORPHINE/NALOXONE 8 MG/2 MG FILM PACKET SL SCH ×3 (06:39→21:17)
[2022-01-29] MEDS: PATIENT'S OWN MEDICATION (NON-FORMULARY) (Dulaglutide [Trulicity] 0.75 MG) SQ SCH (06:40)
[2022-01-29] MEDS ORDERED: PATIENT'S OWN MEDICATION (NON-FORMULARY) (Dulaglutide [Trulicity] 0.75 MG) SQ SCH ×2 (08:54→09:18)
[2022-01-29] MEDS: PRENATAL VITAMINS W/ FOLIC ACID TABLET (FP) PO SCH (09:53)
[2022-01-29] MEDS: SERTRALINE HCL 50 MG TABLET (FP) PO SCH (09:53)
[2022-01-29] MEDS: metFORMIN HCL 500 MG TABLET (FP) PO SCH ×2 (09:53→21:15)
[2022-01-29] MEDS: BUDESONIDE/FORMETEROL FUMARATE 80/4.5 mcg INHALER IH SCH ×2 (09:53→21:16)
[2022-01-29] MEDS: NICOTINE 14 MG/24 HOURS TOPICAL PATCH TD SCH (09:54)
[2022-01-29] MEDS: LISINOPRIL 5 MG TABLET PO SCH (11:07)
[2022-01-29] MEDS: HYDROCHLOROTHIAZIDE 25 MG TABLET (FP) PO SCH (11:07)
[2022-01-29] MEDS: NICOTINE 10 MG CARTRIDGE (INHALER) IH PRN (13:20)
[2022-01-29] MEDS: MELATONIN 5 MG TABLETS PO SCH (21:15)
[2022-01-29] MEDS: risperiDONE 1 MG TABLET PO SCH (21:15)
[2022-01-29] MEDS: THIAMINE HCL 100 MG TABLET (FP) PO SCH (21:15)
[2022-01-29] MEDS: hydrOXYzine PAMOATE 25 MG CAPSULE (FP) PO PRN (21:16)
[2022-01-30] MEDS: BUPRENORPHINE/NALOXONE 8 MG/2 MG FILM PACKET SL SCH ×3 (06:00→21:20)
[2022-01-30] MEDS: LISINOPRIL 5 MG TABLET PO SCH (09:48)
[2022-01-30] MEDS: HYDROCHLOROTHIAZIDE 25 MG TABLET (FP) PO SCH (09:48)
[2022-01-30] MEDS: SERTRALINE HCL 50 MG TABLET (FP) PO SCH (09:48)
[2022-01-30] MEDS: metFORMIN HCL 500 MG TABLET (FP) PO SCH ×2 (09:48→21:17)
[2022-01-30] MEDS: BUDESONIDE/FORMETEROL FUMARATE 80/4.5 mcg INHALER IH SCH ×2 (09:48→21:17)
[2022-01-30] MEDS: PRENATAL VITAMINS W/ FOLIC ACID TABLET (FP) PO SCH (09:49)
[2022-01-30] MEDS: NICOTINE 14 MG/24 HOURS TOPICAL PATCH TD SCH (09:52)
[2022-01-30] MEDS: risperiDONE 1 MG TABLET PO SCH (21:17)
[2022-01-30] MEDS: THIAMINE HCL 100 MG TABLET (FP) PO SCH (21:17)
[2022-01-30] MEDS: MELATONIN 5 MG TABLETS PO SCH (21:18)
[2022-01-30] MEDS: hydrOXYzine PAMOATE 25 MG CAPSULE (FP) PO PRN (21:18)
[2022-01-31] MEDS: BUPRENORPHINE/NALOXONE 8 MG/2 MG FILM PACKET SL SCH ×3 (06:13→21:20)
[2022-01-31] MEDS: NICOTINE 10 MG CARTRIDGE (INHALER) IH PRN (07:12)
[2022-01-31] MEDS: metFORMIN HCL 500 MG TABLET (FP) PO SCH ×2 (09:45→17:04)
[2022-01-31] MEDS: SERTRALINE HCL 50 MG TABLET (FP) PO SCH (09:45)
[2022-01-31] MEDS: HYDROCHLOROTHIAZIDE 25 MG TABLET (FP) PO SCH (09:46)
[2022-01-31] MEDS: PRENATAL VITAMINS W/ FOLIC ACID TABLET (FP) PO SCH (09:46)
[2022-01-31] MEDS: LISINOPRIL 5 MG TABLET PO SCH (09:46)
[2022-01-31] MEDS: NICOTINE 14 MG/24 HOURS TOPICAL PATCH TD SCH (09:47)
[2022-01-31] MEDS: BUDESONIDE/FORMETEROL FUMARATE 80/4.5 mcg INHALER IH SCH ×2 (09:47→21:18)
[2022-01-31] MEDS ORDERED: INSULIN (NOVOLOG) ASPART 100 UNITS/ML 10ML VIAL ONE (16:21)
[2022-01-31] MEDS: risperiDONE 1 MG TABLET PO SCH (21:18)
[2022-01-31] MEDS: THIAMINE HCL 100 MG TABLET (FP) PO SCH (21:18)
[2022-01-31] MEDS: MELATONIN 5 MG TABLETS PO SCH (21:18)
[2022-01-31] MEDS: hydrOXYzine PAMOATE 25 MG CAPSULE (FP) PO PRN (21:21)
[2022-02-01] MEDS: BUPRENORPHINE/NALOXONE 8 MG/2 MG FILM PACKET SL SCH ×3 (06:12→21:28)
[2022-02-01] MEDS: metFORMIN HCL 500 MG TABLET (FP) PO SCH ×2 (06:12→16:57)
[2022-02-01] MEDS: NICOTINE 10 MG CARTRIDGE (INHALER) IH PRN (07:24)
[2022-02-01] MEDS: BUDESONIDE/FORMETEROL FUMARATE 80/4.5 mcg INHALER IH SCH ×2 (09:42→21:28)
[2022-02-01] MEDS: PRENATAL VITAMINS W/ FOLIC ACID TABLET (FP) PO SCH (09:50)
[2022-02-01] MEDS: SERTRALINE HCL 50 MG TABLET (FP) PO SCH (09:50)
[2022-02-01] MEDS: LISINOPRIL 5 MG TABLET PO SCH (09:51)
[2022-02-01] MEDS: HYDROCHLOROTHIAZIDE 25 MG TABLET (FP) PO SCH (09:51)
[2022-02-01] MEDS: NICOTINE 14 MG/24 HOURS TOPICAL PATCH TD SCH (09:51)
[2022-02-01] MEDS: THIAMINE HCL 100 MG TABLET (FP) PO SCH (21:28)
[2022-02-01] MEDS: risperiDONE 1 MG TABLET PO SCH (21:28)
[2022-02-01] MEDS: MELATONIN 5 MG TABLETS PO SCH (21:29)
[2022-02-01] MEDS: hydrOXYzine PAMOATE 25 MG CAPSULE (FP) PO PRN (21:29)
[2022-02-02] MEDS: BUPRENORPHINE/NALOXONE 8 MG/2 MG FILM PACKET SL SCH ×3 (06:46→21:26)
[2022-02-02] MEDS: metFORMIN HCL 500 MG TABLET (FP) PO SCH ×2 (06:47→16:45)
[2022-02-02] MEDS: HYDROCHLOROTHIAZIDE 25 MG TABLET (FP) PO SCH (09:51)
[2022-02-02] MEDS: LISINOPRIL 5 MG TABLET PO SCH (09:51)
[2022-02-02] MEDS: SERTRALINE HCL 50 MG TABLET (FP) PO SCH (09:51)
[2022-02-02] MEDS: NICOTINE 14 MG/24 HOURS TOPICAL PATCH TD SCH (09:52)
[2022-02-02] MEDS: PRENATAL VITAMINS W/ FOLIC ACID TABLET (FP) PO SCH (09:52)
[2022-02-02] MEDS: BUDESONIDE/FORMETEROL FUMARATE 80/4.5 mcg INHALER IH SCH ×2 (09:52→21:24)
[2022-02-02] MEDS: NICOTINE 10 MG CARTRIDGE (INHALER) IH PRN ×3 (09:52→16:46)
[2022-02-02] MEDS: THIAMINE HCL 100 MG TABLET (FP) PO SCH (21:23)
[2022-02-02] MEDS: risperiDONE 1 MG TABLET PO SCH (21:23)
[2022-02-02] MEDS: MELATONIN 5 MG TABLETS PO SCH (21:24)
[2022-02-02] MEDS: hydrOXYzine PAMOATE 25 MG CAPSULE (FP) PO PRN (21:24)
[2022-02-03] MEDS: BUPRENORPHINE/NALOXONE 8 MG/2 MG FILM PACKET SL SCH ×3 (05:56→21:25)
[2022-02-03] MEDS: metFORMIN HCL 500 MG TABLET (FP) PO SCH ×2 (05:59→16:36)
[2022-02-03] MEDS: LISINOPRIL 5 MG TABLET PO SCH (09:44)
[2022-02-03] MEDS: PRENATAL VITAMINS W/ FOLIC ACID TABLET (FP) PO SCH (09:44)
[2022-02-03] MEDS: BUDESONIDE/FORMETEROL FUMARATE 80/4.5 mcg INHALER IH SCH ×2 (09:44→21:25)
[2022-02-03] MEDS: HYDROCHLOROTHIAZIDE 25 MG TABLET (FP) PO SCH (09:44)
[2022-02-03] MEDS: NICOTINE 14 MG/24 HOURS TOPICAL PATCH TD SCH (09:45)
[2022-02-03] MEDS: SERTRALINE HCL 50 MG TABLET (FP) PO SCH (09:45)
[2022-02-03] MEDS: MELATONIN 5 MG TABLETS PO SCH (21:24)
[2022-02-03] MEDS: hydrOXYzine PAMOATE 25 MG CAPSULE (FP) PO PRN (21:25)
[2022-02-03] MEDS: THIAMINE HCL 100 MG TABLET (FP) PO SCH (21:25)
[2022-02-03] MEDS: risperiDONE 1 MG TABLET PO SCH (21:25)
[2022-02-04] MEDS: BUPRENORPHINE/NALOXONE 8 MG/2 MG FILM PACKET SL SCH ×3 (05:50→21:23)
[2022-02-04] MEDS: metFORMIN HCL 500 MG TABLET (FP) PO SCH ×2 (06:41→16:27)
[2022-02-04] MEDS: BUDESONIDE/FORMETEROL FUMARATE 80/4.5 mcg INHALER IH SCH ×2 (10:06→21:24)
[2022-02-04] MEDS: PRENATAL VITAMINS W/ FOLIC ACID TABLET (FP) PO SCH (10:06)
[2022-02-04] MEDS: NICOTINE 14 MG/24 HOURS TOPICAL PATCH TD SCH (10:07)
[2022-02-04] MEDS: SERTRALINE HCL 50 MG TABLET (FP) PO SCH (10:07)
[2022-02-04] MEDS: LISINOPRIL 5 MG TABLET PO SCH (10:08)
[2022-02-04] MEDS: HYDROCHLOROTHIAZIDE 25 MG TABLET (FP) PO SCH (10:08)
[2022-02-04] MEDS: THIAMINE HCL 100 MG TABLET (FP) PO SCH (21:23)
[2022-02-04] MEDS: MELATONIN 5 MG TABLETS PO SCH (21:23)
[2022-02-04] MEDS: risperiDONE 1 MG TABLET PO SCH (21:23)
[2022-02-04] MEDS: hydrOXYzine PAMOATE 25 MG CAPSULE (FP) PO PRN (21:23)
[2022-02-04] MEDS: NICOTINE 10 MG CARTRIDGE (INHALER) IH PRN (21:25)
[2022-02-05] MEDS: BUPRENORPHINE/NALOXONE 8 MG/2 MG FILM PACKET SL SCH ×3 (06:24→21:32)
[2022-02-05] MEDS: metFORMIN HCL 500 MG TABLET (FP) PO SCH ×2 (06:24→16:51)
[2022-02-05] MEDS: PRENATAL VITAMINS W/ FOLIC ACID TABLET (FP) PO SCH (10:00)
[2022-02-05] MEDS: BUDESONIDE/FORMETEROL FUMARATE 80/4.5 mcg INHALER IH SCH ×2 (10:00→21:32)
[2022-02-05] MEDS: SERTRALINE HCL 50 MG TABLET (FP) PO SCH (10:00)
[2022-02-05] MEDS: LISINOPRIL 5 MG TABLET PO SCH (10:01)
[2022-02-05] MEDS: HYDROCHLOROTHIAZIDE 25 MG TABLET (FP) PO SCH (10:01)
[2022-02-05] MEDS: NICOTINE 14 MG/24 HOURS TOPICAL PATCH TD SCH (10:01)
[2022-02-05] MEDS: NICOTINE 10 MG CARTRIDGE (INHALER) IH PRN ×3 (10:02→16:53)
[2022-02-05] MEDS: hydrOXYzine PAMOATE 25 MG CAPSULE (FP) PO PRN (21:32)
[2022-02-05] MEDS: risperiDONE 1 MG TABLET PO SCH (21:32)
[2022-02-05] MEDS: MELATONIN 5 MG TABLETS PO SCH (21:32)
[2022-02-05] MEDS: THIAMINE HCL 100 MG TABLET (FP) PO SCH (21:32)
[2022-02-06] MEDS: metFORMIN HCL 500 MG TABLET (FP) PO SCH ×2 (06:11→20:53)
[2022-02-06] MEDS: BUPRENORPHINE/NALOXONE 8 MG/2 MG FILM PACKET SL SCH ×3 (06:11→21:15)
[2022-02-06] MEDS: NICOTINE 10 MG CARTRIDGE (INHALER) IH PRN ×2 (06:52→21:16)
[2022-02-06] MEDS: BUDESONIDE/FORMETEROL FUMARATE 80/4.5 mcg INHALER IH SCH ×2 (10:27→21:14)
[2022-02-06] MEDS: PRENATAL VITAMINS W/ FOLIC ACID TABLET (FP) PO SCH (10:27)
[2022-02-06] MEDS: LISINOPRIL 5 MG TABLET PO SCH (10:27)
[2022-02-06] MEDS: HYDROCHLOROTHIAZIDE 25 MG TABLET (FP) PO SCH (10:27)
[2022-02-06] MEDS: SERTRALINE HCL 50 MG TABLET (FP) PO SCH (10:27)
[2022-02-06] MEDS: NICOTINE 14 MG/24 HOURS TOPICAL PATCH TD SCH (10:28)
[2022-02-06] MEDS: risperiDONE 1 MG TABLET PO SCH (21:14)
[2022-02-06] MEDS: THIAMINE HCL 100 MG TABLET (FP) PO SCH (21:14)
[2022-02-06] MEDS: hydrOXYzine PAMOATE 25 MG CAPSULE (FP) PO PRN (21:14)
[2022-02-06] MEDS: MELATONIN 5 MG TABLETS PO SCH (21:15)
[2022-02-07] MEDS: hydrOXYzine PAMOATE 25 MG CAPSULE (FP) PO PRN ×2 (01:18→21:34)
[2022-02-07] MEDS: metFORMIN HCL 500 MG TABLET (FP) PO SCH ×2 (06:21→16:45)
[2022-02-07] MEDS: BUPRENORPHINE/NALOXONE 8 MG/2 MG FILM PACKET SL SCH ×3 (06:21→21:34)
[2022-02-07] MEDS: SERTRALINE HCL 50 MG TABLET (FP) PO SCH (09:43)
[2022-02-07] MEDS: LISINOPRIL 5 MG TABLET PO SCH (09:43)
[2022-02-07] MEDS: BUDESONIDE/FORMETEROL FUMARATE 80/4.5 mcg INHALER IH SCH ×2 (09:43→21:35)
[2022-02-07] MEDS: NICOTINE 14 MG/24 HOURS TOPICAL PATCH TD SCH (09:43)
[2022-02-07] MEDS: PRENATAL VITAMINS W/ FOLIC ACID TABLET (FP) PO SCH (09:43)
[2022-02-07] MEDS: HYDROCHLOROTHIAZIDE 25 MG TABLET (FP) PO SCH (09:43)
[2022-02-07] MEDS: MELATONIN 5 MG TABLETS PO SCH (21:34)
[2022-02-07] MEDS: risperiDONE 1 MG TABLET PO SCH (21:34)
[2022-02-07] MEDS: THIAMINE HCL 100 MG TABLET (FP) PO SCH (21:34)
[2022-02-07] MEDS: NICOTINE 10 MG CARTRIDGE (INHALER) IH PRN (21:36)
[2022-02-08] MEDS: hydrOXYzine PAMOATE 25 MG CAPSULE (FP) PO PRN ×2 (03:34→22:57)
[2022-02-08] MEDS: BUPRENORPHINE/NALOXONE 8 MG/2 MG FILM PACKET SL SCH ×3 (06:22→21:26)
[2022-02-08] MEDS: metFORMIN HCL 500 MG TABLET (FP) PO SCH ×2 (06:22→16:34)
[2022-02-08] MEDS: BUDESONIDE/FORMETEROL FUMARATE 80/4.5 mcg INHALER IH SCH ×2 (10:02→21:26)
[2022-02-08] MEDS: PRENATAL VITAMINS W/ FOLIC ACID TABLET (FP) PO SCH (10:02)
[2022-02-08] MEDS: LISINOPRIL 5 MG TABLET PO SCH (10:03)
[2022-02-08] MEDS: HYDROCHLOROTHIAZIDE 25 MG TABLET (FP) PO SCH (10:03)
[2022-02-08] MEDS: NICOTINE 14 MG/24 HOURS TOPICAL PATCH TD SCH (10:03)
[2022-02-08] MEDS: SERTRALINE HCL 50 MG TABLET (FP) PO SCH (10:03)
[2022-02-08] MEDS: risperiDONE 1 MG TABLET PO SCH (21:27)
[2022-02-08] MEDS: MELATONIN 5 MG TABLETS PO SCH (21:27)
[2022-02-08] MEDS: THIAMINE HCL 100 MG TABLET (FP) PO SCH (21:27)
[2022-02-08] MEDS: NICOTINE 10 MG CARTRIDGE (INHALER) IH PRN (21:28)
[2022-02-09] MEDS: BUPRENORPHINE/NALOXONE 8 MG/2 MG FILM PACKET SL SCH ×3 (05:52→21:25)
[2022-02-09] MEDS: metFORMIN HCL 500 MG TABLET (FP) PO SCH ×2 (06:14→16:37)
[2022-02-09] MEDS: BUDESONIDE/FORMETEROL FUMARATE 80/4.5 mcg INHALER IH SCH ×2 (09:54→21:26)
[2022-02-09] MEDS: PRENATAL VITAMINS W/ FOLIC ACID TABLET (FP) PO SCH (09:54)
[2022-02-09] MEDS: HYDROCHLOROTHIAZIDE 25 MG TABLET (FP) PO SCH (09:55)
[2022-02-09] MEDS: LISINOPRIL 5 MG TABLET PO SCH (09:55)
[2022-02-09] MEDS: NICOTINE 14 MG/24 HOURS TOPICAL PATCH TD SCH (09:55)
[2022-02-09] MEDS: SERTRALINE HCL 50 MG TABLET (FP) PO SCH (09:55)
[2022-02-09] MEDS: LIRAGLUTIDE 0.6 MG/0.1 ML PEN.INJCTR SQ SCH (13:37)
[2022-02-09] MEDS: NICOTINE 10 MG CARTRIDGE (INHALER) IH PRN (16:37)
[2022-02-09] MEDS: risperiDONE 1 MG TABLET PO SCH (21:25)
[2022-02-09] MEDS: MELATONIN 5 MG TABLETS PO SCH (21:25)
[2022-02-09] MEDS: THIAMINE HCL 100 MG TABLET (FP) PO SCH (21:25)
[2022-02-09] MEDS: hydrOXYzine PAMOATE 25 MG CAPSULE (FP) PO PRN (21:26)
[2022-02-10] MEDS: BUPRENORPHINE/NALOXONE 8 MG/2 MG FILM PACKET SL SCH ×3 (05:44→21:23)
[2022-02-10] MEDS: metFORMIN HCL 500 MG TABLET (FP) PO SCH ×2 (06:22→17:07)
[2022-02-10 07:00] VITALS: TEMP 97.8
[2022-02-10] MEDS: SERTRALINE HCL 50 MG TABLET (FP) PO SCH (09:44)
[2022-02-10] MEDS: BUDESONIDE/FORMETEROL FUMARATE 80/4.5 mcg INHALER IH SCH ×2 (09:45→21:22)
[2022-02-10] MEDS: PRENATAL VITAMINS W/ FOLIC ACID TABLET (FP) PO SCH (09:45)
[2022-02-10] MEDS: NICOTINE 14 MG/24 HOURS TOPICAL PATCH TD SCH (09:45)
[2022-02-10] MEDS: LIRAGLUTIDE 0.6 MG/0.1 ML PEN.INJCTR SQ SCH (09:46)
[2022-02-10] MEDS: HYDROCHLOROTHIAZIDE 25 MG TABLET (FP) PO SCH (09:46)
[2022-02-10] MEDS: LISINOPRIL 5 MG TABLET PO SCH (09:46)
[2022-02-10] MEDS: NICOTINE 10 MG CARTRIDGE (INHALER) IH PRN (16:38)
[2022-02-10] MEDS: THIAMINE HCL 100 MG TABLET (FP) PO SCH (21:22)
[2022-02-10] MEDS: risperiDONE 1 MG TABLET PO SCH (21:22)
[2022-02-10] MEDS: hydrOXYzine PAMOATE 25 MG CAPSULE (FP) PO PRN (21:23)
[2022-02-10] MEDS: MELATONIN 5 MG TABLETS PO SCH (21:23)
[2022-02-11] MEDS: BUPRENORPHINE/NALOXONE 8 MG/2 MG FILM PACKET SL SCH ×3 (05:38→21:26)
[2022-02-11] MEDS: NICOTINE 10 MG CARTRIDGE (INHALER) IH PRN (05:39)
[2022-02-11] MEDS: metFORMIN HCL 500 MG TABLET (FP) PO SCH ×2 (06:23→16:45)
[2022-02-11] MEDS: PRENATAL VITAMINS W/ FOLIC ACID TABLET (FP) PO SCH (09:58)
[2022-02-11] MEDS: NICOTINE 14 MG/24 HOURS TOPICAL PATCH TD SCH (09:58)
[2022-02-11] MEDS: BUDESONIDE/FORMETEROL FUMARATE 80/4.5 mcg INHALER IH SCH ×2 (09:59→21:25)
[2022-02-11] MEDS: LIRAGLUTIDE 0.6 MG/0.1 ML PEN.INJCTR SQ SCH (10:00)
[2022-02-11] MEDS: SERTRALINE HCL 50 MG TABLET (FP) PO SCH (10:04)
[2022-02-11] MEDS: LISINOPRIL 5 MG TABLET PO SCH (11:00)
[2022-02-11] MEDS: HYDROCHLOROTHIAZIDE 25 MG TABLET (FP) PO SCH (11:00)
[2022-02-11] MEDS: MAG HYDROX/AL HYDROX/SIMETH 30 ML UNIT-DOSE CUP PO PRN (20:33)
[2022-02-11] MEDS: MELATONIN 5 MG TABLETS PO SCH (21:24)
[2022-02-11] MEDS: THIAMINE HCL 100 MG TABLET (FP) PO SCH (21:25)
[2022-02-11] MEDS: risperiDONE 1 MG TABLET PO SCH (21:25)
[2022-02-11] MEDS: hydrOXYzine PAMOATE 25 MG CAPSULE (FP) PO PRN (21:25)
[2022-02-12] MEDS: BUPRENORPHINE/NALOXONE 8 MG/2 MG FILM PACKET SL SCH ×2 (07:09→13:46)
[2022-02-12 07:21] VITALS: BP 128/74; PULSE 66
[2022-02-12] MEDS: metFORMIN HCL 500 MG TABLET (FP) PO SCH (07:41)
[2022-02-12] MEDS: BUDESONIDE/FORMETEROL FUMARATE 80/4.5 mcg INHALER IH SCH (09:57)
[2022-02-12] MEDS: SERTRALINE HCL 50 MG TABLET (FP) PO SCH (09:58)
[2022-02-12] MEDS: LISINOPRIL 5 MG TABLET PO SCH (09:58)
[2022-02-12] MEDS: HYDROCHLOROTHIAZIDE 25 MG TABLET (FP) PO SCH (09:58)
[2022-02-12] MEDS: PRENATAL VITAMINS W/ FOLIC ACID TABLET (FP) PO SCH (09:59)
[2022-02-12] MEDS: NICOTINE 14 MG/24 HOURS TOPICAL PATCH TD SCH (09:59)
[2022-02-12] MEDS: LIRAGLUTIDE 0.6 MG/0.1 ML PEN.INJCTR SQ SCH (10:53)
== END 2022-02-12 14:35 | disposition home or self-care (01) | DRG 772 ==
LOC: YASAS 16:30 → Y5N 23:07
PROVIDERS: ADMIT Allergy & Immunology; ATTEND Psychiatry & Neurology Pain Medicine
PROC: HZ42ZZZ Group Counseling for Substance Abuse Treatment, Cognitive-Behavioral (ICD-10-PCS; principal; 2022-01-26)
DX: F11.20 Opioid dependence, uncomplicated (principal); F10.20 Alcohol dependence, uncomplicated; F14.20 Cocaine dependence, uncomplicated; F12.20 Cannabis dependence, uncomplicated; F17.210 Nicotine dependence, cigarettes, uncomplicated; F19.24 Other psychoactive substance dependence with psychoactive substance-induced mood disorder; F19.282 Other psychoactive substance dependence with psychoactive substance-induced sleep disorder; F31.9 Bipolar disorder, unspecified; F90.9 Attention-deficit hyperactivity disorder, unspecified type; I10 Essential (primary) hypertension; J45.909 Unspecified asthma, uncomplicated; K21.9 Gastro-esophageal reflux disease without esophagitis; E11.9 Type 2 diabetes mellitus without complications; Z79.84 Long term (current) use of oral hypoglycemic drugs; Z91.010 Allergy to peanuts; Z91.011 Allergy to milk products; Z91.013 Allergy to seafood; Z56.0 Unemployment, unspecified; Z59.00 Homelessness unspecified; Z91.19 Patient's noncompliance with other medical treatment and regimen
CPT/HCPCS: 36415; 80053; 81003; 82962; 85027; 86780; 86803; 87389; C9803-CS; J2794; U0003; U0005

== ENCOUNTER 2022-04-25 19:12 | Inpatient (IN) | payer OTHER ==
[2022-04-25] MEDS ORDERED: MAGNESIUM HYDROX 2400MG/30ML ORAL SUSPENSION 30 ML CUP PO PRN (19:48)
[2022-04-25] MEDS ORDERED: DICYCLOMINE HCL 10 MG CAPSULE PO PRN (19:48)
[2022-04-25] MEDS ORDERED: NICOTINE POLACRILEX 2 MG GUM BUC PRN (19:48)
[2022-04-25] MEDS ORDERED: guaiFENesin 200 MG/10 ML 10 ML UNIT-DOSE CUPS PO PRN (19:48)
[2022-04-25] MEDS ORDERED: P-EPHED 60MG/TRIPROLIDI 2.5MG TABLET PO PRN (19:48)
[2022-04-25] MEDS ORDERED: BISMUTH SUBSALICYLATE 524 MG/30 ML PO PRN (19:48)
[2022-04-25] MEDS ORDERED: LOPERAMIDE HCL 2 MG CAPSULE PO PRN (19:48)
[2022-04-25] MEDS ORDERED: ACETAMINOPHEN 325 MG TABLET (FP) PO PRN ×2 (19:48)
[2022-04-25] MEDS ORDERED: IBUPROFEN 400 MG TABLET (FP) PO PRN (19:48)
[2022-04-25] MEDS ORDERED: IBUPROFEN 600 MG TABLET (FP) PO PRN (19:48)
[2022-04-25] MEDS ORDERED: NALOXONE HCL 0.4 MG/ML VIAL IM PRN (19:48)
[2022-04-25] MEDS ORDERED: MAG HYDROX/AL HYDROX/SIMETH 30 ML UNIT-DOSE CUP PO PRN (19:48)
[2022-04-25] MEDS ORDERED: BENZOCAINE/MENTHOL (CHLORASEPTIC ) LOZENGE MM PRN (19:48)
[2022-04-25] MEDS ORDERED: NALOXONE HCL (KLOXXADO) 8 MG SPRAY NS PRN (19:48)
[2022-04-25] MEDS ORDERED: MAGNESIUM CITRATE 300 ML BOTTLE PO PRN (19:48)
[2022-04-25 19:59] VITALS: BMI 28.2
[2022-04-25] MEDS ORDERED: ALBUTEROL SO4 HFA INHALER IH PRN (22:36)
[2022-04-26] MEDS: THIAMINE HCL 100 MG TABLET (FP) PO SCH ×2 (00:08→22:55)
[2022-04-26] MEDS: MELATONIN 5 MG TABLETS PO SCH ×3 (00:08→23:40)
[2022-04-26] MEDS ORDERED: cloNIDine HCL 0.1 MG TABLET PO ONE (09:57)
[2022-04-26] MEDS ORDERED: BUPRENORPHINE HCL 150 MCG, BUPRENORPHINE HCL 75 MCG BC PRN (09:57)
[2022-04-26] MEDS ORDERED: BUPRENORPHINE HCL 150 MCG, BUPRENORPHINE HCL 75 MCG BC ONE (09:57)
[2022-04-26] MEDS: BUDESONIDE/FORMETEROL FUMARATE 80/4.5 mcg INHALER IH SCH ×2 (10:22→22:55)
[2022-04-26] MEDS: metFORMIN HCL 500 MG TABLET (FP) PO SCH ×2 (10:25→17:49)
[2022-04-26] MEDS: LISINOPRIL 5 MG TABLET PO SCH (10:25)
[2022-04-26] MEDS: PRENATAL VITAMINS W/ FOLIC ACID TABLET (FP) PO SCH (10:25)
[2022-04-26] MEDS: NICOTINE 14 MG/24 HOURS TOPICAL PATCH TD SCH (10:29)
[2022-04-26] MEDS: INSULIN (NOVOLOG) ASPART 100 UNITS/ML 10ML VIAL SQ SCH ×4 (11:19→22:56)
[2022-04-26] MEDS ORDERED: FLU VACC QS2022-23(6MOS UP)/PF 60 MCG/0.5 ML SYRINGE IM ONE (12:00)
[2022-04-26 12:49] LABS: HEMATOCRIT 42.7 % (35.4-49); HEMOGLOBIN 14.2 GM/dL (11.7-16.9); MCH 32.3 pg (25.7-33.7); MCHC 33.2 g/dl (32.0-35.9); MEAN CELL VOLUME 97.3 fl (80-96); MEAN PLT VOLUME 8.8 fl (7.5-11.1); PLATELET COUNT 277 10^3/uL (134-434); RBC 4.39 M/mm3 (4.00-5.60); RDW 12.8 % (11.9-15.9); WHITE BLOOD COUNT 10.3 K/mm3 (4.0-10.0)
[2022-04-26 12:58] LABS: ALBUMIN 3.4 g/dl (3.4-5.0); BLOOD UREA NITROGEN 17.3 mg/dL (7-18); CREATININE 0.8 mg/dL (0.55-1.3)
[2022-04-26 12:59] LABS: CALCIUM 8.4 mg/dL (8.5-10.1)
[2022-04-26 13:00] LABS: BILIRUBIN,TOTAL 0.3 mg/dL (0.2-1); TOT PROT 6.1 g/dl (6.4-8.2)
[2022-04-26] MEDS: SERTRALINE HCL 50 MG TABLET (FP) PO SCH (13:07)
[2022-04-26 13:43] LABS: HIV INTERPRETATION NEGATIVE (NEGATIVE)
[2022-04-26] MEDS: risperiDONE 1 MG TABLET PO SCH (22:55)
[2022-04-27] MEDS ORDERED: BUPRENORPHINE HCL 150 MCG, BUPRENORPHINE HCL 75 MCG BC PRN
[2022-04-27] MEDS: INSULIN (NOVOLOG) ASPART 100 UNITS/ML 10ML VIAL SQ SCH ×4 (06:50→23:27)
[2022-04-27] MEDS: metFORMIN HCL 500 MG TABLET (FP) PO SCH ×2 (06:50→16:44)
[2022-04-27] MEDS: BUPRENORPHINE HCL 150 MCG, BUPRENORPHINE HCL 75 MCG BC SCH ×2 (07:43→17:46)
[2022-04-27] MEDS: PRENATAL VITAMINS W/ FOLIC ACID TABLET (FP) PO SCH (10:27)
[2022-04-27] MEDS: NICOTINE 14 MG/24 HOURS TOPICAL PATCH TD SCH (10:27)
[2022-04-27] MEDS: LISINOPRIL 5 MG TABLET PO SCH (10:27)
[2022-04-27] MEDS: SERTRALINE HCL 50 MG TABLET (FP) PO SCH (10:27)
[2022-04-27] MEDS: BUDESONIDE/FORMETEROL FUMARATE 80/4.5 mcg INHALER IH SCH ×2 (10:28→22:39)
[2022-04-27] MEDS: diazePAM 5 MG TABLET PO PRN ×3 (10:30→22:37)
[2022-04-27] MEDS ORDERED: INSULIN (NOVOLOG) ASPART 100 UNITS/ML 10ML VIAL ONE (16:41)
[2022-04-27] MEDS: THIAMINE HCL 100 MG TABLET (FP) PO SCH (22:36)
[2022-04-27] MEDS: risperiDONE 1 MG TABLET PO SCH (22:37)
[2022-04-28] MEDS: INSULIN (NOVOLOG) ASPART 100 UNITS/ML 10ML VIAL SQ SCH ×4 (07:20→22:16)
[2022-04-28] MEDS: metFORMIN HCL 500 MG TABLET (FP) PO SCH ×2 (07:20→17:59)
[2022-04-28] MEDS: BUPRENORPHINE HCL 450 MCG FILM BC SCH ×2 (07:21→17:59)
[2022-04-28] MEDS: LISINOPRIL 5 MG TABLET PO SCH (10:24)
[2022-04-28] MEDS: METHOCARBAMOL 500 MG TABLET PO PRN (10:24)
[2022-04-28] MEDS: PRENATAL VITAMINS W/ FOLIC ACID TABLET (FP) PO SCH (10:24)
[2022-04-28] MEDS: BUDESONIDE/FORMETEROL FUMARATE 80/4.5 mcg INHALER IH SCH ×2 (10:24→22:16)
[2022-04-28] MEDS: SERTRALINE HCL 50 MG TABLET (FP) PO SCH (10:25)
[2022-04-28] MEDS: cloNIDine HCL 0.1 MG TABLET PO PRN ×2 (10:27→22:13)
[2022-04-28] MEDS: NICOTINE 14 MG/24 HOURS TOPICAL PATCH TD SCH (10:28)
[2022-04-28 11:35] LABS: HEMATOCRIT 42.7 % (35.4-49); HEMOGLOBIN 14.2 GM/dL (11.7-16.9); MCH 32.4 pg (25.7-33.7); MCHC 33.3 g/dl (32.0-35.9); MEAN CELL VOLUME 97.2 fl (80-96); MEAN PLT VOLUME 8.7 fl (7.5-11.1); PLATELET COUNT 255 10^3/uL (134-434); RDW 13.1 % (11.9-15.9)
[2022-04-28] MEDS: NICOTINE 10 MG CARTRIDGE (INHALER) IH PRN (18:29)
[2022-04-28] MEDS: THIAMINE HCL 100 MG TABLET (FP) PO SCH (22:12)
[2022-04-28] MEDS: risperiDONE 1 MG TABLET PO SCH (22:13)
[2022-04-28] MEDS: MELATONIN 5 MG TABLETS PO SCH (22:16)
[2022-04-29] MEDS: metFORMIN HCL 500 MG TABLET (FP) PO SCH ×2 (06:10→18:03)
[2022-04-29] MEDS: BUPRENORPHINE/NALOXONE 4 MG/1 MG FILM PACKET SL SCH ×2 (06:11→18:04)
[2022-04-29] MEDS: INSULIN (NOVOLOG) ASPART 100 UNITS/ML 10ML VIAL SQ SCH ×4 (06:23→22:18)
[2022-04-29] MEDS: NICOTINE 10 MG CARTRIDGE (INHALER) IH PRN ×3 (09:33→22:20)
[2022-04-29] MEDS: PRENATAL VITAMINS W/ FOLIC ACID TABLET (FP) PO SCH (09:33)
[2022-04-29] MEDS: SERTRALINE HCL 50 MG TABLET (FP) PO SCH (09:33)
[2022-04-29] MEDS: METHOCARBAMOL 500 MG TABLET PO PRN (09:33)
[2022-04-29] MEDS: LISINOPRIL 5 MG TABLET PO SCH (09:33)
[2022-04-29] MEDS: hydrOXYzine PAMOATE 25 MG CAPSULE (FP) PO PRN ×2 (09:33→22:19)
[2022-04-29] MEDS: NICOTINE 14 MG/24 HOURS TOPICAL PATCH TD SCH (09:34)
[2022-04-29] MEDS: BUDESONIDE/FORMETEROL FUMARATE 80/4.5 mcg INHALER IH SCH ×2 (09:35→22:18)
[2022-04-29] MEDS ORDERED: INSULIN (NOVOLOG) ASPART 100 UNITS/ML 10ML VIAL ONE (18:02)
[2022-04-29] MEDS: THIAMINE HCL 100 MG TABLET (FP) PO SCH (22:17)
[2022-04-29] MEDS: risperiDONE 1 MG TABLET PO SCH (22:17)
[2022-04-29] MEDS: MELATONIN 5 MG TABLETS PO SCH (22:18)
[2022-04-30] MEDS ORDERED: BUPRENORPHINE/NALOXONE 8 MG/2 MG FILM PACKET SL ONE (06:00)
[2022-04-30] MEDS: INSULIN (NOVOLOG) ASPART 100 UNITS/ML 10ML VIAL SQ SCH ×2 (07:44→12:19)
[2022-04-30] MEDS: metFORMIN HCL 500 MG TABLET (FP) PO SCH (07:55)
[2022-04-30 09:06] VITALS: BP 143/85; PULSE 65; RESP 17; TEMP 97.7
[2022-04-30] MEDS: NICOTINE 14 MG/24 HOURS TOPICAL PATCH TD SCH (10:17)
[2022-04-30] MEDS: SERTRALINE HCL 50 MG TABLET (FP) PO SCH (10:19)
[2022-04-30] MEDS: PRENATAL VITAMINS W/ FOLIC ACID TABLET (FP) PO SCH (10:19)
[2022-04-30] MEDS: LISINOPRIL 5 MG TABLET PO SCH (10:19)
[2022-04-30] MEDS: METHOCARBAMOL 500 MG TABLET PO PRN (10:20)
[2022-04-30] MEDS: BUDESONIDE/FORMETEROL FUMARATE 80/4.5 mcg INHALER IH SCH (10:21)
== END 2022-04-30 10:40 | disposition home or self-care (01) | DRG 773 ==
LOC: YASAS 19:12 → Y6N 20:37
PROVIDERS: ADMIT Allergy & Immunology; ATTEND Surgery
PROC: HZ2ZZZZ Detoxification Services for Substance Abuse Treatment (ICD-10-PCS; principal; 2022-04-25)
DX: F11.23 Opioid dependence with withdrawal (principal); F14.20 Cocaine dependence, uncomplicated; F17.210 Nicotine dependence, cigarettes, uncomplicated; F31.9 Bipolar disorder, unspecified; F19.280 Other psychoactive substance dependence with psychoactive substance-induced anxiety disorder; F19.282 Other psychoactive substance dependence with psychoactive substance-induced sleep disorder; F19.24 Other psychoactive substance dependence with psychoactive substance-induced mood disorder; F90.9 Attention-deficit hyperactivity disorder, unspecified type; I10 Essential (primary) hypertension; J44.9 Chronic obstructive pulmonary disease, unspecified; J45.20 Mild intermittent asthma, uncomplicated; K21.9 Gastro-esophageal reflux disease without esophagitis; E11.9 Type 2 diabetes mellitus without complications; Z79.84 Long term (current) use of oral hypoglycemic drugs; R40.0 Somnolence
CPT/HCPCS: 36415; 80053; 82962; 85027; 86780; 87389; 87811; C9803-CS; G0008; J2794; Q2036; U0003; U0005

== ENCOUNTER 2022-07-14 10:54 | Inpatient (IN) | payer OTHER ==
[2022-07-14 12:46] VITALS: BMI 27.1
[2022-07-14] MEDS ORDERED: BENZOCAINE/MENTHOL (CHLORASEPTIC ) LOZENGE MM PRN (13:53)
[2022-07-14] MEDS ORDERED: MAGNESIUM HYDROX 2400MG/30ML ORAL SUSPENSION 30 ML CUP PO PRN (13:53)
[2022-07-14] MEDS ORDERED: NALOXONE HCL (KLOXXADO) 8 MG SPRAY NS PRN (13:53)
[2022-07-14] MEDS ORDERED: IBUPROFEN 600 MG TABLET (FP) PO PRN (13:53)
[2022-07-14] MEDS ORDERED: ONDANSETRON *ODT* 4 MG TABLET SL PRN (13:53)
[2022-07-14] MEDS ORDERED: NICOTINE 10 MG CARTRIDGE (INHALER) IH PRN (13:53)
[2022-07-14] MEDS ORDERED: POLYETHYLENE GLYCOL (HEALTHYLAX) 3350 17 GM PACKET PO PRN (13:53)
[2022-07-14] MEDS ORDERED: LOPERAMIDE HCL 2 MG CAPSULE PO PRN (13:53)
[2022-07-14] MEDS ORDERED: IBUPROFEN 400 MG TABLET (FP) PO PRN (13:53)
[2022-07-14] MEDS ORDERED: DICYCLOMINE HCL 10 MG CAPSULE PO PRN (13:53)
[2022-07-14] MEDS ORDERED: ACETAMINOPHEN 325 MG TABLET (FP) PO PRN (13:53)
[2022-07-14] MEDS ORDERED: MAG HYDROX/AL HYDROX/SIMETH 30 ML UNIT-DOSE CUP PO PRN (13:53)
[2022-07-14] MEDS ORDERED: BISMUTH SUBSALICYLATE 524 MG/30 ML PO PRN (13:53)
[2022-07-14] MEDS ORDERED: ALBUTEROL SO4 HFA INHALER IH PRN (13:57)
[2022-07-14] MEDS: hydrOXYzine PAMOATE 25 MG CAPSULE (FP) PO PRN (15:45)
[2022-07-14] MEDS: METHOCARBAMOL 500 MG TABLET PO PRN (15:45)
[2022-07-14] MEDS ORDERED: MELATONIN 5 MG TABLETS PO SCH (22:00)
[2022-07-14] MEDS: BUDESONIDE/FORMETEROL FUMARATE 80/4.5 mcg INHALER IH SCH (23:05)
[2022-07-14] MEDS: THIAMINE HCL 100 MG TABLET (FP) PO SCH (23:05)
[2022-07-15] MEDS ORDERED: cloNIDine HCL 0.1 MG TABLET PO ONE (10:17)
[2022-07-15] MEDS ORDERED: BUPRENORPHINE HCL 150 MCG, BUPRENORPHINE HCL 75 MCG BC PRN (10:17)
[2022-07-15] MEDS ORDERED: BUPRENORPHINE HCL 150 MCG, BUPRENORPHINE HCL 75 MCG BC ONE (10:17)
[2022-07-15] MEDS: BUDESONIDE/FORMETEROL FUMARATE 80/4.5 mcg INHALER IH SCH ×2 (10:42→23:59)
[2022-07-15] MEDS: PRENATAL VITAMINS W/ FOLIC ACID TABLET (FP) PO SCH (10:42)
[2022-07-15] MEDS ORDERED: PNEUMOC 20-VAL CONJ-DIP CRM/PF 0.5 ML SYRINGE IM ONE (13:05)
[2022-07-15] MEDS: SERTRALINE HCL 50 MG TABLET (FP) PO SCH (13:12)
[2022-07-15] MEDS: METHOCARBAMOL 500 MG TABLET PO PRN (14:44)
[2022-07-15] MEDS: diazePAM 5 MG TABLET PO PRN ×2 (14:44→23:11)
[2022-07-15] MEDS: THIAMINE HCL 100 MG TABLET (FP) PO SCH (21:56)
[2022-07-15] MEDS: risperiDONE 1 MG TABLET PO SCH (21:56)
[2022-07-15] MEDS: cloNIDine HCL 0.1 MG TABLET PO PRN (23:12)
[2022-07-16] MEDS ORDERED: BUPRENORPHINE HCL 150 MCG, BUPRENORPHINE HCL 75 MCG BC PRN
[2022-07-16] MEDS ORDERED: BUPRENORPHINE HCL 150 MCG, BUPRENORPHINE HCL 75 MCG BC SCH (06:00)
[2022-07-16] MEDS: SERTRALINE HCL 50 MG TABLET (FP) PO SCH (09:42)
[2022-07-16] MEDS: hydrOXYzine PAMOATE 25 MG CAPSULE (FP) PO PRN (09:42)
[2022-07-16] MEDS: BUPRENORPHINE HCL 150 MCG, BUPRENORPHINE HCL 75 MCG BC SCH ×2 (09:43→17:57)
[2022-07-16] MEDS: BUDESONIDE/FORMETEROL FUMARATE 80/4.5 mcg INHALER IH SCH ×2 (09:43→22:48)
[2022-07-16] MEDS: PRENATAL VITAMINS W/ FOLIC ACID TABLET (FP) PO SCH (09:43)
[2022-07-16 10:30] LABS: HEMATOCRIT 43.1 % (35.4-49); HEMOGLOBIN 14.3 GM/dL (11.7-16.9); MCH 31.3 pg (25.7-33.7); MCHC 33.2 g/dl (32.0-35.9); MEAN CELL VOLUME 94.4 fl (80-96); MEAN PLT VOLUME 8.7 fl (7.5-11.1); PLATELET COUNT 281 10^3/uL (134-434); RBC 4.57 M/mm3 (4.00-5.60); RDW 13.1 % (11.9-15.9); WHITE BLOOD COUNT 10.9 K/mm3 (4.0-10.0)
[2022-07-16 11:21] LABS: CALCIUM 8.9 mg/dL (8.5-10.1)
[2022-07-16 11:22] LABS: ALBUMIN 3.6 g/dl (3.4-5.0); BLOOD UREA NITROGEN 10.1 mg/dL (7-18)
[2022-07-16 11:24] LABS: CREATININE 0.7 mg/dL (0.55-1.3)
[2022-07-16 11:25] LABS: TOT PROT 6.9 g/dl (6.4-8.2)
[2022-07-16 11:26] LABS: BILIRUBIN,TOTAL 0.6 mg/dL (0.2-1)
[2022-07-16] MEDS: diazePAM 5 MG TABLET PO PRN (17:58)
[2022-07-16] MEDS: METHOCARBAMOL 500 MG TABLET PO PRN (19:28)
[2022-07-16] MEDS: ACETAMINOPHEN 325 MG TABLET (FP) PO PRN (19:29)
[2022-07-16] MEDS: THIAMINE HCL 100 MG TABLET (FP) PO SCH (22:49)
[2022-07-16] MEDS: cloNIDine HCL 0.1 MG TABLET PO PRN (22:49)
[2022-07-16] MEDS: risperiDONE 1 MG TABLET PO SCH (22:49)
[2022-07-17] MEDS: diazePAM 5 MG TABLET PO PRN ×3 (01:40→22:47)
[2022-07-17] MEDS: ACETAMINOPHEN 325 MG TABLET (FP) PO PRN (01:41)
[2022-07-17] MEDS: METHOCARBAMOL 500 MG TABLET PO PRN (01:41)
[2022-07-17] MEDS: BUPRENORPHINE HCL 450 MCG FILM BC SCH ×2 (05:49→17:30)
[2022-07-17] MEDS ORDERED: TRIMETHOBENZAMIDE HCL 200MG/2ML INJ IM PRN (09:09)
[2022-07-17] MEDS: PRENATAL VITAMINS W/ FOLIC ACID TABLET (FP) PO SCH (09:11)
[2022-07-17] MEDS: SERTRALINE HCL 50 MG TABLET (FP) PO SCH (09:11)
[2022-07-17] MEDS: BUDESONIDE/FORMETEROL FUMARATE 80/4.5 mcg INHALER IH SCH ×2 (09:12→22:46)
[2022-07-17 11:07] LABS: HEMATOCRIT 47.4 % (35.4-49); MCH 31.8 pg (25.7-33.7); MCHC 33.7 g/dl (32.0-35.9); MEAN CELL VOLUME 94.5 fl (80-96); PLATELET COUNT 340 10^3/uL (134-434); RBC 5.01 M/mm3 (4.00-5.60); RDW 12.9 % (11.9-15.9); WHITE BLOOD COUNT 10.9 K/mm3 (4.0-10.0)
[2022-07-17] MEDS: cloNIDine HCL 0.1 MG TABLET PO PRN ×2 (12:36→17:30)
[2022-07-17] MEDS: THIAMINE HCL 100 MG TABLET (FP) PO SCH (22:45)
[2022-07-17] MEDS: risperiDONE 1 MG TABLET PO SCH (22:45)
[2022-07-17] MEDS: SUVOREXANT 10 MG TABLET PO PRN (22:47)
[2022-07-18] MEDS: BUPRENORPHINE/NALOXONE 4 MG/1 MG FILM PACKET SL SCH ×2 (05:59→17:57)
[2022-07-18] MEDS: SERTRALINE HCL 50 MG TABLET (FP) PO SCH (10:35)
[2022-07-18] MEDS: BUDESONIDE/FORMETEROL FUMARATE 80/4.5 mcg INHALER IH SCH ×2 (10:35→22:37)
[2022-07-18] MEDS: PRENATAL VITAMINS W/ FOLIC ACID TABLET (FP) PO SCH (10:35)
[2022-07-18] MEDS: diazePAM 5 MG TABLET PO PRN (10:36)
[2022-07-18] MEDS: METHOCARBAMOL 500 MG TABLET PO PRN (13:37)
[2022-07-18] MEDS: ACETAMINOPHEN 325 MG TABLET (FP) PO PRN (13:37)
[2022-07-18] MEDS: cloNIDine HCL 0.1 MG TABLET PO PRN (17:59)
[2022-07-18] MEDS: SUVOREXANT 10 MG TABLET PO PRN (21:55)
[2022-07-18] MEDS: risperiDONE 1 MG TABLET PO SCH (22:37)
[2022-07-18] MEDS: THIAMINE HCL 100 MG TABLET (FP) PO SCH (22:39)
[2022-07-19] MEDS ORDERED: BUPRENORPHINE/NALOXONE 8 MG/2 MG FILM PACKET SL ONE (06:00)
[2022-07-19 06:22] VITALS: RESP 18
[2022-07-19 09:09] VITALS: BP 134/89; PULSE 64; TEMP 98.3
[2022-07-19] MEDS: PRENATAL VITAMINS W/ FOLIC ACID TABLET (FP) PO SCH (09:34)
[2022-07-19] MEDS: BUDESONIDE/FORMETEROL FUMARATE 80/4.5 mcg INHALER IH SCH (09:34)
[2022-07-19] MEDS: SERTRALINE HCL 50 MG TABLET (FP) PO SCH (09:35)
== END 2022-07-19 10:05 | disposition home or self-care (01) | DRG 773 ==
LOC: YASAS 10:54 → Y3N 14:27
PROVIDERS: ADMIT Allergy & Immunology; ATTEND Surgery
PROC: HZ2ZZZZ Detoxification Services for Substance Abuse Treatment (ICD-10-PCS; principal; 2022-07-14)
DX: F11.23 Opioid dependence with withdrawal (principal); F14.20 Cocaine dependence, uncomplicated; F12.20 Cannabis dependence, uncomplicated; F17.210 Nicotine dependence, cigarettes, uncomplicated; F90.9 Attention-deficit hyperactivity disorder, unspecified type; F31.9 Bipolar disorder, unspecified; F43.10 Post-traumatic stress disorder, unspecified; F19.282 Other psychoactive substance dependence with psychoactive substance-induced sleep disorder; I10 Essential (primary) hypertension; E11.9 Type 2 diabetes mellitus without complications; K21.9 Gastro-esophageal reflux disease without esophagitis; J45.20 Mild intermittent asthma, uncomplicated; U07.1 COVID-19; Z91.010 Allergy to peanuts; Z91.011 Allergy to milk products; Z91.013 Allergy to seafood; Z86.69 Personal history of other diseases of the nervous system and sense organs; Z91.51 Personal history of suicidal behavior; Z56.0 Unemployment, unspecified; Z59.00 Homelessness unspecified
CPT/HCPCS: 36415; 80053; 82962; 85027; 86780; 87811; 90677; C9803-CS; J2794; Q0162; U0003; U0005

== ENCOUNTER 2022-08-14 12:42 | Inpatient (IN) | payer OTHER ==
[2022-08-14 14:33] VITALS: BMI 26.6
[2022-08-14] MEDS ORDERED: BUPRENORPHINE HCL 150 MCG, BUPRENORPHINE HCL 75 MCG BC ONE (16:02)
[2022-08-14] MEDS ORDERED: NICOTINE POLACRILEX 2 MG GUM BUC PRN (16:02)
[2022-08-14] MEDS ORDERED: cloNIDine HCL 0.1 MG TABLET PO ONE (16:02)
[2022-08-14] MEDS ORDERED: BUPRENORPHINE HCL 150 MCG, BUPRENORPHINE HCL 75 MCG BC PRN (16:02)
[2022-08-14] MEDS ORDERED: NALOXONE HCL (KLOXXADO) 8 MG SPRAY NS PRN (16:02)
[2022-08-14] MEDS ORDERED: MAGNESIUM HYDROX 2400MG/30ML ORAL SUSPENSION 30 ML CUP PO PRN (16:02)
[2022-08-14] MEDS ORDERED: LOPERAMIDE HCL 2 MG CAPSULE PO PRN (16:02)
[2022-08-14] MEDS ORDERED: IBUPROFEN 600 MG TABLET (FP) PO PRN (16:02)
[2022-08-14] MEDS ORDERED: BISMUTH SUBSALICYLATE 524 MG/30 ML PO PRN (16:02)
[2022-08-14] MEDS ORDERED: ACETAMINOPHEN 325 MG TABLET (FP) PO PRN ×2 (16:02)
[2022-08-14] MEDS ORDERED: BENZOCAINE/MENTHOL (CHLORASEPTIC ) LOZENGE MM PRN (16:02)
[2022-08-14] MEDS ORDERED: ONDANSETRON *ODT* 4 MG TABLET SL PRN (16:02)
[2022-08-14] MEDS ORDERED: POLYETHYLENE GLYCOL (HEALTHYLAX) 3350 17 GM PACKET PO PRN (16:02)
[2022-08-14] MEDS ORDERED: IBUPROFEN 400 MG TABLET (FP) PO PRN (16:02)
[2022-08-14] MEDS ORDERED: ALBUTEROL SO4 HFA INHALER IH PRN (16:08)
[2022-08-14] MEDS: PRENATAL VITAMINS W/ FOLIC ACID TABLET (FP) PO SCH (17:18)
[2022-08-14] MEDS: DICYCLOMINE HCL 10 MG CAPSULE PO PRN (17:18)
[2022-08-14] MEDS: BUDESONIDE/FORMETEROL FUMARATE 80/4.5 mcg INHALER IH SCH (22:22)
[2022-08-14] MEDS: MELATONIN 5 MG TABLETS PO SCH (22:22)
[2022-08-14] MEDS: THIAMINE HCL 100 MG TABLET (FP) PO SCH (22:22)
[2022-08-14] MEDS: METHOCARBAMOL 500 MG TABLET PO PRN (22:23)
[2022-08-14] MEDS: diazePAM 5 MG TABLET PO PRN (22:23)
[2022-08-14] MEDS: hydrOXYzine PAMOATE 25 MG CAPSULE (FP) PO PRN (22:23)
[2022-08-15] MEDS ORDERED: BUPRENORPHINE HCL 150 MCG, BUPRENORPHINE HCL 75 MCG BC PRN
[2022-08-15] MEDS: BUPRENORPHINE HCL 150 MCG, BUPRENORPHINE HCL 75 MCG BC SCH ×2 (05:32→17:04)
[2022-08-15] MEDS: METHOCARBAMOL 500 MG TABLET PO PRN ×2 (10:21→22:03)
[2022-08-15] MEDS: diazePAM 5 MG TABLET PO PRN ×2 (10:21→22:04)
[2022-08-15] MEDS: PRENATAL VITAMINS W/ FOLIC ACID TABLET (FP) PO SCH (10:49)
[2022-08-15] MEDS: BUDESONIDE/FORMETEROL FUMARATE 80/4.5 mcg INHALER IH SCH ×2 (10:49→21:59)
[2022-08-15 12:56] LABS: HEMATOCRIT 38.7 % (35.4-49); HEMOGLOBIN 12.8 GM/dL (11.7-16.9); MCH 31.6 pg (25.7-33.7); MCHC 33.1 g/dl (32.0-35.9); MEAN CELL VOLUME 95.3 fl (80-96); MEAN PLT VOLUME 8.5 fl (7.5-11.1); PLATELET COUNT 265 10^3/uL (134-434); RBC 4.06 M/mm3 (4.00-5.60); RDW 13.9 % (11.9-15.9); WHITE BLOOD COUNT 14.8 K/mm3 (4.0-10.0)
[2022-08-15 13:31] LABS: ALBUMIN 3.2 g/dl (3.4-5.0); CALCIUM 8.2 mg/dL (8.5-10.1)
[2022-08-15 13:32] LABS: BLOOD UREA NITROGEN 11.5 mg/dL (7-18)
[2022-08-15 13:36] LABS: BILIRUBIN,TOTAL 0.4 mg/dL (0.2-1); CREATININE 0.8 mg/dL (0.55-1.3); TOT PROT 6.1 g/dl (6.4-8.2)
[2022-08-15] MEDS: NICOTINE 10 MG CARTRIDGE (INHALER) IH PRN ×2 (17:06→21:57)
[2022-08-15] MEDS: DICYCLOMINE HCL 10 MG CAPSULE PO PRN (17:09)
[2022-08-15] MEDS: risperiDONE 1 MG TABLET PO SCH (22:02)
[2022-08-15] MEDS: cloNIDine HCL 0.1 MG TABLET PO PRN (22:02)
[2022-08-15] MEDS: THIAMINE HCL 100 MG TABLET (FP) PO SCH (22:03)
[2022-08-15] MEDS: hydrOXYzine PAMOATE 25 MG CAPSULE (FP) PO PRN (22:03)
[2022-08-15] MEDS: MELATONIN 5 MG TABLETS PO SCH (22:03)
[2022-08-16] MEDS: BUPRENORPHINE HCL 450 MCG FILM BC SCH ×2 (06:09→17:09)
[2022-08-16] MEDS: SERTRALINE HCL 50 MG TABLET (FP) PO SCH (10:31)
[2022-08-16] MEDS: METHOCARBAMOL 500 MG TABLET PO PRN ×2 (10:31→22:00)
[2022-08-16] MEDS: PRENATAL VITAMINS W/ FOLIC ACID TABLET (FP) PO SCH (10:31)
[2022-08-16] MEDS: risperiDONE 1 MG TABLET PO SCH ×2 (10:31→22:00)
[2022-08-16] MEDS: diazePAM 5 MG TABLET PO PRN (10:32)
[2022-08-16] MEDS: BUDESONIDE/FORMETEROL FUMARATE 80/4.5 mcg INHALER IH SCH ×2 (10:32→22:00)
[2022-08-16] MEDS: DICYCLOMINE HCL 10 MG CAPSULE PO PRN (17:11)
[2022-08-16] MEDS: MELATONIN 5 MG TABLETS PO SCH (21:58)
[2022-08-16] MEDS: THIAMINE HCL 100 MG TABLET (FP) PO SCH (21:59)
[2022-08-16] MEDS: hydrOXYzine PAMOATE 25 MG CAPSULE (FP) PO PRN (22:00)
[2022-08-16] MEDS: cloNIDine HCL 0.1 MG TABLET PO PRN (22:00)
[2022-08-17] MEDS: BUPRENORPHINE/NALOXONE 4 MG/1 MG FILM PACKET SL SCH ×2 (06:47→17:42)
[2022-08-17] MEDS: hydrOXYzine PAMOATE 25 MG CAPSULE (FP) PO PRN ×2 (10:17→17:46)
[2022-08-17] MEDS: PRENATAL VITAMINS W/ FOLIC ACID TABLET (FP) PO SCH (10:17)
[2022-08-17] MEDS: METHOCARBAMOL 500 MG TABLET PO PRN ×2 (10:17→17:46)
[2022-08-17] MEDS: SERTRALINE HCL 50 MG TABLET (FP) PO SCH (10:18)
[2022-08-17] MEDS: risperiDONE 1 MG TABLET PO SCH ×2 (10:18→21:35)
[2022-08-17] MEDS: BUDESONIDE/FORMETEROL FUMARATE 80/4.5 mcg INHALER IH SCH ×2 (10:18→21:35)
[2022-08-17] MEDS: NICOTINE 10 MG CARTRIDGE (INHALER) IH PRN (14:59)
[2022-08-17 18:02] VITALS: RESP 18
[2022-08-17] MEDS: MELATONIN 5 MG TABLETS PO SCH (21:34)
[2022-08-17] MEDS: THIAMINE HCL 100 MG TABLET (FP) PO SCH (21:36)
[2022-08-17] MEDS: MAG HYDROX/AL HYDROX/SIMETH 30 ML UNIT-DOSE CUP PO PRN (21:44)
[2022-08-17] MEDS: cloNIDine HCL 0.1 MG TABLET PO PRN (21:45)
[2022-08-18] MEDS ORDERED: BUPRENORPHINE/NALOXONE 8 MG/2 MG FILM PACKET SL ONE (06:00)
[2022-08-18] MEDS: METHOCARBAMOL 500 MG TABLET PO PRN (07:33)
[2022-08-18] MEDS: hydrOXYzine PAMOATE 25 MG CAPSULE (FP) PO PRN (07:33)
[2022-08-18] MEDS: DICYCLOMINE HCL 10 MG CAPSULE PO PRN (07:33)
[2022-08-18 09:22] VITALS: TEMP 97.8
[2022-08-18] MEDS: SERTRALINE HCL 50 MG TABLET (FP) PO SCH (10:05)
[2022-08-18] MEDS: risperiDONE 1 MG TABLET PO SCH (10:05)
[2022-08-18] MEDS: BUDESONIDE/FORMETEROL FUMARATE 80/4.5 mcg INHALER IH SCH (10:05)
[2022-08-18] MEDS: PRENATAL VITAMINS W/ FOLIC ACID TABLET (FP) PO SCH (10:05)
[2022-08-18 13:14] VITALS: BP 116/69; PULSE 82
[2022-08-18] MEDS: MAG HYDROX/AL HYDROX/SIMETH 30 ML UNIT-DOSE CUP PO PRN (14:36)
== END 2022-08-18 15:25 | disposition other institution (70) | DRG 773 ==
LOC: YASAS 12:42 → Y3N 15:51
PROVIDERS: ADMIT Allergy & Immunology; ATTEND Surgery
PROC: HZ2ZZZZ Detoxification Services for Substance Abuse Treatment (ICD-10-PCS; principal; 2022-08-14)
DX: F11.23 Opioid dependence with withdrawal (principal); F14.20 Cocaine dependence, uncomplicated; F12.20 Cannabis dependence, uncomplicated; F17.210 Nicotine dependence, cigarettes, uncomplicated; F31.9 Bipolar disorder, unspecified; F19.24 Other psychoactive substance dependence with psychoactive substance-induced mood disorder; I10 Essential (primary) hypertension; J44.9 Chronic obstructive pulmonary disease, unspecified; K21.9 Gastro-esophageal reflux disease without esophagitis; F19.282 Other psychoactive substance dependence with psychoactive substance-induced sleep disorder; E11.9 Type 2 diabetes mellitus without complications; Z56.0 Unemployment, unspecified; Z59.00 Homelessness unspecified
CPT/HCPCS: 36415; 80053; 85027; 86780; C9803-CS; J2794; U0003; U0005

== ENCOUNTER 2022-08-18 15:31 | Inpatient (IN) | payer OTHER ==
[2022-08-18] MEDS ORDERED: guaiFENesin 200 MG/10 ML 10 ML UNIT-DOSE CUPS PO PRN (21:31)
[2022-08-18] MEDS ORDERED: IBUPROFEN 400 MG TABLET (FP) PO PRN (21:31)
[2022-08-18] MEDS ORDERED: P-EPHED 60MG/TRIPROLIDI 2.5MG TABLET PO PRN (21:31)
[2022-08-18] MEDS ORDERED: ACETAMINOPHEN 325 MG TABLET (FP) PO PRN (21:31)
[2022-08-18] MEDS ORDERED: MAG HYDROX/AL HYDROX/SIMETH 30 ML UNIT-DOSE CUP PO PRN (21:31)
[2022-08-18] MEDS ORDERED: MAGNESIUM HYDROX 2400MG/30ML ORAL SUSPENSION 30 ML CUP PO PRN (21:31)
[2022-08-18] MEDS ORDERED: BENZOCAINE/MENTHOL (CHLORASEPTIC ) LOZENGE MM PRN (21:31)
[2022-08-18] MEDS ORDERED: LOPERAMIDE HCL 2 MG CAPSULE PO PRN (21:31)
[2022-08-18] MEDS ORDERED: POLYETHYLENE GLYCOL (HEALTHYLAX) 3350 17 GM PACKET PO PRN (21:31)
[2022-08-18] MEDS: MELATONIN 5 MG TABLETS PO SCH (21:59)
[2022-08-18] MEDS: NICOTINE 10 MG CARTRIDGE (INHALER) IH PRN (21:59)
[2022-08-18] MEDS: THIAMINE HCL 100 MG TABLET (FP) PO SCH (22:00)
[2022-08-19] MEDS ORDERED: BUPRENORPHINE/NALOXONE 8 MG/2 MG FILM PACKET SL ONE (09:15)
[2022-08-19] MEDS: NICOTINE 14 MG/24 HOURS TOPICAL PATCH TD SCH (09:46)
[2022-08-19] MEDS: PRENATAL VITAMINS W/ FOLIC ACID TABLET (FP) PO SCH (09:46)
[2022-08-19] MEDS ORDERED: risperiDONE 1 MG TABLET PO ONE (11:12)
[2022-08-19] MEDS ORDERED: SERTRALINE HCL 50 MG TABLET (FP) PO ONE (11:12)
[2022-08-19] MEDS: BUPRENORPHINE/NALOXONE 8 MG/2 MG FILM PACKET SL SCH ×2 (14:42→21:51)
[2022-08-19] MEDS: risperiDONE 1 MG TABLET PO SCH (21:51)
[2022-08-19] MEDS: THIAMINE HCL 100 MG TABLET (FP) PO SCH (21:51)
[2022-08-19] MEDS: MELATONIN 5 MG TABLETS PO SCH (21:51)
[2022-08-20] MEDS: BUPRENORPHINE/NALOXONE 8 MG/2 MG FILM PACKET SL SCH ×3 (06:26→21:54)
[2022-08-20] MEDS: PRENATAL VITAMINS W/ FOLIC ACID TABLET (FP) PO SCH (09:55)
[2022-08-20] MEDS: risperiDONE 1 MG TABLET PO SCH ×2 (09:55→21:54)
[2022-08-20] MEDS: NICOTINE 14 MG/24 HOURS TOPICAL PATCH TD SCH (09:55)
[2022-08-20] MEDS: SERTRALINE HCL 50 MG TABLET (FP) PO SCH (09:56)
[2022-08-20] MEDS: NICOTINE 10 MG CARTRIDGE (INHALER) IH PRN (09:56)
[2022-08-20] MEDS ORDERED: NICOTINE 14 MG/24 HOURS TOPICAL PATCH TD PRN (13:56)
[2022-08-20] MEDS: MELATONIN 5 MG TABLETS PO SCH (21:54)
[2022-08-20] MEDS: THIAMINE HCL 100 MG TABLET (FP) PO SCH (21:55)
[2022-08-21] MEDS: BUPRENORPHINE/NALOXONE 8 MG/2 MG FILM PACKET SL SCH (06:23)
[2022-08-21 07:39] VITALS: BP 105/62; PULSE 58; RESP 18; TEMP 97.5
[2022-08-21] MEDS: risperiDONE 1 MG TABLET PO SCH (09:59)
[2022-08-21] MEDS: SERTRALINE HCL 50 MG TABLET (FP) PO SCH (09:59)
[2022-08-21] MEDS: PRENATAL VITAMINS W/ FOLIC ACID TABLET (FP) PO SCH (09:59)
[2022-08-21] MEDS: NICOTINE 10 MG CARTRIDGE (INHALER) IH PRN (10:10)
== END 2022-08-21 14:10 | disposition home or self-care (01) | DRG 772 ==
LOC: YASAS 15:31 → Y3E 15:33
PROVIDERS: ADMIT Allergy & Immunology; ATTEND Psychiatry & Neurology Pain Medicine
PROC: HZ42ZZZ Group Counseling for Substance Abuse Treatment, Cognitive-Behavioral (ICD-10-PCS; principal; 2022-08-18)
DX: F10.20 Alcohol dependence, uncomplicated (principal); F14.20 Cocaine dependence, uncomplicated; F12.20 Cannabis dependence, uncomplicated; F17.210 Nicotine dependence, cigarettes, uncomplicated; F41.9 Anxiety disorder, unspecified; F32.A Depression, unspecified; I10 Essential (primary) hypertension; J45.909 Unspecified asthma, uncomplicated; Z91.013 Allergy to seafood; Z91.010 Allergy to peanuts
CPT/HCPCS: J2794

== ENCOUNTER 2022-10-18 16:59 | Inpatient (IN) | payer OTHER ==
[2022-10-18 20:23] VITALS: BMI 29.8
[2022-10-18] MEDS ORDERED: IBUPROFEN 400 MG TABLET (FP) PO PRN (20:58)
[2022-10-18] MEDS ORDERED: METHOCARBAMOL 500 MG TABLET PO PRN (20:58)
[2022-10-18] MEDS ORDERED: DICYCLOMINE HCL 10 MG CAPSULE PO PRN (20:58)
[2022-10-18] MEDS ORDERED: NALOXONE HCL 0.4 MG/ML VIAL IM PRN (20:58)
[2022-10-18] MEDS ORDERED: BENZONATATE 200 MG CAPSULE PO PRN (20:58)
[2022-10-18] MEDS ORDERED: LOPERAMIDE HCL 2 MG CAPSULE PO PRN (20:58)
[2022-10-18] MEDS ORDERED: MAG HYDROX/AL HYDROX/SIMETH 30 ML UNIT-DOSE CUP PO PRN (20:58)
[2022-10-18] MEDS ORDERED: ACETAMINOPHEN 325 MG TABLET (FP) PO PRN (20:58)
[2022-10-18] MEDS ORDERED: guaiFENesin 600 MG TABLET.ER (FP) PO PRN (20:58)
[2022-10-18] MEDS ORDERED: IBUPROFEN 600 MG TABLET (FP) PO PRN (20:58)
[2022-10-18] MEDS ORDERED: MAGNESIUM HYDROX 2400MG/30ML ORAL SUSPENSION 30 ML CUP PO PRN (20:58)
[2022-10-18] MEDS ORDERED: NALOXONE HCL (KLOXXADO) 8 MG SPRAY NS PRN (20:58)
[2022-10-18] MEDS ORDERED: POLYETHYLENE GLYCOL (HEALTHYLAX) 3350 17 GM PACKET PO PRN (20:58)
[2022-10-18] MEDS ORDERED: BISMUTH SUBSALICYLATE 524 MG/30 ML PO PRN (20:58)
[2022-10-18] MEDS ORDERED: ONDANSETRON *ODT* 4 MG TABLET SL PRN (20:58)
[2022-10-18] MEDS ORDERED: BENZOCAINE/MENTHOL (CHLORASEPTIC ) LOZENGE MM PRN (20:58)
[2022-10-18] MEDS ORDERED: NICOTINE 10 MG CARTRIDGE (INHALER) IH PRN (21:16)
[2022-10-19] MEDS: THIAMINE HCL 100 MG TABLET (FP) PO SCH ×2 (01:47→21:33)
[2022-10-19] MEDS: MELATONIN 5 MG TABLETS PO SCH ×2 (01:49→21:33)
[2022-10-19] MEDS: INSULIN SLIDING SCALE (NOVOLOG) 1 VIAL SQ SCH ×2 (06:49→18:16)
[2022-10-19] MEDS: PRENATAL VITAMINS W/ FOLIC ACID TABLET (FP) PO SCH (10:22)
[2022-10-19] MEDS: NICOTINE 14 MG/24 HOURS TOPICAL PATCH TD SCH (10:22)
[2022-10-19 10:40] LABS: HEMATOCRIT 43.7 % (35.4-49); HEMOGLOBIN 14.5 GM/dL (11.7-16.9); MCH 31.3 pg (25.7-33.7); MCHC 33.1 g/dl (32.0-35.9); MEAN CELL VOLUME 94.4 fl (80-96); MEAN PLT VOLUME 8.5 fl (7.5-11.1); PLATELET COUNT 314 10^3/uL (134-434); RBC 4.62 M/mm3 (4.00-5.60); RDW 13.7 % (11.9-15.9); WHITE BLOOD COUNT 9.7 K/mm3 (4.0-10.0)
[2022-10-19 11:11] LABS: CALCIUM 8.4 mg/dL (8.5-10.1)
[2022-10-19 11:12] LABS: ALBUMIN 3.6 g/dl (3.4-5.0); BLOOD UREA NITROGEN 21.9 mg/dL (7-18)
[2022-10-19 11:15] LABS: CREATININE 0.9 mg/dL (0.55-1.3)
[2022-10-19 11:16] LABS: TOT PROT 6.8 g/dl (6.4-8.2)
[2022-10-19 11:17] LABS: BILIRUBIN,TOTAL 0.6 mg/dL (0.2-1)
[2022-10-20] MEDS: INSULIN SLIDING SCALE (NOVOLOG) 1 VIAL SQ SCH ×2 (06:37→16:37)
[2022-10-20] MEDS: PRENATAL VITAMINS W/ FOLIC ACID TABLET (FP) PO SCH (10:08)
[2022-10-20] MEDS: NICOTINE 14 MG/24 HOURS TOPICAL PATCH TD SCH (10:08)
[2022-10-20] MEDS: NICOTINE 10 MG CARTRIDGE (INHALER) IH PRN ×2 (10:09→17:42)
[2022-10-20] MEDS: BUPRENORPHINE/NALOXONE 8 MG/2 MG FILM PACKET SL SCH ×2 (15:18→21:04)
[2022-10-20] MEDS: MELATONIN 5 MG TABLETS PO SCH (21:03)
[2022-10-20] MEDS: THIAMINE HCL 100 MG TABLET (FP) PO SCH (21:03)
[2022-10-21] MEDS: INSULIN SLIDING SCALE (NOVOLOG) 1 VIAL SQ SCH ×2 (06:19→16:30)
[2022-10-21] MEDS: BUPRENORPHINE/NALOXONE 8 MG/2 MG FILM PACKET SL SCH ×3 (06:19→21:06)
[2022-10-21] MEDS: PRENATAL VITAMINS W/ FOLIC ACID TABLET (FP) PO SCH (10:28)
[2022-10-21] MEDS: NICOTINE 14 MG/24 HOURS TOPICAL PATCH TD SCH (10:28)
[2022-10-21] MEDS ORDERED: NICOTINE POLACRILEX 2 MG GUM BUC PRN (11:54)
[2022-10-21] MEDS: NICOTINE 10 MG CARTRIDGE (INHALER) IH PRN (15:52)
[2022-10-21] MEDS: MELATONIN 5 MG TABLETS PO SCH (21:06)
[2022-10-21] MEDS: THIAMINE HCL 100 MG TABLET (FP) PO SCH (21:06)
[2022-10-22] MEDS: INSULIN SLIDING SCALE (NOVOLOG) 1 VIAL SQ SCH ×2 (06:11→16:39)
[2022-10-22] MEDS: BUPRENORPHINE/NALOXONE 8 MG/2 MG FILM PACKET SL SCH ×3 (06:11→21:47)
[2022-10-22] MEDS: PRENATAL VITAMINS W/ FOLIC ACID TABLET (FP) PO SCH (09:40)
[2022-10-22] MEDS: NICOTINE 14 MG/24 HOURS TOPICAL PATCH TD SCH (09:40)
[2022-10-22] MEDS: NICOTINE 10 MG CARTRIDGE (INHALER) IH PRN (17:01)
[2022-10-22] MEDS: MELATONIN 5 MG TABLETS PO SCH (21:46)
[2022-10-22] MEDS: THIAMINE HCL 100 MG TABLET (FP) PO SCH (21:46)
[2022-10-23] MEDS: BUPRENORPHINE/NALOXONE 8 MG/2 MG FILM PACKET SL SCH ×3 (05:59→21:10)
[2022-10-23] MEDS: INSULIN SLIDING SCALE (NOVOLOG) 1 VIAL SQ SCH ×2 (06:01→16:36)
[2022-10-23] MEDS: PRENATAL VITAMINS W/ FOLIC ACID TABLET (FP) PO SCH (10:32)
[2022-10-23] MEDS: NICOTINE 14 MG/24 HOURS TOPICAL PATCH TD SCH (10:32)
[2022-10-23] MEDS ORDERED: ALBUTEROL SO4 HFA INHALER IH PRN (16:38)
[2022-10-23] MEDS ORDERED: NALOXONE (NARCAN) HCL 4 MG/0.1 ML SPRAY NS PRN (16:38)
[2022-10-23] MEDS: MELATONIN 5 MG TABLETS PO SCH (21:09)
[2022-10-23] MEDS: THIAMINE HCL 100 MG TABLET (FP) PO SCH (21:09)
[2022-10-23] MEDS: BUDESONIDE/FORMETEROL FUMARATE 80/4.5 mcg INHALER IH SCH (21:10)
[2022-10-24] MEDS: BUPRENORPHINE/NALOXONE 8 MG/2 MG FILM PACKET SL SCH ×3 (06:03→21:39)
[2022-10-24] MEDS: INSULIN SLIDING SCALE (NOVOLOG) 1 VIAL SQ SCH ×2 (06:03→16:26)
[2022-10-24] MEDS: PRENATAL VITAMINS W/ FOLIC ACID TABLET (FP) PO SCH (09:51)
[2022-10-24] MEDS: BUDESONIDE/FORMETEROL FUMARATE 80/4.5 mcg INHALER IH SCH ×2 (09:51→21:41)
[2022-10-24] MEDS: NICOTINE 14 MG/24 HOURS TOPICAL PATCH TD SCH (09:51)
[2022-10-24] MEDS: THIAMINE HCL 100 MG TABLET (FP) PO SCH (21:39)
[2022-10-24] MEDS: MELATONIN 5 MG TABLETS PO SCH (21:39)
[2022-10-24] MEDS: risperiDONE 1 MG TABLET PO SCH (21:40)
[2022-10-25] MEDS: BUPRENORPHINE/NALOXONE 8 MG/2 MG FILM PACKET SL SCH ×3 (06:16→21:07)
[2022-10-25] MEDS: INSULIN SLIDING SCALE (NOVOLOG) 1 VIAL SQ SCH ×2 (06:19→16:39)
[2022-10-25] MEDS: PRENATAL VITAMINS W/ FOLIC ACID TABLET (FP) PO SCH (09:52)
[2022-10-25] MEDS: NICOTINE 14 MG/24 HOURS TOPICAL PATCH TD SCH (09:52)
[2022-10-25] MEDS: BUDESONIDE/FORMETEROL FUMARATE 80/4.5 mcg INHALER IH SCH ×2 (09:52→21:07)
[2022-10-25] MEDS: SERTRALINE HCL 50 MG TABLET (FP) PO SCH (09:52)
[2022-10-25] MEDS: risperiDONE 1 MG TABLET PO SCH ×2 (09:52→21:06)
[2022-10-25] MEDS: THIAMINE HCL 100 MG TABLET (FP) PO SCH (21:06)
[2022-10-25] MEDS: MELATONIN 5 MG TABLETS PO SCH (21:06)
[2022-10-26] MEDS: BUPRENORPHINE/NALOXONE 8 MG/2 MG FILM PACKET SL SCH ×2 (06:38→13:12)
[2022-10-26] MEDS: INSULIN SLIDING SCALE (NOVOLOG) 1 VIAL SQ SCH ×2 (06:40→17:06)
[2022-10-26 08:57] VITALS: RESP 18
[2022-10-26] MEDS: SERTRALINE HCL 50 MG TABLET (FP) PO SCH (09:34)
[2022-10-26] MEDS: BUDESONIDE/FORMETEROL FUMARATE 80/4.5 mcg INHALER IH SCH (09:34)
[2022-10-26] MEDS: PRENATAL VITAMINS W/ FOLIC ACID TABLET (FP) PO SCH (09:34)
[2022-10-26] MEDS: NICOTINE 14 MG/24 HOURS TOPICAL PATCH TD SCH (09:35)
[2022-10-26] MEDS: risperiDONE 1 MG TABLET PO SCH (09:35)
[2022-10-26 17:26] VITALS: BP 124/68; PULSE 74; TEMP 97.8
== END 2022-10-26 17:57 | disposition left against medical advice (07) | DRG 770 ==
LOC: YASAS 16:59 → Y3N 21:48 → Y3W 10-19 00:54
PROVIDERS: ADMIT Allergy & Immunology; ATTEND Surgery
PROC: HZ42ZZZ Group Counseling for Substance Abuse Treatment, Cognitive-Behavioral (ICD-10-PCS; principal; 2022-10-18)
DX: F11.20 Opioid dependence, uncomplicated (principal); F14.20 Cocaine dependence, uncomplicated; F10.20 Alcohol dependence, uncomplicated; F17.210 Nicotine dependence, cigarettes, uncomplicated; F31.9 Bipolar disorder, unspecified; F41.8 Other specified anxiety disorders; I10 Essential (primary) hypertension; E11.9 Type 2 diabetes mellitus without complications; J45.20 Mild intermittent asthma, uncomplicated; J44.9 Chronic obstructive pulmonary disease, unspecified; Z62.810 Personal history of physical and sexual abuse in childhood; F91.8 Other conduct disorders; Z91.199 Patient's noncompliance with other medical treatment and regimen due to unspecified reason
CPT/HCPCS: 36415; 80053; 82962; 85027; 86780; 87811; C9803-CS; U0003; U0005

== ENCOUNTER 2023-05-22 17:40 | Inpatient (IN) | payer OTHER ==
[2023-05-22 18:30] VITALS: BMI 29.7
[2023-05-22] MEDS ORDERED: ONDANSETRON *ODT* 4 MG TABLET SL PRN (19:25)
[2023-05-22] MEDS ORDERED: LOPERAMIDE HCL 2 MG CAPSULE PO PRN (19:25)
[2023-05-22] MEDS ORDERED: guaiFENesin 600 MG TABLET.ER (FP) PO PRN (19:25)
[2023-05-22] MEDS ORDERED: BENZONATATE 200 MG CAPSULE PO PRN (19:25)
[2023-05-22] MEDS ORDERED: IBUPROFEN 400 MG TABLET (FP) PO PRN (19:25)
[2023-05-22] MEDS ORDERED: MAG HYDROX/AL HYDROX/SIMETH 30 ML UNIT-DOSE CUP PO PRN (19:25)
[2023-05-22] MEDS ORDERED: NALOXONE HCL (KLOXXADO) 8 MG SPRAY NS PRN (19:25)
[2023-05-22] MEDS ORDERED: DICYCLOMINE HCL 10 MG CAPSULE PO PRN (19:25)
[2023-05-22] MEDS ORDERED: METHOCARBAMOL 500 MG TABLET PO PRN (19:25)
[2023-05-22] MEDS ORDERED: POLYETHYLENE GLYCOL (HEALTHYLAX) 3350 17 GM PACKET PO PRN (19:25)
[2023-05-22] MEDS ORDERED: BISMUTH SUBSALICYLATE 524 MG/30 ML PO PRN (19:25)
[2023-05-22] MEDS ORDERED: NALOXONE HCL 0.4 MG/ML VIAL IM PRN (19:25)
[2023-05-22] MEDS ORDERED: IBUPROFEN 600 MG TABLET (FP) PO PRN (19:25)
[2023-05-22] MEDS ORDERED: ACETAMINOPHEN 325 MG TABLET (FP) PO PRN (19:25)
[2023-05-22] MEDS ORDERED: BENZOCAINE/MENTHOL (CHLORASEPTIC ) LOZENGE MM PRN (19:25)
[2023-05-22] MEDS ORDERED: MAGNESIUM HYDROX 2400MG/30ML ORAL SUSPENSION 30 ML CUP PO PRN (19:25)
[2023-05-22] MEDS ORDERED: hydrOXYzine PAMOATE 25 MG CAPSULE (FP) PO PRN (19:25)
[2023-05-22] MEDS ORDERED: ALBUTEROL SO4 HFA INHALER IH PRN (19:27)
[2023-05-22] MEDS: BUDESONIDE/FORMETEROL FUMARATE 80/4.5 mcg INHALER IH SCH (22:13)
[2023-05-22] MEDS: MELATONIN 5 MG TABLETS PO SCH (22:13)
[2023-05-22] MEDS: THIAMINE HCL 100 MG TABLET (FP) PO SCH (22:13)
[2023-05-23] MEDS ORDERED: chlordiazePOXIDE HCL 25 MG CAPSULE PO PRN (10:28)
[2023-05-23] MEDS: PRENATAL VITAMINS W/ FOLIC ACID TABLET (FP) PO SCH (10:29)
[2023-05-23] MEDS: HYDROCHLOROTHIAZIDE 25 MG TABLET (FP) PO SCH (10:30)
[2023-05-23] MEDS: LISINOPRIL 5 MG TABLET PO SCH (10:30)
[2023-05-23] MEDS: BUDESONIDE/FORMETEROL FUMARATE 80/4.5 mcg INHALER IH SCH ×2 (10:30→22:12)
[2023-05-23] MEDS: chlordiazePOXIDE HCL 25 MG CAPSULE PO SCH ×3 (10:45→22:13)
[2023-05-23 12:01] LABS: CHLORIDE 105 mmol/L (98-107); POTASSIUM 3.6 mmol/L (3.5-5.1); SODIUM 137 mmol/L (136-145)
[2023-05-23 12:04] LABS: CALCIUM 7.8 mg/dL (8.5-10.1); GLUCOSE,RANDOM 106 mg/dL (74-106)
[2023-05-23 12:05] LABS: ALBUMIN 3.3 g/dl (3.4-5.0); ANION GAP 3 mmol/L (4-13); CO2 30 mmol/L (21-32)
[2023-05-23 12:06] LABS: HEMATOCRIT 37.8 % (35.4-49); HEMOGLOBIN 13.2 GM/dL (11.7-16.9); MCH 32.9 pg (25.7-33.7); MEAN CELL VOLUME 94.1 fl (80-96); MEAN PLT VOLUME 8.5 fl (7.5-11.1); PLATELET COUNT 274 10^3/uL (134-434); RBC 4.02 M/mm3 (4.00-5.60); RDW 13.6 % (11.9-15.9); WHITE BLOOD COUNT 9.6 K/mm3 (4.0-10.0)
[2023-05-23 12:07] LABS: SGPT/ALT 18 U/L (13-61)
[2023-05-23 12:08] LABS: CREATININE 0.8 mg/dL (0.55-1.3); SGOT/AST 13 U/L (15-37)
[2023-05-23 12:09] LABS: BILIRUBIN,TOTAL 0.5 mg/dL (0.2-1); TOT PROT 6.3 g/dl (6.4-8.2)
[2023-05-23 12:10] LABS: ALK PHOS 66 U/L (45-117)
[2023-05-23] MEDS: MELATONIN 5 MG TABLETS PO SCH (22:12)
[2023-05-23] MEDS: THIAMINE HCL 100 MG TABLET (FP) PO SCH (22:12)
[2023-05-23] MEDS: DIVALPROEX SODIUM 500 MG TABLET E.C. PO SCH (22:12)
[2023-05-24] MEDS: chlordiazePOXIDE HCL 25 MG CAPSULE PO SCH ×4 (05:40→22:25)
[2023-05-24] MEDS: LISINOPRIL 5 MG TABLET PO SCH (10:18)
[2023-05-24] MEDS: PRENATAL VITAMINS W/ FOLIC ACID TABLET (FP) PO SCH (10:18)
[2023-05-24] MEDS: HYDROCHLOROTHIAZIDE 25 MG TABLET (FP) PO SCH (10:18)
[2023-05-24] MEDS: DIVALPROEX SODIUM 500 MG TABLET E.C. PO SCH ×2 (10:19→22:25)
[2023-05-24] MEDS: ARIPiprazole 5 MG TABLET PO SCH (10:19)
[2023-05-24] MEDS: BUDESONIDE/FORMETEROL FUMARATE 80/4.5 mcg INHALER IH SCH ×2 (10:20→22:25)
[2023-05-24] MEDS: THIAMINE HCL 100 MG TABLET (FP) PO SCH (22:25)
[2023-05-24] MEDS: MELATONIN 5 MG TABLETS PO SCH (22:25)
[2023-05-25] MEDS: chlordiazePOXIDE HCL 25 MG CAPSULE PO SCH ×2 (05:30→10:18)
[2023-05-25] MEDS ORDERED: SERTRALINE HCL 50 MG TABLET (FP) PO SCH (10:00)
[2023-05-25] MEDS: HYDROCHLOROTHIAZIDE 25 MG TABLET (FP) PO SCH (10:18)
[2023-05-25] MEDS: ARIPiprazole 5 MG TABLET PO SCH (10:18)
[2023-05-25] MEDS: DIVALPROEX SODIUM 500 MG TABLET E.C. PO SCH (10:18)
[2023-05-25] MEDS: LISINOPRIL 5 MG TABLET PO SCH (10:18)
[2023-05-25] MEDS: BUDESONIDE/FORMETEROL FUMARATE 80/4.5 mcg INHALER IH SCH (10:18)
[2023-05-25] MEDS: PRENATAL VITAMINS W/ FOLIC ACID TABLET (FP) PO SCH (10:19)
[2023-05-25 18:01] VITALS: BP 143/89; PULSE 86; RESP 16; TEMP 97.8
[2023-05-26] MEDS ORDERED: chlordiazePOXIDE HCL 10 MG CAPSULE PO PRN
[2023-05-26] MEDS ORDERED: chlordiazePOXIDE HCL 10 MG CAPSULE PO SCH (05:00)
[2023-05-27] MEDS ORDERED: chlordiazePOXIDE HCL 10 MG CAPSULE PO SCH (05:00)
[2023-05-28] MEDS ORDERED: chlordiazePOXIDE HCL 10 MG CAPSULE PO ONE (05:00)
== END 2023-05-25 17:37 | disposition left against medical advice (07) | DRG 770 ==
LOC: YASAS 17:40 → Y3N 19:37
PROVIDERS: ADMIT Allergy & Immunology; ATTEND Surgery
PROC: HZ2ZZZZ Detoxification Services for Substance Abuse Treatment (ICD-10-PCS; principal; 2023-05-22)
DX: F10.230 Alcohol dependence with withdrawal, uncomplicated (principal); F14.20 Cocaine dependence, uncomplicated; F11.90 Opioid use, unspecified, uncomplicated; F12.20 Cannabis dependence, uncomplicated; F17.210 Nicotine dependence, cigarettes, uncomplicated; F19.282 Other psychoactive substance dependence with psychoactive substance-induced sleep disorder; F19.24 Other psychoactive substance dependence with psychoactive substance-induced mood disorder; F31.9 Bipolar disorder, unspecified; F90.9 Attention-deficit hyperactivity disorder, unspecified type; I10 Essential (primary) hypertension; J45.909 Unspecified asthma, uncomplicated; E11.9 Type 2 diabetes mellitus without complications; Z59.00 Homelessness unspecified
CPT/HCPCS: 36415; 80053; 80164; 80307; 85027; 86780; 87635